=== PATIENT | male | born 1940 | race Caucasian/White ===

== ENCOUNTER 2016-08-06 13:44 | Outpatient (RCR) | payer MEDICARE, OTHER ==
[~2016-08-06 13:44] MED LIST: ACET-2267 PO; ACHYD1T PO; ASCO-262 PO; ASPI-875 PO; ASPI325T32 PO; FERR-57 PO; HYDR-2890 PO; HYDR-3820 PO; IPRA3AMP INH; LEVO250T7 PO; LOSA1TAB3 PO; METO-272 PO; MULT-1029 PO; MULT-974 PO; NEBU-113 MC; NITR-33 PO; OMG1KC PO; OXYC-465 PO; PANT40TA3 PO; PIOG15TA22 PO; PIOG15TA9 PO; PIOG1TAB PO; PIOGLITAZONE PO; PNT40TEC PO; POLY17PO23 PO; PRAV40TA PO; PRAV40TA2 PO; PRAV80TA2 PO; SENN-20 PO; SILD100T PO; SITA50TA PO
== END 2016-08-09 | disposition home or self-care (01) ==
PROVIDERS: ATTEND Family Medicine
DX: M51.36 Other intervertebral disc degeneration, lumbar region (principal)

== ENCOUNTER 2017-03-26 10:10 | Emergency (ER) | payer MEDICARE, OTHER ==
[~2017-03-26] VITALS: Ht 167.6 cm; Wt 81.6 kg
[~2017-03-26 10:10] MED LIST changes: -METO-272 PO; +METO-370 PO
[2017-03-26] MEDS ORDERED: TETANUS,DIPTH,PERTUSS P/F (BOOSTRIX) 0.5 ML VIAL IM STA (10:20)
--- NOTE | 2017-03-26 11:44 | Diagnostic Imaging Report ---
Clinical indication: Patient fell down hitting back of head while stepping off a curb. Exam: Head CT without IV contrast. Axial CT scan of the cervical spine with sagittal and coronal reformations. Comparison: None. Findings: Head CT: There is a small hyperdense subdural blood along the left convexity in the left frontal temporal region. There is no other areas of intracranial hemorrhage. There is focal and patchy areas of low-attenuation white matter changes throughout both cerebral hemispheres suspected to represent chronic small vessel ischemic disease. The brain parenchymal volume appears appropriate for patient's age. There is no hydrocephalus. There is no intraventricular hemorrhage. The basal cisterns are unremarkable. Extra cranial soft tissue, skull, and orbits are unremarkable. There is moderate mucus retention cyst in the left maxillary sinus. Temporal bone structures show no significant abnormality. Cervical spine: There is no acute cervical spine fracture or dislocation. Cervical spine has normal alignment. There is hypertrophic anterior vertebral body spurs at the C4-C7 levels which may be seen with DISH. It appears that these spurs may cause encroachment upon the posterior hypopharynx. There is bilateral facet arthropathy. There is at least moderate left C3-C4 bony neural foramen narrowing. There is suggestion of a diffuse disc bulges at the C2-C3, C3-C4, and C4-C5 levels with at least mild to moderate central canal narrowing. There is a large periodontal pannus with areas of calcification seen which cause severe central canal narrowing. 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 Impression: 1: There is small hyperdense left subdural hematoma. 2: Otherwise, there are age-related brain parenchymal changes with no other acute intracranial process. There is no skull fracture. 3: There is no acute cervical spine fracture or dislocation. 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 5: Hypertrophic vertebral body spurs seen from the C4-C7 levels which may be seen with DISH. These spurs may also possibly cause impression upon the posterior hypopharynx. Impression points 1,2 and [address] Darlene Jiménez via the telephone on 03/26/2017 at 1135 hrs. Dictated by: Dictated on workstation # [id number]
[2017-03-26 11:56] LABS: BASOPHILS # (AUTO) 0.1 10^3/uL (0.0-0.1); BASOPHILS % (AUTO) 1 % (0-10); EOSINOPHILS # (AUTO) 1.6 10^3/uL (0.0-0.3); EOSINOPHILS % (AUTO) 15 % (0-10); LYMPHOCYTES # (AUTO) 2.9 X 10^3 (1.0-4.0); LYMPHOCYTES % (AUTO) 27 % (12-44); MEAN CORPUSCULAR HEMOGLOBIN 30 PG (25-34); MEAN CORPUSCULAR HGB CONC 33 G/DL (32-36); MEAN CORPUSCULAR VOLUME 92 FL (80-99); MEAN PLATELET VOLUME 11.7 FL (7.4-10.4); MONOCYTES # (AUTO) 0.9 X 10^3 (0.0-1.0); MONOCYTES % (AUTO) 9 % (0-12); NEUTROPHILS # (AUTO) 5.2 X 10^3 (1.8-7.8); NEUTROPHILS % (AUTO) 49 % (42-75); PLATELET COUNT 212 10^3/uL (130-400); RED BLOOD COUNT 5.44 10^6/uL (4.35-5.85); RED CELL DISTRIBUTION WIDTH 14.2 % (10.0-14.5); WHITE BLOOD COUNT 10.7 10^3/uL (4.3-11.0)
[2017-03-26 12:00] LABS: INR 1.1 (0.8-1.4)
[2017-03-26 12:17] LABS: BAND NEUTROPHILS 0 %; BASOPHILS % (MANUAL) 0 %; EOSINOPHILS % (MANUAL) 21 %; LYMPHOCYTES % (MANUAL) 20 %; NEUTROPHILS % (MANUAL) 51 %
[2017-03-26 12:23] LABS: ALBUMIN 3.8 GM/DL (3.2-4.5); BILIRUBIN,TOTAL 0.6 MG/DL (0.1-1.0); CALCIUM 9.4 MG/DL (8.5-10.1); CREATININE SERUM 1.42 MG/DL (0.60-1.30); POTASSIUM 4.3 MMOL/L (3.6-5.0); TOTAL PROTEIN 6.8 GM/DL (6.4-8.2)
[2017-03-26 12:28] VITALS: BP 136/72
--- NOTE | 2017-03-30 18:37 | ED Fall/Injury ---
General Chief Complaint: Trauma-Non Activation Stated Complaint: FALL Nursing Triage Note: SEE NON-TRAUMA ACTIVATION Source: patient, EMS History of Present Illness Time seen by provider: 10:09 Initial Comments PT ARRIVES VIA EMS PT STATES HE WAS WALKING OUT OF [employer], AND STEPPED DOWN FROM CURB AND HIS KNEE GAVE OUT AND HE FELL PT STATES HE HAS BAD KNEES AND HAS HAD RIGHT TOTAL KNEE REPLACEMENT AND LEFT KNEE IS BAD AND NEEDS REPLACED AND FREQUENTLY HIS KNEES GIVE OUT PT STATES HE FELL AND HIT THE BACK OF HIS HEAD--HAS ABRASION TO RIGHT POSTERIOR SCALP NO LOSS OF CONSCIOUSNESS NO NECK OR BACK PAIN NO PARESTHESIAS OR MOTOR DEFICITS NO HEADACHE NO DIZZINESS NO VISION CHANGES NO NAUSEA/VOMITING Location Injury Occurred: [place] PCP: DR. KUO IN [place] Allergies and Home Medications Allergies Coded Allergies: No Known Drug Allergies (Unverified , 03/21/13) Home Medications Acetaminophen 500 Mg Tablet, 500-1,000 MG PO Q6H PRN for PAIN, (Reported) Aspirin 325 Mg Tablet., 325 MG PO BID, #60 Prescribed by: ANNE FLORES on 09/27/15 0729 Hydrocodone/Acetaminophen 1 Each Tablet, 1 EACH PO Q4H, #60 Prescribed by: ARSH FAIRBANKS on 10/05/15 1336 Ipratropium/Albuterol Sulfate 3 Ml Ampul.neb, 3 ML INH RTQ4HR, #150 Prescribed by: ARSH FAIRBANKS on 10/05/15 1336 Metoprolol Succinate 50 Mg Tab.er.24h, 50 MG PO DAILY, (Reported) LAST FILLED #30 12-30-15 Mu-Vits-Min Th/Lycopene/Lutein 1 Each Tablet, 1 TAB PO DAILY, (Reported) Pantoprazole Sodium 40 Mg Tablet.dr, 40 MG PO DAILY, (Reported) LAST FILLED #30 12-30-15 Pioglitazone HCl 15 Mg Tablet, 15 MG PO DAILY, (Reported) Polyethylene Glycol 3350 17 Gm Powd.pack, 17 GM PO HS, #30 Prescribed by: ARSH FAIRBANKS on 10/05/15 1336 Pravastatin Sodium 40 Mg Tablet, 40 MG PO HS, (Reported) LAST FILLED #30 12-30-15 Sennosides/Docusate Sodium 1 Each Tablet, 1 EA PO BID, #60 Prescribed by: ANNE FLORES on 09/27/15 0729 Sitagliptin Phosphate 50 Mg Tablet, 50 MG PO DAILY, (Reported) Constitutional: no symptoms reported Eyes: No Symptoms Reported Ears, Nose, Mouth, Throat: no symptoms reported Respiratory: cough, other (HAS COPD AND CONTINUES TO SMOKE) Cardiovascular: no symptoms reported Gastrointestinal: no symptoms reported Genitourinary: no symptoms reported Musculoskeletal: see HPI Skin: see HPI Psychiatric/Neurological: No Symptoms Reported, Denies Headache, Denies Numbness, Denies Paresthesia, Denies Seizure, Denies Tingling, Denies Tremors, Denies Weakness Past Velirvt-Zmqjhg-Cuuzyb Hx Patient Social History Alcohol Use: Denies Use Recreational Drug Use: No Smoking Status: Current Everyday Smoker (1 PPD) Type Used: Cigarettes Recent Foreign Travel: No Contact w/Someone Who Travel: No Recent Infectious Disease Expo: No Recent Hopitalizations: No Physical Abuse: No Sexual Abuse: No Immunizations Up To Date Tetanus Booster (TDap): Unknown Date of Pneumonia Vaccine: Jun 09, 2015 Date of Influenza Vaccine: Jun 09, 2015 Surgeries History of Surgeries: Yes (Back X2, RIGHT TOTAL KNEE 09/24/15) Surgeries: Joint Replacement, Orthopedic Respiratory History of Respiratory Disorde: Yes (Tobaccoism) Respiratory Disorders: COPD Currently Using CPAP: No Currently Using BIPAP: No Cardiovascular History of Cardiac Disorders: Yes Cardiac Disorders: Hypertension Neurological History of Neurological Disord: No Reproductive System Hx Reproductive Disorders: No Genitourinary History of Genitourinary Disor: Yes Genitourinary Disorders: Kidney Stones, Renal Failure Gastrointestinal History of Gastrointestinal Di: Yes (BLEEDING ULCERS IN PAST) Gastrointestinal Disorders: Gastrointestinal Bleed, Diverticulosis, Ulcer Musculoskeletal History of Musculoskeletal Dis: Yes (RIGHT TOTAL KNEE 09/24/15; RIGHT HAND/WRIST /FOREARM FX AND DEFORMITY) Musculoskeletal Disorders: Arthritis, Back Injury, Fractures Endocrine History of Endocrine Disorders: Yes Endocrine Disorders: Diabetes, Non-Insulin dep Cancer History of Cancer: No Psychosocial History of Psychiatric Problem: No Suicide Risk Score: 0 Integumentary History of Skin or Integumenta: Yes Skin/Integumentary Disorders: Pruritis Blood Transfusions History of Blood Disorders: No Adverse Reaction to a Blood Tr: No Family Medical History Significant Family History: Cancer Family Medial History: Alcoholism 09 BROTHER Cancer 03 FATHER, Onset:Unknown (bronchial) Cataracts 09 SISTER Family history: Diabetes mellitus Family history: Hypertension 03 MOTHER Myocardial infarction 03 MOTHER Respiratory disorder 09 BROTHER Stroke 09 SISTER No Family History of: Dementia Family history: Alzheimer's disease Physical Exam Vital Signs Vital Sign - Last 12Hours 03/26/17 10:10 Temp 97.6 Pulse 83 Resp 18 B/P (MAP) 137/81 Pulse Ox 95 O2 Delivery Nasal Cannula Capillary Refill : Less Than 3 Seconds General Appearance: WD/WN, no apparent distress HEENT: PERRL/EOMI, normal ENT inspection, TMs normal, pharynx normal, other ( MINOR ABRASION TO RIGHT POSTERIOR SCALP, NO ACTIVE BLEEDING FROM WOUND) Neck: tender lateral, tender midline Cardiovascular: regular rate, rhythm Respiratory: chest non-tender, normal breath sounds Gastrointestinal: normal bowel sounds, non tender, soft Back: normal inspection, no CVA tenderness, no vertebral tenderness Extremities: normal range of motion, no pedal edema, no calf tenderness, normal capillary refill Neurologic/Psychiatric: planning associate II-XII nml as tested, no motor/sensory deficits, alert, normal mood/affect, oriented x 3 Skin: normal color, warm/dry, other (SCALP ABRASION) [place] Coma Score Best Eye Response: (4) Open Spontaneously Best Verbal Response: (5) Oriented Best Motor Response: (6) Obeys Commands Jacqueline Total: 15 Progress/Results/Core Measures Results/Orders Lab Results Laboratory Tests Test 03/26/17 10:10 Range/Units White Blood Count 10.7 4.3-11.0 10^3/uL Red Blood Count 5.44 4.35-5.85 10^6/uL Hemoglobin 16.5 13.3-17.7 G/DL Hematocrit 50 40-54 % Mean Corpuscular Volume 92 80-99 FL Mean Corpuscular Hemoglobin 30 25-34 PG Mean Corpuscular Hemoglobin Concent 33 32-36 G/DL Red Cell Distribution Width 14.2 10.0-14.5 % Platelet Count 212 130-400 10^3/uL Mean Platelet Volume 11.7 H 7.4-10.4 FL Neutrophils (%) (Auto) 49 42-75 % Lymphocytes (%) (Auto) 27 12-44 % Monocytes (%) (Auto) 9 0-12 % Eosinophils (%) (Auto) 15 H 0-10 % Basophils (%) (Auto) 1 0-10 % Neutrophils # (Auto) 5.2 1.8-7.8 X 10^3 Lymphocytes # (Auto) 2.9 1.0-4.0 X 10^3 Monocytes # (Auto) 0.9 0.0-1.0 X 10^3 Eosinophils # (Auto) 1.6 H 0.0-0.3 10^3/uL Basophils # (Auto) 0.1 0.0-0.1 10^3/uL Neutrophils % (Manual) 51 % Lymphocytes % (Manual) 20 % Monocytes % (Manual) 8 % Eosinophils % (Manual) 21 % Basophils % (Manual) 0 % Band Neutrophils 0 % Blood Morphology Comment NORMAL Prothrombin Time 14.0 12.2-14.7 SEC INR Comment 1.1 0.8-1.4 Activated Partial Thromboplast Time 35 24-35 SEC Sodium Level 141 135-145 MMOL/L Potassium Level 4.3 3.6-5.0 MMOL/L Chloride Level 102 98-107 MMOL/L Carbon Dioxide Level 26 21-32 MMOL/L Anion Gap 13 5-14 MMOL/L Blood Urea Nitrogen 19 H 7-18 MG/DL Creatinine 1.42 H 0.60-1.30 MG/DL Estimat Glomerular Filtration Rate 49 BUN/Creatinine Ratio 13 Glucose Level 144 H 70-105 MG/DL Calcium Level 9.4 8.5-10.1 MG/DL Total Bilirubin 0.6 0.1-1.0 MG/DL Aspartate Amino Transf (AST/SGOT) 22 5-34 U/L Alanine Aminotransferase (ALT/SGPT) 19 0-55 U/L Alkaline Phosphatase 62 40-136 U/L Total Protein 6.8 6.4-8.2 GM/DL Albumin 3.8 3.2-4.5 GM/DL My Orders Orders - SOFY SALAZAR DO Ct Head/Cervical Spine Wo (03/26/17 10:20) Dipht,Pertuss(Acell),Tet Adult (Boostrix (03/26/17 10:20) Cervical Collar (03/26/17 10:22) Saline Lock/Iv-Start (03/26/17 11:48) Cbc With Automated Diff (03/26/17 11:48) Comprehensive Metabolic Panel (03/26/17 11:48) Protime With Inr (03/26/17 11:48) Partial Thromboplastin Time (03/26/17 11:48) Manual Differential (03/26/17 10:10) Vaccine Administration Single (03/26/17 ) Vital Signs/I&O Vital Sign - Last 12Hours 03/26/17 03/26/17 10:10 12:28 Temp 97.6 Pulse 83 52 Resp 18 18 B/P (MAP) 137/81 Pulse Ox 95 95 O2 Delivery Nasal Cannula Blood Pressure Mean: 99 Progress Note : Progress Note NO DETERIORATION IN PT'S CONDITION DURING ER STAY Diagnostic Imaging Comments CT HEAD/CERVICAL SPINE--SMALL LEFT SUBDURAL HEMATOMA, NO CERVICAL SPINE INJURY-- PER RADIOLOGIST REPORT @ 1133 Reviewed: Reviewed by Me Departure Communication Progress Notes 1135--SPOKE WITH DR. LEACH, TRAUMA SURGEON [facility]MIST, HE ADVISES TRANSFER TO NEUROSURGEON 1139--CONTACTED [facility] DIRECT CALL. SPOKE WITH DR. RIVERA, NEUROSURGEON, ACCEPTS PT FOR ADMIT/TRANSFER. Impression Impression: Primary Impression: ACUTE TRAUMATIC SUBDURAL HEMATOMA Additional Impressions: Scalp abrasion Qtcqvitduu-iscggzgqb-bihdtpt (DPT) vaccination administered at current visit Disposition: XFER SHT-TRM HOSP Condition: Stable Transfer Transfer Facility: [facility] Method of Transfer: EMS Departure-Patient Inst. Referrals: ARSH FAIRBANKS DO (PCP) Primary Care Physician SOFY SALAZAR DO Mar 30, 2017 18:37
[2017-04-15] MEDS ORDERED: BACI28.4 TOP (08:34)
[2017-04-15] MEDS ORDERED: NICO-587 TD (08:34)
[2017-04-15] MEDS ORDERED: PANT40TA3 PO (08:34)
[2017-04-15] MEDS ORDERED: ACET-77 PO (08:34)
[2017-04-15] MEDS ORDERED: DOCU100C37 PO (08:34)
== END 2017-03-26 12:30 | disposition short-term general hospital (02) ==
LOC: EDUNIT# 10:10 → ER 10:12
DX: S00.81XA Abrasion of other part of head, initial encounter (principal); M54.2 Cervicalgia; W18.30XA Fall on same level, unspecified, initial encounter; Y92.511 Restaurant or cafe as the place of occurrence of the external cause
CPT/HCPCS: 36415; 70450; 72125; 80053; 85007; 85027; 85610; 85730; 90471; 90715

== ENCOUNTER 2017-04-01 10:39 | Inpatient (IN) | payer MEDICARE, OTHER ==
[~2017-04-01] VITALS: Ht 167.6 cm; Wt 80.7 kg
[2017-04-01] MEDS ORDERED: HYDROcodone/APAP 5 MG/325 MG (LORTAB) TAB PO PRN (15:00)
--- NOTE | 2017-04-01 15:03 | ST Cognitive Linguistic Eval ---
Speech Evaluation-General Medical Diagnosis Subdural Hematoma, C1 Laminectomy Onset Date: Mar 29, 2017 Therapy Diagnosis Therapy Diagnosis: Mild Cognitive Impairment Precautions Precautions/Isolations: Fall Prevention, Standard Precautions, Pressure Ulcer Referral Referring Physician: Dr. Toi Haines Reason for Referral: Evaluation/Treatment Cognitive Evaluation Medical History Pertinent Medical History: COPD, DM, GERD, HTN, OA, Smoking Reviewed History: Yes Social History Home: Single Level (Three steps to enter.) Current Living Status: Alone Speech PLF-Current Status Prior Level of Function The patient denied challenges with speech, language, or cognition prior to admission. Subjective The patient was recently admitted to [facility] following a fall which resulted in a subdural hematoma. Upon admission to an outside facility, it was deemed necessary to complete a C1 laminectomy. The patient greeted the clinician appropriately and was agreeable to initiation of a cognitive assessment. Language Eval: Auditory Comprehends Simple Yes/No Ques: Functional Indent/Objects Multiple Sanchez: Functional Ident/Pics in Multiple Sanchez: Functional Follows 1-Step Commands: Functional Follows Complex Directions: Mild (Intermittent repetition required, however, appeared secondary to the patient's reduced hearing.) Language Eval: Verbal Language Completes Spontaneous Greeting: Functional Produces Auto, Serial Info: Functional Imitates Simple Words/Phrases: Functional Word Finding: Mild Requests Basic Needs: Functional States Basic Personal Info: Mild (Redirection required.) Cognitive Patient Orientation The patient was oriented to month, day of week, year, and location. Objective Cognitive Domain Attention: Mild Memory: Mild Problem Solving: Mild Objective Impression Due to the necessity for consistent redirection, the presence of a subdural hematoma, and the patient's age, a standard cognitive evaluation will be continued. A complete cognitive evaluation was not completed on this date due the patient's tangential thought processes and continued redirection to task. The cognitive evaluation will be reintroduced and completed on the subsequent date, 04/02/2017. At this time, the patient appears to have a minimal to mild cognitive impairment in the areas of attention, memory, and executive function. Further details to follow after full assessment. Speech Dry Charge Process Attendant Goals Assisted Goals 1. The patient will complete a full, standardized cognitive assessment. - Following the assessment, accurate FIM scores will be recorded, as well as, appropriate short-term goals. Time Frame: One Week Speech-Plan Treatment Plan Speech Therapy Treatment Plan: Continue Plan of Care Continue skilled speech pathology treatment to target cognitive impairments noted throughout the initial cognitive assessment. Frequency: Modified Program (IRF) Estimated Hrs Per Day: .25 hour per day Rehab Potential: Good Safety Risks/Education Teaching Recipient: Patient Teaching Methods: Discussion Response to Teaching: Verbalize Understanding Education Topics Provided: Plan of Care, Results, Recommendations Time Speech Therapy Time In: 14:05 Speech Therapy Time Out: 14:35 Total Billed Time: 30 Billed Treatment Time 1, ZULMA MALLOY Apr 01, 2017 15:03
--- NOTE | 2017-04-01 15:53 | Occupational Therapy Eval ---
OT Evaluation-General/PLF Medical Diagnosis Admission Date Apr 01, 2017 at 13:30 Medical Diagnosis: Subdural Hematoma, C1 Laminectomy Onset Date: Mar 26, 2017 Therapy Diagnosis Therapy Diagnosis: weakness, dec self care, decr funct mobility, decr act tolerance Height/Weight Height (Feet): 5 Height (Inches): 6.00 Weight (Pounds): 180 Weight (Ounces): 0.2 Precautions Precautions/Isolations: Fall Prevention, Standard Precautions, Pressure Ulcer Referral Physician: Zaki Referral Reason: Evaluation/Treatment Medical History Pertinent Medical History: COPD, DM, GERD, HTN, OA, Smoking Additional Medical History 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 Carpal tunnel problems Current History Fell outside cafe and brought to ED. Dx subdural hematoma and transferred to [place]. 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 He reported that his pain level was low -1-2/10 and he did not describe it. In incisional area Appearance Alert, cooperative Current Glasses/Contacts: Yes Hearing Aids: No Dentures/Partials: Yes Hand Dominance: Right Upper Extremity ROM Grossly WFL except R shoulder limited to approx 30 degr flex/abd. Prior - IRF eval in Sep 2015 shows R sh flex/abd limited to about 80 degrees Upper Extremity Coordination Impaired Upper Extremity Strength Grossly 4/5 R UE except shoulder limited from old injury. L grossly 4/5. Pt reported he is stronger in his ring and little fingers ADL-Treatment ADL-Current Toilet transfer mod assist per PT. BSC provided to patient to raise toilet surface and to have arms for pushing off. Functional [place] Measure 0=Not Assessed/NA 4=Minimal Assistance 1=Total Assistance 5=Supervision or Setup 2=Maximal Assistance 6=Modified [place] 3=Moderate Assistance 7=Complete IndependenceIRFPAI Quality Coding Scale 6 Independent with activity with or without an assistive device 5 Patient requires set up or clean up by helper. Patient completes activity by themselves 4 Supervision or touching assist (CGA). [place] provide cues , steadying assist 3 The helper provides less than half the effort to complete the activity 2 The helper provides more than half the effort to complete the activity 1 Dependent. The helper does all the effort to complete an activity 7 Patient refused to complete or attempt activity 9 The patient did not perform the activity before the current illness or injury 88 Not attempted due to Medical conditions or safety concerns Education OT Patient Education: Purpose of tx/functional activities, Rehab process, Use of adapted equipment Teaching Recipient: Patient Teaching Methods: Discussion Response to Teaching: Verbalize Understanding OT Short Term Goals Short Term Goals Time Frame: Apr 09, 2017 Toilet/Commode Transfer(FIM): 4 Additional Short Term Goals: 2-Verbalize Understanding, 3-ImproveStrength/Karli 1=Demonstrate adherence to instructed precautions during ADL tasks. 2=Patient will verbalize/demonstrate understanding of assistive devices/ modifications for ADL. 3=Patient will improve strength/tolerance for activity to enable patient to perform ADL's. OT Assurance Senior Goals Assurance Senior Goals Time Frame: Apr 23, 2017 Eating (FIM): 6 Eating (QC): 6 Groomin Oral Hygiene (QC): 6 Bathing(FIM): 6 Shower/Bathe Self (QC): 6 Upper Body Dressing(FIM): 6 Upper Body Dressing (QC): 6 Lower Body Dressing(FIM): 6 Lower Body Dressing (QC): 6 On/Off Footwear (QC): 6 Toileting(FIM): 6 Toileting Hygiene (QC): 6 Toilet/Commode Transfer(FIM): 6 Toilet/Commode Transfer (QC): 6 Shower Transfer(FIM): 6 Additional Goals: 2-Verbalize Understanding, 3-ImproveStrength/Karli 1=Demonstrate adherence to instructed precautions during ADL tasks. 2=Patient will verbalize/demonstrate understanding of assistive devices/ modifications for ADL. 3=Patient will improve strength/tolerance for activity to enable patient to perform ADL's. OT Education/Plan Problem List/Assessment Assessment: Decreased UE Strength, Dependent Transfers, Impaired Funct Balance , Impaired Self-Care Skills, Restricted Funct UE ROM Pt would benefit from skilled OT to increase his independence in basic self care to allow him to safely return to his home and to decrease caregiver burden. Discharge Recommendations Plan/Recommendations: Continue POC Treatment Plan/Plan of Care Treatment,Training & Education: Yes Patient would benefit from OT for education, treatment and training to promote independence in ADL's, mobility, safety and/or upper extremity function for ADL' s. Plan of Care: ADL Retraining, Functional Mobility, Group Exercise/Act as Ind ( educ, exercise, memory, activ tolerance, socialization), UE Funct Exercise/Act, UE Neuromus Re-Ed/Coord Treatment Duration: Apr 23, 2017 Frequency: At least 5-7 days/Wk (IRF) Estimated Hrs Per Day: 1.5 hours per day Agreement: Yes Rehab Potential: Good Time/GCodes Start Time: 15:00 Stop Time: 15:35 Total Time Billed (hr/min): 35 Billed Treatment Time visit, evaluation moderate intensity 35 minutes JASON RAYGOZA OT Apr 01, 2017 15:53
[2017-04-01] MEDS ORDERED: MULT-166 PO (16:00)
[2017-04-01] MEDS ORDERED: LOSA50TA36 PO (16:00)
[2017-04-01] MEDS ORDERED: ASPI325T32 PO (16:00)
--- NOTE | 2017-04-01 16:16 | Physical Therapy Evaluation ---
PT Evaluation-General Medical Diagnosis Admission Date Apr 01, 2017 at 13:30 Medical Diagnosis: Subdural Hematoma, C1 Laminectomy Onset Date: Mar 26, 2017 Therapy Diagnosis Therapy Diagnosis: weakness and mobility impairments Height/Weight Height (Feet): 5 Height (Inches): 6.00 Weight (Pounds): 180 Weight (Ounces): 0.2 Precautions Precautions/Isolations: Fall Prevention, Standard Precautions, Pressure Ulcer Referral Physician: Zaki Reason for Referral: Evaluation/Treatment Medical History Pertinent Medical History: COPD, DM, GERD, HTN, OA, Smoking Additional Medical History R knee replacement 09/24, R shoulder injury Current History Pt was admitted 03/26 following traumatic fall, 03/29 had C1 laminectomy following C1 subluxation, secondary stenosis, cervical myelopathy Reviewed History: Yes Social History Home: Single Level Current Living Status: Alone Entry Into Home: Stairs With Railing PT Steps Into Home: 3 PT Steps Inside Home: 0 Prior/Core FIM Prior Level of Function Functional Rickman Measure 0=Not Assessed/NA 4=Minimal Assistance 1=Total Assistance 5=Supervision or Setup 2=Maximal Assistance 6=Modified Rickman 3=Moderate Assistance 7=Complete Rickman Bed Mobility: 7 Transfers (B,C,W/C) (FIM): 7 Gait: 6 (cane for ambulation) Locomotion: 7 Pt was driving and independent with all mobility. Pt has friend in town who helps with laundry and cooking when needed. Pt also has family in town. PT Evaluation-Current Subjective Pt was seated in recliner prior to tx and agreeable to PT. Pain Numeric Pain Scale: 0-No Pain Location: No Pain Reported Pt/Family Goals Pt goal is to return home with independence in all mobility. Objective Patient Orientation: Normal For Age Problem Solving: Fair ROM/Strength ROM Upper Extremities Right UE is limited in AROM. Can't flex right shoulder > 15 degrees. Left UE is WNL. ROM Lower Extremities WFL Strength Upper Extremities Right Shoulder 2/5, Elbow flexion 4/5, Elbow extension 4/5, fishing gear mechanic 4-/5. Left shoulder 5/5, elbow flexion 5/5, elbow extension 5/5, fishing gear mechanic 5/5. Strenght Lower Extremities Right Hip flexion 4-/5, knee flexion 4-/5, knee extension 4-/5, dorsiflexion 2/ 5. Left Hip flexion 5/5, knee flexion 5/5, knee extension 5/5, dorsiflexion 5/5. Integumentary/Posture Integumentary Refer to nursing note. Bowel Incontinence: No Bladder Incontinence: No Neuromuscular (Tone, Coordination, Reflexes) Not tested. Sensory Vision: Functional Hearing: Functional Hand Dominance: Right Sensation Up. Extremities Not tested. Sensation Lower Extremities Not tested. Transfers Functional Rickman Measure 0=Not Assessed/NA 4=Minimal Assistance 1=Total Assistance 5=Supervision or Setup 2=Maximal Assistance 6=Modified Rickman 3=Moderate Assistance 7=Complete IndependenceIRFPAI Quality Coding Scale 6 Independent with activity with or without an assistive device 5 Patient requires set up or clean up by helper. Patient completes activity by themselves 4 Supervision or touching assist (CGA). [place] provide cues , steadying assist 3 The helper provides less than half the effort to complete the activity 2 The helper provides more than half the effort to complete the activity 1 Dependent. The helper does all the effort to complete an activity 7 Patient refused to complete or attempt activity 9 The patient did not perform the activity before the current illness or injury 88 Not attempted due to Medical conditions or safety concerns Transfers (B, C, W/C) (FIM): 3 Scootin Rollin Roll Left to Right (QC): 4 Supine to/from Sit: 5 Sit to/from Stand: 3 Sit to Lying (QC): 4 Lying to Sitting/Side of Bed(Q: 4 Sit to Stand (QC): 2 Chair/Jyo-nf-Nwims Xfer(QC): 2 Car Transfer (QC): 4 Pt requires mod assist with sit to stand transfers and verbal cues for safety on hand and walker placement. Pt completes bed mobility with SBA for safety. Gait Does the Patient Walk?: Yes Mode of Locomotion: Walk Anticipated Mode of Locomotion: Walk Gait (FIM): 2 Distance (FIM): 1=up to 49 ft Walk 10 feet (QC): 3 Walk 50 ft with 2 Turns(QC): 88 Walk 150 ft (QC): 88 Walking 10ft/uneven surface-QC: 2 Distance: 25' Gait Level of Assist: 3 Gait Persons Needed: 1 Gait Assistive Device: FWW Comments/Gait Description Pt ambulates with FWW and min assist for safety. Pt requires mod assist and verbal cues for walking on uneven surfaces. Wheelchair Training Does the Pt Use a Wheelchair?: No Stairs Stairs (FIM): 2 #of Steps: 1 Level of Assist: 3 1 Step (curb) (QC): 2 4 Steps (QC): 88 Assistive Device: Walker 12 Steps (QC): 88 Pt completed one step with mod assist and FWW. Pt requires verbal cues for safety. Balance Sitting Static: Good Sitting Dynamic: Fair Standing Static: Poor Standing Dynamic: Poor Assessment/Needs Pt had Right UE weakness in the past, reports it is weaker after surgery on . Pt has knee brace for right knee. Pt had several LOB with gait and stairs and required PT to use gait belt for stability. Rehab Potential: Good PT Short Term Goals Short Term Goals Time Frame: Apr 08, 2017 Transfers (B,C,W/C) (FIM): 4 (CGA) Gait (FIM): 4 Distance (FIM): 3=150 ft Gait Distance Comment: 150' Gait Level of Assist: 4 (CGA) Gait Assistive Device: FWW PT Long-Term Goals Long-Term Goals PT Storm Window Installer Goals Time Frame: Apr 29, 2017 Transfers (B,C,W/C) (FIM): 6 Sit to Lying (QC): 6 Lying-Sitting on Side/Bed(QC): 6 Sit to Stand (QC): 6 Rollin Roll Left to Right (QC): 6 Chair/Ede-es-Bhxjc Xfer(QC): 6 Car Transfer (QC): 5 Does the Patient Walk: Yes Gait (FIM): 6 Gait distance (FIM): 3=150 ft Distance: 300' Walk 10 feet (QC): 6 Walk 10ft-Uneven Surface(QC): 6 Walk 50ft with 2 Turns (QC): 6 Walk 150 ft (QC): 6 Gait Level of Assist: 6 Gait Assistive Device: FWW Stairs (FIM): 5 (household) # of Steps: 8 1 Step (curb) (QC): 6 4 Steps (QC): 6 Stairs Level Of Assist: 6 PT Plan Problem List Problem List: Activity Tolerance, Functional Strength, Safety, Balance, Gait, Transfer, Bed Mobility, ROM Treatment/Plan Treatment Plan: Continue Plan of Care Treatment Plan: Bed Mobility, Education, Functional Activity Karli, Functional Strength, Group Therapy, Gait, Safety, Therapeutic Exercise, Transfers Treatment Duration: Apr 29, 2017 Frequency: At least 5-7 days/Wk (IRF) Estimated Hrs Per Day: 1.5 hours per day Patient and/or Family Agrees t: Yes Safety Risks/Education Patient Education: Gait Training, Transfer Techniques, Steps, Reviewed Precautions, Correct Positioning, Safety Issues Teaching Recipient: Patient Teaching Methods: Demonstration, Discussion Response to Teaching: Verbalize Understanding, Reinforcement Needed Discharge Recommendations Therapy D/C Recommendations: Home w/ Family Support, Physical Therapy Home Care Time/GCodes Time In: 1535 Time Out: 1620 Total Billed Treatment Time: 45 Total Billed Treatment 1 visit 15 EVL 15 GT 15 FA RYAN TRAVIS PT Apr 01, 2017 16:16
--- NOTE | 2017-04-01 17:12 | PM&R Post Admission Assessment ---
Post Admission Physician Asses The preadmission screen agrees with the post admission assessment that the patient is a good candidate for inpatient rehabilitation. The patient will have a comprehensive program of inpatient rehabilitation with a goal of maximizing level of functional independence prior to discharge home with [facility]. The patient will have PT/OT ninety minutes per day, each discipline , five days a week for gait, strengthening, conditioning, balance, ADLs, any patient/family/caregiver training as necessary. Speech therapy to do cognitive assessment and treat as indicated. Rehabilitation nursing to assist with bowel, bladder, skin, wound care, medication administration, pain management. Telecommunications Clerk to assist with discharge planning, community reentry. SCD's for DVT prophylaxis. He appears to be well motivated to participate in three hours of therapy a day. He should be able to tolerate three hours of therapy a day from a medical and surgical standpoint. He should benefit from the three hours of therapy a day. He has a reasonable discharge plan, reasonable discharge rehabilitation goals and a supportive family. He has various comorbidities that need to be closely monitored with medications and treatments adjusted on a daily basis as needed. These include: DM COPD HTN SDH s/p fall Barriers to discharge for this patient who had been independent prior to this are for him to be modified independent to supervision for ADLs and mobility skills prior to discharge home with HHC and family, so as to lessen the burden of the caregivers. Risks for this patient include: 1. Fall 2. Fracture 3. DVT 4. Pulmonary embolism 5. Wound infection 6. Skin breakdown 7. Contractures 8. Poorly controlled pain 9. Urinary retention 10. UTI 11. Respiratory infection 12. Aspiration 13. Poorly controlled DM 14. Poorly controlledHTN Estimated Length of Stay: 14 days Prognosis: Rehab prognosis appears good for goal of discharge home with family and HHC modified independent to supervision for ADLs and mobility skills. SARI CORRALES MD Apr 01, 2017 17:12
--- NOTE | 2017-04-01 19:07 | HISTORY AND PHYSICAL ---
DATE OF SERVICE: 04/01/2017 CHIEF COMPLAINT: Difficulty with walking. HISTORY OF PRESENT ILLNESS: The patient is a 76-year-old male who had been living at home in [facility] and was independent with a single point cane. He was driving and taking care of household tasks. He fell outside of a restaurant in [place] and was assessed at [facility] ED in [place] where a subdural hematoma was noted. He was transferred to [facility] for neurosurgical evaluation. Dr. May of neurosurgery felt that this was minor and should resolve with nonsurgical treatment. He did, however, note on imaging studies of the cervical spine that there was severe cervical spine stenosis due to C1 subluxation resulting in cord compression with resulting myelopathy. The patient underwent decompressive surgery with Dr. May. The patient has a soft cervical collar on when up for comfort. He is now referred to inpatient rehabilitation unit for ongoing therapies and care. His PCP is Dr. Palacios. The patient reports pain at the incision site. He rates it as a 2 at rest and is utilizing hydrocodone for pain control. He has been on the rehab unit in the past, specifically 09/2015, following a right total knee replacement and did well with this. His orthopedist is Dr. Abbott. It has been noted that his right knee hyperextends at times and he has a right knee brace on, which he indicates that he just obtained recently. 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 PAST SURGICAL HISTORY: L4-L5 discectomy and cervical spine surgery as per above. ALLERGIES: No known medication allergies. FAMILY HISTORY: Noncontributory. SOCIAL HISTORY: Prior level of function as per above. Lives in [place], [place]. PCP, Dr. Palacios. He lives alone. He is a . REVIEW OF SYSTEMS: Ten point review of systems is significant for a fall, right knee instability, weakness in arms, right more than left. He is right-handed but has longstanding weakness from injury as per above in the right upper limb. Incisional posterior neck pain. MEDICATIONS: ASA 325 mg p.o. daily, Cozaar 50 mg p.o. daily, Januvia 50 mg p.o. daily, Toprol XL 50 mg p.o. daily, Protonix 40 mg p.o. daily, Actos 15 mg p.o. daily, multivitamins with minerals 1 tablet p.o. daily, Colace 100 mg p.o. b.i.d., Lipitor 40 mg p.o. each day at bedtime, bacitracin apply to affected area q. 48 hours, hydrocodone/APAP 5 one tablet p.o. q.4 hours p.r.n. moderate pain. PHYSICAL EXAMINATION: Significant for a pleasant male appearing stated age. Alert and oriented, no acute distress. VITAL SIGNS: Within normal limits. He is afebrile. Accu-Chek 129 at 1638 hours. HEENT: He has mild hearing loss. Vision and speech grossly intact. No oral lesions noted. NECK: In soft cervical collar. Island dressing over posterior neck incision. HEART: Regular rhythm. LUNGS: Clear. ABDOMEN: Soft, nontender. Bowel sounds present. MUSCULOSKELETAL: Strength right upper limb 4/5 except shoulder is limited from old injury. Left upper limb grossly 4/5. He has decreased fly finisher strength on the right as compared to the left. Functional fly finisher strength on the left. Upper limb coordination is mildly impaired. NEUROLOGICAL: Cognition grossly intact. Strength lower extremities, right hip flexion 4-/5, as well as knee flexion, knee extension, dorsiflexion is 2/5, left hip flexion 5/5, knee flexion 5/5, knee extension 5/5, dorsiflexion 5/5. He is reportedly continent of bowel and bladder. IMPRESSION: 1. Ambulatory dysfunction secondary to fall with resulting small subdural hematoma, treated nonsurgically, and a C1 laminectomy following C1 subluxation causing secondary stenosis and cervical myelopathy. Dr. May, neurosurgery, improving. 2. Osteoarthritis, status post right total knee replacement. 3. COPD, associated with tobaccoism. 4. Insulin dependent diabetes mellitus. 5. Status post L4-L5 discectomy for back pain. 6. Prior Worker's Comp injury involving plexopathy with weakness right upper limb. 7. Diabetic peripheral neuropathy. PLAN: The patient will have a comprehensive program of inpatient rehabilitation with goal of maximizing level of functional independence prior to discharge home with home health care. The patient will have PT, OT 90 minutes per day, each discipline 5 days a week for gait, strengthening, conditioning, balance, ADLs, any patient and family caregiver training as necessary, any adaptive equipment and training as necessary. Speech therapy to do to cognitive assessment, treat as indicated 3 to 5 times a week for 1 to 2 weeks Appreciate their assessment. Rehabilitation nursing to assist with bowel, bladder, skin, wound care, medication administration, pain management. director of consulting services to assist with discharge planning, community reentry. Follow-up with Dr. Palacios, PCP, as per her schedule. Monitor Accu-Cheks and adjust medications as appropriate. Pain management. ESTIMATED LENGTH OF STAY: 2 weeks. PROGNOSIS: Rehab prognosis appears good for goal of discharging to home, modified independent to supervision for ADLs and mobility skills. DIET: Carb consistent. CODE STATUS: Full code. Job ID: [id number] DocumentID: [id number] Dictated Date: 04/01/2017 17:04:05 Component Assembler Supervisor Date: 04/01/2017 19:06:22 Dictated By: SARI CORRALES MD [facility]
[2017-04-01 19:18] VITALS: BP 126/87
[2017-04-01] MEDS: DOCUSATE SODIUM 100 MG (COLACE) CAP PO SCH (20:03)
[2017-04-01] MEDS: ATORVASTATIN 40 MG (LIPITOR) TABLET PO SCH (20:03)
[2017-04-02 05:31] LABS: BASOPHILS % (AUTO) 0 % (0-10); EOSINOPHILS # (AUTO) 2.2 10^3/uL (0.0-0.3); EOSINOPHILS % (AUTO) 17 % (0-10); LYMPHOCYTES % (AUTO) 22 % (12-44); MEAN CORPUSCULAR HEMOGLOBIN 31 PG (25-34); MEAN CORPUSCULAR HGB CONC 34 G/DL (32-36); MEAN CORPUSCULAR VOLUME 90 FL (80-99); MEAN PLATELET VOLUME 11.7 FL (7.4-10.4); MONOCYTES # (AUTO) 1.2 X 10^3 (0.0-1.0); MONOCYTES % (AUTO) 9 % (0-12); NEUTROPHILS # (AUTO) 6.8 X 10^3 (1.8-7.8); NEUTROPHILS % (AUTO) 51 % (42-75); PLATELET COUNT 180 10^3/uL (130-400); RED BLOOD COUNT 5.22 10^6/uL (4.35-5.85); RED CELL DISTRIBUTION WIDTH 13.6 % (10.0-14.5); WHITE BLOOD COUNT 13.3 10^3/uL (4.3-11.0)
[2017-04-02 05:34] VITALS: BP 115/76
[2017-04-02 05:49] LABS: ALANINE AMINOTRANSFERASE 14 U/L (0-55); ALBUMIN 3.1 GM/DL (3.2-4.5); ANION GAP 10 MMOL/L (5-14); ASPARTATE AMINO TRANSFERASE 16 U/L (5-34); BILIRUBIN,TOTAL 0.8 MG/DL (0.1-1.0); BLOOD UREA NITROGEN 23 MG/DL (7-18); BUN/CREATININE RATIO 25; CALCIUM 8.9 MG/DL (8.5-10.1); CARBON DIOXIDE 29 MMOL/L (21-32); CHLORIDE 102 MMOL/L (98-107); CREATININE SERUM 0.92 MG/DL (0.60-1.30); GFR ESTIMATED > 60; GLUCOSE 106 MG/DL (70-105); POTASSIUM 3.6 MMOL/L (3.6-5.0); SODIUM 141 MMOL/L (135-145); TOTAL PROTEIN 5.6 GM/DL (6.4-8.2)
[2017-04-02] MEDS: PANTOPRAZOLE 40 MG (PROTONIX) TAB PO SCH (06:18)
[2017-04-02] MEDS: MULTIVIT W/MINERALS TAB (THERAGRAN M) PO SCH (06:18)
[2017-04-02] MEDS: PIOGLITAZONE 30MG (ACTOS) TAB PO SCH (06:18)
[2017-04-02] MEDS: DOCUSATE SODIUM 100 MG (COLACE) CAP PO SCH ×2 (07:51→20:08)
[2017-04-02] MEDS: sitaGLIPtin 50 MG (NON-FORMULARY) TAB PO SCH (07:51)
[2017-04-02] MEDS: LOSARTAN 50 MG (COZAAR) TAB PO SCH (07:51)
[2017-04-02] MEDS: ASPIRIN E.C. 325 MG (ECOTRIN) TABLET PO SCH (07:51)
[2017-04-02] MEDS: meTOproloL SUCCINATE 50 MG (TOPROL XL) TAB PO SCH (07:51)
[2017-04-02 08:00] VITALS: BP 119/83
--- NOTE | 2017-04-02 09:06 | Physical Therapy Daily Note ---
PT Daily Note-Current Subjective Pt. agrees to rx, explains his recent episode of falling and subsequent surgery. States he is still so very weak. Lives alone. Pain Numeric Pain Scale: 0-No Pain Mental Status Patient Orientation: Normal For Age Attachments: Knee Immobilizer (R knee cage), Other-See Comments (soft collar) Transfers Functional [place] Measure 0=Not Assessed/NA 4=Minimal Assistance 1=Total Assistance 5=Supervision or Setup 2=Maximal Assistance 6=Modified [place] 3=Moderate Assistance 7=Complete IndependenceIRFPAI Quality Coding Scale 6 Independent with activity with or without an assistive device 5 Patient requires set up or clean up by helper. Patient completes activity by themselves 4 Supervision or touching assist (CGA). [place] provide cues , steadying assist 3 The helper provides less than half the effort to complete the activity 2 The helper provides more than half the effort to complete the activity 1 Dependent. The helper does all the effort to complete an activity 7 Patient refused to complete or attempt activity 9 The patient did not perform the activity before the current illness or injury 88 Not attempted due to Medical conditions or safety concerns Transfers (B, C, W/C) (FIM): 3 Scootin Rollin Supine to/from Sit: 3 Sit to/from Stand: 4 pt. plops and needs education and cues for use of left hand and safety. sup to sit education with min assist to bring RLE into bed and out as well to bring trunk up Gait Training Does the Patient Walk?: Yes Gait (FIM): 1 Distance (FIM): 1=up to 49 ft (10ftx4) Gait Level of Assist: 4 Gait Persons Needed: 1 Gait Assistive Device: FWW Exercises Supine Ex: Ankle pumps, Quad Set, Rolling, Glut sets, Heel Slides, Short Arc Quads, Scooting, Straight leg raise (assist R), Hip abd/add (assist R) Supine Reps: 12 Seated Therapy Exercises: Ankle pumps, Sit to stand, Long arc quads, Hip flexion, Hip abd/add Seated Reps: 12 Standing: Step-ups Standing Reps: 10 (walk in place) Treatments padding/cushion to chair to elevate seat height to prevent plopping and facilitate sit to stand Assessment Current Status: Good Progress dependent for safe mobility PT Short Term Goals Short Term Goals Time Frame: Apr 08, 2017 Transfers (B,C,W/C) (FIM): 4 (CGA) Gait (FIM): 4 Distance (FIM): 3=150 ft Gait Distance Comment: 150' Gait Level of Assist: 4 (CGA) Gait Assistive Device: FWW PT [facility]ci Goals Kelp Gatherer Goals PT Kelp Gatherer Goals Time Frame: Apr 29, 2017 Transfers (B,C,W/C) (FIM): 6 Sit to Lying (QC): 6 Lying-Sitting on Side/Bed(QC): 6 Sit to Stand (QC): 6 Rollin Roll Left to Right (QC): 6 Chair/Kug-qf-Yrwnz Xfer(QC): 6 Car Transfer (QC): 5 Does the Patient Walk: Yes Gait (FIM): 6 Gait distance (FIM): 3=150 ft Distance: 300' Walk 10 feet (QC): 6 Walk 10ft-Uneven Surface(QC): 6 Walk 50ft with 2 Turns (QC): 6 Walk 150 ft (QC): 6 Gait Level of Assist: 6 Gait Assistive Device: FWW Stairs (FIM): 5 (household) # of Steps: 8 1 Step (curb) (QC): 6 4 Steps (QC): 6 Stairs Level Of Assist: 6 PT Plan Treatment/Plan Treatment Plan: Continue Plan of Care Treatment Plan: Bed Mobility, Education, Functional Activity Karli, Functional Strength, Group Therapy, Gait, Safety, Therapeutic Exercise, Transfers Treatment Duration: Apr 29, 2017 Frequency: At least 5-7 days/Wk (IRF) Estimated Hrs Per Day: 1.5 hours per day Patient and/or Family Agrees t: Yes Safety Risks/Education Patient Education: Gait Training, Transfer Techniques, Correct Positioning, Disease Process, Safety Issues Teaching Recipient: Patient Teaching Methods: Demonstration, Discussion Response to Teaching: Verbalize Understanding, Return Demonstration, Reinforcement Needed Time/GCodes Time In: 800 Time Out: 900 Total Billed Treatment Time: 60 Total Billed Treatment 1,GT20,EX15,FA25 G Codes Necessary: KERA Corral MATCH UP WORKER Apr 02, 2017 09:06
--- NOTE | 2017-04-02 09:22 | Individualized Plan of Care ---
Individualized Plan of Care Rehab Nursing IPOC Order Admission Date Apr 01, 2017 at 13:30 Current Orders Orders Pt Evaluate/Treat Request (04/01/17 10:40) Request Ot Evaluate & Treat (04/01/17 10:40) Request For Cognitive Services (04/01/17 10:40) Ambulate TID (04/01/17 14:03) Sequential Compression Device 08,20 (04/01/17 14:03) Dvt/Vte Risk - Notifiy Physici (04/01/17 14:03) Edu Tobacco/Smoking Cessation .prn (04/01/17 14:35) Admission-Acute Rehab Unit (04/01/17 14:40) Vital Signs: Routine 08,16,00 (04/01/17 14:40) Social Service (04/01/17 14:40) Rehab Nursing Orders-Ipoc (04/01/17 14:40) Turn And Reposition Q2HR (04/01/17 14:40) Intake & Output Shift Assessme 06,14,22 (04/01/17 14:40) Precautions (Aru) (04/01/17 14:40) Weekly Weight (Lbs) WEEK (04/01/17 14:40) Consult Physician (04/01/17 14:44) Accucheck Achs ACHS (04/01/17 14:45) Bacitracin Ointment (Bacitracin Ointment (04/01/17 15:00) Docusate Sodium Capsule (Colace Capsule) (04/01/17 21:00) Hydrocodone/Apap 5/325 Tablet (Lortab 5 (04/01/17 15:00) Aspirin Enteric Coated Tablet (Ecotrin T (04/02/17 09:00) Losartan Tablet (Cozaar Tablet) (04/02/17 09:00) Sitagliptin Tablet (Januvia Tablet) (04/02/17 09:00) Atorvastatin Tablet (Lipitor) (04/01/17 21:00) Pantoprazole Tablet (Protonix Tablet) (04/02/17 07:00) Metoprolol Succinate (Xl) Tab (Toprol Xl (04/02/17 09:00) Pioglitazone Tablet (Actos Tablet) (04/02/17 07:00) Therapeutic Multivitamin Tab (Vitamins, (04/02/17 07:00) Patient Visit (04/01/17 ) Speech Sound Lang Comp (04/01/17 ) Cbc With Automated Diff (04/02/17 06:00) Comprehensive Metabolic Panel (04/02/17 06:00) Patient Visit (04/01/17 ) Pt Eval Low Complexity (04/01/17 ) Functional Activities, Ea 15 (04/01/17 ) Gait Training, Ea 15 Min (04/01/17 ) Cho 60g/M 1snack (16-2000 [place]) (04/01/17 Dinner) Rehab Nursing Orders: Diseage Management, Edu in Press Rel Techn, Hydration Management, Nutrition Management, Pain Management PT IPOC Problem List: Activity Tolerance, Functional Strength, Safety, Balance, Gait, Transfer, Bed Mobility, ROM Treatment Plan: Continue Plan of Care Bed Mobility, Education, Functional Activity Karli, Functional Strength, Group Therapy, Gait, Safety, Therapeutic Exercise, Transfers Treatment Duration: Apr 29, 2017 Frequency: At least 5-7 days/Wk (IRF) Estimated Hrs Per Day: 1.5 hours per day OT IPOC Problems: Decreased UE Strength, Dependent Transfers, Impaired Funct Balance, Impaired Self-Care Skills, Restricted Funct UE ROM OT Problems Pt would benefit from skilled OT to increase his independence in basic self care to allow him to safely return to his home and to decrease caregiver burden. Plan of Care: ADL Retraining, Functional Mobility, Group Exercise/Act as Ind ( educ, exercise, memory, activ tolerance, socialization), UE Funct Exercise/Act, UE Neuromus Re-Ed/Coord Treatment Duration: Apr 23, 2017 Frequency: At least 5-7 days/Wk (IRF) Estimated Hrs Per Day: 1.[address] IPOC Speech Therapy Treatment Plan: Continue Plan of Care Frequency: Modified Program (IRF) Estimated Hrs Per Day: .25 hour per day Physician IPOC Medical Issues being managed closely and that require the 24 hour availability of a physician:Myelopathy, Brachial plexopathy, old rt shoulder IDDM,Diabetic Peripheral neuropathy Medical Issues: Bowel/Bladder Function, DVT Prophylaxis, Falls Precautions, Fluid/Electrolyte/Nutrition Balance, Infection Protection, Pain Management, Wound Care, Other (List) (as per above) Brief Synthesis of Preadmission Screen, Post-Admission Evaluation, and Therapy Evaluations: 76 yo male who had been Independent and living alone who fell outside a restaurant and sustained a small SDH and a C1 subluxation requiring fusion by Dr Dietz at [facility] in [facility] now referred to IRU here for ongoing therapies Patient developed myelopathy due to cord compression which is now improving s/p decompression.Has multiple comorbidities as outlined above,DR Palacios PCP Discussed case with Dr Stacy on day of transfers. Medical Prognosis: Good Anticipated Length of Stay: 3 weeks Rehab Goals Modified Independent for adl and mobility skills Anticipated discharge destinat: Home with [facility] SARI CORRALES MD Apr 02, 2017 09:22
--- NOTE | 2017-04-02 10:13 | Speech Therapy Daily Note ---
Speech Daily Progress Note Subjective Date Seen by Provider: Apr 02, 2017 Time Seen by Provider: 09:30 The patient was laying in bed upon entrance. The patient greeted the clinician appropriately and was agreeable to participation in the continued cognitive assessment. The patient remained pleasant and cooperative throughout the session. Objective To continue a detailed cognitive assessment, the standardized tool, [place] Cognitive Assessment (MoCA) was provided to the patient with the following results: - Visuospatial/Executive Function: Written language skills were deferred due to the patient's inability to micro photographer writing utensils due to upper extremity weakness. The patient was able to accurately verbalize trail-making activity to the clinician. - Naming: The patient was able to name three of three black and white images correctly. - Memory: The patient was able to recall five of five words immediately and five of five words following a five minute delay. - Attention: The patient was able to recall five single digits forward or three single digits in reverse order. Additionally, the patient was able to complete serial seven subtraction and identify a specific letter. - Language: The patient was able to repeat short phrases, abstraction (finding a similarity between two items) and word-finding. - Orientation: The patient was independently oriented to month, year, day, date , place, and city. Overall, the patient displayed a score of +25/25 correlating to cognitive functions within normal limits. Assessment Assessment Current Status: Excellent Progress Treatment Plan Discontinue ST, Goals Met Communication Comprehension: 5 Expression: 6 Social Cognition Social Interaction: 6 Problem Solvin Memory: 6 Speech Supervisor Print Line Goals Supervisor Print Line Goals 1. The patient will complete a full, standardized cognitive assessment. MET/DC - Following the assessment, accurate FIM scores will be recorded, as well as, appropriate short-term goals. MET/DC Time Frame: One Week Comprehension: 5 (MET) Expression: 6 (MET) Social Interaction: 6 (MET) Problem Solvin (MET) Memory: 6 (MET) Speech-Plan Treatment Plan Speech Therapy Treatment Plan: Discontinue ST, Goals Met The patient displays cognitive functions within normal limits and will be discharged from skilled speech pathology services on this date. Frequency: Modified Program (IRF) Estimated Hrs Per Day: .25 hour per day Rehab Potential: Good Safety Risks/Education Teaching Recipient: Patient Teaching Methods: Discussion Response to Teaching: Verbalize Understanding Education Topics Provided: Results, Recommendations, Plan of Care Time Speech Therapy Time In: 09:30 Speech Therapy Time Out: 10:00 Total Billed Time: 30 Billed Treatment Time 1, ZULMA GALE Apr 02, 2017 10:13
--- NOTE | 2017-04-02 10:16 | Therapy Team Discharge Summary ---
Therapy Discharge Summary Discharge Recommendations Date of Discharge Therapy D/C Recommendations: Home w/ Family Support, Physical Therapy Home Care Speech-Language Pathology The patient was recently admitted to [facility] following a spinal procedure and left subdural hematoma. Upon admission, the patient received an extended evaluation for possible cognitive deficits following his head injury. The patient received the standardized test ([place] Cognitive Assessment). The patient displayed a score of +25/25 correlating to cognitive functions within normal limits. Speech pathology will sign off at this time. If difficulties are displayed following an extended stay on the rehabilitation floor, please reconsult speech pathology for additional assessment. PT Fdc Goals Rail Setter Goals PT Rail Setter Goals Time Frame: Apr 29, 2017 Transfers (B,C,W/C) (FIM): 6 Roll Left to Right (QC): 6 Sit to Lying (QC): 6 Lying-Sitting on Side/Bed(QC): 6 Sit to Stand (QC): 6 Chair/Bbe-nu-Gozqg Xfer(QC): 6 Car Transfer (QC): 5 Does the Patient Walk: Yes Gait (FIM): 6 Gait distance (FIM): 3=150 ft Distance: 300' Walk 10 feet (QC): 6 Walk 10ft-Uneven Surface(QC): 6 Walk 50ft with 2 Turns (QC): 6 Walk 150 ft (QC): 6 Gait Level of Assist: 6 Gait Assistive Device: FWW Stairs (FIM): 5 (household) # of Steps: 8 1 Step (curb) (QC): 6 4 Steps (QC): 6 Stairs Level Of Assist: 6 OT Rail Setter Goals Fdc Goals Time Frame: Apr 23, 2017 Eating (FIM): 6 Eating (QC): 6 Oral Hygiene (QC): 6 Grooming(FIM): 6 Bathing(FIM): 6 Shower/Bathe Self (QC): 6 Upper Body Dressing(FIM): 6 Upper Body Dressing (QC): 6 Lower Body Dressing(FIM): 6 Lower Body Dressing (QC): 6 On/Off Footwear (QC): 6 Toileting(FIM): 6 Toileting Hygiene (QC): 6 Toilet/Commode Transfer(FIM): 6 Toilet/Commode Transfer (QC): 6 Shower Transfer(FIM): 6 Comprehension(FIM): 5 (MET) Expression (FIM): 6 (MET) Social Interaction(FIM): 6 (MET) Problem Solving(FIM): 5 (MET) Memory(FIM): 6 (MET) Additional Goals: 2-Verbalize Understanding, 3-ImproveStrength/Karli 1=Demonstrate adherence to instructed precautions during ADL tasks. 2=Patient will verbalize/demonstrate understanding of assistive devices/ modifications for ADL. 3=Patient will improve strength/tolerance for activity to enable patient to perform ADL's. Speech Rail Setter Goals Fdc Goals 1. The patient will complete a full, standardized cognitive assessment. MET/DC - Following the assessment, accurate FIM scores will be recorded, as well as, appropriate short-term goals. MET/DC Time Frame: One Week Comprehension: 5 (MET) Expression: 6 (MET) Social Interaction: 6 (MET) Problem Solvin (MET) Memory: 6 (MET) ZULMA CACERES Apr 02, 2017 10:16
[2017-04-02] MEDS: BACITRACIN OINTMENT 28 GM TUBE TOP SCH (11:22)
--- NOTE | 2017-04-02 13:34 | Physical Therapy Daily Note ---
PT Daily Note-Current Subjective Pt. agrees to Rx. States he is very tired and would like to lay down for a nap after Rx. Pain Numeric Pain Scale: 0-No Pain Mental Status Patient Orientation: Normal For Age Transfers Functional [place] Measure 0=Not Assessed/NA 4=Minimal Assistance 1=Total Assistance 5=Supervision or Setup 2=Maximal Assistance 6=Modified [place] 3=Moderate Assistance 7=Complete IndependenceIRFPAI Quality Coding Scale 6 Independent with activity with or without an assistive device 5 Patient requires set up or clean up by helper. Patient completes activity by themselves 4 Supervision or touching assist (CGA). [place] provide cues , steadying assist 3 The helper provides less than half the effort to complete the activity 2 The helper provides more than half the effort to complete the activity 1 Dependent. The helper does all the effort to complete an activity 7 Patient refused to complete or attempt activity 9 The patient did not perform the activity before the current illness or injury 88 Not attempted due to Medical conditions or safety concerns TRFs in out chair and bed x 2 ea CGA to SBA Gait Training Gait Assistive Device: FWW 35ftx2 CGA, brace on right knee for hyperextension, needs cuing for safety and approach Exercises Seated Therapy Exercises: Ankle pumps, Sit to stand, Long arc quads, Hip flexion Seated Reps: 8 Assessment Current Status: Good Progress PT Short Term Goals Short Term Goals Time Frame: Apr 08, 2017 Transfers (B,C,W/C) (FIM): 4 (CGA) Gait (FIM): 4 Distance (FIM): 3=150 ft Gait Distance Comment: 150' Gait Level of Assist: 4 (CGA) Gait Assistive Device: FWW PT Live Truck Operator Goals Snf Goals PT Snf Goals Time Frame: Apr 29, 2017 Transfers (B,C,W/C) (FIM): 6 Sit to Lying (QC): 6 Lying-Sitting on Side/Bed(QC): 6 Sit to Stand (QC): 6 Rollin Roll Left to Right (QC): 6 Chair/Zfs-dr-Rauxm Xfer(QC): 6 Car Transfer (QC): 5 Does the Patient Walk: Yes Gait (FIM): 6 Gait distance (FIM): 3=150 ft Distance: 300' Walk 10 feet (QC): 6 Walk 10ft-Uneven Surface(QC): 6 Walk 50ft with 2 Turns (QC): 6 Walk 150 ft (QC): 6 Gait Level of Assist: 6 Gait Assistive Device: FWW Stairs (FIM): 5 (household) # of Steps: 8 1 Step (curb) (QC): 6 4 Steps (QC): 6 Stairs Level Of Assist: 6 PT Plan Treatment/Plan Treatment Plan: Continue Plan of Care Treatment Plan: Bed Mobility, Education, Functional Activity Karli, Functional Strength, Group Therapy, Gait, Safety, Therapeutic Exercise, Transfers Treatment Duration: Apr 29, 2017 Frequency: At least 5 to 7 days/Wk (IRF) Estimated Hrs Per Day: 1.5 hours per day Patient and/or Family Agrees t: Yes Safety Risks/Education Patient Education: Gait Training, Transfer Techniques Teaching Recipient: Patient Teaching Methods: Demonstration, Discussion Response to Teaching: Verbalize Understanding, Return Demonstration, Reinforcement Needed Time/GCodes Time In: 1315 Time Out: 1330 Total Billed Treatment Time: 15 Total Billed Treatment 1,FA15m G Codes Necessary: KERA Corral TRANSPORTATION SERVICES REPRESENTATIVE Apr 02, 2017 13:34
--- NOTE | 2017-04-02 13:57 | Occupational Ther Daily Note ---
OT Current Status-Daily Note Subjective Pt alert, lying in bed. No c/o pain. Agrees to therapy and would like to take a shower. Mental Status/Objective Patient Orientation: Person, Place, Time, Situation Functional [place] Measure 0=Not Assessed/NA 4=Minimal Assistance 1=Total Assistance 5=Supervision or Setup 2=Maximal Assistance 6=Modified [place] 3=Moderate Assistance 7=Complete [place] ADL-Treatment Difficulty completing ADL's due to decreased ROM in B UE. Requires assistance donning and doffing knee brace. Neck collar removed for shower and shaving, neck precautions in place. After therapy, pt sitting in chair with call light and phone in reach and safety measures in place. All needs met in room. Functional [place] Measure 0=Not Assessed/NA 4=Minimal Assistance 1=Total Assistance 5=Supervision or Setup 2=Maximal Assistance 6=Modified [place] 3=Moderate Assistance 7=Complete IndependenceIRFPAI Quality Coding Scale 6 Independent with activity with or without an assistive device 5 Patient requires set up or clean up by helper. Patient completes activity by themselves 4 Supervision or touching assist (CGA). [place] provide cues , steadying assist 3 The helper provides less than half the effort to complete the activity 2 The helper provides more than half the effort to complete the activity 1 Dependent. The helper does all the effort to complete an activity 7 Patient refused to complete or attempt activity 9 The patient did not perform the activity before the current illness or injury 88 Not attempted due to Medical conditions or safety concerns Grooming (FIM): 1 (Pt dependent for washing and shaving face, and combing hair due to low ROM in arms. ) Bathing (FIM): 2 (Pt attempted to use LH sponge, stated was difficult due to trying to remember neck precautions. Decreased ROM in B UE, unable to wash upper body. Mod A to stand and assist to wash buttocks. Completed using grab bars, shower bench, and handheld shower.) Bathing Location: R Arm, L Upper Leg, R Upper Leg Shower/Bathe Self (QC): 2 (Pt attempted to use LH sponge, stated was difficult due to trying to remember neck precautions. Decreased ROM in B UE, unable to wash upper body. Mod A to stand and assist to wash buttocks. Completed using grab bars, shower bench, and handheld shower.) Upper Body (FIM): 2 (Pt able to manipulate clothing to find shirt holes and pull up to elbows. Assistance needed to pull up to shoulders, over head, and down body. ) Upper Body Dressing (QC): 2 (Pt able to manipulate clothing to find shirt holes and pull up to elbows. Assistance needed to pull up to shoulders, over head, and down body.) Lower Body Dressing (FIM): 2 (Required assistance to thread feet through pants , stand up, and pull pants over hips. Dependent to don socks. ) Lower Body Dressing (QC): 2 (Required assistance to thread feet through pants, stand up, and pull pants over hips. Dependent to don socks. ) On/Off Footwear (QC): 1 (Dependent to don and doff socks.) Toileting (FIM): 2 (Pt requires assistance to stand and manipulate clothing. Using grab bars and FWW.) Toileting Hygiene (QC): 2 (Pt requires assistance to stand and manipulate clothing. Using grab bars and FWW.) Transfers (B, C, W/C) (FIM): 3 (Requires mod A with sit to stand transfers. ) Toilet/Commode Transfer (FIM): 3 (Pt requires mod A to transfer to bathroom using FWW and grab bars. ) Toilet Transfer (QC): 3 (Pt requires mod A to transfer to bathroom using FWW and grab bars. ) Shower Transfer(FIM): 3 (Pt requires mod A to transfer into shower requiring FWW, grab bars, and shower bench.) OT Short Term Goals Short Term Goals Time Frame: Apr 09, 2017 Transfers (B,C,W/C) (FIM): 4 (CGA) Toilet/Commode Transfer(FIM): 4 Additional Short Term Goals: 2-Verbalize Understanding, 3-ImproveStrength/Karli 1=Demonstrate adherence to instructed precautions during ADL tasks. 2=Patient will verbalize/demonstrate understanding of assistive devices/ modifications for ADL. 3=Patient will improve strength/tolerance for activity to enable patient to perform ADL's. OT Lead Electrical Controls Engineer Goals Lead Electrical Controls Engineer Goals Time Frame: Apr 23, 2017 Eating (FIM): 6 Eating (QC): 6 Groomin Oral Hygiene (QC): 6 Bathing(FIM): 6 Shower/Bathe Self (QC): 6 Upper Body Dressing(FIM): 6 Upper Body Dressing (QC): 6 Lower Body Dressing(FIM): 6 Lower Body Dressing (QC): 6 On/Off Footwear (QC): 6 Toileting(FIM): 6 Toileting Hygiene (QC): 6 Toilet/Commode Transfer(FIM): 6 Toilet/Commode Transfer (QC): 6 Shower Transfer(FIM): 6 Comprehension(FIM): 5 (MET) Expression (FIM): 6 (MET) Social Interaction(FIM): 6 (MET) Problem Solving(FIM): 5 (MET) Memory(FIM): 6 (MET) Additional Goals: 2-Verbalize Understanding, 3-ImproveStrength/Karli 1=Demonstrate adherence to instructed precautions during ADL tasks. 2=Patient will verbalize/demonstrate understanding of assistive devices/ modifications for ADL. 3=Patient will improve strength/tolerance for activity to enable patient to perform ADL's. OT Education/Plan Problem List/Assessment Pt would benefit from skilled OT to increase his independence in basic self care to allow him to safely return to his home and to decrease caregiver burden. Discharge Recommendations Plan/Recommendations: Continue POC Treatment Plan/Plan of Care Patient would benefit from OT for education, treatment and training to promote independence in ADL's, mobility, safety and/or upper extremity function for ADL' s. Plan of Care: ADL Retraining, Functional Mobility, Group Exercise/Act as Ind ( educ, exercise, memory, activ tolerance, socialization), UE Funct Exercise/Act, UE Neuromus Re-Ed/Coord Treatment Duration: Apr 23, 2017 Frequency: At least 5 to 7 days/Wk (IRF) Estimated Hrs Per Day: 1.5 hours per day Agreement: Yes Rehab Potential: Good Time/GCodes Start Time: 10:00 Stop Time: 11:30 Total Time Billed (hr/min): 90 Billed Treatment Time 1 visit, ADL 6 (90 minutes) RYAN PEREZ Apr 02, 2017 13:57
--- NOTE | 2017-04-02 14:28 | Occupational Ther Daily Note ---
OT Current Status-Daily Note Mental Status/Objective Functional [place] Measure 0=Not Assessed/NA 4=Minimal Assistance 1=Total Assistance 5=Supervision or Setup 2=Maximal Assistance 6=Modified [place] 3=Moderate Assistance 7=Complete [place] ADL-Treatment Functional [place] Measure 0=Not Assessed/NA 4=Minimal Assistance 1=Total Assistance 5=Supervision or Setup 2=Maximal Assistance 6=Modified [place] 3=Moderate Assistance 7=Complete IndependenceIRFPAI Quality Coding Scale 6 Independent with activity with or without an assistive device 5 Patient requires set up or clean up by helper. Patient completes activity by themselves 4 Supervision or touching assist (CGA). [place] provide cues , steadying assist 3 The helper provides less than half the effort to complete the activity 2 The helper provides more than half the effort to complete the activity 1 Dependent. The helper does all the effort to complete an activity 7 Patient refused to complete or attempt activity 9 The patient did not perform the activity before the current illness or injury 88 Not attempted due to Medical conditions or safety concerns OT Short Term Goals Short Term Goals Time Frame: Apr 09, 2017 Transfers (B,C,W/C) (FIM): 4 (CGA) Toilet/Commode Transfer(FIM): 4 Additional Short Term Goals: 2-Verbalize Understanding, 3-ImproveStrength/Karli 1=Demonstrate adherence to instructed precautions during ADL tasks. 2=Patient will verbalize/demonstrate understanding of assistive devices/ modifications for ADL. 3=Patient will improve strength/tolerance for activity to enable patient to perform ADL's. OT Retirement Goals Filler Shaker Goals Time Frame: Apr 23, 2017 Eating (FIM): 6 Eating (QC): 6 Groomin Oral Hygiene (QC): 6 Bathing(FIM): 6 Shower/Bathe Self (QC): 6 Upper Body Dressing(FIM): 6 Upper Body Dressing (QC): 6 Lower Body Dressing(FIM): 6 Lower Body Dressing (QC): 6 On/Off Footwear (QC): 6 Toileting(FIM): 6 Toileting Hygiene (QC): 6 Toilet/Commode Transfer(FIM): 6 Toilet/Commode Transfer (QC): 6 Shower Transfer(FIM): 6 Comprehension(FIM): 5 (MET) Expression (FIM): 6 (MET) Social Interaction(FIM): 6 (MET) Problem Solving(FIM): 5 (MET) Memory(FIM): 6 (MET) Additional Goals: 2-Verbalize Understanding, 3-ImproveStrength/Karli 1=Demonstrate adherence to instructed precautions during ADL tasks. 2=Patient will verbalize/demonstrate understanding of assistive devices/ modifications for ADL. 3=Patient will improve strength/tolerance for activity to enable patient to perform ADL's. OT Education/Plan Problem List/Assessment Pt would benefit from skilled OT to increase his independence in basic self care to allow him to safely return to his home and to decrease caregiver burden. Treatment Plan/Plan of Care Patient would benefit from OT for education, treatment and training to promote independence in ADL's, mobility, safety and/or upper extremity function for ADL' s. Plan of Care: ADL Retraining, Functional Mobility, Group Exercise/Act as Ind ( educ, exercise, memory, activ tolerance, socialization), UE Funct Exercise/Act, UE Neuromus Re-Ed/Coord Treatment Duration: Apr 23, 2017 Frequency: At least 5 to 7 days/Wk (IRF) Estimated Hrs Per Day: 1.5 hours per day Agreement: Yes Rehab Potential: RYAN Crespo Apr 02, 2017 14:28
[2017-04-02 18:49] VITALS: BP 110/63
[2017-04-02] MEDS: ATORVASTATIN 40 MG (LIPITOR) TABLET PO SCH (20:08)
[2017-04-03 05:00] VITALS: BP 108/76
[2017-04-03] MEDS: PIOGLITAZONE 30MG (ACTOS) TAB PO SCH (06:09)
[2017-04-03] MEDS: PANTOPRAZOLE 40 MG (PROTONIX) TAB PO SCH (06:09)
[2017-04-03] MEDS: MULTIVIT W/MINERALS TAB (THERAGRAN M) PO SCH (06:09)
--- NOTE | 2017-04-03 08:02 | Physical Therapy Daily Note ---
PT Daily Note-Current Subjective Pt. states he had a rough night, but agrees to Rx. States he did not sleep well. Very talkative and friendly. States the only discomfort he is having is that his brace on right leg seems too loose and moves and feels as if it is chafing his thigh . This was addressed, all straps removed, skin inspected and lotioned etc and strapped back slightly tighter Pain Numeric Pain Scale: 0-No Pain Mental Status Patient Orientation: Normal For Age Attachments: Other-See Comments (brace RLE knee to help prevent hyperextension) Transfers Functional [place] Measure 0=Not Assessed/NA 4=Minimal Assistance 1=Total Assistance 5=Supervision or Setup 2=Maximal Assistance 6=Modified [place] 3=Moderate Assistance 7=Complete IndependenceIRFPAI Quality Coding Scale 6 Independent with activity with or without an assistive device 5 Patient requires set up or clean up by helper. Patient completes activity by themselves 4 Supervision or touching assist (CGA). [place] provide cues , steadying assist 3 The helper provides less than half the effort to complete the activity 2 The helper provides more than half the effort to complete the activity 1 Dependent. The helper does all the effort to complete an activity 7 Patient refused to complete or attempt activity 9 The patient did not perform the activity before the current illness or injury 88 Not attempted due to Medical conditions or safety concerns Transfers (B, C, W/C) (FIM): 5 Scootin Rollin Supine to/from Sit: 5 Sit to/from Stand: 5 pt. scooted self up in bed with bed head flat Gait Training Does the Patient Walk?: Yes Gait (FIM): 2 Distance (FIM): 3=855-25 ft (50,20x2) Gait Level of Assist: 4 Gait Persons Needed: 1 Gait Assistive Device: FWW Exercises Supine Ex: Ankle pumps, Quad Set, Rolling, Glut sets, Heel Slides, Short Arc Quads, Scooting, Straight leg raise (assist), Hip abd/add (assist) Supine Reps: 12 Seated Therapy Exercises: Ankle pumps, Sit to stand, Long arc quads, Hip flexion Seated Reps: 12 Assessment Current Status: Good Progress PT Short Term Goals Short Term Goals Time Frame: Apr 08, 2017 Transfers (B,C,W/C) (FIM): 4 (CGA) Gait (FIM): 4 Distance (FIM): 3=150 ft Gait Distance Comment: 150' Gait Level of Assist: 4 (CGA) Gait Assistive Device: FWW PT Credit Collections Specialist Goals Credit Collections Specialist Goals PT Chcf Goals Time Frame: Apr 29, 2017 Transfers (B,C,W/C) (FIM): 6 Sit to Lying (QC): 6 Lying-Sitting on Side/Bed(QC): 6 Sit to Stand (QC): 6 Rollin Roll Left to Right (QC): 6 Chair/Dcn-di-Txdlt Xfer(QC): 6 Car Transfer (QC): 5 Does the Patient Walk: Yes Gait (FIM): 6 Gait distance (FIM): 3=150 ft Distance: 300' Walk 10 feet (QC): 6 Walk 10ft-Uneven Surface(QC): 6 Walk 50ft with 2 Turns (QC): 6 Walk 150 ft (QC): 6 Gait Level of Assist: 6 Gait Assistive Device: FWW Stairs (FIM): 5 (household) # of Steps: 8 1 Step (curb) (QC): 6 4 Steps (QC): 6 Stairs Level Of Assist: 6 PT Plan Treatment/Plan Treatment Plan: Continue Plan of Care Treatment Plan: Bed Mobility, Education, Functional Activity Karli, Functional Strength, Group Therapy, Gait, Safety, Therapeutic Exercise, Transfers Treatment Duration: Apr 29, 2017 Frequency: At least 5 to 7 days/Wk (IRF) Estimated Hrs Per Day: 1.5 hours per day Patient and/or Family Agrees t: Yes Safety Risks/Education Patient Education: Gait Training, Transfer Techniques, Correct Positioning, Disease Process, Safety Issues Teaching Recipient: Patient Teaching Methods: Demonstration, Discussion Response to Teaching: Verbalize Understanding, Return Demonstration, Reinforcement Needed Time/GCodes Time In: 700 Time Out: 800 Total Billed Treatment Time: 60 Total Billed Treatment 1,FA15m,GT15m,EX30m G Codes Necessary: KERA Corral SPECIAL NEEDS LIBRARIAN Apr 03, 2017 08:02
[2017-04-03] MEDS: POLYETHYLENE GLYCOL 17 GM (MIRALAX) PACK PO PRN ×2 (08:45→20:34)
[2017-04-03] MEDS: sitaGLIPtin 50 MG (NON-FORMULARY) TAB PO SCH (08:45)
[2017-04-03] MEDS: LOSARTAN 50 MG (COZAAR) TAB PO SCH (08:45)
[2017-04-03] MEDS: DOCUSATE SODIUM 100 MG (COLACE) CAP PO SCH ×2 (08:45→20:34)
[2017-04-03] MEDS: meTOproloL SUCCINATE 50 MG (TOPROL XL) TAB PO SCH (08:45)
[2017-04-03] MEDS: ASPIRIN E.C. 325 MG (ECOTRIN) TABLET PO SCH (08:45)
[2017-04-03] MEDS: BACITRACIN OINTMENT 28 GM TUBE TOP SCH (08:46)
--- NOTE | 2017-04-03 12:28 | Therapy Group Daily Note ---
Therapy Daily Group Note Patient Education Topic Home Safety (managing indoor pets) Other/Notes Pt. attended group PT OT session . Pt. came with min assist w/c. Pt. very social introducing self and sharing re: topics of heritage (his being [place]) and then about pets at home and home safety involving pets. Pt. TRFs in out wheel chair with CGA to min A. Pt. shared the joys and hazards of owning indoor rabbits, birds and dogs. Pt. in room after group with lee at hand and lunch on tray Start Time: 11:00 Stop Time: 12:00 Total Billed Treatment Time: 60 Total Billed Treatment 1,GRP KERA QUEEN FIRER BOILER Apr 03, 2017 12:28
--- NOTE | 2017-04-03 12:34 | Occupational Ther Daily Note ---
OT Current Status-Daily Note Subjective "Well I would like to wash my face and hands and comb my hair." Appearance Patient supine in bed upon OT arrival. Has neck brace in place. Agreeable to OT. Mental Status/Objective Functional [place] Measure 0=Not Assessed/NA 4=Minimal Assistance 1=Total Assistance 5=Supervision or Setup 2=Maximal Assistance 6=Modified [place] 3=Moderate Assistance 7=Complete [place] ADL-Treatment To edge of bed independently. Required moderate assist to come to stand to transfer into the wheelchair. Taken to bathroom to wash face and hands and comb hair. Used left UE to wash and dry face and hand and attempted to use the left helping the right to comb his hair. OT assisted to complete. Patient upset with OT for not providing more help until he realized he needed to do as much for himself as possible. To clinic for upper body strength and endurance work including UBE x 2 set x 8-10", with rest break, moderate resistive theraband to left shoulder, elbow and right elbow. AAROM to the right shoulder with stretch with encouragement to do self range for the weaker right arm. Hand gripper x multiple reps bilaterally. Issue minimal resistive sponge for the right hand and moderate for the left for him to use independently in his room. Moderate resistive putty work for the hands. Functional [place] Measure 0=Not Assessed/NA 4=Minimal Assistance 1=Total Assistance 5=Supervision or Setup 2=Maximal Assistance 6=Modified [place] 3=Moderate Assistance 7=Complete IndependenceIRFPAI Quality Coding Scale 6 Independent with activity with or without an assistive device 5 Patient requires set up or clean up by helper. Patient completes activity by themselves 4 Supervision or touching assist (CGA). [place] provide cues , steadying assist 3 The helper provides less than half the effort to complete the activity 2 The helper provides more than half the effort to complete the activity 1 Dependent. The helper does all the effort to complete an activity 7 Patient refused to complete or attempt activity 9 The patient did not perform the activity before the current illness or injury 88 Not attempted due to Medical conditions or safety concerns OT Short Term Goals Short Term Goals Time Frame: Apr 09, 2017 Transfers (B,C,W/C) (FIM): 4 (CGA) Toilet/Commode Transfer(FIM): 4 Additional Short Term Goals: 2-Verbalize Understanding, 3-ImproveStrength/Karli 1=Demonstrate adherence to instructed precautions during ADL tasks. 2=Patient will verbalize/demonstrate understanding of assistive devices/ modifications for ADL. 3=Patient will improve strength/tolerance for activity to enable patient to perform ADL's. OT Nursing Home Goals Product Director Goals Time Frame: Apr 23, 2017 Eating (FIM): 6 Eating (QC): 6 Groomin Oral Hygiene (QC): 6 Bathing(FIM): 6 Shower/Bathe Self (QC): 6 Upper Body Dressing(FIM): 6 Upper Body Dressing (QC): 6 Lower Body Dressing(FIM): 6 Lower Body Dressing (QC): 6 On/Off Footwear (QC): 6 Toileting(FIM): 6 Toileting Hygiene (QC): 6 Toilet/Commode Transfer(FIM): 6 Toilet/Commode Transfer (QC): 6 Shower Transfer(FIM): 6 Comprehension(FIM): 5 (MET) Expression (FIM): 6 (MET) Social Interaction(FIM): 6 (MET) Problem Solving(FIM): 5 (MET) Memory(FIM): 6 (MET) Additional Goals: 2-Verbalize Understanding, 3-ImproveStrength/Karli 1=Demonstrate adherence to instructed precautions during ADL tasks. 2=Patient will verbalize/demonstrate understanding of assistive devices/ modifications for ADL. 3=Patient will improve strength/tolerance for activity to enable patient to perform ADL's. OT Education/Plan Problem List/Assessment Pt would benefit from skilled OT to increase his independence in basic self care to allow him to safely return to his home and to decrease caregiver burden. Discharge Recommendations Plan/Recommendations: Continue POC Treatment Plan/Plan of Care Patient would benefit from OT for education, treatment and training to promote independence in ADL's, mobility, safety and/or upper extremity function for ADL' s. Plan of Care: ADL Retraining, Functional Mobility, Group Exercise/Act as Ind ( educ, exercise, memory, activ tolerance, socialization), UE Funct Exercise/Act, UE Neuromus Re-Ed/Coord Treatment Duration: Apr 23, 2017 Frequency: At least 5 to 7 days/Wk (IRF) Estimated Hrs Per Day: 1.5 hours per day Agreement: Yes Rehab Potential: Good Time/GCodes Start Time: 10:05 Stop Time: 11:05 Total Time Billed (hr/min): 60 Billed Treatment Time Visit, ADL x 2, Ex x 2 G Codes Necessary: No RODNEY HERNANDEZ OT Apr 03, 2017 12:34
[2017-04-03 18:18] VITALS: BP 100/62
[2017-04-03] MEDS: ATORVASTATIN 40 MG (LIPITOR) TABLET PO SCH (20:34)
[2017-04-04 05:08] VITALS: BP 118/74
[2017-04-04] MEDS: PIOGLITAZONE 30MG (ACTOS) TAB PO SCH (06:25)
[2017-04-04] MEDS: PANTOPRAZOLE 40 MG (PROTONIX) TAB PO SCH (06:25)
[2017-04-04] MEDS: MULTIVIT W/MINERALS TAB (THERAGRAN M) PO SCH (06:25)
[2017-04-04 08:55] VITALS: BP 118/62
[2017-04-04] MEDS: POLYETHYLENE GLYCOL 17 GM (MIRALAX) PACK PO PRN ×2 (09:04→20:26)
[2017-04-04] MEDS: ASPIRIN E.C. 325 MG (ECOTRIN) TABLET PO SCH (09:04)
[2017-04-04] MEDS: LOSARTAN 50 MG (COZAAR) TAB PO SCH (09:04)
[2017-04-04] MEDS: sitaGLIPtin 50 MG (NON-FORMULARY) TAB PO SCH (09:04)
[2017-04-04] MEDS: DOCUSATE SODIUM 100 MG (COLACE) CAP PO SCH ×2 (09:04→20:27)
[2017-04-04] MEDS: meTOproloL SUCCINATE 50 MG (TOPROL XL) TAB PO SCH (09:04)
[2017-04-04 16:18] VITALS: BP 112/70
[2017-04-04] MEDS: ATORVASTATIN 40 MG (LIPITOR) TABLET PO SCH (20:26)
[2017-04-05] MEDS: MULTIVIT W/MINERALS TAB (THERAGRAN M) PO SCH (06:08)
[2017-04-05] MEDS: PIOGLITAZONE 30MG (ACTOS) TAB PO SCH (06:08)
[2017-04-05] MEDS: PANTOPRAZOLE 40 MG (PROTONIX) TAB PO SCH (06:09)
[2017-04-05 08:11] VITALS: BP 100/66
[2017-04-05] MEDS: LOSARTAN 50 MG (COZAAR) TAB PO SCH (09:00)
[2017-04-05] MEDS: ASPIRIN E.C. 325 MG (ECOTRIN) TABLET PO SCH (09:00)
[2017-04-05] MEDS: sitaGLIPtin 50 MG (NON-FORMULARY) TAB PO SCH (09:00)
[2017-04-05] MEDS: meTOproloL SUCCINATE 50 MG (TOPROL XL) TAB PO SCH (09:01)
[2017-04-05] MEDS: DOCUSATE SODIUM 100 MG (COLACE) CAP PO SCH ×2 (09:01→20:54)
[2017-04-05] MEDS: BACITRACIN OINTMENT 28 GM TUBE TOP SCH (09:02)
--- NOTE | 2017-04-05 09:04 | Physical Therapy Daily Note ---
PT Daily Note-Current Subjective Pt. agrees to Rx. Inquires as to whether there is a better way to adjust or fit his brace. This was attempted. Pain Numeric Pain Scale: 0-No Pain Appearance Pt. becomes frustrated RE: cues and gait training lexie for turning and use of UEs so he doesnt plop which may exacerbate his cervical area etc. Mental Status Patient Orientation: Normal For Age has some difficulty following direction, most likely his PLOF intellectual level Transfers Functional [place] Measure 0=Not Assessed/NA 4=Minimal Assistance 1=Total Assistance 5=Supervision or Setup 2=Maximal Assistance 6=Modified [place] 3=Moderate Assistance 7=Complete IndependenceIRFPAI Quality Coding Scale 6 Independent with activity with or without an assistive device 5 Patient requires set up or clean up by helper. Patient completes activity by themselves 4 Supervision or touching assist (CGA). [place] provide cues , steadying assist 3 The helper provides less than half the effort to complete the activity 2 The helper provides more than half the effort to complete the activity 1 Dependent. The helper does all the effort to complete an activity 7 Patient refused to complete or attempt activity 9 The patient did not perform the activity before the current illness or injury 88 Not attempted due to Medical conditions or safety concerns Transfers (B, C, W/C) (FIM): 4 Scootin Rollin Supine to/from Sit: 4 Sit to/from Stand: 4 Gait Training Does the Patient Walk?: Yes Gait (FIM): 1 Distance (FIM): 1=up to 49 ft (30ftx5) Gait Level of Assist: 4 Gait Persons Needed: 1 Gait Assistive Device: FWW hyperextension of right knee, adjustable knee immoblizer on, tired german cage , no difference in noted hyperextension. Pt. also with narrow VALERIE and toe in gait Exercises Supine Ex: Bridging, Ankle pumps (HC stretch), Quad Set, Rolling, Glut sets, Heel Slides, Short Arc Quads, Straight leg raise (assist CGA), Hip abd/add Supine Reps: 15 Assessment Current Status: Good Progress right knee conts hyperext, pt. with difficulty with safe turns, plops difficulty descending slowly PT Short Term Goals Short Term Goals Time Frame: Apr 08, 2017 Transfers (B,C,W/C) (FIM): 4 (CGA) Gait (FIM): 4 Distance (FIM): 3=150 ft Gait Distance Comment: 150' Gait Level of Assist: 4 (CGA) Gait Assistive Device: FWW PT Halfway Goals Halfway Goals PT Brand Protection Manager Goals Time Frame: Apr 29, 2017 Transfers (B,C,W/C) (FIM): 6 Sit to Lying (QC): 6 Lying-Sitting on Side/Bed(QC): 6 Sit to Stand (QC): 6 Rollin Roll Left to Right (QC): 6 Chair/Dno-nr-Eumkf Xfer(QC): 6 Car Transfer (QC): 5 Does the Patient Walk: Yes Gait (FIM): 6 Gait distance (FIM): 3=150 ft Distance: 300' Walk 10 feet (QC): 6 Walk 10ft-Uneven Surface(QC): 6 Walk 50ft with 2 Turns (QC): 6 Walk 150 ft (QC): 6 Gait Level of Assist: 6 Gait Assistive Device: FWW Stairs (FIM): 5 (household) # of Steps: 8 1 Step (curb) (QC): 6 4 Steps (QC): 6 Stairs Level Of Assist: 6 PT Plan Treatment/Plan Treatment Plan: Continue Plan of Care Treatment Plan: Bed Mobility, Education, Functional Activity Karli, Functional Strength, Group Therapy, Gait, Safety, Therapeutic Exercise, Transfers Treatment Duration: Apr 29, 2017 Frequency: At least 5 to 7 days/Wk (IRF) Estimated Hrs Per Day: 1.5 hours per day Patient and/or Family Agrees t: Yes Safety Risks/Education Patient Education: Gait Training, Transfer Techniques, Correct Positioning, Safety Issues Teaching Recipient: Patient Teaching Methods: Demonstration, Discussion Response to Teaching: Verbalize Understanding, Return Demonstration, Reinforcement Needed Time/GCodes Time In: 800 Time Out: 900 Total Billed Treatment Time: 60 Total Billed Treatment 1,GT25m,EX20m,FA15m G Codes Necessary: KERA [place]ral STAFF REPORTER Apr 05, 2017 09:04
--- NOTE | 2017-04-05 09:59 | Occupational Ther Daily Note ---
OT Current Status-Daily Note Subjective Pt alert, sitting in chair. No c/o pain. Agrees to therapy, wants to shave face. Declines shower. Mental Status/Objective Patient Orientation: Person, Place, Time, Situation Functional [place] Measure 0=Not Assessed/NA 4=Minimal Assistance 1=Total Assistance 5=Supervision or Setup 2=Maximal Assistance 6=Modified [place] 3=Moderate Assistance 7=Complete [place] ADL-Treatment Neck precautions in place. Pt attempts to shave face, quits and says he can't do it. Attempted to use built up hand on razor for ease of use, pt stated that it didn't work and didn't use it. OTAS encouraged pt to complete tasks by self for independence, pt continued to decline participation. Pt declines trying again, requiring assistance to finish. Declines brushing teeth. Dependent for combing hair, pt wouldn't attempt. Functional [place] Measure 0=Not Assessed/NA 4=Minimal Assistance 1=Total Assistance 5=Supervision or Setup 2=Maximal Assistance 6=Modified [place] 3=Moderate Assistance 7=Complete IndependenceIRFPAI Quality Coding Scale 6 Independent with activity with or without an assistive device 5 Patient requires set up or clean up by helper. Patient completes activity by themselves 4 Supervision or touching assist (CGA). [place] provide cues , steadying assist 3 The helper provides less than half the effort to complete the activity 2 The helper provides more than half the effort to complete the activity 1 Dependent. The helper does all the effort to complete an activity 7 Patient refused to complete or attempt activity 9 The patient did not perform the activity before the current illness or injury 88 Not attempted due to Medical conditions or safety concerns Upper Body (FIM): 2 (Pt able to thread arms through sleeves. Assistance needed to pull up arms, over head, and down body due to low ROM in arms and neck precautions. ) Transfers (B, C, W/C) (FIM): 4 (Pt requires min A sit to stand. CGA while ambulating using FWW. ) Other Treatment Pt encouraged to walk to therapy gym but declines and requests to be pushed in w /c to therapy gym. Progressive Care Manager and pinch strength measured. R home theatre technician average:15 lbs. L home theatre technician average: 26.6 lbs. R tip pinch average: 2.3 lbs. R 3-jaw meagan average: 2 lbs. R hernandez average: 5 lbs. L tip average: 10 lbs. L 3-jaw meagan average: 9.3 lbs. L hernandez average: 12 lbs. Pt ambulated about 40 ft back towards room with FWW, needing pushed in w/c rest of way. After therapy, pt sitting in chair with call light and phone within reach. All needs met in room. OT Short Term Goals Short Term Goals Time Frame: Apr 09, 2017 Transfers (B,C,W/C) (FIM): 4 (CGA) Toilet/Commode Transfer(FIM): 4 Additional Short Term Goals: 2-Verbalize Understanding, 3-ImproveStrength/Karli 1=Demonstrate adherence to instructed precautions during ADL tasks. 2=Patient will verbalize/demonstrate understanding of assistive devices/ modifications for ADL. 3=Patient will improve strength/tolerance for activity to enable patient to perform ADL's. OT Coat Maker Goals Care Home Goals Time Frame: Apr 23, 2017 Eating (FIM): 6 Eating (QC): 6 Groomin Oral Hygiene (QC): 6 Bathing(FIM): 6 Shower/Bathe Self (QC): 6 Upper Body Dressing(FIM): 6 Upper Body Dressing (QC): 6 Lower Body Dressing(FIM): 6 Lower Body Dressing (QC): 6 On/Off Footwear (QC): 6 Toileting(FIM): 6 Toileting Hygiene (QC): 6 Toilet/Commode Transfer(FIM): 6 Toilet/Commode Transfer (QC): 6 Shower Transfer(FIM): 6 Comprehension(FIM): 5 (MET) Expression (FIM): 6 (MET) Social Interaction(FIM): 6 (MET) Problem Solving(FIM): 5 (MET) Memory(FIM): 6 (MET) Additional Goals: 2-Verbalize Understanding, 3-ImproveStrength/Karli 1=Demonstrate adherence to instructed precautions during ADL tasks. 2=Patient will verbalize/demonstrate understanding of assistive devices/ modifications for ADL. 3=Patient will improve strength/tolerance for activity to enable patient to perform ADL's. OT Education/Plan Problem List/Assessment Pt would benefit from skilled OT to increase his independence in basic self care to allow him to safely return to his home and to decrease caregiver burden. Discharge Recommendations Plan/Recommendations: Continue POC Treatment Plan/Plan of Care Patient would benefit from OT for education, treatment and training to promote independence in ADL's, mobility, safety and/or upper extremity function for ADL' s. Plan of Care: ADL Retraining, Functional Mobility, Group Exercise/Act as Ind ( educ, exercise, memory, activ tolerance, socialization), UE Funct Exercise/Act, UE Neuromus Re-Ed/Coord Treatment Duration: Apr 23, 2017 Frequency: At least 5 to 7 days/Wk (IRF) Estimated Hrs Per Day: 1.5 hours per day Agreement: Yes Rehab Potential: Good Time/GCodes Start Time: 09:00 Stop Time: 10:00 Total Time Billed (hr/min): 60 Billed Treatment Time 1 visit, ADL 2 (30 minutes) 1 EX 2 (30 minutes) RYAN PEREZ Apr 05, 2017 09:59
--- NOTE | 2017-04-05 13:48 | Physical Therapy Daily Note ---
PT Daily Note-Current Subjective Patient agrees to PT. No c/o at this time. Pain Numeric Pain Scale: 0-No Pain Location: No Pain Reported Mental Status Patient Orientation: Normal For Age Transfers Functional [place] Measure 0=Not Assessed/NA 4=Minimal Assistance 1=Total Assistance 5=Supervision or Setup 2=Maximal Assistance 6=Modified [place] 3=Moderate Assistance 7=Complete IndependenceIRFPAI Quality Coding Scale 6 Independent with activity with or without an assistive device 5 Patient requires set up or clean up by helper. Patient completes activity by themselves 4 Supervision or touching assist (CGA). [place] provide cues , steadying assist 3 The helper provides less than half the effort to complete the activity 2 The helper provides more than half the effort to complete the activity 1 Dependent. The helper does all the effort to complete an activity 7 Patient refused to complete or attempt activity 9 The patient did not perform the activity before the current illness or injury 88 Not attempted due to Medical conditions or safety concerns Transfers (B, C, W/C) (FIM): 4 Scootin Rollin Roll Left to Right (QC): 4 Supine to/from Sit: 5 Sit to/from Stand: 4 Sit to Lying (QC): 4 Sit to Stand (QC): 3 close CGA for safety concerns Gait Training Does the Patient Walk?: Yes Gait (FIM): 2 Distance (FIM): 6=599-83 ft Distance: 125' x 4 Walk 10 feet (QC): 3 Walk 50 ft with 2 Turns(QC): 3 Gait Level of Assist: 4 Gait Persons Needed: 1 Gait Assistive Device: FWW knee brace in place, however, patient continues to demonstrate left knee hyperextension with it on. Exercises Seated Therapy Exercises: Ankle pumps, Long arc quads Seated Reps: 15 Standing: Mini squats Standing Reps: 10 (to address controlled descent with stand to sit transfers) Assessment Patient progressing slowly with treatment, however, is unaware of safety concerns. Reinforcement needed to educate patient on safety issues with ambulation and transfers. Patient will benefit from continued therapy to address goals, strength and safety. PT Short Term Goals Short Term Goals Time Frame: Apr 08, 2017 Transfers (B,C,W/C) (FIM): 4 (CGA) Gait (FIM): 4 Distance (FIM): 3=150 ft Gait Distance Comment: 150' Gait Level of Assist: 4 (CGA) Gait Assistive Device: FWW PT Utility Division Project Manager Goals Utility Division Project Manager Goals PT Mcc Goals Time Frame: Apr 29, 2017 Transfers (B,C,W/C) (FIM): 6 Sit to Lying (QC): 6 Lying-Sitting on Side/Bed(QC): 6 Sit to Stand (QC): 6 Rollin Roll Left to Right (QC): 6 Chair/Nqm-xr-Juszl Xfer(QC): 6 Car Transfer (QC): 5 Does the Patient Walk: Yes Gait (FIM): 6 Gait distance (FIM): 3=150 ft Distance: 300' Walk 10 feet (QC): 6 Walk 10ft-Uneven Surface(QC): 6 Walk 50ft with 2 Turns (QC): 6 Walk 150 ft (QC): 6 Gait Level of Assist: 6 Gait Assistive Device: FWW Stairs (FIM): 5 (household) # of Steps: 8 1 Step (curb) (QC): 6 4 Steps (QC): 6 Stairs Level Of Assist: 6 PT Plan Treatment/Plan Treatment Plan: Continue Plan of Care Treatment Plan: Bed Mobility, Education, Functional Activity Karli, Functional Strength, Group Therapy, Gait, Safety, Therapeutic Exercise, Transfers Treatment Duration: Apr 29, 2017 Frequency: At least 5 to 7 days/Wk (IRF) Estimated Hrs Per Day: 1.5 hours per day Patient and/or Family Agrees t: Yes Safety Risks/Education Patient Education: Safety Issues Teaching Recipient: Patient Teaching Methods: Demonstration, Discussion Response to Teaching: Reinforcement Needed Time/GCodes Time In: 1300 Time Out: 1330 Total Billed Treatment Time: 30 Total Billed Treatment 1 visit GT 15 min EX 15 min WILSON PEDERSEN PT Apr 05, 2017 13:48
--- NOTE | 2017-04-05 14:36 | Occupational Ther Daily Note ---
OT Current Status-Daily Note Subjective Pt alert, sitting in chair. Agrees to therapy, no c/o pain. Mental Status/Objective Patient Orientation: Person, Place, Time, Situation Functional [place] Measure 0=Not Assessed/NA 4=Minimal Assistance 1=Total Assistance 5=Supervision or Setup 2=Maximal Assistance 6=Modified [place] 3=Moderate Assistance 7=Complete [place] ADL-Treatment Functional [place] Measure 0=Not Assessed/NA 4=Minimal Assistance 1=Total Assistance 5=Supervision or Setup 2=Maximal Assistance 6=Modified [place] 3=Moderate Assistance 7=Complete IndependenceIRFPAI Quality Coding Scale 6 Independent with activity with or without an assistive device 5 Patient requires set up or clean up by helper. Patient completes activity by themselves 4 Supervision or touching assist (CGA). [place] provide cues , steadying assist 3 The helper provides less than half the effort to complete the activity 2 The helper provides more than half the effort to complete the activity 1 Dependent. The helper does all the effort to complete an activity 7 Patient refused to complete or attempt activity 9 The patient did not perform the activity before the current illness or injury 88 Not attempted due to Medical conditions or safety concerns Other Treatment Pt participates in therapy in room. Completes AROM activity to increase strength in hands, works on finger (MCP, PIP, DIP) flex/ext, thumb flex/ext, thumb abd/add, and wrist flex/ext to increase strength and AROM. Tolerates well. After therapy, pt sitting in recliner with call light and phone within reach. All needs met in room. OT Short Term Goals Short Term Goals Time Frame: Apr 09, 2017 Transfers (B,C,W/C) (FIM): 4 (CGA) Toilet/Commode Transfer(FIM): 4 Additional Short Term Goals: 2-Verbalize Understanding, 3-ImproveStrength/Karli 1=Demonstrate adherence to instructed precautions during ADL tasks. 2=Patient will verbalize/demonstrate understanding of assistive devices/ modifications for ADL. 3=Patient will improve strength/tolerance for activity to enable patient to perform ADL's. OT Special Education Tutor Goals Special Education Tutor Goals Time Frame: Apr 23, 2017 Eating (FIM): 6 Eating (QC): 6 Groomin Oral Hygiene (QC): 6 Bathing(FIM): 6 Shower/Bathe Self (QC): 6 Upper Body Dressing(FIM): 6 Upper Body Dressing (QC): 6 Lower Body Dressing(FIM): 6 Lower Body Dressing (QC): 6 On/Off Footwear (QC): 6 Toileting(FIM): 6 Toileting Hygiene (QC): 6 Toilet/Commode Transfer(FIM): 6 Toilet/Commode Transfer (QC): 6 Shower Transfer(FIM): 6 Comprehension(FIM): 5 (MET) Expression (FIM): 6 (MET) Social Interaction(FIM): 6 (MET) Problem Solving(FIM): 5 (MET) Memory(FIM): 6 (MET) Additional Goals: 2-Verbalize Understanding, 3-ImproveStrength/Karli 1=Demonstrate adherence to instructed precautions during ADL tasks. 2=Patient will verbalize/demonstrate understanding of assistive devices/ modifications for ADL. 3=Patient will improve strength/tolerance for activity to enable patient to perform ADL's. OT Education/Plan Problem List/Assessment Pt would benefit from skilled OT to increase his independence in basic self care to allow him to safely return to his home and to decrease caregiver burden. Discharge Recommendations Plan/Recommendations: Continue POC Treatment Plan/Plan of Care Patient would benefit from OT for education, treatment and training to promote independence in ADL's, mobility, safety and/or upper extremity function for ADL' s. Plan of Care: ADL Retraining, Functional Mobility, Group Exercise/Act as Ind ( educ, exercise, memory, activ tolerance, socialization), UE Funct Exercise/Act, UE Neuromus Re-Ed/Coord Treatment Duration: Apr 23, 2017 Frequency: At least 5 to 7 days/Wk (IRF) Estimated Hrs Per Day: 1.5 hours per day Agreement: Yes Rehab Potential: Good Time/GCodes Start Time: 12:30 Stop Time: 13:00 Total Time Billed (hr/min): 30 Billed Treatment Time 1 visit, EX 2 (30 minutes) RYAN PEREZ Apr 05, 2017 14:36
[2017-04-05] MEDS: NICOTINE 21 MG (NICODERM) PATCH TD SCH (14:59)
[2017-04-05 18:14] VITALS: BP 103/65
--- NOTE | 2017-04-05 18:45 | PM & R (SOAP) Progress Note ---
Subjective Time Seen by Provider: 18:00 Subjective/Events-last exam Patient was seen in his room this evening.Progressing well with therapies Patient min assist for transfers. Labs noted. Review of Systems Neurological: Weakness Objective Exam Last Set of Vital Signs Vital Signs Date Time Temp Pulse Resp B/P (MAP) Pulse Ox O2 Delivery O2 Flow Rate FiO2 04/05/17 08:11 96.0 61 18 100/66 96 Room Air Capillary Refill : I&O Intake and Output 04/06/17 00:00 Intake Total 1070 ml Balance 1070 ml Intake Oral 1070 ml # Voids 7 # Bowel Movements 3 General: Alert, Oriented X3, Cooperative, No Acute Distress HEENT: Atraumatic, PERRLA, EOMI, Mucous Memb Moist/[place] Neck: Other (c collar in place) Lungs: Clear to Auscultation Heart: Regular Rate Abdomen: Normal Bowel Sounds, Soft, No Tenderness Extremities: No Edema Neuro: Other (RULimb weakness and RT lower extremity weakness) Results Lab Laboratory Tests 04/02/17 20:11: Glucometer 122H 04/03/17 05:37: Glucometer 109 04/03/17 12:07: Glucometer 99 04/03/17 16:42: Glucometer 123H 04/03/17 20:37: Glucometer 109 04/04/17 06:25: Glucometer 105 04/04/17 10:57: Glucometer 168H 04/04/17 17:50: Glucometer 146H 04/04/17 20:25: Glucometer 151H 04/05/17 06:07: Glucometer 98 04/05/17 10:52: Glucometer 112H 04/05/17 15:57: Glucometer 159H Assessment/Plan Assessment 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
[2017-04-05] MEDS: ATORVASTATIN 40 MG (LIPITOR) TABLET PO SCH (20:54)
--- NOTE | 2017-04-05 22:42 | HISTORY AND PHYSICAL ---
DATE OF SERVICE: CHIEF COMPLAINT: Difficulty with walking. HISTORY OF PRESENT ILLNESS: Laurita Sanchez is an 89-year-old female who had been living in [place] who had CABG x3 on 03/12/17 in [place] and was then transferred up to a group home facility in the [place] so that she would be close to her children. She is a recent and indicates she wanter to move to this area. She, unfortunately, developed a bout of congestive heart failure. The patient was admitted to the hospitalist service, and seen in consultation by cardiology. Medications were adjusted. 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 Chest x-ray on 04/05 shows persistent pleural effusions, suspicious area on her right middle lobe. Pulmonology was consulted and Attila suggested. BNP will be monitored. The patient is now referred to inpatient rehabilitation with a goal of discharging to an assisted living facility in this community to be closer to home. She indicates that she cannot go back to [place] and live alone. At this time, she is currently O2 dependent and requires assistance for ADLs and mobility skills. She states before all this she was independent without a gait aid.She is min assist for transfers and mod assist for gait with walker.She c/0 painful blister dorsum of rt foot secondary to cellulitis which is being treated.She is setup for eating and grooming Mod assist for upper body dressing Max assist fo lower body dressing PAST MEDICAL HISTORY: Atrial fibrillation, coronary artery disease, presbycusis, [place], hypertension, congestive heart failure. PAST SURGICAL HISTORY: No prior hip, knee, lumbar spine or cervical spine surgery. ALLERGIES: No known medication allergies. FAMILY HISTORY: Noncontributory. SOCIAL HISTORY: Essentially as per above. She states that she took care of her in [place] for 2 years prior to his . PCP: Dagoberto Moncada in [place]. 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 REVIEW OF SYSTEMS: A 10-point review of systems significant for weakness in legs, fatigue, shortness of breath.Also painful rt blister. MEDICATIONS: Lisinopril 5 mg p.o. daily, fish oil 1000 mg p.o. daily, amiodarone 200 mg p.o. daily, ASA 81 mg p.o. daily, Protonix 40 mg p.o. daily, multivitamins and minerals 1 tablet p.o. daily, Eliquis 2.5 mg p.o. b.i.d., Lactinex 1 tablet p.o. b.i.d., metoprolol 6.25 mg p.o. b.i.d., labetalol 40 mg p.o. each day at bedtime, BuSpar 5 mg p.o. each day at bedtime, cefdinir 300 mg p.o. b.i.d., furosemide 80 mg p.o. b.i.d., Tylenol 500 mg p.o. q.8 hours p.r.n. mild pain, nitroglycerin 0.4 mg sublingual p.r.n chest pain, hydrocodone/apap 5 one tablet p.o. q.8 hours p.r.n. moderate pain. PHYSICAL EXAMINATION: Significant for a pleasant female appearing her stated age, lying in bed, in no acute distress, appearing quite fatigued. VITAL SIGNS: She is afebrile. Pulse is 89, respirations 16, blood pressure 109/67, O2 sat 98% on 2 liters of O2 by nasal cannula. HEENT: Vision, speech, hearing grossly intact. O2 by nasal cannula in place. No oral lesion is noted. NECK: Supple, without mass. HEART: Regular rhythm. LUNGS: Clear anteriorly. ABDOMEN: Soft, nontender. Bowel sounds present. EXTREMITIES: No local edema. No calf tenderness. MUSCULOSKELETAL: The patient has functional active range of motion in all 4 extremities. NEUROLOGICAL: Sensation is grossly intact to touch. Cognition grossly intact. Strength in lower extremities generally 4-/5. Both upper extremities 4/5. SKIN: Erythema and tenderness rt leg and foot Large unbroken fluid filled blister dorsum rt foor egg shaped approx 2 by 2.5 CM in size. IMPRESSION: 1. Critical illness myopathy status post CABG at outside facility, [place]. 2. Postop congestive heart failure treated by cardiology. 3. Atrial fibrillation, controlled with medication. 4. Coronary artery disease status post MO. 5. Hypertension controlled with medication. 6. Respiratory insufficiency on O2 by nasal cannula. 7. Cellulitis of right leg on antibiotics. 8. Painful blister dorsum rt foot PLAN: The patient will have a comprehensive program with inpatient rehabilitation with goal of maximizing level of functional Independencewith end result of discharge hopefully to an assisted living facility rather than back to a group home facility. The patient will have PT/OT 90 minutes per day, each discipline 5 days a week for 2 weeks for gait strengthening, conditioning, balance, ADLs, any patient or family caregiver training necessary. Any adaptive equipment and training necessary. Speech therapy to do cognitive assessment and treat as indicated. Rehabilitation nursing to assist with bowel, bladder, skin, wound care, medication, administration, pain management. rehabilitation services aide to assist with discharge planning, community reentry, respiratory therapy to assist with monitoring O2 sats and administering O2 as needed. Follow up with PCP DR Moncada,Pulmonology and cardiology as per their schedule. Therapy with cardiac and fall precautions. Consult DR Juan for wound care. ESTIMATED LENGTH OF STAY: 17 days. PROGNOSIS: Rehab prognosis appears good for goal of discharging to an assisted living facility, hopefully at the modified independence to supervision level for ADLs and mobility skills. DIET: Heart healthy. CODE STATUS: Do not resuscitate. Daily weights. SCDS contraindicated at this time due to cellulitis of her right leg on antibiotic. Job ID: [id number] DocumentID: [id number] Dictated Date: 04/05/2017 19:03:08 Eap Clinician Date: 04/05/2017 19:40:30 Dictated By: SARI CORRALES MD [facility]
[2017-04-06 05:49] VITALS: BP 109/64
[2017-04-06] MEDS: PIOGLITAZONE 30MG (ACTOS) TAB PO SCH (06:10)
[2017-04-06] MEDS: PANTOPRAZOLE 40 MG (PROTONIX) TAB PO SCH (06:10)
[2017-04-06] MEDS: MULTIVIT W/MINERALS TAB (THERAGRAN M) PO SCH (06:10)
[2017-04-06] MEDS: meTOproloL SUCCINATE 50 MG (TOPROL XL) TAB PO SCH (09:07)
[2017-04-06] MEDS: LOSARTAN 50 MG (COZAAR) TAB PO SCH (09:07)
[2017-04-06] MEDS: NICOTINE PATCH REMOVAL TP SCH (09:07)
[2017-04-06] MEDS: ASPIRIN E.C. 325 MG (ECOTRIN) TABLET PO SCH (09:07)
[2017-04-06] MEDS: sitaGLIPtin 50 MG (NON-FORMULARY) TAB PO SCH (09:07)
[2017-04-06] MEDS: DOCUSATE SODIUM 100 MG (COLACE) CAP PO SCH ×2 (09:07→20:25)
[2017-04-06] MEDS: NICOTINE 21 MG (NICODERM) PATCH TD SCH (09:07)
--- NOTE | 2017-04-06 11:11 | Occupational Ther Daily Note ---
OT Current Status-Daily Note Subjective Pt alert, sitting in chair. Pt stated that he didn't sleep well and is tired. Pt seems frustrated today, not willing to work. Gets angry throughout therapy when asked/encouraged to try things by self. Agrees to therapy. Mental Status/Objective Patient Orientation: Person, Place, Time, Situation Functional [place] Measure 0=Not Assessed/NA 4=Minimal Assistance 1=Total Assistance 5=Supervision or Setup 2=Maximal Assistance 6=Modified [place] 3=Moderate Assistance 7=Complete [place] ADL-Treatment Encouraged several times to shower, pt refuses saying he is too tired. Agrees to sponge bath, but only the upper body. Pt gets frustrated when encouraged to wash lower body, raising his voice saying he is too tired. Wants to shave face, finally tries by himself. Completes shaving while holding R wrist with L hand, then switching to holding razor with L hand, needing assistance with shaving neck due to neck precautions. Pt encouraged to try to wash body but declines, stating he doesn't have enough ROM, OTAS completes for him. Pt holds R wrist to comb hair. Pt able to manipulate shirt to get arms through sleeves, requiring assistance to pull up over arms and head and down body. Pt apologizes for being "grumpy" and says he will shower tomorrow. Functional [place] Measure 0=Not Assessed/NA 4=Minimal Assistance 1=Total Assistance 5=Supervision or Setup 2=Maximal Assistance 6=Modified [place] 3=Moderate Assistance 7=Complete IndependenceIRFPAI Quality Coding Scale 6 Independent with activity with or without an assistive device 5 Patient requires set up or clean up by helper. Patient completes activity by themselves 4 Supervision or touching assist (CGA). [place] provide cues , steadying assist 3 The helper provides less than half the effort to complete the activity 2 The helper provides more than half the effort to complete the activity 1 Dependent. The helper does all the effort to complete an activity 7 Patient refused to complete or attempt activity 9 The patient did not perform the activity before the current illness or injury 88 Not attempted due to Medical conditions or safety concerns Grooming (FIM): 3 Bathing (FIM): 2 Upper Body (FIM): 3 Other Treatment Pt agrees to therapy in room. Pt performs 3 exercises with mod resistive sponge to increase gross grasp/pinch strength. AROM elbow flex/ext, scapular protraction/retraction 2 sets 10x. AROM L shoulder flex, PROM R shoulder flex 2 sets 10x. AROM L shoulder int/ext rotation, PROM R shoulder int/ext rotation 2 sets 10x. AROM B wrist flex/ext 2 sets 10x. Required several rest breaks throughout therapy, procrastinating throughout requiring prompts to get back on task. After therapy, pt sitting in chair with phone and call light within reach. All needs met in room. OT Short Term Goals Short Term Goals Time Frame: Apr 09, 2017 Transfers (B,C,W/C) (FIM): 4 (CGA) Toilet/Commode Transfer(FIM): 4 Additional Short Term Goals: 2-Verbalize Understanding, 3-ImproveStrength/Karli 1=Demonstrate adherence to instructed precautions during ADL tasks. 2=Patient will verbalize/demonstrate understanding of assistive devices/ modifications for ADL. 3=Patient will improve strength/tolerance for activity to enable patient to perform ADL's. 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 Goals Residential Goals Time Frame: Apr 23, 2017 Eating (FIM): 6 Eating (QC): 6 Groomin Oral Hygiene (QC): 6 Bathing(FIM): 6 Shower/Bathe Self (QC): 6 Upper Body Dressing(FIM): 6 Upper Body Dressing (QC): 6 Lower Body Dressing(FIM): 6 Lower Body Dressing (QC): 6 On/Off Footwear (QC): 6 Toileting(FIM): 6 Toileting Hygiene (QC): 6 Toilet/Commode Transfer(FIM): 6 Toilet/Commode Transfer (QC): 6 Shower Transfer(FIM): 6 Comprehension(FIM): 5 (MET) Expression (FIM): 6 (MET) Social Interaction(FIM): 6 (MET) Problem Solving(FIM): 5 (MET) Memory(FIM): 6 (MET) Additional Goals: 2-Verbalize Understanding, 3-ImproveStrength/Karli 1=Demonstrate adherence to instructed precautions during ADL tasks. 2=Patient will verbalize/demonstrate understanding of assistive devices/ modifications for ADL. 3=Patient will improve strength/tolerance for activity to enable patient to perform ADL's. OT Education/Plan Problem List/Assessment Pt would benefit from skilled OT to increase his independence in basic self care to allow him to safely return to his home and to decrease caregiver burden. Discharge Recommendations Plan/Recommendations: Continue POC Treatment Plan/Plan of Care Patient would benefit from OT for education, treatment and training to promote independence in ADL's, mobility, safety and/or upper extremity function for ADL' s. Plan of Care: ADL Retraining, Functional Mobility, Group Exercise/Act as Ind ( educ, exercise, memory, activ tolerance, socialization), UE Funct Exercise/Act, UE Neuromus Re-Ed/Coord Treatment Duration: Apr 23, 2017 Frequency: At least 5 to 7 days/Wk (IRF) Estimated Hrs Per Day: 1.5 hours per day Agreement: Yes Rehab Potential: Good Time/GCodes Start Time: 09:15 Stop Time: 10:45 Total Time Billed (hr/min): 90 Billed Treatment Time 1 visit, ADL 3 (45 minutes) EX 3 (45 minutes) RYAN PEREZ Apr 06, 2017 11:11
--- NOTE | 2017-04-06 11:21 | Physical Therapy Daily Note ---
PT Daily Note-Current Subjective Reports he did not sleep well last night. Pain Numeric Pain Scale: 0-No Pain Location: No Pain Reported Mental Status Patient Orientation: Person, Place, Time, Situation Transfers Functional [place] Measure 0=Not Assessed/NA 4=Minimal Assistance 1=Total Assistance 5=Supervision or Setup 2=Maximal Assistance 6=Modified [place] 3=Moderate Assistance 7=Complete IndependenceIRFPAI Quality Coding Scale 6 Independent with activity with or without an assistive device 5 Patient requires set up or clean up by helper. Patient completes activity by themselves 4 Supervision or touching assist (CGA). [place] provide cues , steadying assist 3 The helper provides less than half the effort to complete the activity 2 The helper provides more than half the effort to complete the activity 1 Dependent. The helper does all the effort to complete an activity 7 Patient refused to complete or attempt activity 9 The patient did not perform the activity before the current illness or injury 88 Not attempted due to Medical conditions or safety concerns Transfers (B, C, W/C) (FIM): 4 Sit to/from Stand: 4 Worked on functional sit to stand transfers from varied surfaces throughout the treatment with skilled cues for hand placement and safety 50% of the time. Gait Training Does the Patient Walk?: Yes Gait (FIM): 2 Distance (FIM): 6=847-62 ft Distance: 100 ft x 3; 50 ft x 3 Gait Assistive Device: FWW Worked on gait training with focus on quad control during gait due to hyperextension during stance. Applied an AFO to attempt to decrease the hyperextension with little change in gait, then added a heel lift with with AFO , again no significant change. Discussed and worked on quad control to limit hyperextension but poor quad control limits his ability. Exercises Supine Ex: Quad Set (and hamstring set), Glut sets, Short Arc Quads Supine Reps: 10 (2 sets; with focus on controlled mm movment to improve the hyperextension) Assessment Pt progressing with functional mobility, still limited static stance abiliyt, continues to hyperextend at the right knee and no change in gait pattern with AFO and or heel lift. Pt cooperative and motivateed. Unsafe with gait without assist at this time. Unsure if knee brace provides additional support for the hyperextension, but continuing to use it as a precaution. PT Short Term Goals Short Term Goals Time Frame: Apr 08, 2017 Transfers (B,C,W/C) (FIM): 4 (CGA) Gait (FIM): 4 Distance (FIM): 3=150 ft Gait Distance Comment: 150' Gait Level of Assist: 4 (CGA) Gait Assistive Device: FWW PT Landfill Grader Goals Retirement Goals PT Retirement Goals Time Frame: Apr 29, 2017 Transfers (B,C,W/C) (FIM): 6 Sit to Lying (QC): 6 Lying-Sitting on Side/Bed(QC): 6 Sit to Stand (QC): 6 Rollin Roll Left to Right (QC): 6 Chair/Ceg-qy-Pxxym Xfer(QC): 6 Car Transfer (QC): 5 Does the Patient Walk: Yes Gait (FIM): 6 Gait distance (FIM): 3=150 ft Distance: 300' Walk 10 feet (QC): 6 Walk 10ft-Uneven Surface(QC): 6 Walk 50ft with 2 Turns (QC): 6 Walk 150 ft (QC): 6 Gait Level of Assist: 6 Gait Assistive Device: FWW Stairs (FIM): 5 (household) # of Steps: 8 1 Step (curb) (QC): 6 4 Steps (QC): 6 Stairs Level Of Assist: 6 PT Plan Problem List Problem List: Activity Tolerance, Functional Strength, Safety, Balance, Gait, Transfer Treatment/Plan Treatment Plan: Continue Plan of Care Treatment Plan: Bed Mobility, Education, Functional Activity Karli, Functional Strength, Group Therapy, Gait, Safety, Therapeutic Exercise, Transfers Treatment Duration: Apr 29, 2017 Frequency: At least 5 to 7 days/Wk (IRF) Estimated Hrs Per Day: 1.5 hours per day Patient and/or Family Agrees t: Yes Safety Risks/Education Patient Education: Gait Training, Transfer Techniques, Safety Issues Teaching Recipient: Patient Teaching Methods: Demonstration, Discussion Response to Teaching: Return Demonstration, Reinforcement Needed Discharge Recommendations Therapy D/C Recommendations: Physical Therapy Home Care Time/GCodes Time In: 759 Time Out: 900 Total Billed Treatment Time: 61 Total Billed Treatment visit EX 16 FA 15 GT 30 RYAN TRAVIS PT Apr 06, 2017 11:21
--- NOTE | 2017-04-06 13:24 | Physical Therapy Daily Note ---
PT Daily Note-Current Subjective Patient agrees to PT. Pain Numeric Pain Scale: 0-No Pain Location: No Pain Reported Mental Status Patient Orientation: Normal For Age Transfers Functional [place] Measure 0=Not Assessed/NA 4=Minimal Assistance 1=Total Assistance 5=Supervision or Setup 2=Maximal Assistance 6=Modified [place] 3=Moderate Assistance 7=Complete IndependenceIRFPAI Quality Coding Scale 6 Independent with activity with or without an assistive device 5 Patient requires set up or clean up by helper. Patient completes activity by themselves 4 Supervision or touching assist (CGA). [place] provide cues , steadying assist 3 The helper provides less than half the effort to complete the activity 2 The helper provides more than half the effort to complete the activity 1 Dependent. The helper does all the effort to complete an activity 7 Patient refused to complete or attempt activity 9 The patient did not perform the activity before the current illness or injury 88 Not attempted due to Medical conditions or safety concerns Transfers (B, C, W/C) (FIM): 4 Scootin Sit to/from Stand: 4 Sit to Stand (QC): 3 Gait Training Does the Patient Walk?: Yes Gait (FIM): 4 Distance (FIM): 3=150 ft Distance: 150' x 2 Walk 10 feet (QC): 3 Walk 50 ft with 2 Turns(QC): 3 Walk 150 ft (QC): 3 Gait Level of Assist: 4 Gait Assistive Device: FWW continued hyperextension right knee with knee brace in place Exercises Seated Therapy Exercises: Ankle pumps, Long arc quads, Hip flexion, Hip abd/add Seated Reps: 25 (to increase strength to improve functional mobility) Assessment Current Status: Good Progress PT Short Term Goals Short Term Goals Time Frame: Apr 08, 2017 Transfers (B,C,W/C) (FIM): 4 (CGA) Gait (FIM): 4 Distance (FIM): 3=150 ft Gait Distance Comment: 150' Gait Level of Assist: 4 (CGA) Gait Assistive Device: FWW PT Senior Care Goals Senior Care Goals PT Senior Care Goals Time Frame: Apr 29, 2017 Transfers (B,C,W/C) (FIM): 6 Sit to Lying (QC): 6 Lying-Sitting on Side/Bed(QC): 6 Sit to Stand (QC): 6 Rollin Roll Left to Right (QC): 6 Chair/Tdy-ht-Ywcph Xfer(QC): 6 Car Transfer (QC): 5 Does the Patient Walk: Yes Gait (FIM): 6 Gait distance (FIM): 3=150 ft Distance: 300' Walk 10 feet (QC): 6 Walk 10ft-Uneven Surface(QC): 6 Walk 50ft with 2 Turns (QC): 6 Walk 150 ft (QC): 6 Gait Level of Assist: 6 Gait Assistive Device: FWW Stairs (FIM): 5 (household) # of Steps: 8 1 Step (curb) (QC): 6 4 Steps (QC): 6 Stairs Level Of Assist: 6 PT Plan Treatment/Plan Treatment Plan: Continue Plan of Care Treatment Plan: Bed Mobility, Education, Functional Activity [place], Functional Strength, Group Therapy, Gait, Safety, Therapeutic Exercise, Transfers Treatment Duration: Apr 29, 2017 Frequency: At least 5 to 7 days/Wk (IRF) Estimated Hrs Per Day: 1.5 hours per day Patient and/or Family Agrees t: Yes Time/GCodes Time In: 1245 Time Out: 1315 Total Billed Treatment Time: 30 Total Billed Treatment 1 visit EX 15 min GT 15 min WILSON PEDERSEN PT Apr 06, 2017 13:24
[2017-04-06 18:10] VITALS: BP 114/58
--- NOTE | 2017-04-06 18:15 | PM & R (SOAP) Progress Note ---
Subjective Time Seen by Provider: 08:00 Subjective/Events-last exam Patient was seen in his room this AM Patient min to mod assist for trsnsfers Labs and therapy notes reviewed. Objective Exam Last Set of Vital Signs Vital Signs Date Time Temp Pulse Resp B/P (MAP) Pulse Ox O2 Delivery O2 Flow Rate FiO2 04/06/17 09:00 Room Air 04/06/17 05:49 98.3 62 18 109/64 94 Capillary Refill : I&O Intake and Output 04/07/17 00:00 Intake Total 650 ml Balance 650 ml Intake Oral 650 ml # Voids 2 # Bowel Movements 3 General: Alert, Oriented X3, Cooperative, No Acute Distress HEENT: Atraumatic, PERRLA, EOMI, Mucous Memb Moist/[place] Neck: Other (c collar in place) Lungs: Clear to Auscultation Heart: Regular Rate Abdomen: Normal Bowel Sounds, Soft, No Tenderness Extremities: No Edema Neuro: Other (RULimb weakness and RT lower extremity weakness) Results Lab Laboratory Tests 04/03/17 20:37: Glucometer 109 04/04/17 06:25: Glucometer 105 04/04/17 10:57: Glucometer 168H 04/04/17 17:50: Glucometer 146H 04/04/17 20:25: Glucometer 151H 04/05/17 06:07: Glucometer 98 04/05/17 10:52: Glucometer 112H 04/05/17 15:57: Glucometer 159H 04/05/17 20:39: Glucometer 173H 04/06/17 04:53: Glucometer 94 04/06/17 11:03: Glucometer 129H 04/06/17 15:57: Glucometer 131H Assessment/Plan Assessment 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
[2017-04-06] MEDS: ATORVASTATIN 40 MG (LIPITOR) TABLET PO SCH (20:25)
[2017-04-07 04:00] VITALS: BP 119/75
[2017-04-07] MEDS: MULTIVIT W/MINERALS TAB (THERAGRAN M) PO SCH (06:17)
[2017-04-07] MEDS: PIOGLITAZONE 30MG (ACTOS) TAB PO SCH (06:17)
[2017-04-07] MEDS: PANTOPRAZOLE 40 MG (PROTONIX) TAB PO SCH (06:17)
[2017-04-07] MEDS: ASPIRIN E.C. 325 MG (ECOTRIN) TABLET PO SCH (09:05)
[2017-04-07] MEDS: POLYETHYLENE GLYCOL 17 GM (MIRALAX) PACK PO PRN (09:05)
[2017-04-07] MEDS: meTOproloL SUCCINATE 50 MG (TOPROL XL) TAB PO SCH (09:05)
[2017-04-07] MEDS: DOCUSATE SODIUM 100 MG (COLACE) CAP PO SCH ×2 (09:05→20:18)
[2017-04-07] MEDS: NICOTINE PATCH REMOVAL TP SCH (09:05)
[2017-04-07] MEDS: sitaGLIPtin 50 MG (NON-FORMULARY) TAB PO SCH (09:05)
[2017-04-07] MEDS: NICOTINE 21 MG (NICODERM) PATCH TD SCH (09:05)
[2017-04-07] MEDS: LOSARTAN 50 MG (COZAAR) TAB PO SCH (09:06)
[2017-04-07] MEDS: BACITRACIN OINTMENT 28 GM TUBE TOP SCH (09:12)
--- NOTE | 2017-04-07 09:43 | Occupational Ther Daily Note ---
OT Current Status-Daily Note Subjective Pt alert, sitting in chair. More willing to participate and initiate activities today. No c/o pain. Did not want to put on knee brace. Mental Status/Objective Patient Orientation: Person, Place, Time, Situation Functional [place] Measure 0=Not Assessed/NA 4=Minimal Assistance 1=Total Assistance 5=Supervision or Setup 2=Maximal Assistance 6=Modified [place] 3=Moderate Assistance 7=Complete [place] ADL-Treatment Pt continues to state that he is unable to wash self and refuses to try or states that "I don't do it that way but we'll do it your way" then procrastinates task and then will say he cannot do the task. Pt given sponge to bathe self instead of wash cloth for modifications to help B customer advocacy manager. when using sponge pt states that he cannot bring his hand up to reach his chest. Pt has demonstrated that he is able to complete these movements during AROM exercises. Pt then stated he could not comb his hair due to his decrease grasp, OTAS began to comb hair and did not do it the way pt liked it so the pt stated " here let me show you how to do it", pt parted hair and then attempted to hand it back to OTAS then OTAS brought it to pt's attention that he just combed his hair himself. Pt not willing to do things for himself and states that due to decreased ROM in UE's he isn't able to do them. Functional [place] Measure 0=Not Assessed/NA 4=Minimal Assistance 1=Total Assistance 5=Supervision or Setup 2=Maximal Assistance 6=Modified [place] 3=Moderate Assistance 7=Complete IndependenceIRFPAI Quality Coding Scale 6 Independent with activity with or without an assistive device 5 Patient requires set up or clean up by helper. Patient completes activity by themselves 4 Supervision or touching assist (CGA). [place] provide cues , steadying assist 3 The helper provides less than half the effort to complete the activity 2 The helper provides more than half the effort to complete the activity 1 Dependent. The helper does all the effort to complete an activity 7 Patient refused to complete or attempt activity 9 The patient did not perform the activity before the current illness or injury 88 Not attempted due to Medical conditions or safety concerns Bathing (FIM): 2 (Pt requires assistance washing/drying upper arms, lower legs , feet, chest, and abdomen due to decreased ROM even after encouragment. Using FWW, shower bench, and handheld shower. Pt has long hand sponge and hand held sponge for decreased AROM. Pt cleanses buttocks/mik area in sitting by reaching from front to back.) Bathing Location: L Upper Leg, R Upper Leg, Perineal Area Upper Body (FIM): 2 (Pt requires assistance pulling arms out of sleeves and over head. Able to pull shirt off lower arms and hands while seated. Pt unable to flex neck due to neck precautions.) Lower Body Dressing (FIM): 3 (Pt doffed shoes and socks by self. Min A required when standing and help to pull down pants. Requires assistance donning shoes, socks, and pants. ) Transfers (B, C, W/C) (FIM): 4 (Min A sit to stand. CGA when ambulating with FWW.) Shower Transfer(FIM): 4 (CGA when transferring into shower using FWW, grab bars , and shower bench. ) Other Treatment Pt transported in / to therapy gym. Completed arm bike duration 7 minutes at 10 aguirre resistance to increase strength, AROM, and activity tolerance. Pt's R hand lost customer advocacy manager 4x during arm bike duration, requiring regrip and rest break each time, extended time required to complete activity. Pt transported back to room in /. Transferred to recliner. After therapy pt sitting in recliner with call light and phone within reach. All needs met. OT Short Term Goals Short Term Goals Time Frame: Apr 09, 2017 Transfers (B,C,W/C) (FIM): 4 (CGA) Toilet/Commode Transfer(FIM): 4 Additional Short Term Goals: 2-Verbalize Understanding, 3-ImproveStrength/Karli 1=Demonstrate adherence to instructed precautions during ADL tasks. 2=Patient will verbalize/demonstrate understanding of assistive devices/ modifications for ADL. 3=Patient will improve strength/tolerance for activity to enable patient to perform ADL's. OT Detention Goals Detention Goals Time Frame: Apr 23, 2017 Eating (FIM): 6 Eating (QC): 6 Groomin Oral Hygiene (QC): 6 Bathing(FIM): 6 Shower/Bathe Self (QC): 6 Upper Body Dressing(FIM): 6 Upper Body Dressing (QC): 6 Lower Body Dressing(FIM): 6 Lower Body Dressing (QC): 6 On/Off Footwear (QC): 6 Toileting(FIM): 6 Toileting Hygiene (QC): 6 Toilet/Commode Transfer(FIM): 6 Toilet/Commode Transfer (QC): 6 Shower Transfer(FIM): 6 Comprehension(FIM): 5 (MET) Expression (FIM): 6 (MET) Social Interaction(FIM): 6 (MET) Problem Solving(FIM): 5 (MET) Memory(FIM): 6 (MET) Additional Goals: 2-Verbalize Understanding, 3-ImproveStrength/Karli 1=Demonstrate adherence to instructed precautions during ADL tasks. 2=Patient will verbalize/demonstrate understanding of assistive devices/ modifications for ADL. 3=Patient will improve strength/tolerance for activity to enable patient to perform ADL's. OT Education/Plan Problem List/Assessment Pt would benefit from skilled OT to increase his independence in basic self care to allow him to safely return to his home and to decrease caregiver burden. Discharge Recommendations Plan/Recommendations: Continue POC Treatment Plan/Plan of Care Patient would benefit from OT for education, treatment and training to promote independence in ADL's, mobility, safety and/or upper extremity function for ADL' s. Plan of Care: ADL Retraining, Functional Mobility, Group Exercise/Act as Ind ( educ, exercise, memory, activ tolerance, socialization), UE Funct Exercise/Act, UE Neuromus Re-Ed/Coord Treatment Duration: Apr 23, 2017 Frequency: At least 5 to 7 days/Wk (IRF) Estimated Hrs Per Day: 1.5 hours per day Agreement: Yes Rehab Potential: Good Time/GCodes Start Time: 08:15 Stop Time: 09:45 Total Time Billed (hr/min): 90 Billed Treatment Time 1 visit, ADL 5 (75 minutes) EX 1 (15 minutes) RYAN PEREZ Apr 07, 2017 09:43
--- NOTE | 2017-04-07 10:53 | Physical Therapy Daily Note ---
PT Daily Note-Current Subjective Pt. state he hasnt had breakfast yet. Agrees to Rx as long as it ends with breakfast. Pt. states he will have HC after DC but no on else in his home. At end of Rx pt. needs to have BM. After toileting this PLANNING ASSOCIATE offered pt. warm wipes and suggested he attempt to wipe with his left hand, pt. states he cannot do it and expects right hand to be capable before he leaves for home and will not try to clean himself with his left hand. Pain Numeric Pain Scale: 0-No Pain Mental Status Patient Orientation: Normal For Age Attachments: Other-See Comments (immoblizer right LE) Transfers Functional [place] Measure 0=Not Assessed/NA 4=Minimal Assistance 1=Total Assistance 5=Supervision or Setup 2=Maximal Assistance 6=Modified [place] 3=Moderate Assistance 7=Complete IndependenceIRFPAI Quality Coding Scale 6 Independent with activity with or without an assistive device 5 Patient requires set up or clean up by helper. Patient completes activity by themselves 4 Supervision or touching assist (CGA). [place] provide cues , steadying assist 3 The helper provides less than half the effort to complete the activity 2 The helper provides more than half the effort to complete the activity 1 Dependent. The helper does all the effort to complete an activity 7 Patient refused to complete or attempt activity 9 The patient did not perform the activity before the current illness or injury 88 Not attempted due to Medical conditions or safety concerns Transfers (B, C, W/C) (FIM): 5 Scootin Rollin Supine to/from Sit: 5 Sit to/from Stand: 5 continues to plop sit, needs cues for safe sit Gait Training Does the Patient Walk?: Yes Gait (FIM): 4 Distance (FIM): 3=150 ft Gait Level of Assist: 4 Gait Persons Needed: 1 Gait Assistive Device: FWW Exercises Supine Ex: Ankle pumps, Quad Set, Rolling, Glut sets, Heel Slides, Short Arc Quads, Scooting, Straight leg raise (assist), Hip abd/add Seated Therapy Exercises: Sit to stand, Long arc quads, Hip flexion Seated Reps: 10 Treatments toileted for BM, mod assist pants down and up, and max assist to clean after BM Assessment Current Status: Good Progress pt. expresses that he will go home alone and have 1 hr HC services every day and he will handle things himself PT Short Term Goals Short Term Goals Time Frame: Apr 08, 2017 Transfers (B,C,W/C) (FIM): 4 (CGA) Gait (FIM): 4 Distance (FIM): 3=150 ft Gait Distance Comment: 150' Gait Level of Assist: 4 (CGA) Gait Assistive Device: FWW PT Oncology Nurse Navigator Goals Oncology Nurse Navigator Goals PT Care Home Goals Time Frame: Apr 29, 2017 Transfers (B,C,W/C) (FIM): 6 Sit to Lying (QC): 6 Lying-Sitting on Side/Bed(QC): 6 Sit to Stand (QC): 6 Rollin Roll Left to Right (QC): 6 Chair/Mev-if-[place] Xfer(QC): 6 Car Transfer (QC): 5 Does the Patient Walk: Yes Gait (FIM): 6 Gait distance (FIM): 3=150 ft Distance: 300' Walk 10 feet (QC): 6 Walk 10ft-Uneven Surface(QC): 6 Walk 50ft with 2 Turns (QC): 6 Walk 150 ft (QC): 6 Gait Level of Assist: 6 Gait Assistive Device: FWW Stairs (FIM): 5 (household) # of Steps: 8 1 Step (curb) (QC): 6 4 Steps (QC): 6 Stairs Level Of Assist: 6 PT Plan Treatment/Plan Treatment Plan: Continue Plan of Care Treatment Plan: Bed Mobility, Education, Functional Activity Karli, Functional Strength, Group Therapy, Gait, Safety, Therapeutic Exercise, Transfers Treatment Duration: Apr 29, 2017 Frequency: At least 5 to 7 days/Wk (IRF) Estimated Hrs Per Day: 1.5 hours per day Patient and/or Family Agrees t: Yes Safety Risks/Education Patient Education: Gait Training, Transfer Techniques, Correct Positioning, Disease Process, Safety Issues Teaching Recipient: Patient Teaching Methods: Demonstration, Discussion Response to Teaching: Verbalize Understanding, Return Demonstration, Reinforcement Needed (safety for all mobility, needs education RE: rehab process and realistic expectations) Time/GCodes Time In: 1000 Time Out: 1100 Total Billed Treatment Time: 60 Total Billed Treatment 1,FA20,EX15,GT25 G Codes Necessary: KERA Corral PLANNING ASSOCIATE Apr 07, 2017 10:53
--- NOTE | 2017-04-07 11:23 | PM & R (SOAP) Progress Note ---
Subjective Time Seen by Provider: 07:50 Subjective/Events-last exam Patient was seen in his room this AM Patient SBA for transfers.Eating and sleeping OK Pain control adequate. Objective Exam Last Set of Vital Signs Vital Signs Date Time Temp Pulse Resp B/P (MAP) Pulse Ox O2 Delivery O2 Flow Rate FiO2 04/07/17 04:00 96.7 74 18 119/75 97 Room Air Capillary Refill : I&O Intake and Output 04/08/17 00:00 Intake Total 100 ml Balance 100 ml Intake Oral 100 ml # Voids 2 General: Alert, Oriented X3, Cooperative, No Acute Distress HEENT: Atraumatic, PERRLA, EOMI, Mucous Memb Moist/[place] Neck: Other (c collar in place) Lungs: Clear to Auscultation Heart: Regular Rate Abdomen: Normal Bowel Sounds, Soft, No Tenderness Extremities: No Edema Neuro: Other (RULimb weakness and RT lower extremity weakness) Results Lab Laboratory Tests 04/04/17 17:50: Glucometer 146H 04/04/17 20:25: Glucometer 151H 04/05/17 06:07: Glucometer 98 04/05/17 10:52: Glucometer 112H 04/05/17 15:57: Glucometer 159H 04/05/17 20:39: Glucometer 173H 04/06/17 04:53: Glucometer 94 04/06/17 11:03: Glucometer 129H 04/06/17 15:57: Glucometer 131H 04/06/17 20:07: Glucometer 163H 04/07/17 04:55: Glucometer 93 Assessment/Plan Assessment 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
--- NOTE | 2017-04-07 14:28 | Physical Therapy Daily Note ---
PT Daily Note-Current Subjective Pt. asleep in chair. When awakened states he is so very tired but will try. With supine exercises pt states it is very tiring Pain Numeric Pain Scale: 0-No Pain Transfers Functional [place] Measure 0=Not Assessed/NA 4=Minimal Assistance 1=Total Assistance 5=Supervision or Setup 2=Maximal Assistance 6=Modified [place] 3=Moderate Assistance 7=Complete IndependenceIRFPAI Quality Coding Scale 6 Independent with activity with or without an assistive device 5 Patient requires set up or clean up by helper. Patient completes activity by themselves 4 Supervision or touching assist (CGA). [place] provide cues , steadying assist 3 The helper provides less than half the effort to complete the activity 2 The helper provides more than half the effort to complete the activity 1 Dependent. The helper does all the effort to complete an activity 7 Patient refused to complete or attempt activity 9 The patient did not perform the activity before the current illness or injury 88 Not attempted due to Medical conditions or safety concerns CGA sit to stand with several trials and unable to complete stance. Pt. refuses to wear brace on LE. sit to supine SBA and much effort for pt. Gait Training Gait Assistive Device: FWW increased difficulty with gait this PM. gait 15 ft x 2 slow, requiring min to CGA for support Exercises Supine Ex: Bridging, Ankle pumps, Quad Set, Rolling, Glut sets, Heel Slides, Short Arc Quads, Scooting, Straight leg raise (assist), Hip abd/add (assist) Supine Reps: 15 Assessment Current Status: Good Progress fatigued PT Short Term Goals Short Term Goals Time Frame: Apr 08, 2017 Transfers (B,C,W/C) (FIM): 4 (CGA) Gait (FIM): 4 Distance (FIM): 3=150 ft Gait Distance Comment: 150' Gait Level of Assist: 4 (CGA) Gait Assistive Device: FWW PT Senior Living Goals Food And Beverage Attendant Goals PT Senior Living Goals Time Frame: Apr 29, 2017 Transfers (B,C,W/C) (FIM): 6 Sit to Lying (QC): 6 Lying-Sitting on Side/Bed(QC): 6 Sit to Stand (QC): 6 Rollin Roll Left to Right (QC): 6 Chair/Pth-rb-Dtwao Xfer(QC): 6 Car Transfer (QC): 5 Does the Patient Walk: Yes Gait (FIM): 6 Gait distance (FIM): 3=150 ft Distance: 300' Walk 10 feet (QC): 6 Walk 10ft-Uneven Surface(QC): 6 Walk 50ft with 2 Turns (QC): 6 Walk 150 ft (QC): 6 Gait Level of Assist: 6 Gait Assistive Device: FWW Stairs (FIM): 5 (household) # of Steps: 8 1 Step (curb) (QC): 6 4 Steps (QC): 6 Stairs Level Of Assist: 6 PT Plan Treatment/Plan Treatment Plan: Continue Plan of Care Treatment Plan: Bed Mobility, Education, Functional Activity Karli, Functional Strength, Group Therapy, Gait, Safety, Therapeutic Exercise, Transfers Treatment Duration: Apr 29, 2017 Frequency: At least 5 to 7 days/Wk (IRF) Estimated Hrs Per Day: 1.5 hours per day Patient and/or Family Agrees t: Yes Safety Risks/Education Patient Education: Gait Training, Transfer Techniques Teaching Recipient: Patient Teaching Methods: Demonstration, Discussion Response to Teaching: Verbalize Understanding, Return Demonstration, Reinforcement Needed Time/GCodes Time In: 1400 Time Out: 1430 Total Billed Treatment Time: 30 Total Billed Treatment 1,FA10m,EX20m G Codes Necessary: KERA Corral BUSINESS OPERATIONS MANAGER Apr 07, 2017 14:28
--- NOTE | 2017-04-07 16:59 | Podiatry Progress Note ---
Standard Progress Note Progress Notes/Assess & Plan Date Seen by Provider: Apr 07, 2017 Time Seen by Provider: 16:58 Progress/Assessment & Plan Consult dictated. Foot care given Diabetic Neuropathy Onychomycosis Hammer Toes Final Diagnosis Diabetic Neuropathy Onychomycosis Hammer Toes PARKER MILLIGAN DPM Apr 07, 2017 16:59
[2017-04-07 17:55] VITALS: BP 117/68
[2017-04-07] MEDS: ATORVASTATIN 40 MG (LIPITOR) TABLET PO SCH (20:18)
--- NOTE | 2017-04-08 00:09 | CONSULTATION REPORT ---
DATE OF SERVICE: 04/07/2017 REASON FOR CONSULT: Foot care. HISTORY OF PRESENT ILLNESS: This is a 76-year-old male who was admitted due to a fall that resulted in a subdural hematoma. He was transferred to [facility] for some time. The patient underwent decompression surgery by Dr. May. He was then placed in a soft collar. The patient has inability to reaching care for his feet. He is currently at [facility] for rehabilitation. PAST MEDICAL HISTORY: Includes low back pain, right shoulder injury with apparent brachial plexus injury. Also history of COPD, tobaccoism, gastric ulcer, diverticulitis, insulin-dependent diabetes, hyperlipidemia, anemia, anxiety, osteoarthritis and peripheral neuropathy. PAST SURGICAL HISTORY: Include the L4-L5 discectomy and cervical spine surgery as described above. ALLERGIES: He has no known drug allergies. SOCIAL HISTORY: The patient smokes 1 pack per day; however, he has not had a cigarette for last couple of weeks and is using Nicoderm patch. He denies alcohol or illicit drug use. PHYSICAL EXAMINATION: GENERAL: This is a well developed male in no apparent distress. VITAL SIGNS: Stable. EXTREMITIES: He has 2/4 dorsalis pedis pulse bilaterally, nonpalpable posterior tibial pulse bilateral foot. Capillary refill time is less than 3 seconds. SKIN: Dermatologically, he has thick yellow dystrophic toe nails with subungual debris associated with R1, 2, 4, 5; and L1 and 5 digits. NEUROLOGIC: He has intact protective sensation for 10 gram monofilament wire examination bilaterally, but diminished deep tendon reflexes and absent vibratory sensation bilateral foot. MUSCULOSKELETAL: Findings, he has 5/5 muscle strength to the 4 major quadrants of the foot. He has a contracted toe of 5th digit bilaterally, with adductovarus rotation of the 5th toe on left as well as the 4th digit. ASSESSMENT: Diabetic neuropathy, onychomycosis, Hammer digit syndrome. PLAN: The toe nails were debrided today manually and mechanically. Betadine applied. We discussed appropriate diabetic shoe gear and protection for his feet at length. He is welcome to followup in our office upon discharge. We also discussed smoking cessation and its benefits. Job ID: [id number] DocumentID: [id number] Dictated Date: 04/07/2017 16:58:07 Wire Drawing Die Maker Date: 04/08/2017 00:08:49 Dictated By: BULMARO WIGGINS
[2017-04-08] MEDS: PANTOPRAZOLE 40 MG (PROTONIX) TAB PO SCH (06:28)
[2017-04-08] MEDS: MULTIVIT W/MINERALS TAB (THERAGRAN M) PO SCH (06:28)
[2017-04-08] MEDS: PIOGLITAZONE 30MG (ACTOS) TAB PO SCH (06:28)
[2017-04-08 06:30] VITALS: BP 129/78
[2017-04-08] MEDS: LOSARTAN 50 MG (COZAAR) TAB PO SCH (09:09)
[2017-04-08] MEDS: DOCUSATE SODIUM 100 MG (COLACE) CAP PO SCH ×2 (09:09→20:56)
[2017-04-08] MEDS: sitaGLIPtin 50 MG (NON-FORMULARY) TAB PO SCH (09:09)
[2017-04-08] MEDS: NICOTINE 21 MG (NICODERM) PATCH TD SCH (09:10)
[2017-04-08] MEDS: NICOTINE PATCH REMOVAL TP SCH (09:10)
[2017-04-08] MEDS: ASPIRIN E.C. 325 MG (ECOTRIN) TABLET PO SCH (09:10)
[2017-04-08] MEDS: meTOproloL SUCCINATE 50 MG (TOPROL XL) TAB PO SCH (09:10)
--- NOTE | 2017-04-08 09:40 | Occupational Ther Daily Note ---
OT Current Status-Daily Note Subjective Pt alert, sitting in recliner. Pt agreed to therapy. Pt declined shower today. No c/o pain at this time. Mental Status/Objective Patient Orientation: Person, Place, Time, Situation Functional [place] Measure 0=Not Assessed/NA 4=Minimal Assistance 1=Total Assistance 5=Supervision or Setup 2=Maximal Assistance 6=Modified [place] 3=Moderate Assistance 7=Complete [place] Attachments: Other-See Comments (neck brace and knee brace) ADL-Treatment Functional [place] Measure 0=Not Assessed/NA 4=Minimal Assistance 1=Total Assistance 5=Supervision or Setup 2=Maximal Assistance 6=Modified [place] 3=Moderate Assistance 7=Complete IndependenceIRFPAI Quality Coding Scale 6 Independent with activity with or without an assistive device 5 Patient requires set up or clean up by helper. Patient completes activity by themselves 4 Supervision or touching assist (CGA). [place] provide cues , steadying assist 3 The helper provides less than half the effort to complete the activity 2 The helper provides more than half the effort to complete the activity 1 Dependent. The helper does all the effort to complete an activity 7 Patient refused to complete or attempt activity 9 The patient did not perform the activity before the current illness or injury 88 Not attempted due to Medical conditions or safety concerns Eating (FIM): 5 (After set up, pt able to use regular utensils to cut food and feed self. Pt does have built up handles to place on spoon/fork if needed.) Eating (QC): 5 (After set up, pt able to use regular utensils to cut food and feed self. Pt does have built up handles to place on spoon/fork if needed.) Grooming (FIM): 5 (After set up for shaving, pt is able to shave self. Pt declined oral care though did verbalize how he completed with dentures.) Upper Body (FIM): 4 (After set up, pt was able to pull shirt over head, adhering to neck precautions then pull off shirt. Min A to don shirt, pt threads arms into sleeves and lifts over head, assist to pull down back.) Pt was able to don shoes by self. Pt requires assistance to don/doff knee brace. Discussing different ways to don socks and don/doff brace. Pt declined brushing teeth until later. Pt takes increased time to complete tasks. After therapy, pt sitting in recliner with call light/phone in reach. All needs met in room. Education OT Patient Education: Safety issues, Use of adapted equipment Teaching Recipient: Patient Teaching Methods: Discussion Response to Teaching: Verbalize Understanding OT Short Term Goals Short Term Goals Time Frame: Apr 09, 2017 Transfers (B,C,W/C) (FIM): 4 (CGA) Toilet/Commode Transfer(FIM): 4 Additional Short Term Goals: 2-Verbalize Understanding, 3-ImproveStrength/Karli 1=Demonstrate adherence to instructed precautions during ADL tasks. 2=Patient will verbalize/demonstrate understanding of assistive devices/ modifications for ADL. 3=Patient will improve strength/tolerance for activity to enable patient to perform ADL's. OT Senior Care Goals Hand Cultivator Goals Time Frame: Apr 23, 2017 Eating (FIM): 6 Eating (QC): 6 Groomin Oral Hygiene (QC): 6 Bathing(FIM): 6 Shower/Bathe Self (QC): 6 Upper Body Dressing(FIM): 6 Upper Body Dressing (QC): 6 Lower Body Dressing(FIM): 6 Lower Body Dressing (QC): 6 On/Off Footwear (QC): 6 Toileting(FIM): 6 Toileting Hygiene (QC): 6 Toilet/Commode Transfer(FIM): 6 Toilet/Commode Transfer (QC): 6 Shower Transfer(FIM): 6 Comprehension(FIM): 5 (MET) Expression (FIM): 6 (MET) Social Interaction(FIM): 6 (MET) Problem Solving(FIM): 5 (MET) Memory(FIM): 6 (MET) Additional Goals: 2-Verbalize Understanding, 3-ImproveStrength/Karli 1=Demonstrate adherence to instructed precautions during ADL tasks. 2=Patient will verbalize/demonstrate understanding of assistive devices/ modifications for ADL. 3=Patient will improve strength/tolerance for activity to enable patient to perform ADL's. OT Education/Plan Problem List/Assessment Pt would benefit from skilled OT to increase his independence in basic self care to allow him to safely return to his home and to decrease caregiver burden. Discharge Recommendations Plan/Recommendations: Continue POC Treatment Plan/Plan of Care Patient would benefit from OT for education, treatment and training to promote independence in ADL's, mobility, safety and/or upper extremity function for ADL' s. Plan of Care: ADL Retraining, Functional Mobility, Group Exercise/Act as Ind ( educ, exercise, memory, activ tolerance, socialization), UE Funct Exercise/Act, UE Neuromus Re-Ed/Coord Treatment Duration: Apr 23, 2017 Frequency: At least 5 to 7 days/Wk (IRF) Estimated Hrs Per Day: 1.5 hours per day Agreement: Yes Rehab Potential: Good Time/GCodes Start Time: 08:15 Stop Time: 09:15 Total Time Billed (hr/min): 60 Billed Treatment Time 1 visit-ADL 4 (60 min) RYAN PEREZ Apr 08, 2017 09:40
--- NOTE | 2017-04-08 12:45 | Physical Therapy Daily Note ---
PT Daily Note-Current Subjective Pt sitting in recliner upon arrival. Pt agrees to PT. Pain Numeric Pain Scale: 2 Location Body Site: Neck Pain Description: Ache Mental Status Patient Orientation: Person, Place, Time, Situation Attachments: Other-See Comments (Soft Neck Brace) Transfers Functional [place] Measure 0=Not Assessed/NA 4=Minimal Assistance 1=Total Assistance 5=Supervision or Setup 2=Maximal Assistance 6=Modified [place] 3=Moderate Assistance 7=Complete IndependenceIRFPAI Quality Coding Scale 6 Independent with activity with or without an assistive device 5 Patient requires set up or clean up by helper. Patient completes activity by themselves 4 Supervision or touching assist (CGA). [place] provide cues , steadying assist 3 The helper provides less than half the effort to complete the activity 2 The helper provides more than half the effort to complete the activity 1 Dependent. The helper does all the effort to complete an activity 7 Patient refused to complete or attempt activity 9 The patient did not perform the activity before the current illness or injury 88 Not attempted due to Medical conditions or safety concerns Scootin Sit to/from Stand: 4 Sit to Stand (QC): 4 Weight Bearing Weight Bearing Restriction: Full Weight Bearing Location Restriction: LE Bilateral Gait Training Does the Patient Walk?: Yes Distance (FIM): 3=150 ft Distance: 200' Walk 10 feet (QC): 4 Walk 50 ft with 2 Turns(QC): 4 Walk 150 ft (QC): 4 Gait Level of Assist: 4 Gait Persons Needed: 1 Gait Assistive Device: FWW Pt walks slow & steady, no LOB. Pt is CGA for safety due to weakness. Wheelchair Training Does the Pt Use a Wheelchair?: No Exercises Seated Therapy Exercises: Ankle pumps, Long arc quads, Hip flexion, Kicking activity Seated Reps: 20 ((2 sets)) NuStep Minutes: 10 NuStep Workload: 4 Treatments Pt transferred from recliner to standing using FWW at CGA-Min A. Pt ambulates using FWW at [facility] for safety. Pt took a couple of rest breaks during ambulation. Pt completes 2 sets of Seated Ex followed by NuStep for 10m at Workload 4. Pt returned to room to rest in recliner and await lunch with all needs met at end of tx. Assessment Current Status: Good Progress Pt is improving with transfers and ambulation although still working on stand to sit w/o flopping. PT Short Term Goals Short Term Goals Time Frame: Apr 08, 2017 Transfers (B,C,W/C) (FIM): 4 (CGA) Gait (FIM): 4 Distance (FIM): 3=150 ft Gait Distance Comment: 150' Gait Level of Assist: 4 (CGA) Gait Assistive Device: FWW PT Labor Relations Specialist Goals Longterm Goals PT Labor Relations Specialist Goals Time Frame: Apr 29, 2017 Transfers (B,C,W/C) (FIM): 6 Sit to Lying (QC): 6 Lying-Sitting on Side/Bed(QC): 6 Sit to Stand (QC): 6 Rollin Roll Left to Right (QC): 6 Chair/Vnw-qq-Pgwiz Xfer(QC): 6 Car Transfer (QC): 5 Does the Patient Walk: Yes Gait (FIM): 6 Gait distance (FIM): 3=150 ft Distance: 300' Walk 10 feet (QC): 6 Walk 10ft-Uneven Surface(QC): 6 Walk 50ft with 2 Turns (QC): 6 Walk 150 ft (QC): 6 Gait Level of Assist: 6 Gait Assistive Device: FWW Stairs (FIM): 5 (household) # of Steps: 8 1 Step (curb) (QC): 6 4 Steps (QC): 6 Stairs Level Of Assist: 6 PT Plan Problem List Problem List: Activity Tolerance, Functional Strength, Safety, Balance, Gait, Transfer Treatment/Plan Treatment Plan: Continue Plan of Care Treatment Plan: Bed Mobility, Education, Functional Activity Karli, Functional Strength, Group Therapy, Gait, Safety, Therapeutic Exercise, Transfers Treatment Duration: Apr 29, 2017 Frequency: At least 5 to 7 days/Wk (IRF) Estimated Hrs Per Day: 1.5 hours per day Patient and/or Family Agrees t: Yes Safety Risks/Education Patient Education: Gait Training, Transfer Techniques, Correct Positioning, Safety Issues Teaching Recipient: Patient Teaching Methods: Discussion Response to Teaching: Verbalize Understanding Time/GCodes Time In: 1100 Time Out: 1200 Total Billed Treatment Time: 60 Total Billed Treatment visit, GT x2 (30m), FA (10m) & EX (20m) OLGA LE LAYAWAY CLERK Apr 08, 2017 12:45
[2017-04-08] MEDS ORDERED: ACETAMINOPHEN 500 MG TAB (TYLENOL) PO PRN (13:15)
--- NOTE | 2017-04-08 13:46 | PM & R (SOAP) Progress Note ---
Subjective Time Seen by Provider: 07:50 Subjective/Events-last exam Patient was seen in his room.Had foot care with DR Peck yesterday.Patient requesting Tylenol for pain Discussed with RN see orders. Objective Exam Last Set of Vital Signs Vital Signs Date Time Temp Pulse Resp B/P (MAP) Pulse Ox O2 Delivery O2 Flow Rate FiO2 04/08/17 06:30 97.4 77 18 129/78 98 Room Air Capillary Refill : General: Alert, Oriented X3, Cooperative, No Acute Distress HEENT: Atraumatic, PERRLA, EOMI, Mucous Memb Moist/[place] Neck: Other (c collar in place) Lungs: Clear to Auscultation Heart: Regular Rate Abdomen: Normal Bowel Sounds, Soft, No Tenderness Extremities: No Edema Neuro: Other (RULimb weakness and RT lower extremity weakness) Results Lab Laboratory Tests 04/05/17 15:57: Glucometer 159H 04/05/17 20:39: Glucometer 173H 04/06/17 04:53: Glucometer 94 04/06/17 11:03: Glucometer 129H 04/06/17 15:57: Glucometer 131H 04/06/17 20:07: Glucometer 163H 04/07/17 04:55: Glucometer 93 04/07/17 10:49: Glucometer 90 04/07/17 16:13: Glucometer 156H 04/07/17 20:22: Glucometer 173H 04/08/17 06:32: Glucometer 102 04/08/17 10:42: Glucometer 143H Assessment/Plan Assessment Cervical 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 SARI CORRALES MD Apr 08, 2017 13:46
--- NOTE | 2017-04-08 14:30 | Occupational Ther Daily Note ---
OT Current Status-Daily Note Subjective Pt sleeping in recliner. Woke easily to name. Pt agreed to therapy. No c/o pain at this time. Mental Status/Objective Patient Orientation: Person, Place, Time, Situation Functional [place] Measure 0=Not Assessed/NA 4=Minimal Assistance 1=Total Assistance 5=Supervision or Setup 2=Maximal Assistance 6=Modified [place] 3=Moderate Assistance 7=Complete [place] Attachments: Other-See Comments (neck and knee brace) ADL-Treatment Functional [place] Measure 0=Not Assessed/NA 4=Minimal Assistance 1=Total Assistance 5=Supervision or Setup 2=Maximal Assistance 6=Modified [place] 3=Moderate Assistance 7=Complete IndependenceIRFPAI Quality Coding Scale 6 Independent with activity with or without an assistive device 5 Patient requires set up or clean up by helper. Patient completes activity by themselves 4 Supervision or touching assist (CGA). [place] provide cues , steadying assist 3 The helper provides less than half the effort to complete the activity 2 The helper provides more than half the effort to complete the activity 1 Dependent. The helper does all the effort to complete an activity 7 Patient refused to complete or attempt activity 9 The patient did not perform the activity before the current illness or injury 88 Not attempted due to Medical conditions or safety concerns Other Treatment Pt worked on donning knee brace. Pt attempted various LE positions to don brace efficiently. Sitting in recliner to don brace was the most efficient. Pt required assistance to position under leg and get straps into rings to tighten. Pt unable to reach and manipulate straps by ankle. After therapy, pt sitting in recliner with PT present. PT took over care. All needs met in room. Education OT Patient Education: Modified ADL techniques Teaching Recipient: Patient Teaching Methods: Demonstration, Discussion Response to Teaching: Verbalize Understanding, Return Demonstration, Reinforcement Needed OT Short Term Goals Short Term Goals Time Frame: Apr 09, 2017 Transfers (B,C,W/C) (FIM): 4 (CGA) Toilet/Commode Transfer(FIM): 4 Additional Short Term Goals: 2-Verbalize Understanding, 3-ImproveStrength/Karli 1=Demonstrate adherence to instructed precautions during ADL tasks. 2=Patient will verbalize/demonstrate understanding of assistive devices/ modifications for ADL. 3=Patient will improve strength/tolerance for activity to enable patient to perform ADL's. OT Mcfp Goals Mcfp Goals Time Frame: Apr 23, 2017 Eating (FIM): 6 Eating (QC): 6 Groomin Oral Hygiene (QC): 6 Bathing(FIM): 6 Shower/Bathe Self (QC): 6 Upper Body Dressing(FIM): 6 Upper Body Dressing (QC): 6 Lower Body Dressing(FIM): 6 Lower Body Dressing (QC): 6 On/Off Footwear (QC): 6 Toileting(FIM): 6 Toileting Hygiene (QC): 6 Toilet/Commode Transfer(FIM): 6 Toilet/Commode Transfer (QC): 6 Shower Transfer(FIM): 6 Comprehension(FIM): 5 (MET) Expression (FIM): 6 (MET) Social Interaction(FIM): 6 (MET) Problem Solving(FIM): 5 (MET) Memory(FIM): 6 (MET) Additional Goals: 2-Verbalize Understanding, 3-ImproveStrength/Karli 1=Demonstrate adherence to instructed precautions during ADL tasks. 2=Patient will verbalize/demonstrate understanding of assistive devices/ modifications for ADL. 3=Patient will improve strength/tolerance for activity to enable patient to perform ADL's. OT Education/Plan Problem List/Assessment Pt would benefit from skilled OT to increase his independence in basic self care to allow him to safely return to his home and to decrease caregiver burden. Discharge Recommendations Plan/Recommendations: Continue POC Treatment Plan/Plan of Care Patient would benefit from OT for education, treatment and training to promote independence in ADL's, mobility, safety and/or upper extremity function for ADL' s. Plan of Care: ADL Retraining, Functional Mobility, Group Exercise/Act as Ind ( educ, exercise, memory, activ tolerance, socialization), UE Funct Exercise/Act, UE Neuromus Re-Ed/Coord Treatment Duration: Apr 23, 2017 Frequency: At least 5 to 7 days/Wk (IRF) Estimated Hrs Per Day: 1.5 hours per day Agreement: Yes Rehab Potential: Good Time/GCodes Start Time: 13:30 Stop Time: 14:00 Total Time Billed (hr/min): 30 Billed Treatment Time 1 visit-FA 2 (30 min) RYAN PEREZ Apr 08, 2017 14:30
--- NOTE | 2017-04-08 15:48 | Physical Therapy Daily Note ---
PT Daily Note-Current Subjective Pt sitting in recliner upon arrival. Pt agrees to PT. Pain Numeric Pain Scale: 2 Location Body Site: Neck Pain Description: Ache Mental Status Patient Orientation: Person, Place, Time, Situation Attachments: Other-See Comments (Soft Neck Brace & Knee Immobilizer) Transfers Functional [place] Measure 0=Not Assessed/NA 4=Minimal Assistance 1=Total Assistance 5=Supervision or Setup 2=Maximal Assistance 6=Modified [place] 3=Moderate Assistance 7=Complete IndependenceIRFPAI Quality Coding Scale 6 Independent with activity with or without an assistive device 5 Patient requires set up or clean up by helper. Patient completes activity by themselves 4 Supervision or touching assist (CGA). [place] provide cues , steadying assist 3 The helper provides less than half the effort to complete the activity 2 The helper provides more than half the effort to complete the activity 1 Dependent. The helper does all the effort to complete an activity 7 Patient refused to complete or attempt activity 9 The patient did not perform the activity before the current illness or injury 88 Not attempted due to Medical conditions or safety concerns Scootin Sit to/from Stand: 4 Sit to Stand (QC): 4 Weight Bearing Weight Bearing Restriction: Full Weight Bearing Location Restriction: LE Bilateral Gait Training Does the Patient Walk?: Yes Distance (FIM): 3=150 ft Distance: 150' Walk 10 feet (QC): 4 Walk 50 ft with 2 Turns(QC): 4 Walk 150 ft (QC): 4 Gait Level of Assist: 4 Gait Persons Needed: 1 Gait Assistive Device: FWW Pt walks with slow [place] and R knee hyperextends with WB. Wheelchair Training Does the Pt Use a Wheelchair?: No Exercises Seated Therapy Exercises: Ankle pumps, Long arc quads, Hip flexion, Kicking activity, Hamstring Curls (Completed with Yellow Tband for resistance) Seated Reps: 15 Treatments Pt transfers from recliner to standing using FWW at CGA-Min A. Pt ambulates in [facility] using FWW at [facility] for safety. Pt focused on trying not to hyperextend R knee and sitting w/o flopping. Pt completes Seated Ex in recliner with Yellow Tband. Pt returns to room to rest in recliner at end of tx with all needs met. Assessment Current Status: Good Progress Pt tolerates tx well and will continue to work on not flopping when sitting. PT Short Term Goals Short Term Goals Time Frame: Apr 08, 2017 Transfers (B,C,W/C) (FIM): 4 (CGA) Gait (FIM): 4 Distance (FIM): 3=150 ft Gait Distance Comment: 150' Gait Level of Assist: 4 (CGA) Gait Assistive Device: FWW PT Custodial Goals Custodial Goals PT Steel Wheel Engraver Goals Time Frame: Apr 29, 2017 Transfers (B,C,W/C) (FIM): 6 Sit to Lying (QC): 6 Lying-Sitting on Side/Bed(QC): 6 Sit to Stand (QC): 6 Rollin Roll Left to Right (QC): 6 Chair/Dfn-of-Peqnm Xfer(QC): 6 Car Transfer (QC): 5 Does the Patient Walk: Yes Gait (FIM): 6 Gait distance (FIM): 3=150 ft Distance: 300' Walk 10 feet (QC): 6 Walk 10ft-Uneven Surface(QC): 6 Walk 50ft with 2 Turns (QC): 6 Walk 150 ft (QC): 6 Gait Level of Assist: 6 Gait Assistive Device: FWW Stairs (FIM): 5 (household) # of Steps: 8 1 Step (curb) (QC): 6 4 Steps (QC): 6 Stairs Level Of Assist: 6 PT Plan Problem List Problem List: Activity Tolerance, Functional Strength, Safety, Balance, Gait, Transfer Treatment/Plan Treatment Plan: Continue Plan of Care Treatment Plan: Bed Mobility, Education, Functional Activity Karli, Functional Strength, Group Therapy, Gait, Safety, Therapeutic Exercise, Transfers Treatment Duration: Apr 29, 2017 Frequency: At least 5 to 7 days/Wk (IRF) Estimated Hrs Per Day: 1.5 hours per day Patient and/or Family Agrees t: Yes Safety Risks/Education Patient Education: Gait Training, Transfer Techniques, Correct Positioning, Safety Issues Teaching Recipient: Patient Teaching Methods: Discussion Response to Teaching: Verbalize Understanding Time/GCodes Time In: 1400 Time Out: 1430 Total Billed Treatment Time: 30 Total Billed Treatment visit, GT (15m) & EX (15m) OLGA LE PTA Apr 08, 2017 15:48
[2017-04-08 17:30] VITALS: BP 111/78
[2017-04-08] MEDS: ATORVASTATIN 40 MG (LIPITOR) TABLET PO SCH (20:56)
[2017-04-09 05:00] VITALS: BP 123/64
[2017-04-09] MEDS: PANTOPRAZOLE 40 MG (PROTONIX) TAB PO SCH (06:02)
[2017-04-09] MEDS: PIOGLITAZONE 30MG (ACTOS) TAB PO SCH (06:02)
[2017-04-09] MEDS: MULTIVIT W/MINERALS TAB (THERAGRAN M) PO SCH (06:02)
[2017-04-09] MEDS: LOSARTAN 50 MG (COZAAR) TAB PO SCH (08:25)
[2017-04-09] MEDS: sitaGLIPtin 50 MG (NON-FORMULARY) TAB PO SCH (08:25)
[2017-04-09] MEDS: ASPIRIN E.C. 325 MG (ECOTRIN) TABLET PO SCH (08:25)
[2017-04-09] MEDS: NICOTINE 21 MG (NICODERM) PATCH TD SCH (08:25)
[2017-04-09] MEDS: DOCUSATE SODIUM 100 MG (COLACE) CAP PO SCH ×2 (08:25→20:55)
[2017-04-09] MEDS: NICOTINE PATCH REMOVAL TP SCH (08:25)
[2017-04-09] MEDS: meTOproloL SUCCINATE 50 MG (TOPROL XL) TAB PO SCH (08:25)
[2017-04-09] MEDS: BACITRACIN OINTMENT 28 GM TUBE TOP SCH (08:26)
--- NOTE | 2017-04-09 10:15 | Occupational Ther Daily Note ---
OT Current Status-Daily Note Subjective Pt alert, sitting in recliner. Pt agreed to therapy. No c/o pain at this time. Mental Status/Objective Patient Orientation: Person, Place, Time, Situation Functional [place] Measure 0=Not Assessed/NA 4=Minimal Assistance 1=Total Assistance 5=Supervision or Setup 2=Maximal Assistance 6=Modified [place] 3=Moderate Assistance 7=Complete [place] ADL-Treatment Pt agreed to shower today. Pt had multiple stories to tell prior to getting into the shower. Therapist redirected pt to get ready for shower. Pt ambulated into bathroom with FWW with close SBA. Pt transferred into shower using FWW, grabbars and shower bench with close SBA. Pt was able to bathe all areas of body while sitting on bench. Pt required assist to thoroughly dry lower legs and back. Pt doffed socks by self sitting on shower bench. Pt requires assistance to don socks over feet. After set up, pt required SBA to don shirt with assist to pull down body. Assistance to start underwear over feet then pt is able to pull up legs and assist to hike over hips. Pt able to don pants over feet and pull up legs, assist to hike over hips. Pt ambulated to recliner with FWW. After therapy, pt sitting in recliner with call light/ phone in reach. All needs met in room. Functional [place] Measure 0=Not Assessed/NA 4=Minimal Assistance 1=Total Assistance 5=Supervision or Setup 2=Maximal Assistance 6=Modified [place] 3=Moderate Assistance 7=Complete IndependenceIRFPAI Quality Coding Scale 6 Independent with activity with or without an assistive device 5 Patient requires set up or clean up by helper. Patient completes activity by themselves 4 Supervision or touching assist (CGA). [place] provide cues , steadying assist 3 The helper provides less than half the effort to complete the activity 2 The helper provides more than half the effort to complete the activity 1 Dependent. The helper does all the effort to complete an activity 7 Patient refused to complete or attempt activity 9 The patient did not perform the activity before the current illness or injury 88 Not attempted due to Medical conditions or safety concerns Bathing (FIM): 5 Bathing Location: L Arm, R Arm, L Upper Leg, R Upper Leg, L Lower Leg ( including foot), R Lower Leg (including foot), Chest, Abdomen, Buttocks, Perineal Area Upper Body (FIM): 4 Lower Body Dressing (FIM): 3 On/Off Footwear (QC): 3 Transfers (B, C, W/C) (FIM): 4 Shower Transfer(FIM): 4 OT Short Term Goals Short Term Goals Time Frame: Apr 09, 2017 Transfers (B,C,W/C) (FIM): 4 (CGA) Toilet/Commode Transfer(FIM): 4 Additional Short Term Goals: 2-Verbalize Understanding, 3-ImproveStrength/Karli 1=Demonstrate adherence to instructed precautions during ADL tasks. 2=Patient will verbalize/demonstrate understanding of assistive devices/ modifications for ADL. 3=Patient will improve strength/tolerance for activity to enable patient to perform ADL's. OT Spray Foam Installer Goals Assisted Goals Time Frame: Apr 23, 2017 Eating (FIM): 6 Eating (QC): 6 Groomin Oral Hygiene (QC): 6 Bathing(FIM): 6 Shower/Bathe Self (QC): 6 Upper Body Dressing(FIM): 6 Upper Body Dressing (QC): 6 Lower Body Dressing(FIM): 6 Lower Body Dressing (QC): 6 On/Off Footwear (QC): 6 Toileting(FIM): 6 Toileting Hygiene (QC): 6 Toilet/Commode Transfer(FIM): 6 Toilet/Commode Transfer (QC): 6 Shower Transfer(FIM): 6 Comprehension(FIM): 5 (MET) Expression (FIM): 6 (MET) Social Interaction(FIM): 6 (MET) Problem Solving(FIM): 5 (MET) Memory(FIM): 6 (MET) Additional Goals: 2-Verbalize Understanding, 3-ImproveStrength/Karli 1=Demonstrate adherence to instructed precautions during ADL tasks. 2=Patient will verbalize/demonstrate understanding of assistive devices/ modifications for ADL. 3=Patient will improve strength/tolerance for activity to enable patient to perform ADL's. OT Education/Plan Problem List/Assessment Pt would benefit from skilled OT to increase his independence in basic self care to allow him to safely return to his home and to decrease caregiver burden. Discharge Recommendations Plan/Recommendations: Continue POC Treatment Plan/Plan of Care Patient would benefit from OT for education, treatment and training to promote independence in ADL's, mobility, safety and/or upper extremity function for ADL' s. Plan of Care: ADL Retraining, Functional Mobility, Group Exercise/Act as Ind ( educ, exercise, memory, activ tolerance, socialization), UE Funct Exercise/Act, UE Neuromus Re-Ed/Coord Treatment Duration: Apr 23, 2017 Frequency: At least 5 to 7 days/Wk (IRF) Estimated Hrs Per Day: 1.5 hours per day Agreement: Yes Rehab Potential: Good Time/GCodes Start Time: 08:00 Stop Time: 09:00 Total Time Billed (hr/min): 60 Billed Treatment Time 1 visit-ADL 4 (60 min) RYAN PEREZ Apr 09, 2017 10:15
--- NOTE | 2017-04-09 10:20 | PM & R (SOAP) Progress Note ---
Subjective Time Seen by Provider: 08:05 Subjective/Events-last exam Patient was seen in his room this AM Patient min assist for transfers Objective Exam Last Set of Vital Signs Vital Signs Date Time Temp Pulse Resp B/P (MAP) Pulse Ox O2 Delivery O2 Flow Rate FiO2 04/09/17 09:14 Room Air 04/09/17 05:00 96.7 84 20 123/64 94 Capillary Refill : I&O Intake and Output 04/10/17 00:00 Intake Total 320 ml Balance 320 ml Intake Oral 320 ml # Voids 2 General: Alert, Oriented X3, Cooperative, No Acute Distress HEENT: Atraumatic, PERRLA, EOMI, Mucous Memb Moist/[place] Neck: Other (c collar in place) Lungs: Clear to Auscultation Heart: Regular Rate Abdomen: Normal Bowel Sounds, Soft, No Tenderness Extremities: No Edema Neuro: Other (RULimb weakness and RT lower extremity weakness) Results Lab Laboratory Tests 04/06/17 11:03: Glucometer 129H 04/06/17 15:57: Glucometer 131H 04/06/17 20:07: Glucometer 163H 04/07/17 04:55: Glucometer 93 04/07/17 10:49: Glucometer 90 04/07/17 16:13: Glucometer 156H 04/07/17 20:22: Glucometer 173H 04/08/17 06:32: Glucometer 102 04/08/17 10:42: Glucometer 143H 04/08/17 16:12: Glucometer 112H 04/08/17 20:57: Glucometer 163H 04/09/17 04:55: Glucometer 99 Assessment/Plan Assessment 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 Next Team Conference 04-14-17 SARI CORRALES MD Apr 09, 2017 10:20
--- NOTE | 2017-04-09 14:37 | Physical Therapy Daily Note ---
PT Daily Note-Current Subjective Pt. agrees to Rx. Pain Numeric Pain Scale: 0-No Pain Mental Status Patient Orientation: Normal For Age Transfers Functional [place] Measure 0=Not Assessed/NA 4=Minimal Assistance 1=Total Assistance 5=Supervision or Setup 2=Maximal Assistance 6=Modified [place] 3=Moderate Assistance 7=Complete IndependenceIRFPAI Quality Coding Scale 6 Independent with activity with or without an assistive device 5 Patient requires set up or clean up by helper. Patient completes activity by themselves 4 Supervision or touching assist (CGA). [place] provide cues , steadying assist 3 The helper provides less than half the effort to complete the activity 2 The helper provides more than half the effort to complete the activity 1 Dependent. The helper does all the effort to complete an activity 7 Patient refused to complete or attempt activity 9 The patient did not perform the activity before the current illness or injury 88 Not attempted due to Medical conditions or safety concerns Transfers (B, C, W/C) (FIM): 5 Scootin Rollin Supine to/from Sit: 5 Sit to/from Stand: 5 cues for safe stand to sit, pt. plops occas Gait Training Does the Patient Walk?: Yes Gait (FIM): 5 Distance (FIM): 3=150 ft (175x2) Gait Level of Assist: 5 Gait Persons Needed: 1 Gait Assistive Device: FWW R knee hyperextension, pt. fatigues with gait. needs cues to make sure right hand stays on FWW well Stair Training Stair Training: Handrails/: 2 handrails Stairs (FIM): 2 #of Steps: 1 Stairs: Pattern: Step to Level of Assist: 2 assist of 2 on steps with pt. requiring mod assist as he melted with left ( stronger leg) on step ascend Exercises Supine Ex: Bridging, Ankle pumps, Quad Set, Rolling, Heel Slides, Short Arc Quads, Scooting, Straight leg raise (assist), Hip abd/add (assist) NuStep Minutes: 10 NuStep Workload: 4 Treatments nustep 5m with UEs and LEs, 5 min with LEs only, leg presses x 12 on Nustep Assessment Current Status: Good Progress PT Short Term Goals Short Term Goals Time Frame: Apr 08, 2017 Transfers (B,C,W/C) (FIM): 4 (CGA) Gait (FIM): 4 Distance (FIM): 3=150 ft Gait Distance Comment: 150' Gait Level of Assist: 4 (CGA) Gait Assistive Device: FWW PT Back End Developer Goals Back End Developer Goals PT Back End Developer Goals Time Frame: Apr 29, 2017 Transfers (B,C,W/C) (FIM): 6 Sit to Lying (QC): 6 Lying-Sitting on Side/Bed(QC): 6 Sit to Stand (QC): 6 Rollin Roll Left to Right (QC): 6 Chair/Utr-gf-Equbg Xfer(QC): 6 Car Transfer (QC): 5 Does the Patient Walk: Yes Gait (FIM): 6 Gait distance (FIM): 3=150 ft Distance: 300' Walk 10 feet (QC): 6 Walk 10ft-Uneven Surface(QC): 6 Walk 50ft with 2 Turns (QC): 6 Walk 150 ft (QC): 6 Gait Level of Assist: 6 Gait Assistive Device: FWW Stairs (FIM): 5 (household) # of Steps: 8 1 Step (curb) (QC): 6 4 Steps (QC): 6 Stairs Level Of Assist: 6 PT Plan Treatment/Plan Treatment Plan: Continue Plan of Care Treatment Plan: Bed Mobility, Education, Functional Activity Karli, Functional Strength, Group Therapy, Gait, Safety, Therapeutic Exercise, Transfers Treatment Duration: Apr 29, 2017 Frequency: At least 5 to 7 days/Wk (IRF) Estimated Hrs Per Day: 1.5 hours per day Patient and/or Family Agrees t: Yes Safety Risks/Education Patient Education: Gait Training, Transfer Techniques, Steps, Correct Positioning, Safety Issues Teaching Recipient: Patient Teaching Methods: Demonstration, Discussion Response to Teaching: Verbalize Understanding, Return Demonstration, Reinforcement Needed Time/GCodes Time In: 1100 Time Out: 1200 Total Billed Treatment Time: 60 Total Billed Treatment 1,GT25,FA15m,EX20m G Codes Necessary: No KERA QUEEN SEMICONDUCTOR TECHNICIAN Apr 09, 2017 14:37
--- NOTE | 2017-04-09 14:57 | Therapy Group Daily Note ---
Therapy Daily Group Note Patient Education Topic Other List Below (ascendign descending steps, ARU description and expectaions) Exercises LE Seated Exercise, UE Exercise Other/Notes Pt. attended group PT OT session. Pt. came via w/c. Once there pt. appeared to enjoy himself , introducing self and starting conversation. Pts lead exercise group reading and demonstrating from handout card distributed to each of them prior to group start. Ascending and descending stairs was explained and demonstrated using rails and also FWW up down steps. Pt. asked questions and participated well. Was very social. In bed after group with lee at hand Start Time: 13:00 Stop Time: 14:10 Total Billed Treatment Time: 70 Total Billed Treatment 1,GRP KERA QUEEN FORECLOSURE FIELD INSPECTOR Apr 09, 2017 14:57
[2017-04-09 17:58] VITALS: BP 119/60
[2017-04-09] MEDS: ATORVASTATIN 40 MG (LIPITOR) TABLET PO SCH (20:55)
[2017-04-10 05:27] VITALS: BP 120/69
[2017-04-10] MEDS: PIOGLITAZONE 30MG (ACTOS) TAB PO SCH (06:28)
[2017-04-10] MEDS: PANTOPRAZOLE 40 MG (PROTONIX) TAB PO SCH (06:29)
[2017-04-10] MEDS: MULTIVIT W/MINERALS TAB (THERAGRAN M) PO SCH (06:29)
[2017-04-10] MEDS: NICOTINE PATCH REMOVAL TP SCH (08:25)
[2017-04-10] MEDS: sitaGLIPtin 50 MG (NON-FORMULARY) TAB PO SCH (08:25)
[2017-04-10] MEDS: NICOTINE 21 MG (NICODERM) PATCH TD SCH (08:25)
[2017-04-10] MEDS: meTOproloL SUCCINATE 50 MG (TOPROL XL) TAB PO SCH (08:25)
[2017-04-10] MEDS: LOSARTAN 50 MG (COZAAR) TAB PO SCH (08:25)
[2017-04-10] MEDS: DOCUSATE SODIUM 100 MG (COLACE) CAP PO SCH ×2 (08:25→20:49)
[2017-04-10] MEDS: ASPIRIN E.C. 325 MG (ECOTRIN) TABLET PO SCH (08:25)
--- NOTE | 2017-04-10 11:00 | Physical Therapy Daily Note ---
PT Daily Note-Current Subjective Pt up in chair, agreeable. Declined to don (R) knee brace; "I don't really think it does much for me". No pain rating provided for (R) knee Mental Status Patient Orientation: Person, Place, Time, Situation Transfers Functional [place] Measure 0=Not Assessed/NA 4=Minimal Assistance 1=Total Assistance 5=Supervision or Setup 2=Maximal Assistance 6=Modified [place] 3=Moderate Assistance 7=Complete IndependenceIRFPAI Quality Coding Scale 6 Independent with activity with or without an assistive device 5 Patient requires set up or clean up by helper. Patient completes activity by themselves 4 Supervision or touching assist (CGA). [place] provide cues , steadying assist 3 The helper provides less than half the effort to complete the activity 2 The helper provides more than half the effort to complete the activity 1 Dependent. The helper does all the effort to complete an activity 7 Patient refused to complete or attempt activity 9 The patient did not perform the activity before the current illness or injury 88 Not attempted due to Medical conditions or safety concerns Sit to/from Stand: 4 Weight Bearing Weight Bearing Restriction: Full Weight Bearing Location Restriction: LE Bilateral Gait Training Does the Patient Walk?: Yes Gait (FIM): 4 Distance (FIM): 3=463-89 ft Distance: 100' x 2 Walk 10 feet (QC): 4 Walk 50 ft with 2 Turns(QC): 4 Gait Level of Assist: 4 Gait Persons Needed: 1 Gait Assistive Device: FWW Pt ambulated with slow, shuffling gait with (R) knee hyperextension in stance. VCS for safety to approach chair and control stand->sit with UE. Wheelchair Training Does the Pt Use a Wheelchair?: No Exercises Seated Therapy Exercises: Ankle pumps, Long arc quads, Hip flexion Seated Reps: 20 Treatments Gait training, LE ex for functional strengthening. Returned to room, up in chair with all needs met. Assessment Current Status: Good Progress Pt tolerated very well. Seated LE ex between gait trials. PT Short Term Goals Short Term Goals Time Frame: Apr 08, 2017 Transfers (B,C,W/C) (FIM): 4 (CGA) Gait (FIM): 4 Distance (FIM): 3=150 ft Gait Distance Comment: 150' Gait Level of Assist: 4 (CGA) Gait Assistive Device: FWW PT Fish Cutting Machine Operator Goals Senior Care Goals PT Senior Care Goals Time Frame: Apr 29, 2017 Transfers (B,C,W/C) (FIM): 6 Sit to Lying (QC): 6 Lying-Sitting on Side/Bed(QC): 6 Sit to Stand (QC): 6 Rollin Roll Left to Right (QC): 6 Chair/Ria-ee-Dqziy Xfer(QC): 6 Car Transfer (QC): 5 Does the Patient Walk: Yes Gait (FIM): 6 Gait distance (FIM): 3=150 ft Distance: 300' Walk 10 feet (QC): 6 Walk 10ft-Uneven Surface(QC): 6 Walk 50ft with 2 Turns (QC): 6 Walk 150 ft (QC): 6 Gait Level of Assist: 6 Gait Assistive Device: FWW Stairs (FIM): 5 (household) # of Steps: 8 1 Step (curb) (QC): 6 4 Steps (QC): 6 Stairs Level Of Assist: 6 PT Plan Problem List Problem List: Activity Tolerance, Functional Strength, Safety, Balance, Gait, Transfer, Bed Mobility Treatment/Plan Treatment Plan: Continue Plan of Care Treatment Plan: Bed Mobility, Education, Functional Activity Karli, Functional Strength, Group Therapy, Gait, Safety, Therapeutic Exercise, Transfers Treatment Duration: Apr 29, 2017 Frequency: At least 5 to 7 days/Wk (IRF) Estimated Hrs Per Day: 1.5 hours per day Patient and/or Family Agrees t: Yes Safety Risks/Education Patient Education: Gait Training Teaching Recipient: Patient Teaching Methods: Discussion Response to Teaching: Verbalize Understanding, Return Demonstration, Reinforcement Needed Time/GCodes Time In: 0832 Time Out: 0858 Total Billed Treatment Time: 26 Total Billed Treatment 1, Gt x 16', Ex x 10' G Codes Necessary: TAMANNA Wilkins DPFiliberto Apr 10, 2017 11:00
[2017-04-10 18:24] VITALS: BP 110/69
[2017-04-10] MEDS: ATORVASTATIN 40 MG (LIPITOR) TABLET PO SCH (20:49)
[2017-04-11 05:27] VITALS: BP 135/86
[2017-04-11] MEDS: PANTOPRAZOLE 40 MG (PROTONIX) TAB PO SCH (06:57)
[2017-04-11] MEDS: PIOGLITAZONE 30MG (ACTOS) TAB PO SCH (06:57)
[2017-04-11] MEDS: MULTIVIT W/MINERALS TAB (THERAGRAN M) PO SCH (06:57)
[2017-04-11] MEDS: NICOTINE PATCH REMOVAL TP SCH (08:39)
[2017-04-11] MEDS: LOSARTAN 50 MG (COZAAR) TAB PO SCH (08:39)
[2017-04-11] MEDS: ASPIRIN E.C. 325 MG (ECOTRIN) TABLET PO SCH (08:39)
[2017-04-11] MEDS: NICOTINE 21 MG (NICODERM) PATCH TD SCH (08:39)
[2017-04-11] MEDS: DOCUSATE SODIUM 100 MG (COLACE) CAP PO SCH ×2 (08:39→19:52)
[2017-04-11] MEDS: sitaGLIPtin 50 MG (NON-FORMULARY) TAB PO SCH (08:39)
[2017-04-11] MEDS: BACITRACIN OINTMENT 28 GM TUBE TOP SCH (08:40)
[2017-04-11] MEDS: meTOproloL SUCCINATE 50 MG (TOPROL XL) TAB PO SCH (08:44)
[2017-04-11 18:58] VITALS: BP 110/69
[2017-04-11] MEDS: ATORVASTATIN 40 MG (LIPITOR) TABLET PO SCH (19:52)
[2017-04-12 05:25] VITALS: BP 99/58
[2017-04-12] MEDS: MULTIVIT W/MINERALS TAB (THERAGRAN M) PO SCH (06:11)
[2017-04-12] MEDS: PANTOPRAZOLE 40 MG (PROTONIX) TAB PO SCH (06:11)
[2017-04-12] MEDS: PIOGLITAZONE 30MG (ACTOS) TAB PO SCH (06:11)
[2017-04-12] MEDS: NICOTINE 21 MG (NICODERM) PATCH TD SCH (08:27)
[2017-04-12] MEDS: sitaGLIPtin 50 MG (NON-FORMULARY) TAB PO SCH (08:27)
[2017-04-12] MEDS: ASPIRIN E.C. 325 MG (ECOTRIN) TABLET PO SCH (08:27)
[2017-04-12] MEDS: NICOTINE PATCH REMOVAL TP SCH (08:27)
[2017-04-12] MEDS: meTOproloL SUCCINATE 50 MG (TOPROL XL) TAB PO SCH (08:28)
[2017-04-12] MEDS: DOCUSATE SODIUM 100 MG (COLACE) CAP PO SCH ×2 (08:28→20:08)
[2017-04-12] MEDS: LOSARTAN 50 MG (COZAAR) TAB PO SCH (08:28)
[2017-04-12 08:30] VITALS: BP 115/72
--- NOTE | 2017-04-12 11:54 | Physical Therapy Daily Note ---
PT Daily Note-Current Subjective Pt sitting in recliner upon arrival. Pt agrees to PT. Pt reports feeling stronger. Pain Location: No Pain Reported Mental Status Patient Orientation: Person, Place, Time, Situation Attachments: Other-See Comments (Soft neck brace) Transfers Functional [place] Measure 0=Not Assessed/NA 4=Minimal Assistance 1=Total Assistance 5=Supervision or Setup 2=Maximal Assistance 6=Modified [place] 3=Moderate Assistance 7=Complete IndependenceIRFPAI Quality Coding Scale 6 Independent with activity with or without an assistive device 5 Patient requires set up or clean up by helper. Patient completes activity by themselves 4 Supervision or touching assist (CGA). [place] provide cues , steadying assist 3 The helper provides less than half the effort to complete the activity 2 The helper provides more than half the effort to complete the activity 1 Dependent. The helper does all the effort to complete an activity 7 Patient refused to complete or attempt activity 9 The patient did not perform the activity before the current illness or injury 88 Not attempted due to Medical conditions or safety concerns Scootin Sit to/from Stand: 5 Sit to Stand (QC): 5 Weight Bearing Weight Bearing Restriction: Full Weight Bearing Location Restriction: LE Bilateral Gait Training Does the Patient Walk?: Yes Distance (FIM): 3=150 ft Distance: 200' Walk 10 feet (QC): 4 Walk 50 ft with 2 Turns(QC): 4 Walk 150 ft (QC): 4 Gait Level of Assist: 4 Gait Persons Needed: 1 Gait Assistive Device: FWW Pt's R knee hyperextends while WB. Pt walks with slow but steady gait, no LOB. Pt doesn't want to use AFO, doesn't feel it is helping. Wheelchair Training Does the Pt Use a Wheelchair?: No Exercises Seated Therapy Exercises: Ankle pumps, Long arc quads, Hip flexion, Kicking activity Seated Reps: 20 NuStep Minutes: 10 NuStep Workload: 4 Treatments Pt transfers from sitting in recliner to standing using FWW at [facility]. Pt ambulates in [facility] using FWW at [facility]. Pt uses NuStep for 10m at Workload 4 followed by Seated Ex in chair before returning to room to rest. Pt rests in recliner with all needs met at end of tx. Assessment Current Status: Good Progress Pt is getting stronger and has improved with independence and safety of transfers and ambulation. Pt will not use AFO. PT Short Term Goals Short Term Goals Time Frame: Apr 08, 2017 Transfers (B,C,W/C) (FIM): 4 (CGA) Gait (FIM): 4 Distance (FIM): 3=150 ft Gait Distance Comment: 150' Gait Level of Assist: 4 (CGA) Gait Assistive Device: FWW PT Emery Wheel Molder Goals Intermediate Goals PT Emery Wheel Molder Goals Time Frame: Apr 29, 2017 Transfers (B,C,W/C) (FIM): 6 Sit to Lying (QC): 6 Lying-Sitting on Side/Bed(QC): 6 Sit to Stand (QC): 6 Rollin Roll Left to Right (QC): 6 Chair/Ftj-gu-Hpmlm Xfer(QC): 6 Car Transfer (QC): 5 Does the Patient Walk: Yes Gait (FIM): 6 Gait distance (FIM): 3=150 ft Distance: 300' Walk 10 feet (QC): 6 Walk 10ft-Uneven Surface(QC): 6 Walk 50ft with 2 Turns (QC): 6 Walk 150 ft (QC): 6 Gait Level of Assist: 6 Gait Assistive Device: FWW Stairs (FIM): 5 (household) # of Steps: 8 1 Step (curb) (QC): 6 4 Steps (QC): 6 Stairs Level Of Assist: 6 PT Plan Problem List Problem List: Activity Tolerance, Safety, Balance, Gait Treatment/Plan Treatment Plan: Continue Plan of Care Treatment Plan: Bed Mobility, Education, Functional Activity Karli, Functional Strength, Group Therapy, Gait, Safety, Therapeutic Exercise, Transfers Treatment Duration: Apr 29, 2017 Frequency: At least 5 to 7 days/Wk (IRF) Estimated Hrs Per Day: 1.5 hours per day Patient and/or Family Agrees t: Yes Safety Risks/Education Patient Education: Gait Training, Transfer Techniques, Correct Positioning, Safety Issues Teaching Recipient: Patient Teaching Methods: Discussion Response to Teaching: Verbalize Understanding Time/GCodes Time In: 905 Time Out: 950 Total Billed Treatment Time: 45 Total Billed Treatment visit, GT (15m) & EX x2 (30m) OLGA LE AUDIOMETRIC TECHNICIAN Apr 12, 2017 11:54
--- NOTE | 2017-04-12 12:24 | Occupational Ther Daily Note ---
OT Current Status-Daily Note Subjective No pain reported. Appearance Pt. up in chair. Agrees to work with OT. Agrees to shower. Mental Status/Objective Patient Orientation: Person, Place, Time Functional [place] Measure 0=Not Assessed/NA 4=Minimal Assistance 1=Total Assistance 5=Supervision or Setup 2=Maximal Assistance 6=Modified [place] 3=Moderate Assistance 7=Complete [place] ADL-Treatment Functional [place] Measure 0=Not Assessed/NA 4=Minimal Assistance 1=Total Assistance 5=Supervision or Setup 2=Maximal Assistance 6=Modified [place] 3=Moderate Assistance 7=Complete IndependenceIRFPAI Quality Coding Scale 6 Independent with activity with or without an assistive device 5 Patient requires set up or clean up by helper. Patient completes activity by themselves 4 Supervision or touching assist (CGA). [place] provide cues , steadying assist 3 The helper provides less than half the effort to complete the activity 2 The helper provides more than half the effort to complete the activity 1 Dependent. The helper does all the effort to complete an activity 7 Patient refused to complete or attempt activity 9 The patient did not perform the activity before the current illness or injury 88 Not attempted due to Medical conditions or safety concerns Grooming (FIM): 3 (Pt. requires mod assistance at times to shave and brush hair , due to not being able to get hands up to head.) Bathing (FIM): 3 (Pt. required assistance to wash under arms, upper chest, hair , and back. Able to get all other parts. Assistance required to dry off bilateral LE.) Shower/Bathe Self (QC): 3 Upper Body (FIM): 4 (Pt. able to doff shirt, but required min assistance to don shirt.) Upper Body Dressing (QC): 4 Lower Body Dressing (FIM): 2 (Pt. having more difficulty today. Required max assistance to don socks, shoes, underwear, and pants. Had difficulty standing to parts puller hips. Right LE kept "giving out.") Lower Body Dressing (QC): 2 On/Off Footwear (QC): 2 Transfers (B, C, W/C) (FIM): 4 (CGA in stance with walker for safety.) Toilet/Commode Transfer (FIM): 4 Shower Transfer(FIM): 4 Education OT Patient Education: Correct positioning, Modified ADL techniques, Progress toward Goal/Update tx plan, Purpose of tx/functional activities, Reviewed precautions, Rehab process, Transfer techniques Teaching Recipient: Patient Teaching Methods: Demonstration, Discussion Response to Teaching: Verbalize Understanding, Return Demonstration OT Short Term Goals Short Term Goals Time Frame: Apr 09, 2017 Transfers (B,C,W/C) (FIM): 4 (CGA) Toilet/Commode Transfer(FIM): 4 Additional Short Term Goals: 2-Verbalize Understanding, 3-ImproveStrength/Karli 1=Demonstrate adherence to instructed precautions during ADL tasks. 2=Patient will verbalize/demonstrate understanding of assistive devices/ modifications for ADL. 3=Patient will improve strength/tolerance for activity to enable patient to perform ADL's. OT Longterm Goals Sand Plant Attendant Goals Time Frame: Apr 23, 2017 Eating (FIM): 6 Eating (QC): 6 Groomin Oral Hygiene (QC): 6 Bathing(FIM): 6 Shower/Bathe Self (QC): 6 Upper Body Dressing(FIM): 6 Upper Body Dressing (QC): 6 Lower Body Dressing(FIM): 6 Lower Body Dressing (QC): 6 On/Off Footwear (QC): 6 Toileting(FIM): 6 Toileting Hygiene (QC): 6 Toilet/Commode Transfer(FIM): 6 Toilet/Commode Transfer (QC): 6 Shower Transfer(FIM): 6 Comprehension(FIM): 5 (MET) Expression (FIM): 6 (MET) Social Interaction(FIM): 6 (MET) Problem Solving(FIM): 5 (MET) Memory(FIM): 6 (MET) Additional Goals: 2-Verbalize Understanding, 3-ImproveStrength/Karli 1=Demonstrate adherence to instructed precautions during ADL tasks. 2=Patient will verbalize/demonstrate understanding of assistive devices/ modifications for ADL. 3=Patient will improve strength/tolerance for activity to enable patient to perform ADL's. OT Education/Plan Problem List/Assessment Assessment: Decreased Activ Tolerance, Decreased UE Strength, Dependent Transfers, Impaired Coordination, Impaired Funct Balance, Impaired I ADL's, Impaired Self-Care Skills, Restricted Funct UE ROM Pt would benefit from skilled OT to increase his independence in basic self care to allow him to safely return to his home and to decrease caregiver burden. Discharge Recommendations Plan/Recommendations: Continue POC Therapy D/C Recommendations: Home w/ Family Support, Occupational Therapy Home Care Treatment Plan/Plan of Care Treatment,Training & Education: Yes Patient would benefit from OT for education, treatment and training to promote independence in ADL's, mobility, safety and/or upper extremity function for ADL' s. Plan of Care: ADL Retraining, Functional Mobility, Group Exercise/Act as Ind ( educ, exercise, memory, activ tolerance, socialization), UE Funct Exercise/Act, UE Neuromus Re-Ed/Coord Treatment Duration: Apr 23, 2017 Frequency: At least 5 to 7 days/Wk (IRF) Estimated Hrs Per Day: 1.5 hours per day Agreement: Yes Rehab Potential: Good Time/GCodes Start Time: 11:00 Stop Time: 12:00 Total Time Billed (hr/min): 60 Billed Treatment Time 1, ADL x 4 FRANSICO PAEZ OT Apr 12, 2017 12:24
--- NOTE | 2017-04-12 14:49 | Therapy Group Daily Note ---
Therapy Daily Group Note Patient Education Topic Other List Below Exercises LE Seated Exercise, UE Exercise Other/Notes Pt was an active participant in OT/PT group. He contributed to education/ discussion on memory and memory strategies and was able to identify different strategies that work for him to help remembering things. He also was successful in a memory activity, matching different images. He did seated UE and LE exercises, modifying them to his limitations. He walked to and from group, close CGA, FWW, with no LOB but skilled cues to get closer to walker. Pt left up in recliner, all needs met. Start Time: 13:00 Stop Time: 14:15 Total Billed Treatment Time: 75 Total Billed Treatment visit, 75 minutes group JASON RAYGOZA OT Apr 12, 2017 14:49
[2017-04-12 17:32] VITALS: BP 104/65
[2017-04-12] MEDS: ATORVASTATIN 40 MG (LIPITOR) TABLET PO SCH (20:08)
[2017-04-13 05:06] VITALS: BP 108/59
[2017-04-13] MEDS: PIOGLITAZONE 30MG (ACTOS) TAB PO SCH (06:10)
[2017-04-13] MEDS: MULTIVIT W/MINERALS TAB (THERAGRAN M) PO SCH (06:10)
[2017-04-13] MEDS: PANTOPRAZOLE 40 MG (PROTONIX) TAB PO SCH (06:10)
[2017-04-13 07:45] VITALS: BP 111/70
[2017-04-13] MEDS: DOCUSATE SODIUM 100 MG (COLACE) CAP PO SCH ×2 (07:57→20:45)
[2017-04-13] MEDS: sitaGLIPtin 50 MG (NON-FORMULARY) TAB PO SCH (07:58)
[2017-04-13] MEDS: NICOTINE 21 MG (NICODERM) PATCH TD SCH (07:58)
[2017-04-13] MEDS: POLYETHYLENE GLYCOL 17 GM (MIRALAX) PACK PO PRN (07:58)
[2017-04-13] MEDS: NICOTINE PATCH REMOVAL TP SCH (07:58)
[2017-04-13] MEDS: ASPIRIN E.C. 325 MG (ECOTRIN) TABLET PO SCH (07:58)
[2017-04-13 08:37] VITALS: BP 121/72
[2017-04-13] MEDS: meTOproloL SUCCINATE 50 MG (TOPROL XL) TAB PO SCH (08:41)
[2017-04-13] MEDS: LOSARTAN 50 MG (COZAAR) TAB PO SCH (08:41)
[2017-04-13] MEDS: BACITRACIN OINTMENT 28 GM TUBE TOP SCH (09:37)
--- NOTE | 2017-04-13 09:55 | Physical Therapy Daily Note ---
PT Daily Note-Current Subjective Pt. states he is feeling better and stronger and wants to go home soon, Thurs if possible. States he wants HC as well as he has a lady friend who will help him at home with lots of things and be there a lot during the day. Pain Numeric Pain Scale: 0-No Pain Mental Status Patient Orientation: Normal For Age Transfers Functional [place] Measure 0=Not Assessed/NA 4=Minimal Assistance 1=Total Assistance 5=Supervision or Setup 2=Maximal Assistance 6=Modified [place] 3=Moderate Assistance 7=Complete IndependenceIRFPAI Quality Coding Scale 6 Independent with activity with or without an assistive device 5 Patient requires set up or clean up by helper. Patient completes activity by themselves 4 Supervision or touching assist (CGA). [place] provide cues , steadying assist 3 The helper provides less than half the effort to complete the activity 2 The helper provides more than half the effort to complete the activity 1 Dependent. The helper does all the effort to complete an activity 7 Patient refused to complete or attempt activity 9 The patient did not perform the activity before the current illness or injury 88 Not attempted due to Medical conditions or safety concerns Transfers (B, C, W/C) (FIM): 6 Scootin Rollin Supine to/from Sit: 6 Sit to/from Stand: 6 Gait Training Does the Patient Walk?: Yes Gait (FIM): 5 Distance (FIM): 3=150 ft (x2) Gait Level of Assist: 5 Gait Persons Needed: 1 Gait Assistive Device: FWW cues for DF right foot and heel strike right Stair Training Stair Training: Handrails/: 1 handrail (both hands) Stairs (FIM): 2 #of Steps: 4 Stairs: Pattern: Step to Level of Assist: 4 pt uses both hands on right rail to ascend and both on right to descend, good sequence Exercises Supine Ex: Bridging, Ankle pumps, Quad Set, Rolling, Glut sets, Heel Slides, Short Arc Quads, Scooting, Straight leg raise, Hip abd/add Supine Reps: 12 NuStep Minutes: 10 NuStep Workload: 5 Treatments improved control sit to stand and stand to sit Assessment Current Status: Good Progress meeting goals PT Short Term Goals Short Term Goals Time Frame: Apr 08, 2017 Transfers (B,C,W/C) (FIM): 4 (CGA) Gait (FIM): 4 Distance (FIM): 3=150 ft Gait Distance Comment: 150' Gait Level of Assist: 4 (CGA) Gait Assistive Device: FWW PT Golf Cart Mechanic Goals Golf Cart Mechanic Goals PT Golf Cart Mechanic Goals Time Frame: Apr 29, 2017 Transfers (B,C,W/C) (FIM): 6 Sit to Lying (QC): 6 Lying-Sitting on Side/Bed(QC): 6 Sit to Stand (QC): 6 Rollin Roll Left to Right (QC): 6 Chair/Jhf-tm-Losev Xfer(QC): 6 Car Transfer (QC): 5 Does the Patient Walk: Yes Gait (FIM): 6 Gait distance (FIM): 3=150 ft Distance: 300' Walk 10 feet (QC): 6 Walk 10ft-Uneven Surface(QC): 6 Walk 50ft with 2 Turns (QC): 6 Walk 150 ft (QC): 6 Gait Level of Assist: 6 Gait Assistive Device: FWW Stairs (FIM): 5 (household) # of Steps: 8 1 Step (curb) (QC): 6 4 Steps (QC): 6 Stairs Level Of Assist: 6 PT Plan Treatment/Plan Treatment Plan: Continue Plan of Care Treatment Plan: Bed Mobility, Education, Functional Activity Karli, Functional Strength, Group Therapy, Gait, Safety, Therapeutic Exercise, Transfers Treatment Duration: Apr 29, 2017 Frequency: At least 5 to 7 days/Wk (IRF) Estimated Hrs Per Day: 1.5 hours per day Patient and/or Family Agrees t: Yes Safety Risks/Education Patient Education: Gait Training, Transfer Techniques, Steps, Correct Positioning, Disease Process, Safety Issues Teaching Recipient: Patient Teaching Methods: Demonstration, Discussion Response to Teaching: Verbalize Understanding, Return Demonstration, Reinforcement Needed Time/GCodes Time In: 900 Time Out: 1000 Total Billed Treatment Time: 60 Total Billed Treatment 1,FA15m,EX25m,GT20m G Codes Necessary: KERA Corral [employer]OD[employer]IES BROKER Apr 13, 2017 09:55
--- NOTE | 2017-04-13 12:33 | Occupational Ther Daily Note ---
OT Current Status-Daily Note Subjective Pt sitting in recliner. Pt stated that he had just came back from the gym with PT. Pt did agreed to therapy. No c/o pain. Pt stated that he would like to go home , but that Wednesday would be better due to his sons schedule. Reported to social studies department chair. Mental Status/Objective Patient Orientation: Person, Place, Time, Situation Functional [place] Measure 0=Not Assessed/NA 4=Minimal Assistance 1=Total Assistance 5=Supervision or Setup 2=Maximal Assistance 6=Modified [place] 3=Moderate Assistance 7=Complete [place] ADL-Treatment Functional [place] Measure 0=Not Assessed/NA 4=Minimal Assistance 1=Total Assistance 5=Supervision or Setup 2=Maximal Assistance 6=Modified [place] 3=Moderate Assistance 7=Complete IndependenceIRFPAI Quality Coding Scale 6 Independent with activity with or without an assistive device 5 Patient requires set up or clean up by helper. Patient completes activity by themselves 4 Supervision or touching assist (CGA). [place] provide cues , steadying assist 3 The helper provides less than half the effort to complete the activity 2 The helper provides more than half the effort to complete the activity 1 Dependent. The helper does all the effort to complete an activity 7 Patient refused to complete or attempt activity 9 The patient did not perform the activity before the current illness or injury 88 Not attempted due to Medical conditions or safety concerns Other Treatment Pt declined shower today. Pt declined to go to therapy gym. CENT[place] agreed to work with pt in room. Pt completed reassessment of pinch and child welfare specialist strength- Technical Support Engineer R 14.6# (decreased 0.4#) L 30# (increased by 3.4#), Tip pinch R 4.3# ( increased 2#) L 9.6# (decreased 0. 2#), 3 jaw meagan R 4.6# (increased 2.6#) L 8 # (decreased 1.3#), lateral pinch R 5.3# (increased 0.3#) L 11.6# (decreased 0.4 #). Pt then completed donning and doffing socks and shoes. Pt was able to don/ doff shoes by self. Pt was able to doff socks by self. Pt donned R sock by self, took increased time to complete. Pt attempted to don L sock by self, could only get it over toes then could not get on any further. Pt stated he would try the sock aide. Pt required verbal and visual cues to apply sock onto sock aide then was able to use to don sock over foot by self. Pt took increased time to complete tasks. Pt verbalized want to go home this week and thought he would be able to do all ADL tasks by himself at home. OT continued to discuss situations that may come up and work on problem solving each with pt. After therapy, nrsg in room. Call light/phone in reach. All needs met in room. Education OT Patient Education: Modified ADL techniques, Use of adapted equipment Teaching Recipient: Patient Teaching Methods: Demonstration Response to Teaching: Verbalize Understanding, Return Demonstration, Reinforcement Needed OT Short Term Goals Short Term Goals Time Frame: Apr 09, 2017 Transfers (B,C,W/C) (FIM): 4 (CGA) Toilet/Commode Transfer(FIM): 4 Additional Short Term Goals: 2-Verbalize Understanding, 3-ImproveStrength/Karli 1=Demonstrate adherence to instructed precautions during ADL tasks. 2=Patient will verbalize/demonstrate understanding of assistive devices/ modifications for ADL. 3=Patient will improve strength/tolerance for activity to enable patient to perform ADL's. OT Chcf Goals Finished Garment Inspector Goals Time Frame: Apr 23, 2017 Eating (FIM): 6 Eating (QC): 6 Groomin Oral Hygiene (QC): 6 Bathing(FIM): 6 Shower/Bathe Self (QC): 6 Upper Body Dressing(FIM): 6 Upper Body Dressing (QC): 6 Lower Body Dressing(FIM): 6 Lower Body Dressing (QC): 6 On/Off Footwear (QC): 6 Toileting(FIM): 6 Toileting Hygiene (QC): 6 Toilet/Commode Transfer(FIM): 6 Toilet/Commode Transfer (QC): 6 Shower Transfer(FIM): 6 Comprehension(FIM): 5 (MET) Expression (FIM): 6 (MET) Social Interaction(FIM): 6 (MET) Problem Solving(FIM): 5 (MET) Memory(FIM): 6 (MET) Additional Goals: 2-Verbalize Understanding, 3-ImproveStrength/Karli 1=Demonstrate adherence to instructed precautions during ADL tasks. 2=Patient will verbalize/demonstrate understanding of assistive devices/ modifications for ADL. 3=Patient will improve strength/tolerance for activity to enable patient to perform ADL's. OT Education/Plan Problem List/Assessment Pt would benefit from skilled OT to increase his independence in basic self care to allow him to safely return to his home and to decrease caregiver burden. Discharge Recommendations Plan/Recommendations: Continue POC Treatment Plan/Plan of Care Patient would benefit from OT for education, treatment and training to promote independence in ADL's, mobility, safety and/or upper extremity function for ADL' s. Plan of Care: ADL Retraining, Functional Mobility, Group Exercise/Act as Ind ( educ, exercise, memory, activ tolerance, socialization), UE Funct Exercise/Act, UE Neuromus Re-Ed/Coord Treatment Duration: Apr 23, 2017 Frequency: At least 5 to 7 days/Wk (IRF) Estimated Hrs Per Day: 1.5 hours per day Agreement: Yes Rehab Potential: Good Time/GCodes Start Time: 10:00 Stop Time: 11:00 Total Time Billed (hr/min): 60 Billed Treatment Time 1 visit-EX 2 (30 min) FA 2 (30 min) RYAN PEREZ Apr 13, 2017 12:32
[2017-04-13 14:55] VITALS: BP 113/67
--- NOTE | 2017-04-13 15:01 | Therapy Group Daily Note ---
Therapy Daily Group Note Patient Education Topic Exercises, Other List Below (memory, body systems) Exercises LE Seated Exercise, UE Exercise Other/Notes Pt ambulated with CGA using FWW to OT group in therapy gym. Participated in introductions (name, hospital born in, jennifer), pt was social and contributed to conversations. Educated about different systems of body and how they affect balance. Pt reviewed memory strategies. Pt used strategies to recall and lead group in UE/LE seated exercises. Pt reviewed board with different items on it, then used memory strategies to recall what was on it. Pt completed multisensory exercises. Pt completed stereognosis activity. Pt participated in group conversation about what pt does to relax. Pt ambulated back to room with min A using FWW with 1 LOB. After therapy, pt sitting in recliner with phone and call light in reach. All needs met. Start Time: 13:00 Stop Time: 14:10 Total Billed Treatment Time: 70 Total Billed Treatment 1-GRP RYAN PEREZ Apr 13, 2017 15:01
--- NOTE | 2017-04-13 17:02 | PM & R (SOAP) Progress Note ---
Subjective Time Seen by Provider: 16:30 Subjective/Events-last exam Patient was seen in his room this afternoon Progressing well with therapies Has a supportive family.Patient Modified Independent for transfers. Objective Exam Last Set of Vital Signs Vital Signs Date Time Temp Pulse Resp B/P (MAP) Pulse Ox O2 Delivery O2 Flow Rate FiO2 04/13/17 14:55 96.0 54 20 113/67 93 Room Air Capillary Refill : I&O Intake and Output 04/14/17 00:00 Intake Total 340 ml Balance 340 ml Intake Oral 340 ml # Voids 2 General: Alert, Oriented X3, Cooperative, No Acute Distress HEENT: Atraumatic, PERRLA, EOMI, Mucous Memb Moist/[place] Neck: Other (c collar in place) Lungs: Clear to Auscultation Heart: Regular Rate Abdomen: Normal Bowel Sounds, Soft, No Tenderness Extremities: No Edema Neuro: Other (RULimb weakness and RT lower extremity weakness) Results Lab Laboratory Tests 04/10/17 20:23: Glucometer 152H 04/11/17 06:59: Glucometer 93 04/11/17 10:57: Glucometer 116H 04/11/17 16:00: Glucometer 117H 04/11/17 20:08: Glucometer 160H 04/12/17 05:05: Glucometer 104 04/12/17 11:04: Glucometer 117H 04/12/17 16:20: Glucometer 151H 04/12/17 20:07: Glucometer 143H 04/13/17 05:03: Glucometer 102 04/13/17 10:51: Glucometer 113H 04/13/17 16:10: Glucometer 136H Assessment/Plan Assessment 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 Next Team Conference tomorrow 04-14-17 SARI CORRALES MD Apr 13, 2017 17:02
[2017-04-13 18:16] VITALS: BP 107/69
[2017-04-13] MEDS: ATORVASTATIN 40 MG (LIPITOR) TABLET PO SCH (20:45)
[2017-04-14 05:08] VITALS: BP 126/78
[2017-04-14] MEDS: PIOGLITAZONE 30MG (ACTOS) TAB PO SCH (06:16)
[2017-04-14] MEDS: MULTIVIT W/MINERALS TAB (THERAGRAN M) PO SCH (06:16)
[2017-04-14] MEDS: PANTOPRAZOLE 40 MG (PROTONIX) TAB PO SCH (06:16)
[2017-04-14] MEDS: meTOproloL SUCCINATE 50 MG (TOPROL XL) TAB PO SCH (08:09)
[2017-04-14] MEDS: ASPIRIN E.C. 325 MG (ECOTRIN) TABLET PO SCH (08:09)
[2017-04-14] MEDS: sitaGLIPtin 50 MG (NON-FORMULARY) TAB PO SCH (08:09)
[2017-04-14] MEDS: DOCUSATE SODIUM 100 MG (COLACE) CAP PO SCH ×2 (08:09→20:19)
[2017-04-14] MEDS: LOSARTAN 50 MG (COZAAR) TAB PO SCH (08:09)
[2017-04-14] MEDS: NICOTINE 21 MG (NICODERM) PATCH TD SCH (08:09)
[2017-04-14] MEDS: NICOTINE PATCH REMOVAL TP SCH (08:10)
[2017-04-14] MEDS: POLYETHYLENE GLYCOL 17 GM (MIRALAX) PACK PO PRN (08:31)
--- NOTE | 2017-04-14 08:49 | PM & R (SOAP) Progress Note ---
Subjective Time Seen by Provider: 07:55 Subjective/Events-last exam Patient was seen in his room this AM Patient Modified Independent for transfers Objective Exam Last Set of Vital Signs Vital Signs Date Time Temp Pulse Resp B/P (MAP) Pulse Ox O2 Delivery O2 Flow Rate FiO2 04/14/17 05:08 97.8 67 16 126/78 95 Room Air Capillary Refill : I&O Intake and Output 04/15/17 00:00 Intake Total 240 ml Balance 240 ml Intake Oral 240 ml # Voids 5 # Bowel Movements 1 General: Alert, Oriented X3, Cooperative, No Acute Distress HEENT: Atraumatic, PERRLA, EOMI, Mucous Memb Moist/[place] Neck: Other (c collar in place) Lungs: Clear to Auscultation Heart: Regular Rate Abdomen: Normal Bowel Sounds, Soft, No Tenderness Extremities: No Edema Neuro: Other (RULimb weakness and RT lower extremity weakness) Results Lab Laboratory Tests 04/11/17 10:57: Glucometer 116H 04/11/17 16:00: Glucometer 117H 04/11/17 20:08: Glucometer 160H 04/12/17 05:05: Glucometer 104 04/12/17 11:04: Glucometer 117H 04/12/17 16:20: Glucometer 151H 04/12/17 20:07: Glucometer 143H 04/13/17 05:03: Glucometer 102 04/13/17 10:51: Glucometer 113H 04/13/17 16:10: Glucometer 136H 04/13/17 20:20: Glucometer 135H 04/14/17 04:39: Glucometer 106 Assessment/Plan Assessment 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 Next Team Conference later today-See report for full functional update and POC and SARI HO MD Apr 14, 2017 08:49
--- NOTE | 2017-04-14 10:24 | Occupational Ther Daily Note ---
OT Current Status-Daily Note Subjective Pt alert, sitting in recliner. Pt agreed to therapy. Nrsg in room. Pt c/o headache pain, 10/16. Reported this to nrsg, nrsg brought medication. Mental Status/Objective Patient Orientation: Person, Place, Time, Situation Functional [place] Measure 0=Not Assessed/NA 4=Minimal Assistance 1=Total Assistance 5=Supervision or Setup 2=Maximal Assistance 6=Modified [place] 3=Moderate Assistance 7=Complete [place] ADL-Treatment Pt ambulated to bathroom with CGA using FWW. Pt's R knee hyperextends during wt bearing which has thrown pt off balance during ambulation and functional standing activities. Pt transferred into shower using FWW, shower bench and grabbars with CGA. Pt was able to doff socks/shoes and shirt by self. SBA for safety to doff pants over hips then pt sits to doff over feet. Pt able to complete shower using shower bench, hand held shower, long handle sponge, hand held sponge and grabbars with SBA for safety in standing to cleanse buttocks. Pt requires assistance to wash hair due to decreased B shldr ROM. Pt dried all parts except feet. Pt needs assistance to don/doff neck brace. Pt donned shirt after set up. Required assistance to don underwear over feet then slide up legs by self then assist to hike over hips due to moist skin that increased resistance. Pt was able to don pants by self. Pt is inconsistent in donning socks. Pt takes increased time to doff socks and requires sock aide to don L sock. Pt is able to don shoes by self. Pt sat at sink to complete grooming by self. After therapy, pt sitting in recliner with call light/phone in reach. Nrsg present in room. Functional [place] Measure 0=Not Assessed/NA 4=Minimal Assistance 1=Total Assistance 5=Supervision or Setup 2=Maximal Assistance 6=Modified [place] 3=Moderate Assistance 7=Complete IndependenceIRFPAI Quality Coding Scale 6 Independent with activity with or without an assistive device 5 Patient requires set up or clean up by helper. Patient completes activity by themselves 4 Supervision or touching assist (CGA). [place] provide cues , steadying assist 3 The helper provides less than half the effort to complete the activity 2 The helper provides more than half the effort to complete the activity 1 Dependent. The helper does all the effort to complete an activity 7 Patient refused to complete or attempt activity 9 The patient did not perform the activity before the current illness or injury 88 Not attempted due to Medical conditions or safety concerns Grooming (FIM): 6 Oral Hygiene (QC): 6 Bathing (FIM): 4 Bathing Location: L Arm, R Arm, L Upper Leg, R Upper Leg, L Lower Leg ( including foot), R Lower Leg (including foot), Chest, Abdomen, Buttocks, Perineal Area Shower/Bathe Self (QC): 3 Upper Body (FIM): 5 Upper Body Dressing (QC): 5 Lower Body Dressing (FIM): 3 Lower Body Dressing (QC): 3 On/Off Footwear (QC): 4 Toileting (FIM): 4 Toileting Hygiene (QC): 4 Transfers (B, C, W/C) (FIM): 4 Toilet/Commode Transfer (FIM): 4 Toilet Transfer (QC): 4 Shower Transfer(FIM): 4 Pt wants to return to home. Safety concerns for returning home due to LOB during dynamic standing tasks (ADLs). Discussions with pt about safety concerns , pt continues to state that he will have home health and neighbors, family and friends will be there for him. OT Short Term Goals Short Term Goals Time Frame: Apr 09, 2017 Transfers (B,C,W/C) (FIM): 4 (CGA) Toilet/Commode Transfer(FIM): 4 Additional Short Term Goals: 2-Verbalize Understanding, 3-ImproveStrength/Karli 1=Demonstrate adherence to instructed precautions during ADL tasks. 2=Patient will verbalize/demonstrate understanding of assistive devices/ modifications for ADL. 3=Patient will improve strength/tolerance for activity to enable patient to perform ADL's. OT Digital Research Analyst Goals Mcfp Goals Time Frame: Apr 23, 2017 Eating (FIM): 6 Eating (QC): 6 Groomin Oral Hygiene (QC): 6 Bathing(FIM): 6 Shower/Bathe Self (QC): 6 Upper Body Dressing(FIM): 6 Upper Body Dressing (QC): 6 Lower Body Dressing(FIM): 6 Lower Body Dressing (QC): 6 On/Off Footwear (QC): 6 Toileting(FIM): 6 Toileting Hygiene (QC): 6 Toilet/Commode Transfer(FIM): 6 Toilet/Commode Transfer (QC): 6 Shower Transfer(FIM): 6 Comprehension(FIM): 5 (MET) Expression (FIM): 6 (MET) Social Interaction(FIM): 6 (MET) Problem Solving(FIM): 5 (MET) Memory(FIM): 6 (MET) Additional Goals: 2-Verbalize Understanding, 3-ImproveStrength/Karli 1=Demonstrate adherence to instructed precautions during ADL tasks. 2=Patient will verbalize/demonstrate understanding of assistive devices/ modifications for ADL. 3=Patient will improve strength/tolerance for activity to enable patient to perform ADL's. OT Education/Plan Problem List/Assessment Pt would benefit from skilled OT to increase his independence in basic self care to allow him to safely return to his home and to decrease caregiver burden. Discharge Recommendations Plan/Recommendations: Continue POC Treatment Plan/Plan of Care Patient would benefit from OT for education, treatment and training to promote independence in ADL's, mobility, safety and/or upper extremity function for ADL' s. Plan of Care: ADL Retraining, Functional Mobility, Group Exercise/Act as Ind ( educ, exercise, memory, activ tolerance, socialization), UE Funct Exercise/Act, UE Neuromus Re-Ed/Coord Treatment Duration: Apr 23, 2017 Frequency: At least 5 to 7 days/Wk (IRF) Estimated Hrs Per Day: 1.5 hours per day Agreement: Yes Rehab Potential: Good Time/GCodes Start Time: 08:00 Stop Time: 09:00 Total Time Billed (hr/min): 60 Billed Treatment Time 1 visit-ADL 4 (60 min) RYAN PEREZ Apr 14, 2017 10:24
--- NOTE | 2017-04-14 11:01 | Physical Therapy Daily Note ---
PT Daily Note-Current Subjective Pt. states first off that he wants to go home today. This [facility] explains that I will forward his request and that we should FIM test etc. SW explains that pts son wants him to stay longer and then possibly DC elsewhere Pain Numeric Pain Scale: 0-No Pain Mental Status Patient Orientation: Normal For Age declines use of knee immoblizer Transfers Functional [place] Measure 0=Not Assessed/NA 4=Minimal Assistance 1=Total Assistance 5=Supervision or Setup 2=Maximal Assistance 6=Modified [place] 3=Moderate Assistance 7=Complete IndependenceIRFPAI Quality Coding Scale 6 Independent with activity with or without an assistive device 5 Patient requires set up or clean up by helper. Patient completes activity by themselves 4 Supervision or touching assist (CGA). [place] provide cues , steadying assist 3 The helper provides less than half the effort to complete the activity 2 The helper provides more than half the effort to complete the activity 1 Dependent. The helper does all the effort to complete an activity 7 Patient refused to complete or attempt activity 9 The patient did not perform the activity before the current illness or injury 88 Not attempted due to Medical conditions or safety concerns Transfers (B, C, W/C) (FIM): 6 Scootin Rollin Roll Left to Right (QC): 6 Supine to/from Sit: 6 Sit to/from Stand: 6 Sit to Lying (QC): 6 Sit to Stand (QC): 6 Chair/Nid-vf-Ywmmb Xfer(QC): 6 Bed to/from Chair: 6 Gait Training Does the Patient Walk?: Yes Gait (FIM): 6 Distance (FIM): 3=150 ft (x2) Walk 10 feet (QC): 6 Walk 50 ft with 2 Turns(QC): 6 Walk 150 ft (QC): 6 Walking 10ft/uneven surface-QC: 6 Gait Level of Assist: 6 Gait Persons Needed: 0 Gait Assistive Device: FWW slow gait, flexed trunk, right knee hyperextends, narrow VALERIE Wheelchair Training Does the Pt Use a Wheelchair?: No Stair Training Stair Training: Handrails/: 1 handrail (both hands) Stairs (FIM): 2 #of Steps: 4 1 Step (curb) (QC): 3 4 Steps (QC): 3 Stairs: Pattern: Step to Level of Assist: 4 uses both hands on one rail, slow, needs CGA for safety, possible hazardous if alone Exercises Supine Ex: Ankle pumps, Quad Set, Rolling, Heel Slides, Short Arc Quads, Scooting, Straight leg raise, Hip abd/add Supine Reps: 15 (sidelying clam shell and sidelying hip abduction all x12) Treatments toilets with SBA, managed pants down and up indep, much effort for pt Assessment Current Status: Good Progress at risk for falls, pt. tells this [facility] he will not DC to any where but home, wants to DC today, will have [facility] PT 5 days per week and hr per day as well as lady friend who will care for him. SW states the son does not concur with pts decision PT Short Term Goals Short Term Goals Time Frame: Apr 08, 2017 Transfers (B,C,W/C) (FIM): 4 (CGA) Gait (FIM): 4 Distance (FIM): 3=150 ft Gait Distance Comment: 150' Gait Level of Assist: 4 (CGA) Gait Assistive Device: FWW PT Prescription Clerk Goals Shelter Goals PT Shelter Goals Time Frame: Apr 29, 2017 Transfers (B,C,W/C) (FIM): 6 Sit to Lying (QC): 6 Lying-Sitting on Side/Bed(QC): 6 Sit to Stand (QC): 6 Rollin Roll Left to Right (QC): 6 Chair/Nct-qd-Ugmmq Xfer(QC): 6 Car Transfer (QC): 5 Does the Patient Walk: Yes Gait (FIM): 6 Gait distance (FIM): 3=150 ft Distance: 300' Walk 10 feet (QC): 6 Walk 10ft-Uneven Surface(QC): 6 Walk 50ft with 2 Turns (QC): 6 Walk 150 ft (QC): 6 Gait Level of Assist: 6 Gait Assistive Device: FWW Stairs (FIM): 5 (household) # of Steps: 8 1 Step (curb) (QC): 6 4 Steps (QC): 6 Stairs Level Of Assist: 6 PT Plan Treatment/Plan Treatment Plan: Continue Plan of Care Treatment Plan: Bed Mobility, Education, Functional Activity Karli, Functional Strength, Group Therapy, Gait, Safety, Therapeutic Exercise, Transfers Treatment Duration: Apr 29, 2017 Frequency: At least 5 to 7 days/Wk (IRF) Estimated Hrs Per Day: 1.5 hours per day Patient and/or Family Agrees t: Yes Safety Risks/Education Patient Education: Gait Training, Transfer Techniques, Steps, Correct Positioning, Disease Process, Safety Issues Teaching Recipient: Patient Teaching Methods: Demonstration, Discussion Response to Teaching: Verbalize Understanding, Return Demonstration, Reinforcement Needed pt. resists education, often does not try to duplicate instructions/ does not follow them, is unrealistic in his view of his safety etc Time/GCodes Time In: 900 Time Out: 1000 Total Billed Treatment Time: 60 Total Billed Treatment 1,FA30m,EX15m,GT15m G Codes Necessary: KERA Corral [facility] Apr 14, 2017 11:01
--- NOTE | 2017-04-14 12:02 | Physical Therapy Daily Note ---
PT Daily Note-Current Subjective Agrees to Rx. Likes the Nustep Pain Numeric Pain Scale: 0-No Pain Transfers Functional [place] Measure 0=Not Assessed/NA 4=Minimal Assistance 1=Total Assistance 5=Supervision or Setup 2=Maximal Assistance 6=Modified [place] 3=Moderate Assistance 7=Complete IndependenceIRFPAI Quality Coding Scale 6 Independent with activity with or without an assistive device 5 Patient requires set up or clean up by helper. Patient completes activity by themselves 4 Supervision or touching assist (CGA). [place] provide cues , steadying assist 3 The helper provides less than half the effort to complete the activity 2 The helper provides more than half the effort to complete the activity 1 Dependent. The helper does all the effort to complete an activity 7 Patient refused to complete or attempt activity 9 The patient did not perform the activity before the current illness or injury 88 Not attempted due to Medical conditions or safety concerns All TRFs Mod I Gait Training gait 200x2 FWW Mod I to SBA Exercises NuStep Minutes: 10 NuStep Workload: 5 Treatments toileted managing pants up down etc indep Assessment Current Status: Good Progress PT Short Term Goals Short Term Goals Time Frame: Apr 08, 2017 Transfers (B,C,W/C) (FIM): 4 (CGA) Gait (FIM): 4 Distance (FIM): 3=150 ft Gait Distance Comment: 150' Gait Level of Assist: 4 (CGA) Gait Assistive Device: FWW PT Snf Goals Snf Goals PT Hog Driver Goals Time Frame: Apr 29, 2017 Transfers (B,C,W/C) (FIM): 6 Sit to Lying (QC): 6 Lying-Sitting on Side/Bed(QC): 6 Sit to Stand (QC): 6 Rollin Roll Left to Right (QC): 6 Chair/Ivk-mk-Ovbys Xfer(QC): 6 Car Transfer (QC): 5 Does the Patient Walk: Yes Gait (FIM): 6 Gait distance (FIM): 3=150 ft Distance: 300' Walk 10 feet (QC): 6 Walk 10ft-Uneven Surface(QC): 6 Walk 50ft with 2 Turns (QC): 6 Walk 150 ft (QC): 6 Gait Level of Assist: 6 Gait Assistive Device: FWW Stairs (FIM): 5 (household) # of Steps: 8 1 Step (curb) (QC): 6 4 Steps (QC): 6 Stairs Level Of Assist: 6 PT Plan Treatment/Plan Treatment Plan: Continue Plan of Care Treatment Plan: Bed Mobility, Education, Functional Activity Karli, Functional Strength, Group Therapy, Gait, Safety, Therapeutic Exercise, Transfers Treatment Duration: Apr 29, 2017 Frequency: At least 5 to 7 days/Wk (IRF) Estimated Hrs Per Day: 1.5 hours per day Patient and/or Family Agrees t: Yes Time/GCodes Time In: 1130 Time Out: 1200 Total Billed Treatment Time: 30 Total Billed Treatment 1,GT20,EX10 G Codes Necessary: KERA Corral ADMINISTRATIVE DIETITIAN Apr 14, 2017 12:02
--- NOTE | 2017-04-14 13:00 | Occupational Ther Daily Note ---
OT Current Status-Daily Note Subjective Pt sitting in recliner. Pt agreed to therapy. No c/o pain. Mental Status/Objective Patient Orientation: Person, Place, Time, Situation Functional [place] Measure 0=Not Assessed/NA 4=Minimal Assistance 1=Total Assistance 5=Supervision or Setup 2=Maximal Assistance 6=Modified [place] 3=Moderate Assistance 7=Complete [place] ADL-Treatment Functional [place] Measure 0=Not Assessed/NA 4=Minimal Assistance 1=Total Assistance 5=Supervision or Setup 2=Maximal Assistance 6=Modified [place] 3=Moderate Assistance 7=Complete IndependenceIRFPAI Quality Coding Scale 6 Independent with activity with or without an assistive device 5 Patient requires set up or clean up by helper. Patient completes activity by themselves 4 Supervision or touching assist (CGA). [place] provide cues , steadying assist 3 The helper provides less than half the effort to complete the activity 2 The helper provides more than half the effort to complete the activity 1 Dependent. The helper does all the effort to complete an activity 7 Patient refused to complete or attempt activity 9 The patient did not perform the activity before the current illness or injury 88 Not attempted due to Medical conditions or safety concerns On/Off Footwear (QC): 5 (After set up, pt is able to doff socks and shoes by self and don by self. Pt takes increased time to complete each task.) Pt was educated on tub transfer bench. Pt stated that he has only a tub shower. Pt was able to ambulate into bathroom, transfer onto bench with CGA then swing legs into tub. Pt stated that he does have one grabbar in tub and needs hand held shower installed. After therapy, pt sitting in recliner with call light/phone in reach. All needs met in room. OT Short Term Goals Short Term Goals Time Frame: Apr 09, 2017 Transfers (B,C,W/C) (FIM): 4 (CGA) Toilet/Commode Transfer(FIM): 4 Additional Short Term Goals: 2-Verbalize Understanding, 3-ImproveStrength/Karli 1=Demonstrate adherence to instructed precautions during ADL tasks. 2=Patient will verbalize/demonstrate understanding of assistive devices/ modifications for ADL. 3=Patient will improve strength/tolerance for activity to enable patient to perform ADL's. OT Senior Living Goals Social Sciences Chair Goals Time Frame: Apr 23, 2017 Eating (FIM): 6 Eating (QC): 6 Groomin Oral Hygiene (QC): 6 Bathing(FIM): 6 Shower/Bathe Self (QC): 6 Upper Body Dressing(FIM): 6 Upper Body Dressing (QC): 6 Lower Body Dressing(FIM): 6 Lower Body Dressing (QC): 6 On/Off Footwear (QC): 6 Toileting(FIM): 6 Toileting Hygiene (QC): 6 Toilet/Commode Transfer(FIM): 6 Toilet/Commode Transfer (QC): 6 Shower Transfer(FIM): 6 Comprehension(FIM): 5 (MET) Expression (FIM): 6 (MET) Social Interaction(FIM): 6 (MET) Problem Solving(FIM): 5 (MET) Memory(FIM): 6 (MET) Additional Goals: 2-Verbalize Understanding, 3-ImproveStrength/Karli 1=Demonstrate adherence to instructed precautions during ADL tasks. 2=Patient will verbalize/demonstrate understanding of assistive devices/ modifications for ADL. 3=Patient will improve strength/tolerance for activity to enable patient to perform ADL's. OT Education/Plan Problem List/Assessment Pt would benefit from skilled OT to increase his independence in basic self care to allow him to safely return to his home and to decrease caregiver burden. Discharge Recommendations Plan/Recommendations: Continue POC Treatment Plan/Plan of Care Patient would benefit from OT for education, treatment and training to promote independence in ADL's, mobility, safety and/or upper extremity function for ADL' s. Plan of Care: ADL Retraining, Functional Mobility, Group Exercise/Act as Ind ( educ, exercise, memory, activ tolerance, socialization), UE Funct Exercise/Act, UE Neuromus Re-Ed/Coord Treatment Duration: Apr 23, 2017 Frequency: At least 5 to 7 days/Wk (IRF) Estimated Hrs Per Day: 1.5 hours per day Agreement: Yes Rehab Potential: Good Time/GCodes Start Time: 12:30 Stop Time: 13:00 Total Time Billed (hr/min): 30 Billed Treatment Time 1 visit-FA 2 (30 min) RYAN PEREZ Apr 14, 2017 13:00
[2017-04-14 18:00] VITALS: BP 122/78
[2017-04-14] MEDS: ATORVASTATIN 40 MG (LIPITOR) TABLET PO SCH (20:19)
[2017-04-15 04:54] VITALS: BP 120/76
[2017-04-15] MEDS: PIOGLITAZONE 30MG (ACTOS) TAB PO SCH (06:36)
[2017-04-15] MEDS: MULTIVIT W/MINERALS TAB (THERAGRAN M) PO SCH (06:36)
[2017-04-15] MEDS: PANTOPRAZOLE 40 MG (PROTONIX) TAB PO SCH (06:36)
--- NOTE | 2017-04-15 08:22 | PM & R (SOAP) Progress Note ---
Subjective Time Seen by Provider: 07:50 Subjective/Events-last exam Patient was seen in his room this AM Patient agreeable to discharge tomorrow He indictaed that his son will pick him up at 4 PM tomorrow Has progressed well .Patient Modified Independent for transfers and SBA for gait with walker Remains with Soft C Collar on.Current meds reviewed. Objective Exam Last Set of Vital Signs Vital Signs Date Time Temp Pulse Resp B/P (MAP) Pulse Ox O2 Delivery O2 Flow Rate FiO2 04/15/17 04:54 98.2 76 18 120/76 93 Room Air Capillary Refill : I&O Intake and Output 04/16/17 00:00 Intake Total 300 ml Balance 300 ml Intake Oral 300 ml # Voids 3 # Bowel Movements 1 General: Alert, Oriented X3, Cooperative, No Acute Distress HEENT: Atraumatic, PERRLA, EOMI, Mucous Memb Moist/[place] Neck: Other (c collar in place) Lungs: Clear to Auscultation Heart: Regular Rate Abdomen: Normal Bowel Sounds, Soft, No Tenderness Extremities: No Edema Neuro: Other (RULimb weakness and RT lower extremity weakness) Results Lab Laboratory Tests 04/12/17 11:04: Glucometer 117H 04/12/17 16:20: Glucometer 151H 04/12/17 20:07: Glucometer 143H 04/13/17 05:03: Glucometer 102 04/13/17 10:51: Glucometer 113H 04/13/17 16:10: Glucometer 136H 04/13/17 20:20: Glucometer 135H 04/14/17 04:39: Glucometer 106 04/14/17 10:43: Glucometer 97 04/14/17 18:17: Glucometer 149H 04/14/17 20:42: Glucometer 135H 04/15/17 06:35: Glucometer 91 Assessment/Plan Assessment 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 Team Conference held yesterday--See report for full functional update and POC and ELOS Discharge tomorrow to home with HHC and son See orders. F/U with PCP DR Palacios and DR Lalo Escobar [facility] SARI Rivers MD Apr 15, 2017 08:22
[2017-04-15] MEDS: LOSARTAN 50 MG (COZAAR) TAB PO SCH (08:28)
[2017-04-15] MEDS: meTOproloL SUCCINATE 50 MG (TOPROL XL) TAB PO SCH (08:28)
[2017-04-15] MEDS: sitaGLIPtin 50 MG (NON-FORMULARY) TAB PO SCH (08:28)
[2017-04-15] MEDS: ASPIRIN E.C. 325 MG (ECOTRIN) TABLET PO SCH (08:28)
[2017-04-15] MEDS: DOCUSATE SODIUM 100 MG (COLACE) CAP PO SCH ×2 (08:28→21:03)
[2017-04-15] MEDS: BACITRACIN OINTMENT 28 GM TUBE TOP SCH (08:30)
[2017-04-15] MEDS ORDERED: BACI28.4 TOP (08:34)
[2017-04-15] MEDS ORDERED: DOCU100C37 PO (08:34)
[2017-04-15] MEDS ORDERED: ACET-77 PO (08:34)
[2017-04-15] MEDS ORDERED: PANT40TA3 PO (08:34)
[2017-04-15] MEDS ORDERED: NICO-587 TD (08:34)
[2017-04-15] MEDS: NICOTINE PATCH REMOVAL TP SCH (09:40)
[2017-04-15] MEDS: NICOTINE 14 MG (NICODERM) PATCH TD SCH (09:40)
--- NOTE | 2017-04-15 10:01 | Physical Therapy Daily Note ---
PT Daily Note-Current Subjective Pt was sitting in rehab gym (just finished with OT) prior to tx and agreeable to PT. Pt had no reports of pain. Pt was sitting in chair with nurse kezia vaughn , all needs in reach post tx. Pain Numeric Pain Scale: 0-No Pain Location: No Pain Reported Mental Status Patient Orientation: Normal For Age Transfers Functional [place] Measure 0=Not Assessed/NA 4=Minimal Assistance 1=Total Assistance 5=Supervision or Setup 2=Maximal Assistance 6=Modified [place] 3=Moderate Assistance 7=Complete IndependenceIRFPAI Quality Coding Scale 6 Independent with activity with or without an assistive device 5 Patient requires set up or clean up by helper. Patient completes activity by themselves 4 Supervision or touching assist (CGA). [place] provide cues , steadying assist 3 The helper provides less than half the effort to complete the activity 2 The helper provides more than half the effort to complete the activity 1 Dependent. The helper does all the effort to complete an activity 7 Patient refused to complete or attempt activity 9 The patient did not perform the activity before the current illness or injury 88 Not attempted due to Medical conditions or safety concerns Transfers (B, C, W/C) (FIM): 5 Scootin Sit to/from Stand: 5 Pt completes sit to stand with supervision for safety. Gait Training Does the Patient Walk?: Yes Gait (FIM): 5 Distance (FIM): 3=150 ft Distance: 150'x5 Gait Level of Assist: 5 Gait Persons Needed: 1 Gait Assistive Device: FWW Pt ambulates with FWW and supervision for safety. Pt right knee hyperextends with ambulation. Pt requires frequent breaks for rest. Exercises Seated Therapy Exercises: Ankle pumps, Long arc quads, Chair press-ups Seated Reps: 20 NuStep Minutes: 15 NuStep Workload: 5 Treatments Pt completes seated exercises and tx on NuStep for functional LE strengthening and to increase endurance. Pt also completes gait training to improve functional mobility and independence. Assessment Current Status: Good Progress Pt ambulation and endurance is improving. PT Short Term Goals Short Term Goals Time Frame: Apr 08, 2017 Transfers (B,C,W/C) (FIM): 4 (CGA) Gait (FIM): 4 Distance (FIM): 3=150 ft Gait Distance Comment: 150' Gait Level of Assist: 4 (CGA) Gait Assistive Device: FWW PT [facility] Goals Can Washer Goals PT Can Washer Goals Time Frame: Apr 29, 2017 Transfers (B,C,W/C) (FIM): 6 Sit to Lying (QC): 6 Lying-Sitting on Side/Bed(QC): 6 Sit to Stand (QC): 6 Rollin Roll Left to Right (QC): 6 Chair/Nkt-sm-Erygh Xfer(QC): 6 Car Transfer (QC): 5 Does the Patient Walk: Yes Gait (FIM): 6 Gait distance (FIM): 3=150 ft Distance: 300' Walk 10 feet (QC): 6 Walk 10ft-Uneven Surface(QC): 6 Walk 50ft with 2 Turns (QC): 6 Walk 150 ft (QC): 6 Gait Level of Assist: 6 Gait Assistive Device: FWW Stairs (FIM): 5 (household) # of Steps: 8 1 Step (curb) (QC): 6 4 Steps (QC): 6 Stairs Level Of Assist: 6 PT Plan Problem List Problem List: Activity Tolerance, Functional Strength, Safety, Balance, Gait, Transfer, Bed Mobility, ROM Treatment/Plan Treatment Plan: Continue Plan of Care Treatment Plan: Bed Mobility, Education, Functional Activity Karli, Functional Strength, Group Therapy, Gait, Safety, Therapeutic Exercise, Transfers Treatment Duration: Apr 29, 2017 Frequency: At least 5 of 7 days/Wk (IRF) Estimated Hrs Per Day: 1.5 hours per day Patient and/or Family Agrees t: Yes Safety Risks/Education Patient Education: Gait Training, Transfer Techniques, Correct Positioning, Safety Issues Teaching Recipient: Patient Teaching Methods: Demonstration, Discussion Response to Teaching: Verbalize Understanding, Reinforcement Needed Time/GCodes Time In: 900 Time Out: 1000 Total Billed Treatment Time: 60 Total Billed Treatment 1 visit 30 GT 30 FRAN PIERRE PT Apr 15, 2017 10:01
--- NOTE | 2017-04-15 10:50 | Occupational Ther Daily Note ---
OT Current Status-Daily Note Subjective Pt alert, sitting in recliner. Pt agreed to therapy. No c/o pain at this time. Mental Status/Objective Patient Orientation: Person, Place, Time, Situation Functional [place] Measure 0=Not Assessed/NA 4=Minimal Assistance 1=Total Assistance 5=Supervision or Setup 2=Maximal Assistance 6=Modified [place] 3=Moderate Assistance 7=Complete [place] Attachments: Other-See Comments (neck brace) ADL-Treatment Functional [place] Measure 0=Not Assessed/NA 4=Minimal Assistance 1=Total Assistance 5=Supervision or Setup 2=Maximal Assistance 6=Modified [place] 3=Moderate Assistance 7=Complete IndependenceIRFPAI Quality Coding Scale 6 Independent with activity with or without an assistive device 5 Patient requires set up or clean up by helper. Patient completes activity by themselves 4 Supervision or touching assist (CGA). [place] provide cues , steadying assist 3 The helper provides less than half the effort to complete the activity 2 The helper provides more than half the effort to complete the activity 1 Dependent. The helper does all the effort to complete an activity 7 Patient refused to complete or attempt activity 9 The patient did not perform the activity before the current illness or injury 88 Not attempted due to Medical conditions or safety concerns Eating (FIM): 6 (With increased time to open packages, pt is able to feed self and cut food with regular utensils.) Eating (QC): 6 (With increased time to open packages, pt is able to feed self and cut food with regular utensils.) Grooming (FIM): 6 (Sitting at sink, pt is able to complete own grooming.) Oral Hygiene (QC): 6 (Sitting at sink, pt is able to complete own grooming.) Upper Body (FIM): 5 (After set up, pt is able to complete with increased time.) Pt continues to have difficulty donning/doffing neck brace. Other Treatment Pt ambulated to therapy gym with CGA using FWW, no LOB. Completed arm bike duration 15 min at 10-15 aguirre resistance to increase strength, UE AROM and activity tolerance for daily functional tasks. Pt required 3 rest breaks and then using only L UE during the last 2 min of the task. Pt then demonstrated ability to complete task with large pegs with each hand to increase ROM and strength. After therapy, pt in gym, PT took over care of pt. All needs met. OT Short Term Goals Short Term Goals Time Frame: Apr 09, 2017 Transfers (B,C,W/C) (FIM): 4 (CGA) Toilet/Commode Transfer(FIM): 4 Additional Short Term Goals: 2-Verbalize Understanding, 3-ImproveStrength/Karli 1=Demonstrate adherence to instructed precautions during ADL tasks. 2=Patient will verbalize/demonstrate understanding of assistive devices/ modifications for ADL. 3=Patient will improve strength/tolerance for activity to enable patient to perform ADL's. OT Director [employer] Goals Director [employer] [facility] [employer] Goals Time Frame: Apr 23, 2017 Eating (FIM): 6 (met-04/15/2017) Eating (QC): 6 (met-04/15/2017) Groomin (met-04/15/2017) Oral Hygiene (QC): 6 (met-04/15/2017) Bathing(FIM): 6 (not met) Shower/Bathe Self (QC): 6 (not met) Upper Body Dressing(FIM): 6 (not met) Upper Body Dressing (QC): 6 (not met) Lower Body Dressing(FIM): 6 (not met) Lower Body Dressing (QC): 6 (not met) On/Off Footwear (QC): 6 (not met) Toileting(FIM): 6 (not met) Toileting Hygiene (QC): 6 (not met) Toilet/Commode Transfer(FIM): 6 (not met) Toilet/Commode Transfer (QC): 6 (not met) Shower Transfer(FIM): 6 (not met) Comprehension(FIM): 5 (MET) Expression (FIM): 6 (MET) Social Interaction(FIM): 6 (MET) Problem Solving(FIM): 5 (MET) Memory(FIM): 6 (MET) Additional Goals: 2-Verbalize Understanding, 3-ImproveStrength/Karli 1=Demonstrate adherence to instructed precautions during ADL tasks. 2=Patient will verbalize/demonstrate understanding of assistive devices/ modifications for ADL. 3=Patient will improve strength/tolerance for activity to enable patient to perform ADL's. OT Education/Plan Problem List/Assessment Pt would benefit from skilled OT to increase his independence in basic self care to allow him to safely return to his home and to decrease caregiver burden. Discharge Recommendations Plan/Recommendations: Continue POC Treatment Plan/Plan of Care Patient would benefit from OT for education, treatment and training to promote independence in ADL's, mobility, safety and/or upper extremity function for ADL' s. Plan of Care: ADL Retraining, Functional Mobility, Group Exercise/Act as Ind ( educ, exercise, memory, activ tolerance, socialization), UE Funct Exercise/Act, UE Neuromus Re-Ed/Coord Treatment Duration: Apr 23, 2017 Frequency: At least 5 of 7 days/Wk (IRF) Estimated Hrs Per Day: 1.5 hours per day Agreement: Yes Rehab Potential: Good Time/GCodes Start Time: 08:00 Stop Time: 09:00 Total Time Billed (hr/min): 60 Billed Treatment Time 1 visit-FA 2 (30 min) EX 2 (30 min) RYAN PEREZ Apr 15, 2017 10:50
--- NOTE | 2017-04-15 11:33 | Occupational Ther Daily Note ---
OT Current Status-Daily Note Subjective Pt sitting in recliner. Pt agreed to therapy. No c/o pain at this time. Mental Status/Objective Patient Orientation: Person, Place, Time, Situation Functional [place] Measure 0=Not Assessed/NA 4=Minimal Assistance 1=Total Assistance 5=Supervision or Setup 2=Maximal Assistance 6=Modified [place] 3=Moderate Assistance 7=Complete [place] ADL-Treatment Functional [place] Measure 0=Not Assessed/NA 4=Minimal Assistance 1=Total Assistance 5=Supervision or Setup 2=Maximal Assistance 6=Modified [place] 3=Moderate Assistance 7=Complete IndependenceIRFPAI Quality Coding Scale 6 Independent with activity with or without an assistive device 5 Patient requires set up or clean up by helper. Patient completes activity by themselves 4 Supervision or touching assist (CGA). [place] provide cues , steadying assist 3 The helper provides less than half the effort to complete the activity 2 The helper provides more than half the effort to complete the activity 1 Dependent. The helper does all the effort to complete an activity 7 Patient refused to complete or attempt activity 9 The patient did not perform the activity before the current illness or injury 88 Not attempted due to Medical conditions or safety concerns Toileting (FIM): 6 (Safety concerns. Pt able to complete own hygiene and manipulate clothing.) Toileting Hygiene (QC): 6 (Safety concerns. Pt able to complete own hygiene and manipulate clothing.) Toilet/Commode Transfer (FIM): 6 (Using FWW and grabbars, pt is able to complete transfer. Safety concerns.) Other Treatment Pt was able to demonstrated light resistance theraband exercises for HEP. Pt complete 3 sets 10 reps of 5 exercises with good form. After therapy, pt sitting in recliner with call light/phone in reach. All needs met in room. OT Short Term Goals Short Term Goals Time Frame: Apr 09, 2017 Transfers (B,C,W/C) (FIM): 4 (CGA) Toilet/Commode Transfer(FIM): 4 Additional Short Term Goals: 2-Verbalize Understanding, 3-ImproveStrength/Karli 1=Demonstrate adherence to instructed precautions during ADL tasks. 2=Patient will verbalize/demonstrate understanding of assistive devices/ modifications for ADL. 3=Patient will improve strength/tolerance for activity to enable patient to perform ADL's. OT Skilled Nursing Goals Skilled Nursing Goals Time Frame: Apr 23, 2017 Eating (FIM): 6 (met-04/15/2017) Eating (QC): 6 (met-04/15/2017) Groomin (met-04/15/2017) Oral Hygiene (QC): 6 (met-04/15/2017) Bathing(FIM): 6 (not met) Shower/Bathe Self (QC): 6 (not met) Upper Body Dressing(FIM): 6 (not met) Upper Body Dressing (QC): 6 (not met) Lower Body Dressing(FIM): 6 (not met) Lower Body Dressing (QC): 6 (not met) On/Off Footwear (QC): 6 (not met) Toileting(FIM): 6 (not met) Toileting Hygiene (QC): 6 (not met) Toilet/Commode Transfer(FIM): 6 (not met) Toilet/Commode Transfer (QC): 6 (not met) Shower Transfer(FIM): 6 (not met) Comprehension(FIM): 5 (MET) Expression (FIM): 6 (MET) Social Interaction(FIM): 6 (MET) Problem Solving(FIM): 5 (MET) Memory(FIM): 6 (MET) Additional Goals: 2-Verbalize Understanding, 3-ImproveStrength/Karli 1=Demonstrate adherence to instructed precautions during ADL tasks. 2=Patient will verbalize/demonstrate understanding of assistive devices/ modifications for ADL. 3=Patient will improve strength/tolerance for activity to enable patient to perform ADL's. OT Education/Plan Problem List/Assessment Pt would benefit from skilled OT to increase his independence in basic self care to allow him to safely return to his home and to decrease caregiver burden. Discharge Recommendations Plan/Recommendations: Continue POC Treatment Plan/Plan of Care Patient would benefit from OT for education, treatment and training to promote independence in ADL's, mobility, safety and/or upper extremity function for ADL' s. Plan of Care: ADL Retraining, Functional Mobility, Group Exercise/Act as Ind ( educ, exercise, memory, activ tolerance, socialization), UE Funct Exercise/Act, UE Neuromus Re-Ed/Coord Treatment Duration: Apr 23, 2017 Frequency: At least 5 of 7 days/Wk (IRF) Estimated Hrs Per Day: 1.5 hours per day Agreement: Yes Rehab Potential: Good Time/GCodes Start Time: 11:00 Stop Time: 11:30 Total Time Billed (hr/min): 30 Billed Treatment Time 1 visit-EX 2 (30 min) RYAN PEREZ Apr 15, 2017 11:32
--- NOTE | 2017-04-15 15:34 | Physical Therapy Daily Note ---
PT Daily Note-Current Subjective Pt sitting in recliner eating lunch upon arrival. Pt agrees to PT. Pt is excited to discharge tomorrow around 4pm. Pain Location: No Pain Reported Mental Status Patient Orientation: Person, Place, Time, Situation Attachments: Other-See Comments (Soft neck collar) Transfers Functional [place] Measure 0=Not Assessed/NA 4=Minimal Assistance 1=Total Assistance 5=Supervision or Setup 2=Maximal Assistance 6=Modified [place] 3=Moderate Assistance 7=Complete IndependenceIRFPAI Quality Coding Scale 6 Independent with activity with or without an assistive device 5 Patient requires set up or clean up by helper. Patient completes activity by themselves 4 Supervision or touching assist (CGA). [place] provide cues , steadying assist 3 The helper provides less than half the effort to complete the activity 2 The helper provides more than half the effort to complete the activity 1 Dependent. The helper does all the effort to complete an activity 7 Patient refused to complete or attempt activity 9 The patient did not perform the activity before the current illness or injury 88 Not attempted due to Medical conditions or safety concerns Scootin Sit to/from Stand: 5 Sit to Stand (QC): 5 Weight Bearing Weight Bearing Restriction: Full Weight Bearing Location Restriction: LE Bilateral Wheelchair Training Does the Pt Use a Wheelchair?: No Exercises Seated Therapy Exercises: Ankle pumps, Long arc quads, Chair press-ups, Hip flexion, Kicking activity, Hip abd/add Seated Reps: 20 Treatments Pt completed Seated Ex in recliner. PT and pt also discuss discharge process, Home Therapy as well as having a life line in case of falling. Pt reports having a plan and how/what he would use to get up. Pt is resting in recliner at end of tx with all needs met. Assessment Current Status: Good Progress Pt has improved while in Therapy although still struggles with hyperextension of knee with WB. Pt occasionally under estimates safety concerns. PT Short Term Goals Short Term Goals Time Frame: Apr 08, 2017 Transfers (B,C,W/C) (FIM): 4 (CGA) Gait (FIM): 4 Distance (FIM): 3=150 ft Gait Distance Comment: 150' Gait Level of Assist: 4 (CGA) Gait Assistive Device: FWW PT Veneer Jointer Goals Veneer Jointer Goals PT Veneer Jointer Goals Time Frame: Apr 29, 2017 Transfers (B,C,W/C) (FIM): 6 Sit to Lying (QC): 6 Lying-Sitting on Side/Bed(QC): 6 Sit to Stand (QC): 6 Rollin Roll Left to Right (QC): 6 Chair/Wgj-jc-Wdbvx Xfer(QC): 6 Car Transfer (QC): 5 Does the Patient Walk: Yes Gait (FIM): 6 Gait distance (FIM): 3=150 ft Distance: 300' Walk 10 feet (QC): 6 Walk 10ft-Uneven Surface(QC): 6 Walk 50ft with 2 Turns (QC): 6 Walk 150 ft (QC): 6 Gait Level of Assist: 6 Gait Assistive Device: FWW Stairs (FIM): 5 (household) # of Steps: 8 1 Step (curb) (QC): 6 4 Steps (QC): 6 Stairs Level Of Assist: 6 PT Plan Problem List Problem List: Activity Tolerance, Functional Strength, Safety, Balance, Gait Treatment/Plan Treatment Plan: Continue Plan of Care Treatment Plan: Bed Mobility, Education, Functional Activity Karli, Functional Strength, Group Therapy, Gait, Safety, Therapeutic Exercise, Transfers Treatment Duration: Apr 29, 2017 Frequency: At least 5 of 7 days/Wk (IRF) Estimated Hrs Per Day: 1.5 hours per day Patient and/or Family Agrees t: Yes Safety Risks/Education Patient Education: Gait Training, Transfer Techniques, Reviewed Precautions, Correct Positioning, Safety Issues Teaching Recipient: Patient Teaching Methods: Discussion Response to Teaching: Verbalize Understanding Time/GCodes Time In: 1400 Time Out: 1430 Total Billed Treatment Time: 30 Total Billed Treatment visit, EX (15m) & FA (15m) OLGA LE PTA Apr 15, 2017 15:34
[2017-04-15 18:23] VITALS: BP 108/65
[2017-04-15] MEDS: ATORVASTATIN 40 MG (LIPITOR) TABLET PO SCH (21:03)
[2017-04-16 05:00] VITALS: BP 110/70
[2017-04-16] MEDS: PANTOPRAZOLE 40 MG (PROTONIX) TAB PO SCH (06:02)
[2017-04-16] MEDS: MULTIVIT W/MINERALS TAB (THERAGRAN M) PO SCH (06:02)
[2017-04-16] MEDS: PIOGLITAZONE 30MG (ACTOS) TAB PO SCH (06:02)
[2017-04-16] MEDS: NICOTINE 14 MG (NICODERM) PATCH TD SCH (08:53)
[2017-04-16] MEDS: ASPIRIN E.C. 325 MG (ECOTRIN) TABLET PO SCH (08:54)
[2017-04-16] MEDS: NICOTINE PATCH REMOVAL TP SCH (08:54)
[2017-04-16] MEDS: sitaGLIPtin 50 MG (NON-FORMULARY) TAB PO SCH (08:54)
[2017-04-16] MEDS: DOCUSATE SODIUM 100 MG (COLACE) CAP PO SCH (08:54)
[2017-04-16] MEDS: meTOproloL SUCCINATE 50 MG (TOPROL XL) TAB PO SCH (08:54)
[2017-04-16] MEDS: LOSARTAN 50 MG (COZAAR) TAB PO SCH (08:57)
--- NOTE | 2017-04-16 10:34 | Physical Therapy Daily Note ---
PT Daily Note-Current Subjective Pt was sitting in chair prior to tx and agreeable to PT. Pt reports no pain. Pt was sitting in chair with nurse call, phone, tray, all needs in reach post tx. Pain Numeric Pain Scale: 0-No Pain Location: No Pain Reported Mental Status Patient Orientation: Normal For Age Transfers Functional Major Measure 0=Not Assessed/NA 4=Minimal Assistance 1=Total Assistance 5=Supervision or Setup 2=Maximal Assistance 6=Modified Major 3=Moderate Assistance 7=Complete IndependenceIRFPAI Quality Coding Scale 6 Independent with activity with or without an assistive device 5 Patient requires set up or clean up by helper. Patient completes activity by themselves 4 Supervision or touching assist (CGA). [place] provide cues , steadying assist 3 The helper provides less than half the effort to complete the activity 2 The helper provides more than half the effort to complete the activity 1 Dependent. The helper does all the effort to complete an activity 7 Patient refused to complete or attempt activity 9 The patient did not perform the activity before the current illness or injury 88 Not attempted due to Medical conditions or safety concerns Transfers (B, C, W/C) (FIM): 5 Sit to/from Stand: 5 Pt completes sit to stand with CGA for safety. Pt is verbally cued for safety, hand placement and to lower himself to chair slowly. Gait Training Does the Patient Walk?: Yes Gait (FIM): 5 Distance (FIM): 3=150 ft Distance: 200'x2 Gait Level of Assist: 5 Gait Persons Needed: 1 Gait Assistive Device: FWW Pt ambulates with FWW and supervision for safety. Pt right knee hyperextends in stance phase. Exercises NuStep Minutes: 10 NuStep Workload: 6 Treatments Pt completes gait training to increase functional mobility and independence. Pt completes NuStep to increase endurance and functional LE strengthening. Assessment Current Status: Good Progress Pt ambulation is improving. PT Short Term Goals Short Term Goals Time Frame: Apr 08, 2017 Transfers (B,C,W/C) (FIM): 4 (CGA) Gait (FIM): 4 Distance (FIM): 3=150 ft Gait Distance Comment: 150' Gait Level of Assist: 4 (CGA) Gait Assistive Device: FWW PT Fence Manufacture Supervisor Goals Fence Manufacture Supervisor Goals PT Fpc Goals Time Frame: Apr 29, 2017 Transfers (B,C,W/C) (FIM): 6 Sit to Lying (QC): 6 Lying-Sitting on Side/Bed(QC): 6 Sit to Stand (QC): 6 Rollin Roll Left to Right (QC): 6 Chair/Bsa-kv-Fskjw Xfer(QC): 6 Car Transfer (QC): 5 Does the Patient Walk: Yes Gait (FIM): 6 Gait distance (FIM): 3=150 ft Distance: 300' Walk 10 feet (QC): 6 Walk 10ft-Uneven Surface(QC): 6 Walk 50ft with 2 Turns (QC): 6 Walk 150 ft (QC): 6 Gait Level of Assist: 6 Gait Assistive Device: FWW Stairs (FIM): 5 (household) # of Steps: 8 1 Step (curb) (QC): 6 4 Steps (QC): 6 Stairs Level Of Assist: 6 PT Plan Problem List Problem List: Activity Tolerance, Functional Strength, Safety, Balance, Gait, Transfer, Bed Mobility, ROM Treatment/Plan Treatment Plan: Continue Plan of Care Treatment Plan: Bed Mobility, Education, Functional Activity Karli, Functional Strength, Group Therapy, Gait, Safety, Therapeutic Exercise, Transfers Treatment Duration: Apr 29, 2017 Frequency: At least 5 of 7 days/Wk (IRF) Estimated Hrs Per Day: 1.5 hours per day Patient and/or Family Agrees t: Yes Safety Risks/Education Patient Education: Gait Training, Transfer Techniques, Reviewed Precautions, Correct Positioning, Safety Issues Teaching Recipient: Patient Teaching Methods: Demonstration, Discussion Response to Teaching: Verbalize Understanding, Reinforcement Needed Time/GCodes Time In: 1000 Time Out: 1030 Total Billed Treatment Time: 30 Total Billed Treatment 1 visit EX 10 GT 20 FRAN RAINES PT Apr 16, 2017 10:34
--- NOTE | 2017-04-16 15:15 | Therapy Team Discharge Summary ---
Therapy Discharge Summary Discharge Recommendations Date of Discharge Therapy D/C Recommendations: Home w/ Family Support, Occupational Therapy Home Care Physical Therapy Pt was admitted to rehab 04/01 following a C1 laminectomy from C1 subluxation, secondary stenosis, and cervical myelopathy. Pt was admitted to rehab for weakness and mobility impairments. Upon evaluation, patient was stand by assist with all bed mobility. Pt transferred with mod assist, ambulated 25' with FWW and min assist for safety. Pt completed 1 step with mod assist and ambulated on uneven surfaces with mod assist. While in rehab, patient completed treatment to increase endurance and balance, functional strengthening, safety education, transfer training, gait training, bed mobility, group therapy, therapeutic exercises, and stair training. Pt had good progress with rehab. Before discharge , pt was re-evaluated and ambulated 150'x2 with supervision for safety. Pt also completed all bed mobility and transfers with supervision. Pt completed 4 stairs with CGA and 1 railing. Pt met all LTG goals except for goal on stairs due to LE weakness and lack of safety. Pt did improve with stairs, completing 4 stairs with CGA for safety. Pt plans to discharge to his home with family support with home health PT recommended. PT Correction Goals Airconditioning Plant Operator Goals PT Correction Goals Time Frame: Apr 29, 2017 Transfers (B,C,W/C) (FIM): 6 (met) Roll Left to Right (QC): 6 (met) Sit to Lying (QC): 6 (met) Lying-Sitting on Side/Bed(QC): 6 (met) Sit to Stand (QC): 6 (met) Chair/Zdn-pi-Jtxmg Xfer(QC): 6 (met) Car Transfer (QC): 5 Does the Patient Walk: Yes Gait (FIM): 6 (met) Gait distance (FIM): 3=150 ft Distance: 300' Walk 10 feet (QC): 6 (met) Walk 10ft-Uneven Surface(QC): 6 (met) Walk 50ft with 2 Turns (QC): 6 (met) Walk 150 ft (QC): 6 (met) Gait Level of Assist: 6 (met) Gait Assistive Device: FWW Stairs (FIM): 5 (unmet, pt progressed to 4) # of Steps: 8 (not met, completed 4 steps) 1 Step (curb) (QC): 6 (not met, progresse to 4) 4 Steps (QC): 6 (not met) Stairs Level Of Assist: 6 (not met, progressed to 4) OT Correction Goals Airconditioning Plant Operator Goals Time Frame: Apr 23, 2017 Eating (FIM): 6 (met-04/15/2017) Eating (QC): 6 (met-04/15/2017) Oral Hygiene (QC): 6 (met-04/15/2017) Grooming(FIM): 6 (met-04/15/2017) Bathing(FIM): 6 (not met) Shower/Bathe Self (QC): 6 (not met) Upper Body Dressing(FIM): 6 (not met) Upper Body Dressing (QC): 6 (not met) Lower Body Dressing(FIM): 6 (not met) Lower Body Dressing (QC): 6 (not met) On/Off Footwear (QC): 6 (not met) Toileting(FIM): 6 (not met) Toileting Hygiene (QC): 6 (not met) Toilet/Commode Transfer(FIM): 6 (not met) Toilet/Commode Transfer (QC): 6 (not met) Shower Transfer(FIM): 6 (not met) Comprehension(FIM): 5 (MET) Expression (FIM): 6 (MET) Social Interaction(FIM): 6 (MET) Problem Solving(FIM): 5 (MET) Memory(FIM): 6 (MET) Additional Goals: 2-Verbalize Understanding, 3-ImproveStrength/Karli 1=Demonstrate adherence to instructed precautions during ADL tasks. 2=Patient will verbalize/demonstrate understanding of assistive devices/ modifications for ADL. 3=Patient will improve strength/tolerance for activity to enable patient to perform ADL's. Speech Airconditioning Plant Operator Goals Correction Goals 1. The patient will complete a full, standardized cognitive assessment. MET/DC - Following the assessment, accurate FIM scores will be recorded, as well as, appropriate short-term goals. MET/DC Time Frame: One Week Comprehension: 5 (MET) Expression: 6 (MET) Social Interaction: 6 (MET) Problem Solvin (MET) Memory: 6 (MET) FRAN RAINES PT Apr 16, 2017 15:15
[2017-04-16 16:31] VITALS: BP 100/64
--- NOTE | 2017-04-28 13:23 | DISCHARGE SUMMARY ---
DATE OF SERVICE: 04/16/2017 HISTORY OF PRESENT ILLNESS: The patient is a 76-year-old male, who had been living at home in [place], [place] and was independent with a single point cane, who was driving and taking care of household tasks, who fell outside of a restaurant in [place] and was assessed at [facility] ED in [place] where subdural hematoma was noted. He was transferred to [facility] for neurosurgical evaluation. Dr. May of neurosurgery felt that this was minor and should resolve with nonsurgical treatment. He did, however, note on imaging studies in the cervical spine that there was severe cervical spine stenosis with associated cord compression with resulting myelopathy. The patient underwent decompressive surgery with Dr. May. The patient was placed in a soft cervical collar on when up for comfort. He was referred to inpatient rehabilitation unit for ongoing therapies and care. His PCP is Dr. Palacios. The patient reported some pain at the incision site, but generally doing better. He has been on the rehab unit in the past, specifically in 09/2015, following a right total knee replacement with Dr. Abbott and did well with this. He has noticed his right knee hyperextending at times and he has a right knee brace on, which he indicates that he has just obtained recently apparently at outside hospital. 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 SOCIAL HISTORY: He lives alone and is a , but has supportive family nearby and friends nearby. MEDICAL COURSE: The patient was afebrile during his stay. His blood pressure on 04/16/2017 was 100/64, respirations 20, pulse was 59 and O2 sat 100% on room air. His CBC on 04/02/2017 revealed WBC 13.3, H and H 16/47 and platelet count 180k. Chemistry on 04/02/2017 revealed BUN 23, normal electrolytes, creatinine 0.92, blood glucose 106, albumin 3.1 and total protein 5.6. Glucometer readings from 04/14/2017 to 04/16/2017 varied between 76 and 154. His incision was healing well. He had decreased pain. He mobilized well. The patient was seen by Dr. Peck, podiatry for foot care. His impression was diabetic neuropathy, onychomycosis and hammer digit syndrome. Toenails were debrided manually and mechanically. REHABILITATION COURSE: He progressed well with his therapies. He had increased strength and endurance. Speech therapy notes that upon admission, the patient received extended evaluation of possible cognitive deficits following his head injury. The patient received testing. The patient displayed a score of 25/25 on Jarrett cognitive assessment and they felt that he was functional and they signed off. PT notes that he was admitted to rehab, a 24 ____ on laminectomy from C1 subluxation with secondary stenosis and cervical myelopathy. Upon admission, the patient was standby assist with bed mobility, mod assist for transfers and min assist for ambulation 25 feet with a front wheel walker. The patient made good progress and by discharge, he was supervision for bed mobility and transfers, supervision for ambulation ____ 50 feet x 2 with a wheeled walker. He will have home health care and followup with his family as well. OT notes upon admission, he was mod assist for transfers and for dressing and set up for eating and grooming. By discharge, he was modified independent for eating, grooming and oral hygiene and standby assist for dressing and bathing. DISCHARGE INSTRUCTIONS: He will have home health care and followup with Dr. Palacios and Lalo as per their schedule. Continue current diet and soft cervical collar. DISCHARGE MEDICATIONS: Tylenol 500 mg p.o. q. 4 hours p.r.n. mild pain, bacitracin topically every other day to incision site, Colace 100 mg p.o. b.i.d., nicotine patch 14 mg topically daily, ASA 325 mg p.o. at bedtime, losartan 50 mg p.o. daily, metoprolol 50 mg p.o. daily, multivitamins with minerals one tablet p.o. daily, Protonix 40 mg p.o. daily, pioglitazone 15 mg p.o. daily, pravastatin 40 mg p.o. at bedtime, Januvia 50 mg p.o. daily and Accu-Cheks as per home regimen. DISCHARGE DIAGNOSES: 1. Ambulatory dysfunction secondary to C1 subluxation with resulting secondary stenosis, status post laminectomy with Dr. May with associated cervical myelopathy, improving. 2. 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 3. Osteoarthritis, status post right total knee replacement. 4. Tub-uamrnyr-yzskxrsot diabetes mellitus. 5. Chronic obstructive pulmonary disease associated with tobaccoism, currently abstaining. 6. Diabetic peripheral neuropathy. 7. Onychomycosis. 8. Hammer digit syndrome. 9. Mild hypoalbuminemia. CONDITION AT DISCHARGE: Improved and stable. PROGNOSIS: Rehab prognosis appears good for continued improvement home, return to independent living with some assistance from family as necessary. He may eventually benefit from more formal assisted living setting. Job ID: [id number] DocumentID: [id number] Dictated Date: 04/27/2017 09:50:05 Medical Safety Director Date: 04/28/2017 13:22:38 Dictated By: SARI CORRALES MD MTDD
== END 2017-04-16 16:10 | disposition home health service (06) | DRG 561 ==
PROVIDERS: ADMIT Physical Medicine & Rehabilitation; ATTEND Physical Medicine & Rehabilitation
DX: Z47.89 Encounter for other orthopedic aftercare (principal); J44.9 Chronic obstructive pulmonary disease, unspecified; F17.210 Nicotine dependence, cigarettes, uncomplicated; E11.42 Type 2 diabetes mellitus with diabetic polyneuropathy; Z79.4 Long term (current) use of insulin; B35.1 Tinea unguium; M20.41 Other hammer toe(s) (acquired), right foot; M20.42 Other hammer toe(s) (acquired), left foot
CPT/HCPCS: 36415; 80053; 82962; 85025

== ENCOUNTER 2017-08-17 10:20 | Outpatient (CLI) | payer MEDICARE, OTHER ==
[~2017-08-17] VITALS: Ht 167.6 cm; Wt 83.9 kg
[~2017-08-17 10:20] MED LIST changes: -METO-387 PO; -MULT-1061 PO
[2017-08-17 10:35] VITALS: BP 130/78
[2017-08-17] MEDS ORDERED: METO-387 PO (10:45)
[2017-08-17] MEDS ORDERED: MULT-1061 PO (10:45)
[2017-08-17] MEDS ORDERED: PANT40TA3 PO (10:45)
[2017-08-17 11:22] LABS: BASOPHILS # (AUTO) 0.1 10^3/uL (0.0-0.1); BASOPHILS % (AUTO) 1 % (0-10); EOSINOPHILS # (AUTO) 2.8 10^3/uL (0.0-0.3); EOSINOPHILS % (AUTO) 23 % (0-10); HEMATOCRIT 46 % (40-54); HEMOGLOBIN 15.3 G/DL (13.3-17.7); LYMPHOCYTES # (AUTO) 3.2 X 10^3 (1.0-4.0); LYMPHOCYTES % (AUTO) 27 % (12-44); MEAN CORPUSCULAR HEMOGLOBIN 31 PG (25-34); MEAN CORPUSCULAR HGB CONC 34 G/DL (32-36); MEAN CORPUSCULAR VOLUME 92 FL (80-99); MONOCYTES % (AUTO) 9 % (0-12); NEUTROPHILS % (AUTO) 41 % (42-75); PLATELET COUNT 194 10^3/uL (130-400); RED BLOOD COUNT 4.97 10^6/uL (4.35-5.85); RED CELL DISTRIBUTION WIDTH 13.4 % (10.0-14.5); WHITE BLOOD COUNT 12.2 10^3/uL (4.3-11.0)
[2017-08-17 11:31] LABS: PROTHROMBIN TIME PATIENT 13.5 SEC (12.2-14.7)
[2017-08-17 11:36] LABS: BAND NEUTROPHILS 0 %; BASOPHILS % (MANUAL) 2 %; EOSINOPHILS % (MANUAL) 19 %; LYMPHOCYTES % (MANUAL) 31 %; MONOCYTES % (MANUAL) 5 %; NEUTROPHILS % (MANUAL) 43 %; RBC MORPH NORMAL
[2017-08-17 11:38] LABS: CALCIUM 9.5 MG/DL (8.5-10.1); CREATININE SERUM 1.4 MG/DL (0.60-1.30); POTASSIUM 4.2 MMOL/L (3.6-5.0)
--- NOTE | 2017-08-17 11:42 | Diagnostic Imaging Report ---
INDICATION: Preop right knee arthroplasty. EXAMINATION: PA and lateral chest. FINDINGS: The heart size and pulmonary vascularity are normal. The lungs are clear. There are no effusions or pneumothoraces. IMPRESSION: Negative chest. Dictated by: Dictated on workstation # [id number]
[2017-08-17 13:56] LABS: BILIRUBIN,URINE NEGATIVE (NEGATIVE); CLARITY,URINE CLEAR; COLOR,URINE YELLOW; GLUCOSE, URINE (UA) NEGATIVE (NEGATIVE); KETONES,URINE NEGATIVE (NEGATIVE); LEUKOCYTE ESTERASE ,URINE 3+ (NEGATIVE); NITRITE,URINE NEGATIVE (NEGATIVE); PH,URINE 5 (5-9); PROTEIN,URINE 1+ (NEGATIVE); UROBILINOGEN,URINE NORMAL (NORMAL)
[2017-08-17 14:09] LABS: BACTERIA,URINE TRACE /HPF
== END 2017-08-17 11:40 | disposition home or self-care (01) ==
LOC: PREOP 10:20
PROVIDERS: ATTEND Orthopaedic Surgery
DX: Z01.810 Encounter for preprocedural cardiovascular examination (principal); Z01.812 Encounter for preprocedural laboratory examination; M79.661 Pain in right lower leg; M25.361 Other instability, right knee; E11.9 Type 2 diabetes mellitus without complications; I10 Essential (primary) hypertension; Z22.322 Carrier or suspected carrier of Methicillin resistant Staphylococcus aureus; Z11.2 Encounter for screening for other bacterial diseases; Z96.651 Presence of right artificial knee joint
CPT/HCPCS: 36415; 71046; 80048; 81000; 85007; 85027; 85610; 86850; 86900; 86901; 87081; 93005

== ENCOUNTER → 2017-08-17 | Outpatient (CLI) | payer MEDICARE, OTHER ==
[~2017-08-17] MED LIST changes: +ACET-77 PO; +BACI28.4 TOP; +DOCU100C37 PO; +LOSA50TA36 PO; +METO-387 PO; +MULT-1061 PO; +MULT-166 PO; +NICO-587 TD
[2017-08-17 11:40] LABS: CHOLESTEROL 175 MG/DL (< 200); HDL CHOLESTEROL 56 MG/DL (40-60); TRIGLYCERIDES 109 MG/DL (<150); VLDL CHOLESTEROL 22 MG/DL (5-40)
[2017-08-17 12:41] LABS: BILIRUBIN,TOTAL 0.4 MG/DL (0.1-1.0); CALCIUM 9.5 MG/DL (8.5-10.1); CREATININE SERUM 1.43 MG/DL (0.60-1.30); POTASSIUM 4.2 MMOL/L (3.6-5.0); TOTAL PROTEIN 6.7 GM/DL (6.4-8.2)
== END ==
LOC: PREOP 10:28
PROVIDERS: ATTEND Family Medicine
DX: Z01.812 Encounter for preprocedural laboratory examination (principal); E11.65 Type 2 diabetes mellitus with hyperglycemia; E78.2 Mixed hyperlipidemia
CPT/HCPCS: 36415; 80053; 80061; 83036

== ENCOUNTER 2017-08-24 07:15 | Inpatient (IN) | payer MEDICARE, OTHER ==
[~2017-08-24] VITALS: Ht 167.6 cm; Wt 83.9 kg
[~2017-08-24 07:15] MED LIST changes: +METO-387 PO; +MULT-1061 PO
[2017-08-24] MEDS ORDERED: GENTAMICIN 40 MG/ML 2 ML INJ SDV ONE (07:22)
[2017-08-24] MEDS ORDERED: NEO/POLY/BAC (NEOSPORIN) OINT 15 GM TUBE ONE (07:22)
[2017-08-24 07:45] VITALS: BP 125/83
[2017-08-24] MEDS ORDERED: CELECOXIB 100 MG (CeleBREX) CAP PO ONE (07:45)
[2017-08-24] MEDS ORDERED: FAMOTIDINE 20MG/2ML IV (PEPCID) IV ONE (07:45)
[2017-08-24] MEDS ORDERED: ONDANSETRON 4 MG/2 ML (SDV) Z0FRAN IVP ONE (07:45)
[2017-08-24] MEDS ORDERED: GABAPENTIN 600 MG (NEURONTIN) TAB PO ONE (07:45)
[2017-08-24] MEDS ORDERED: ceFAZolin 2 GM/50 ML NS 50 ML IV ONE (07:45)
[2017-08-24] MEDS ORDERED: MIDAZOLAM 2 MG/2 ML (VERSED) VIAL ONE (07:47)
[2017-08-24] MEDS ORDERED: BUPIVACAINE 0.5% 30 ML (SENSORCAINE) VIAL ONE ×2 (07:47→07:51)
[2017-08-24] MEDS: LACTATED RINGERS 1,000 ML IV PRN ×2 (08:01→09:45)
[2017-08-24] MEDS ORDERED: INTRA-ARTICULAR IU ONE ×4 (08:30)
[2017-08-24] MEDS ORDERED: KETOROLAC 15 MG/ML VIAL IVP PRN (08:30)
[2017-08-24] MEDS ORDERED: BISACODYL 10 MG SUPP (DULCOLAX) PR PRN (08:30)
[2017-08-24] MEDS ORDERED: morphine INJ 10 MG/ML 1ML (SYR OR VIAL) IVP PRN ×2 (08:30→10:30)
[2017-08-24] MEDS ORDERED: diphenhydrAMINE 50 MG/ML INJ (BENADRYL) IV PRN (08:30)
[2017-08-24] MEDS ORDERED: ONDANSETRON 4 MG/2 ML (SDV) Z0FRAN IVP PRN ×2 (08:30→10:30)
[2017-08-24] MEDS ORDERED: PROMETHAZINE INJ 25 MG/ML (PHENERGAN) AMP IVP PRN (08:30)
[2017-08-24] MEDS ORDERED: HYDROcodone/APAP 10 MG/325 MG (LORTAB) TAB PO PRN (08:30)
[2017-08-24] MEDS ORDERED: LIDOCAINE PF 2% 5 ML (XYLOCAINE) VIAL ONE (09:04)
[2017-08-24] MEDS ORDERED: fentaNYL INJECTION 100 MCG/2 ML AMP ONE (09:04)
[2017-08-24] MEDS ORDERED: SEVOFLURANE (ULTANE) 15 ML INHAL SOLN ONE ×2 (09:04→10:15)
[2017-08-24] MEDS ORDERED: ONDANSETRON 4 MG/2 ML (SDV) Z0FRAN ONE (09:04)
[2017-08-24] MEDS ORDERED: proPOfol 200 MG/20 ML (DIPRIVAN) VIAL IV ONE (09:04)
[2017-08-24] MEDS ORDERED: TRANEXAMIC ACID 100 MG/ML 10 ML INJECTION IV ONE (10:05)
--- NOTE | 2017-08-24 10:56 | Progress Note-Pre Operative ---
Pre-Operative Progress Note H&P Reviewed The H&P was reviewed, patient examined and no changes noted. Date Seen by Provider: Aug 24, 2017 Time Seen by Provider: 09:10 Date H&P Reviewed: Aug 24, 2017 Time H&P Reviewed: 09:10 Pre-Operative Diagnosis: Right knee instability status post TKA TENZIN CHRISTENSEN DO Aug 24, 2017 10:56 am
--- NOTE | 2017-08-24 10:59 | Progress Note-Post Operative ---
Post-Operative Progess Note Surgeon (s)/Economic Developer (s) Surgeon TENZIN CHRISTENSEN DO Economic Developer: Cipriano Mcintosh APARTMENT RENTAL CLERK-Rei Pre-Operative Diagnosis Right knee instability status post TKA Post-Operative Diagnosis Same Procedure & Operative Findings Date of Procedure 08/24/17 Procedure Performed/Findings Revision polyethylene liner Right total knee Anesthesia Type General with femoral nerve block Estimated Blood Loss Estimated blood loss (mL): min Specimens/Packing Specimens Removed liner and locking bar TENZIN CHRISTENSEN DO Aug 24, 2017 10:59 am
[2017-08-24 11:30] VITALS: BP 137/67
--- NOTE | 2017-08-24 12:03 | CONSULTATION REPORT ---
DATE OF SERVICE: 08/24/2017 PREOPERATIVE DIAGNOSIS: Right knee instability, status post total knee arthroplasty. POSTOPERATIVE DIAGNOSIS: Right knee instability, status post total knee arthroplasty. PROCEDURE: Poly revision, polyethylene exchange, right total knee. SURGEON: Tenzin Christensen DO. ADMISSIONS ADVISOR: NORMA Paige. SURGICAL ROOM SERVICE WAITER DUTIES: Cipriano Mcintosh, medical or surgical instrument maker was utilized throughout the entire procedure for patient positioning, wound retraction, placement of implants, wound closure, dressing application and transfer. ANESTHESIA: General with femoral nerve block. ESTIMATED BLOOD LOSS: Minimal. INDICATIONS AND FINDINGS: The patient is a 77-year-old male who underwent a previous total knee arthroplasty on the right. Postoperatively, the patient did well. The patient had fallen stepping off the street, twisting his knee, began having increased instability and on exam, the patient demonstrated significant instability both in knee flexion, midrange flexion with hyperextension deformity of the right knee. His x-rays demonstrated satisfactory position and alignment of his total knee components with no evidence of loosening. The patient was taken to surgery where the polyethylene tibial insert was removed. A 10 mm insert was removed and replaced with a 16 mm anterior stabilized tibial bearing implant. PROCEDURE IN DETAIL: The patient was seen by anesthesia preoperatively and under ultrasound guidance, a femoral nerve block was performed on the right to decrease postop pain and decrease amount of medication required during the surgical procedure. The patient was transferred to the operating room where general inhalation anesthetic was administered. A well-padded pneumatic tourniquet was placed about the upper aspect of the right thigh. A ChloraPrep and sterile drape of the right lower extremity was performed. The right leg was elevated, exsanguinated and the tourniquet was inflated to 300 mmHg pressure. An anterior longitudinal midline incision was made over the anterior surface of the right knee. The incision was deepened through a medial parapatellar incision. The previous incisional scar was utilized during the skin incision. The patella was subluxed laterally. A small amount of subperiosteal dissection was performed over the proximal medial tibia. An osteotome was then used to elevate the locking bar from its position at the tibial plate. This was then slid medially. The polyethylene liner was removed. There was no evidence of wear on the polyethylene liner. The femoral and tibial components were noted to be intact. The wound was irrigated extensively with normal saline solution. Provisional trials were then placed within the knee. The patient demonstrated persistent instability and a persistent hyperextension deformity with a 14 mm spacer. A 16 mm spacer allowed full extension of the knee with no instability on full flexion and mid range flexion. The trial liner was removed. The 16 mm anterior stabilized Biomet Vanguard tibial bearing implant was then inserted and locked with a new locking bar. The knee was cycled through a range of motion and was found to be stable. The tourniquet was released. Hemostasis was obtained with electrocautery. The knee was placed in 90 degrees of flexion. The medial retinaculum was closed with multiple interrupted wqrzuw-ug-oxxzc sutures and #1 Vicryl reinforced with a running suture of #1 Stratafix. The subcutaneous tissues were closed in layers with 0 and 2-0 Vicryl suture. The skin was closed with stainless steel heriberto and Adaptic Neosporin bulky dressing was placed about the right knee. The patient was awake and was transported to postop recovery with anesthesia personnel present in satisfactory condition. Job ID: [id number] DocumentID: [id number] Dictated Date: 08/24/2017 11:16:49 Metal Molder Date: 08/24/2017 12:02:36 Dictated By: TENZIN CHRISTENSEN DO
--- NOTE | 2017-08-24 12:12 | Diagnostic Imaging Report ---
EXAMINATION: Right knee at 11:04 a.m. INDICATION: Postop. FINDINGS: The prior exam of 09/24/2015 noted a total knee prosthesis in place. Reportedly in the interval since the prior study, the patient has undergone a revision of the total knee prosthesis. The prosthetic components on this exam seem to be in good position. There is no fracture or acute bony abnormality evident. There is some gas in the knee joint as well as a joint effusion. Skin heriberto are also seen along the anterior aspect of the knee joint. IMPRESSION: Stable postoperative right knee. Dictated by: Dictated on workstation # [id number]
[2017-08-24] MEDS: D5 1/2 NS 1000 ML IV SOLUTION 1,000 ML IV SCH ×2 (12:52→20:43)
[2017-08-24 16:00] VITALS: BP 153/77
[2017-08-24] MEDS: ceFAZolin 2 GM/50 ML NS 50 ML IV SCH (16:43)
[2017-08-24 20:00] VITALS: BP 139/64
[2017-08-24] MEDS: LINAGLIPTIN (TRADJENTA) 5 MG TABLET PO SCH (20:43)
[2017-08-25] VITALS: BP 113/61
[2017-08-25] MEDS: D5 1/2 NS 1000 ML IV SOLUTION 1,000 ML IV SCH (00:39)
[2017-08-25] MEDS: ceFAZolin 2 GM/50 ML NS 50 ML IV SCH (00:39)
[2017-08-25 04:20] VITALS: BP 128/69
[2017-08-25] MEDS: PIOGLITAZONE 30MG (ACTOS) TAB PO SCH (06:58)
[2017-08-25 07:37] LABS: HEMOGLOBIN 13.3 G/DL (13.3-17.7); MEAN PLATELET VOLUME 11.2 FL (7.4-10.4); RED BLOOD COUNT 4.35 10^6/uL (4.35-5.85); RED CELL DISTRIBUTION WIDTH 13.1 % (10.0-14.5); WHITE BLOOD COUNT 12.4 10^3/uL (4.3-11.0)
[2017-08-25 08:00] VITALS: BP 131/70
[2017-08-25 08:11] LABS: CALCIUM 8.4 MG/DL (8.5-10.1); CREATININE SERUM 1.43 MG/DL (0.60-1.30); POTASSIUM 4.2 MMOL/L (3.6-5.0)
[2017-08-25] MEDS: SENNA W/DOCUSATE (SENOKOT S) TABLET PO SCH ×2 (09:32→20:10)
[2017-08-25] MEDS: ENOXAPARIN 40 MG/0.4 ML (LOVENOX) SYR SC SCH (09:32)
[2017-08-25] MEDS: PANTOPRAZOLE 40 MG (PROTONIX) TAB PO SCH (09:32)
--- NOTE | 2017-08-25 09:46 | Physical Therapy Evaluation ---
PT Evaluation-General Medical Diagnosis Admission Date Aug 24, 2017 at 07:15 Medical Diagnosis: right TKR revision Onset Date: Aug 24, 2017 Therapy Diagnosis Therapy Diagnosis: generalized weakness/debility Height/Weight Height (Feet): 5 Height (Inches): 6.00 Weight (Pounds): 185 Weight (Ounces): 0.0 Precautions Precautions/Isolations: Fall Prevention Weight Bear Status Right Lower Extremity: Right Full Weight Bearing Left Lower Extremity: Left Full Weight Bearing Referral Physician: Scar Reason for Referral: Evaluation/Treatment Medical History Pertinent Medical History: COPD, DM, GERD, HTN, OA, Smoking Additional Medical History subdural hematoma/spinal stenosis (cervical myelopathy) Current History s/p right TKR revision Reviewed History: Yes Social History Home: Single Level Current Living Status: Alone Prior/[facility] FIM Prior Level of Function Functional [place] Measure 0=Not Assessed/NA 4=Minimal Assistance 1=Total Assistance 5=Supervision or Setup 2=Maximal Assistance 6=Modified [place] 3=Moderate Assistance 7=Complete [place] Bed Mobility: 6 Transfers (B,C,W/C) (FIM): 6 Gait: 6 Locomotion: 6 PT Evaluation-Current Subjective Patient agrees to PT. Does c/o right LE "not working yet". Pain Numeric Pain Scale: 3 Location: Right Location Body Site: Knee Pain Description: Ache, Acute Objective Patient Orientation: Normal For Age Problem Solving: Fair Attachments: IV ROM/Strength ROM Lower Extremities bilateral LE WNL Strength Lower Extremities right knee extension 1/5/flexin 3/5; hip flexion 4/5; DF/PF 4/5 left knee extension/flexion 4/5; hip flexion 4/5; DF/PF 4/5 Integumentary/Posture Integumentary refer to nursing notes Posture WFL Neuromuscular (Tone, Coordination, Reflexes) diminished coordination/tone right LE; left LE WFL Sensory Vision: Wears Glasses Hearing: Impaired Sensation Right Lower Extremit: Impaired Sensation Left Lower Extremity: Impaired Transfers Functional [place] Measure 0=Not Assessed/NA 4=Minimal Assistance 1=Total Assistance 5=Supervision or Setup 2=Maximal Assistance 6=Modified [place] 3=Moderate Assistance 7=Complete [place] Transfers (B, C, W/C) (FIM): 4 Scootin Rollin Supine to/from Sit: 4 Sit to/from Stand: 4 Gait Mode of Locomotion: Walk Anticipated Mode of Locomotion: Walk Gait (FIM): 1 Distance (FIM): 1=up to 49 ft Distance: 5' Gait Level of Assist: 4 Gait Persons Needed: 1 Gait Assistive Device: FWW Comments/Gait Description right LE decreased strength and proprioception due to femoral block Balance Sitting Static: Normal Sitting Dynamic: Normal Standing Static: Fair Standing Dynamic: Poor Assessment/Needs 77 y.o. male will benefit from short term skilled PT to address functional strength and mobility to improve current LOF and to safely return to home at maximum LOF. Rehab Potential: Good PT Half-Way Goals Half-Way Goals PT Car Runner Goals Time Frame: Sep 03, 2017 Transfers (B,C,W/C) (FIM): 6 Gait (FIM): 6 Gait distance (FIM): 3=150 ft Distance: 250' Gait Level of Assist: 6 Gait Assistive Device: FWW PT Plan Problem List Problem List: Activity Tolerance, Functional Strength, Safety, Balance, Gait, Transfer, Bed Mobility Treatment/Plan Treatment Plan: Continue Plan of Care Treatment Plan: Bed Mobility, Education, Functional Activity Karli, Functional Strength, Gait, Safety, Therapeutic Exercise, Transfers Treatment Duration: Sep 03, 2017 Frequency: 11 times per week Estimated Hrs Per Day: .5 hour per day Patient and/or Family Agrees t: Yes Discharge Recommendations Therapy D/C Recommendations: Physical Therapy Home Care, Physical Therapy Outpatient Time/GCodes Time In: 908 Time Out: 923 Total Billed Treatment Time: 15 [facility] WILSON [facility]EDERSEN PT Aug 25, 2017 09:46
[2017-08-25] MEDS ORDERED: HYDR-3820 PO (10:25)
[2017-08-25 12:00] VITALS: BP 141/79
--- NOTE | 2017-08-25 12:54 | Progress Note (SOAP) ---
Subjective Date Seen by Provider: Aug 25, 2017 Time Seen by Provider: 12:51 Subjective/Events-last exam Complains of weakness in right knee/leg from nerve block. needing x 2 assist with transfers. Minimal effort when ambulating with therapy. Objective Exam Vital Signs Date Time Temp Pulse Resp B/P (MAP) Pulse Ox O2 Delivery O2 Flow Rate FiO2 08/25/17 04:20 98.6 74 18 128/69 (88) 94 Room Air 08/25/17 00:00 98.7 79 18 113/61 (78) 94 Room Air 08/24/17 20:00 98.9 77 20 139/64 (89) 95 Room Air 08/24/17 16:00 98.3 73 20 153/77 (102) 98 Room Air 08/24/17 15:19 Room Air 2.00 I & O 08/25/17 07:00 Intake Total 3070 ml Output Total 650 ml Balance 2420 ml Capillary Refill : General Appearance: No Apparent Distress Extremity: Normal Capillary Refill, Normal Inspection, Non Tender, No Calf Tenderness, No Pedal Edema Neurologic/Psychiatric: Alert, Oriented x3, No Motor/Sensory Deficits, Normal Mood/Affect Skin: Normal Color, Warm/Dry (dressing right knee CDI) Results Lab Laboratory Tests 08/25/17 07:08: White Blood Count 12.4H, Red Blood Count 4.35, Hemoglobin 13.3, Hematocrit 41, Mean Corpuscular Volume 94, Mean Corpuscular Hemoglobin 31, Mean Corpuscular Hemoglobin Concent 33, Red Cell Distribution Width 13.1, Platelet Count 161, Mean Platelet Volume 11.2H, Sodium Level 140, Potassium Level 4.2, Chloride Level 107, Carbon Dioxide Level 27, Anion Gap 6, Blood Urea Nitrogen 21H, Creatinine 1.43H, Estimat Glomerular Filtration Rate 48, BUN/Creatinine Ratio 15 , Glucose Level 110H, Calcium Level 8.4L Assessment/Plan Assessment/Plan Assess & Plan/Chief Complaint A: s/p poly exchange right TKA P: continue care, IRF vs swing bed eval for discharge due to concerns with ability to perform ADLs. Clinical Quality Measures DVT/VTE Risk/Contraindication: Risk Factor Score Per Nursin RFS Level Per Nursing on Admit: 4+=Very High ANNE FLORES APRN Aug 25, 2017 12:54 pm
--- NOTE | 2017-08-25 14:50 | Physical Therapy Daily Note ---
PT Daily Note-Current Subjective Patient reports he is tired and reluctantly agrees to PT. Pain Numeric Pain Scale: 5-Moderate Pain Location: Right Location Body Site: Knee Pain Description: Acute Mental Status Patient Orientation: Normal For Age Transfers Functional [place] Measure 0=Not Assessed/NA 4=Minimal Assistance 1=Total Assistance 5=Supervision or Setup 2=Maximal Assistance 6=Modified [place] 3=Moderate Assistance 7=Complete IndependenceIRFPAI Quality Coding Scale 6 Independent with activity with or without an assistive device 5 Patient requires set up or clean up by helper. Patient completes activity by themselves 4 Supervision or touching assist (CGA). [place] provide cues , steadying assist 3 The helper provides less than half the effort to complete the activity 2 The helper provides more than half the effort to complete the activity 1 Dependent. The helper does all the effort to complete an activity 7 Patient refused to complete or attempt activity 9 The patient did not perform the activity before the current illness or injury 88 Not attempted due to Medical conditions or safety concerns Transfers (B, C, W/C) (FIM): 4 Scootin Rollin Supine to/from Sit: 5 Sit to/from Stand: 4 sit to stand to FWW minimal assist due to right quad weakness (patient did have right LE weakness prior from cervical injury and subdural hematoma) Weight Bearing Right Lower Extremity: Right Full Weight Bearing Left Lower Extremity: Left Full Weight Bearing Exercises Supine Ex: Ankle pumps, Quad Set, Heel Slides, Straight leg raise, Hip abd/add Supine Reps: 15 Treatments CPM 0-[address] with polar pack Assessment Patient progressing slowly with treatment due to comorbidities. PT to increase activity as tolerated by patient. 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 Goals PT Profile Stitching Machine Operator Goals Time Frame: Sep 03, 2017 Transfers (B,C,W/C) (FIM): 6 Gait (FIM): 6 Gait distance (FIM): 3=150 ft Distance: 250' Gait Level of Assist: 6 Gait Assistive Device: FWW PT Plan Treatment/Plan Treatment Plan: Continue Plan of Care Treatment Plan: Bed Mobility, Education, Functional Activity Karli, Functional Strength, Gait, Safety, Therapeutic Exercise, Transfers Treatment Duration: Sep 03, 2017 Frequency: 11 times per week Estimated Hrs Per Day: .5 hour per day Patient and/or Family Agrees t: Yes Time/GCodes Time In: 1355 Time Out: 1411 Total Billed Treatment Time: 16 Total Billed Treatment 1 visit EX 16 min CPM PADS WILSON PEDERSEN PT Aug 25, 2017 14:50
[2017-08-25 16:00] VITALS: BP 145/84
--- NOTE | 2017-08-25 16:35 | Occupational Therapy Eval ---
OT Evaluation-General/PLF Medical Diagnosis Admission Date Aug 24, 2017 at 07:15 Medical Diagnosis: right TKR revision Onset Date: Aug 24, 2017 Therapy Diagnosis Therapy Diagnosis: Weakness Height/Weight Height (Feet): 5 Height (Inches): 6.00 Weight (Pounds): 185 Weight (Ounces): 0.0 Precautions Precautions/Isolations: Fall Prevention, Standard Precautions, Pressure Ulcer Weight Bear Status Weight Bearing Restriction: Weight Bearing/Tolerated Referral Physician: Scar Referral Reason: Activity Tolerance, Self Care, Evaluation/Treatment, Strengthening/ROM Medical History Pertinent Medical History: COPD, DM, GERD, HTN, OA, Smoking Additional Medical History C1 subluxation, cord compression, myelopathy, OA, cord decompression Current History Pt. fell at a restaurant. Was found to already have cord compression from existing subluxation. Decompression completed. Pt. has experienced decreased UE ROM and LE ROM since then per his report. Pt. had a knee replacement and now is in the hospital for a revision. Reviewed History: Yes Social History Home: Single Level Current Living Status: Alone Entry Into Home: Ramp ADL-Prior Level of Function ADL PLOF Comments Pt. states that he only spongebathes at home, and that he can dress himself. DME/Equipment Comments Pt. has a single point cane, but uses a walker now. States that he has no other equipment. Drive Self: Yes (Pt. states that he has difficulty getting in his truck, but is fine once he is.) OT Current Status Subjective Pt. reports that his right leg will "give out" on him. Appearance Pt. in bed on CPM. Agrees to work with OT. Mental Status/Objective Patient Orientation: Person Current Glasses/Contacts: Yes Hand Dominance: Left Upper Extremity ROM Pt. has limited ROM in right shoulder. Note tremors when attempting to flex right shoulder. Left UE has full ROM. Pt. states that he uses left UE now. Upper Extremity Strength 3+/5 left UE 2+/5 right UE ADL-Treatment Functional [place] Measure 0=Not Assessed/NA 4=Minimal Assistance 1=Total Assistance 5=Supervision or Setup 2=Maximal Assistance 6=Modified [place] 3=Moderate Assistance 7=Complete IndependenceIRFPAI Quality Coding Scale 6 Independent with activity with or without an assistive device 5 Patient requires set up or clean up by helper. Patient completes activity by themselves 4 Supervision or touching assist (CGA). [place] provide cues , steadying assist 3 The helper provides less than half the effort to complete the activity 2 The helper provides more than half the effort to complete the activity 1 Dependent. The helper does all the effort to complete an activity 7 Patient refused to complete or attempt activity 9 The patient did not perform the activity before the current illness or injury 88 Not attempted due to Medical conditions or safety concerns Toileting (FIM): 1 Transfers (B, C, W/C) (FIM): 1 (Please see note) Toilet/Commode Transfer (FIM): 1 (please see note) Other Treatments Pt. requests to use the BSC. Pt. able to transfer supine-sit with SBA. OT attempts to assist pt. into standing. Pt. attempts 3 times but cant come to standing. Nursing comes into room to assist. Pt. requires max x 2 to stand and pivot to BSC. Pt. declines using walker for this transfer. Pt. is dependent for toileting task, and then requires max x 2 to pivot back to bed. Pt. is unable to utilize right LE to hold self up. Once on side of bed, pt. is able to get bilateral LE back into bed with min assist needed. All needs met. Pt. is somewhat un-realistic about prognosis. States that he feels that in a couple of days, he should be able to go back home. Education OT Patient Education: Correct positioning, Modified ADL techniques, Progress toward Goal/Update tx plan, Purpose of tx/functional activities, Reviewed precautions, Rehab process, Transfer techniques Teaching Recipient: Patient Teaching Methods: Demonstration, Discussion Response to Teaching: Verbalize Understanding, Return Demonstration OT Short Term Goals Short Term Goals Time Frame: Sep 08, 2017 Eating(FIM): 5 Grooming(FIM): 5 Bathing(FIM): 4 Upper Body Dressing(FIM): 4 Lower Body Dressing(FIM): 3 Toileting(FIM): 3 Transfers (B,C,W/C) (FIM): 3 Toilet/Commode Transfer(FIM): 3 Additional Short Term Goals: 1-Demonstrate ADL Tasks, 2-Verbalize Understanding , 3-ImproveStrength/Karli 1=Demonstrate adherence to instructed precautions during ADL tasks. 2=Patient will verbalize/demonstrate understanding of assistive devices/ modifications for ADL. 3=Patient will improve strength/tolerance for activity to enable patient to perform ADL's. OT Benzene Washer Goals Benzene Washer Goals Time Frame: Sep 22, 2017 Eating (FIM): 6 Grooming(FIM): 6 Bathing(FIM): 5 Upper Body Dressing(FIM): 5 Lower Body Dressing(FIM): 5 Toileting(FIM): 5 Transfers (B,C,W/C) (FIM): 5 Toilet/Commode Transfer(FIM): 5 Shower Transfer(FIM): 5 Additional Goals: 1-Demonstrate ADL Tasks, 2-Verbalize Understanding, 3- ImproveStrength/Karli 1=Demonstrate adherence to instructed precautions during ADL tasks. 2=Patient will verbalize/demonstrate understanding of assistive devices/ modifications for ADL. 3=Patient will improve strength/tolerance for activity to enable patient to perform ADL's. OT Education/Plan Problem List/Assessment Assessment: Decreased Activ Tolerance, Decreased UE Strength, Dependent Transfers, Impaired Bed Mobility, Impaired Coordination, Impaired Funct Balance , Impaired I ADL's, Impaired Self-Care Skills, Restricted Funct UE ROM Discharge Recommendations Plan/Recommendations: Continue POC Therapy D/C Recommendations: 24 hr Supervision Target Placement To be determined Treatment Plan/Plan of Care Treatment,Training & Education: Yes Patient would benefit from OT for education, treatment and training to promote independence in ADL's, mobility, safety and/or upper extremity function for ADL' s. Plan of Care: ADL Retraining, Caregiver Training, Functional Mobility, UE Funct Exercise/Act, UE Neuromus Re-Ed/Coord Treatment Duration: Sep 22, 2017 Frequency: 5 times per week Estimated Hrs Per Day: .25 hour per day Agreement: Yes Rehab Potential: Good Time/GCodes Start Time: 15:55 Stop Time: 16:30 Total Time Billed (hr/min): 35 Billed Treatment Time 1, EVH x 15minutes, ADL x 20minutes FRANSICO PAEZ OT Aug 25, 2017 16:35
[2017-08-25] MEDS: inSUlin (REGULAR) HUMAN 1 UNIT/0.01 ML (CHARGE PER UNIT) SC SCH ×2 (16:59→21:05)
--- NOTE | 2017-08-25 19:06 | Consultation ---
History of Present Illness History of Present Illness Patient Consulted On(atiya/time) 08/25/17 19:00 Date Seen by Provider: Aug 25, 2017 Time Seen by Provider: 12:40 History of Present Illness This is a 77 year old male with a known history of diabetes, COPD, hypertension , hyperlipidemia, and fall with subdural hematoma who underwent a right total knee poly exchange by Dr. Abbott on 08/25/17. I am asked to consult for medical management. Allergies and Home Medications Allergies Coded Allergies: No Known Drug Allergies (Unverified , 03/21/13) Home Medications Aspirin 325 Mg Tablet.dr, 325 MG PO HS, (Reported) Hydrocodone/Acetaminophen 1 Each Tablet, 1 TAB PO BID PRN for PAIN-MODERATE, ( Reported) Metoprolol Succinate 25 Mg Tab.er.24h, 25 MG PO DAILY, (Reported) Multivit-Min/FA/Lycopen/Lutein 1 Each Tablet, 1 TAB PO DAILY, (Reported) Pantoprazole Sodium 40 Mg Tablet.dr, 40 MG PO DAILY, (Reported) LAST FILLED 04-16-17 #30 Pioglitazone HCl 15 Mg Tablet, 15 MG PO DAILY, (Reported) LAST FILLED #90 17 Pravastatin Sodium 40 Mg Tablet, 40 MG PO HS, (Reported) Sitagliptin Phosphate 50 Mg Tablet, 50 MG PO DAILY, (Reported) Past Lzkmwyp-Lymxet-Gzwdtq Hx Patient Social History Alcohol Use: Denies Use Recreational Drug Use: No Smoking Status: Current Someday Smoker Type Used: Cigarettes Recent Foreign Travel: No Contact w/Someone Who Travel: No Recent Infectious Disease Expo: No Recent Hopitalizations: No Immunizations Up To Date Tetanus Booster (TDap): Unknown Date of Pneumonia Vaccine: May 11, 2016 Date of Influenza Vaccine: Jun 09, 2017 Seasonal Allergies Seasonal Allergies: No Surgeries History of Surgeries: Yes (RT TKR, NECK SX, BACK SX x2) Surgeries: Joint Replacement, Orthopedic Respiratory History of Respiratory Disorde: Yes Respiratory Disorders: COPD Currently Using CPAP: No Currently Using BIPAP: No Cardiovascular History of Cardiac Disorders: Yes Cardiac Disorders: Hypertension Neurological History of Neurological Disord: Yes Reproductive System Hx Reproductive Disorders: No Sexually Transmitted Disease: No HIV/AIDS: No Genitourinary History of Genitourinary Disor: No Genitourinary Disorders: Kidney Stones, Renal Failure Gastrointestinal History of Gastrointestinal Di: Yes Gastrointestinal Disorders: Gastroesophageal Reflux, Chronic Constipation Musculoskeletal History of Musculoskeletal Dis: Yes (RT KNEE) Musculoskeletal Disorders: Arthritis, Back Injury, Chronic Back Pain, Fractures Endocrine History of Endocrine Disorders: Yes Endocrine Disorders: Diabetes, Non-Insulin dep HEENT History of HEENT Disorders: Yes (WEARS GLASSES) Loss of Vision: Bilateral Hearing Impairment: Hard of Hearing, Bilateral Hearing Aide Cancer History of Cancer: No Psychosocial History of Psychiatric Problem: No Integumentary History of Skin or Integumenta: Yes Skin/Integumentary Disorders: Pruritis Blood Transfusions History of Blood Disorders: No Adverse Reaction to a Blood Tr: No Family Medical History Significant Family History: Cancer Family Medial History: Alcoholism 09 BROTHER Cancer 03 FATHER, Onset:Unknown (bronchial) Cataracts 09 SISTER Family history: Diabetes mellitus Family history: Hypertension 03 MOTHER Myocardial infarction 03 MOTHER Respiratory disorder 09 BROTHER Stroke 09 SISTER No Family History of: Dementia Family history: Alzheimer's disease Review of Systems-General Constitutional: weakness EENTM: No see HPI, No no symptoms reported, No ear discharge, No hearing loss, No ear pain, No blurred vision, No double vision, No eye pain, No tearing, No vision loss, No dental problems, No hoarseness, No mouth pain, No mouth swelling , No epistaxis, No nose congestion, No nose pain, No throat pain, No throat swelling, No other Respiratory: No no symptoms reported, No see HPI, No cough, No dyspnea on exertion, No hemoptysis, No orthopnea, No phlegm, No short of breath, No stridor , No wheezing, No other Cardiovascular: No no symptoms reported, No see HPI, No chest pain, No edema, No Hx of Intervention, No palpitations, No syncope, No vascular heart diseas, No other Gastrointestinal: No RUQ, No LUQ, No RLQ, No LLQ, No no symptoms reported, No see HPI, No abdominal pain, No constipation, No diarrhea, No dysphagia, No hematemesis, No heartburn, No jaundice, No loss of appetite, No melena, No nausea, No vomiting, No other Genitourinary: No no symptoms reported, No see HPI, No decreased output, No discharge, No dysuria, No frequency, No hematuria, No hesitancy, No incontinence , No nocturia, No pain, No other Musculoskeletal: joint pain (right knee), muscle weakness Psychiatric/Neurological: Numbness, Weakness Physical Exam-General Problems Physical Exam Vital Signs Vital Sign - Last 12Hours 08/24/17 07:45 Temp 98.0 Pulse 54 Resp 18 B/P (MAP) 125/83 (97) Pulse Ox 95 O2 Delivery Room Air O2 Flow Rate 2.00 Capillary Refill : General Appearance: no apparent distress HEENT: normal ENT inspection Neck: supple Respiratory: lungs clear, decreased breath sounds Cardiovascular: regular rate, rhythm, systolic murmur, gallop/S4 Gastrointestinal: normal bowel sounds, non tender, soft Back: no CVA tenderness Extremities: non-tender, no pedal edema, no calf tenderness, other (right knee with dry dressing in place) Neurologic/Psychiatric: alert, normal mood/affect, oriented x 3 Skin: normal color, warm/dry Assessment/Plan Assessment/Plan Admission Diagnosis/Plan 1. Diabetes mellitus II--start accuchecks with SSI A 2. Hypertension--resume home medications 3. COPD--SVNS prn and IS 4. General Debility--will likely need rehab 5. S/P Right total knee poly exchange--PT/OT, on lovenox for DVT prophylaxis Clinical Quality Measures DVT/VTE Risk/Contraindication: Risk Factor Score Per Nursin RFS Level Per Nursing on Admit: 4+=Very High ARSH FAIRBANKS DO Aug 25, 2017 7:06 pm
[2017-08-25 20:00] VITALS: BP 161/90
[2017-08-25] MEDS: LINAGLIPTIN (TRADJENTA) 5 MG TABLET PO SCH ×2 (20:10→20:14)
[2017-08-26] VITALS: BP 147/82
[2017-08-26 05:11] VITALS: BP 116/55
[2017-08-26] MEDS: inSUlin (REGULAR) HUMAN 1 UNIT/0.01 ML (CHARGE PER UNIT) SC SCH (06:19)
[2017-08-26] MEDS: PANTOPRAZOLE 40 MG (PROTONIX) TAB PO SCH (06:21)
[2017-08-26] MEDS: PIOGLITAZONE 30MG (ACTOS) TAB PO SCH (06:21)
[2017-08-26 06:44] LABS: HEMOGLOBIN 13.6 G/DL (13.3-17.7); MEAN PLATELET VOLUME 11.5 FL (7.4-10.4); RED BLOOD COUNT 4.42 10^6/uL (4.35-5.85); RED CELL DISTRIBUTION WIDTH 13.2 % (10.0-14.5); WHITE BLOOD COUNT 10.7 10^3/uL (4.3-11.0)
--- NOTE | 2017-08-26 06:56 | Progress Note (SOAP) ---
Subjective Date Seen by Provider: Aug 26, 2017 Time Seen by Provider: 06:54 Subjective/Events-last exam POD 2 s/p poly ex right knee. States pain is improved, has only ambulated about 15 feet with assistance so far. States he is ready to work harder today and try to walk more. Nurse reports overall poor effort with therapy. Objective Exam Vital Signs Date Time Temp Pulse Resp B/P (MAP) Pulse Ox O2 Delivery O2 Flow Rate FiO2 08/26/17 05:11 98.2 69 18 116/55 (75) 92 Room Air 08/26/17 00:00 98.8 76 18 147/82 (103) 93 Room Air 08/25/17 20:00 98.5 71 20 161/90 (113) 95 Room Air 08/25/17 16:00 98.4 66 20 145/84 (104) 96 Room Air 08/25/17 12:00 98.5 66 20 141/79 (99) 96 Room Air 08/25/17 08:00 97.7 65 18 131/70 (90) 92 Room Air I & O 08/26/17 07:00 Intake Total 2710 ml Output Total 3500 ml Balance -790 ml Capillary Refill : General Appearance: No Apparent Distress Extremity: Normal Capillary Refill, Normal Inspection, No Pedal Edema Neurologic/Psychiatric: Alert, Oriented x3, No Motor/Sensory Deficits, Normal Mood/Affect Skin: Normal Color, Warm/Dry (dressing right knee CDI) Results Lab Laboratory Tests 08/25/17 07:08: White Blood Count 12.4H, Red Blood Count 4.35, Hemoglobin 13.3, Hematocrit 41, Mean Corpuscular Volume 94, Mean Corpuscular Hemoglobin 31, Mean Corpuscular Hemoglobin Concent 33, Red Cell Distribution Width 13.1, Platelet Count 161, Mean Platelet Volume 11.2H, Sodium Level 140, Potassium Level 4.2, Chloride Level 107, Carbon Dioxide Level 27, Anion Gap 6, Blood Urea Nitrogen 21H, Creatinine 1.43H, Estimat Glomerular Filtration Rate 48, BUN/Creatinine Ratio 15 , Glucose Level 110H, Calcium Level 8.4L 08/25/17 16:06: Glucometer 101 08/25/17 20:53: Glucometer 122H 08/26/17 06:04: Glucometer 104 08/26/17 06:18: White Blood Count 10.7, Red Blood Count 4.42, Hemoglobin 13.6, Hematocrit 41, Mean Corpuscular Volume 92, Mean Corpuscular Hemoglobin 31, Mean Corpuscular Hemoglobin Concent 33, Red Cell Distribution Width 13.2, Platelet Count 162, Mean Platelet Volume 11.5H Assessment/Plan Assessment/Plan Assess & Plan/Chief Complaint A: s/p poly exchange right TKA P: continue care, IRF vs swing bed eval for discharge due to concerns with ability to perform ADLs. Plan to Discharge tomorrow. Will speak with executive secretary social welfare about discharge plans. Clinical Quality Measures DVT/VTE Risk/Contraindication: Risk Factor Score Per Nursin RFS Level Per Nursing on Admit: 4+=Very High ANNE FLORES APRN Aug 26, 2017 6:56 am
[2017-08-26] MEDS ORDERED: HYDR-3820 PO ×2 (07:01→13:00)
[2017-08-26] MEDS ORDERED: SENN-20 PO (07:01)
[2017-08-26] MEDS ORDERED: TRAM50TA2 PO (07:01)
[2017-08-26 07:16] LABS: CALCIUM 8.6 MG/DL (8.5-10.1); CREATININE SERUM 1.22 MG/DL (0.60-1.30); POTASSIUM 3.6 MMOL/L (3.6-5.0)
[2017-08-26 08:00] VITALS: BP 135/66
[2017-08-26 08:35] VITALS: BP 135/66
--- NOTE | 2017-08-26 08:35 | OPERATIVE REPORT ---
DATE OF SERVICE: 08/24/2017 PREOPERATIVE DIAGNOSIS: Right knee instability, status post total knee arthroplasty. POSTOPERATIVE DIAGNOSIS: Right knee instability, status post total knee arthroplasty. PROCEDURE: Poly revision, polyethylene exchange, right total knee. SURGEON: Tenzin Christensen DO. CLINICAL DATA ABSTRACTOR: NORMA Paige. SURGICAL TONGUE AND GROOVE MACHINE SETTER DUTIES: Cipriano Mcintosh, assistant center manager was utilized throughout the entire procedure for patient positioning, wound retraction, placement of implants, wound closure, dressing application and transfer. ANESTHESIA: General with femoral nerve block. ESTIMATED BLOOD LOSS: Minimal. INDICATIONS AND FINDINGS: The patient is a 77-year-old male who underwent a previous total knee arthroplasty on the right. Postoperatively, the patient did well. The patient had fallen stepping off the street, twisting his knee, began having increased instability and on exam, the patient demonstrated significant instability both in knee flexion, midrange flexion with hyperextension deformity of the right knee. His x-rays demonstrated satisfactory position and alignment of his total knee components with no evidence of loosening. The patient was taken to surgery where the polyethylene tibial insert was removed. A 10 mm insert was removed and replaced with a 16 mm anterior stabilized tibial bearing implant. PROCEDURE IN DETAIL: The patient was seen by anesthesia preoperatively and under ultrasound guidance, a femoral nerve block was performed on the right to decrease postop pain and decrease amount of medication required during the surgical procedure. The patient was transferred to the operating room where general inhalation anesthetic was administered. A well-padded pneumatic tourniquet was placed about the upper aspect of the right thigh. A ChloraPrep and sterile drape of the right lower extremity was performed. The right leg was elevated, exsanguinated and the tourniquet was inflated to 300 mmHg pressure. An anterior longitudinal midline incision was made over the anterior surface of the right knee. The incision was deepened through a medial parapatellar incision. The previous incisional scar was utilized during the skin incision. The patella was subluxed laterally. A small amount of subperiosteal dissection was performed over the proximal medial tibia. An osteotome was then used to elevate the locking bar from its position at the tibial plate. This was then slid medially. The polyethylene liner was removed. There was no evidence of wear on the polyethylene liner. The femoral and tibial components were noted to be intact. The wound was irrigated extensively with normal saline solution. Provisional trials were then placed within the knee. The patient demonstrated persistent instability and a persistent hyperextension deformity with a 14 mm spacer. A 16 mm spacer allowed full extension of the knee with no instability on full flexion and mid range flexion. The trial liner was removed. The 16 mm anterior stabilized Biomet Vanguard tibial bearing implant was then inserted and locked with a new locking bar. The knee was cycled through a range of motion and was found to be stable. The tourniquet was released. Hemostasis was obtained with electrocautery. The knee was placed in 90 degrees of flexion. The medial retinaculum was closed with multiple interrupted [id number] sutures and #1 Vicryl reinforced with a running suture of #1 Stratafix. The subcutaneous tissues were closed in layers with 0 and 2-0 Vicryl suture. The skin was closed with stainless steel heriberto and Adaptic Neosporin bulky dressing was placed about the right knee. The patient was awake and was transported to postop recovery with anesthesia personnel present in satisfactory condition. Job ID: [id number] DocumentID: [id number] Dictated Date: 08/24/2017 11:16:49 Managing Manager Date: 08/24/2017 12:02:36 Dictated By: TENZIN CHRISTENSEN DO <Dictated by TENZIN CHRISTENSEN DO> <Electronically signed by TENZIN CHRISTENSEN DO> 08/24/17 1219
[2017-08-26] MEDS ORDERED: LINAGLIPTIN (TRADJENTA) 5 MG TABLET PO SCH (09:00)
--- NOTE | 2017-08-26 09:25 | Discharge Inst-Skilled Nursing ---
Discharge Inst-Skilled NF Patient Instructions Patient Problems: right knee instability s/p right TKA s/p right revision with poly exchange right knee debility Goal: independence with ADLs Patient Instructions: see Dr. Abbott TKA DC instructions DC heriberto and apply steri strips in 7 days Consult/Follow Up/Orders Follow Up Appt.: 2-3 weeks Skilled NF Admit to: [facility] Certification (SNF) I certify that SNF services are required to be given on an inpatient basis because of the above named patient's need for fdc care on a continuing basis for the conditions(s) for which he/she was receiving inpatient hospital services prior to his/her transfer to the SNF. Senior Living Facility Order: Nursing Services, Physical Therapy-Evaluate & Treat Discharge Diet: No Restrictions Daily Activity as Tolerated: Yes New & Resume Previous Orders New & Resume Previous Orders daily physical therapy daily island dressing changes cont JEN hose cont CPM for 6 hrs per day, advance 10 deg per day as tolerated. Start 0-90 WBAT with walker for assist DC heriberto in 7 days Anne Flores Aug 26, 2017 09:20 ANNE FLORES APRN Aug 26, 2017 9:25 am
[2017-08-26] MEDS: ENOXAPARIN 40 MG/0.4 ML (LOVENOX) SYR SC SCH (09:28)
[2017-08-26] MEDS: SENNA W/DOCUSATE (SENOKOT S) TABLET PO SCH (09:28)
--- NOTE | 2017-08-26 10:44 | Physical Therapy Daily Note ---
PT Daily Note-Current Subjective Patient agrees to PT. Pain Numeric Pain Scale: 5-Moderate Pain Location: Right Location Body Site: Knee Pain Description: Acute Mental Status Patient Orientation: Normal For Age Transfers Functional [place] Measure 0=Not Assessed/NA 4=Minimal Assistance 1=Total Assistance 5=Supervision or Setup 2=Maximal Assistance 6=Modified [place] 3=Moderate Assistance 7=Complete IndependenceIRFPAI Quality Coding Scale 6 Independent with activity with or without an assistive device 5 Patient requires set up or clean up by helper. Patient completes activity by themselves 4 Supervision or touching assist (CGA). [place] provide cues , steadying assist 3 The helper provides less than half the effort to complete the activity 2 The helper provides more than half the effort to complete the activity 1 Dependent. The helper does all the effort to complete an activity 7 Patient refused to complete or attempt activity 9 The patient did not perform the activity before the current illness or injury 88 Not attempted due to Medical conditions or safety concerns Transfers (B, C, W/C) (FIM): 5 Scootin Rollin Supine to/from Sit: 5 Sit to/from Stand: 5 Weight Bearing Right Lower Extremity: Right Full Weight Bearing Left Lower Extremity: Left Full Weight Bearing Gait Training Gait (FIM): 5 Distance (FIM): 3=150 ft Distance: 250' Gait Level of Assist: 5 Gait Persons Needed: 1 Gait Assistive Device: FWW reciprocal pattern, slightly antalgic Assessment Patient much improved with gross motor skills. Patient is currently at A to modified independent LOF with gross motor skills. PT Short Term Goals Short Term Goals Transfers (B,C,W/C) (FIM): 3 PT Residential Goals Food Counselor Goals PT Food Counselor Goals Time Frame: Sep 03, 2017 Transfers (B,C,W/C) (FIM): 6 Gait (FIM): 6 Gait distance (FIM): 3=150 ft Distance: 250' Gait Level of Assist: 6 Gait Assistive Device: FWW PT Plan Treatment/Plan Treatment Plan: Continue Plan of Care Treatment Plan: Bed Mobility, Education, Functional Activity Karli, Functional Strength, Gait, Safety, Therapeutic Exercise, Transfers Treatment Duration: Sep 03, 2017 Frequency: 11 times per week Estimated Hrs Per Day: .5 hour per day Patient and/or Family Agrees t: Yes Time/GCodes Time In: 1021 Time Out: 1030 Total Billed Treatment Time: 9 Total Billed Treatment 1 visit GT 9 min WILSON PEDERSEN PT Aug 26, 2017 10:44
[2017-08-26 11:02] VITALS: BP 135/66
[2017-08-26] MEDS ORDERED: ASPIRIN E.C. 325 MG (ECOTRIN) TABLET PO SCH (21:00)
--- NOTE | 2017-08-27 23:52 | DISCHARGE SUMMARY ---
DATE OF SERVICE: ADMITTING DIAGNOSES: 1. Right knee instability, status post right total knee arthroplasty. 2. Painful right knee prosthesis. DISCHARGE DIAGNOSES: 1. Right knee instability, status post right total knee arthroplasty. 2. Painful right knee prosthesis. 3. Status post right knee revision with polyethylene exchange. PROCEDURES: Revision of right total knee arthroplasty with polyethylene exchange. CONSULT: Danielle Palacios DO. ADMITTING PHYSICIAN: Peter Abbott DO. HISTORY AND HOSPITAL COURSE: The patient was seen in the clinic setting. The patient had an uneventful right total knee arthroplasty in the past and did very well. Recently, the patient fell, buckling his knee. Since that time, he has had complaints of instability and hyperextension. Upon examination of the patient's knee could hyperextend and had 3 to 3+ laxity with Jn and drawer stress testing. On the day of admission, the patient was taken to the operating room where the above procedure was performed under general anesthesia with a femoral nerve block without complications. Postoperatively, the patient was maintained on deep vein thrombosis prophylaxis as well as IV antibiotic prophylaxis. Dr. Palacios was consulted for the patient's medical management given the patient's home medication regimen. On postoperative day #1, the patient's hemoglobin was stable at 13.3. The patient's creatinine was mildly elevated at 1.43. On exam, the patient's dressing was clean, dry and intact about the right knee. The right lower extremity was neurovascularly intact with a negative Homans sign. JEN hoses were noted. The patient had no significant complaints. On postoperative day #2, the patient was doing well and nursing staff reported overall poor effort with physical therapy. The patient's labs were stable. His vital signs were stable. He was afebrile. He had consulted [facility] to do a possible rehab admission due to lack of social support. Overall, poor effort with self prescribed therapy. The patient was deemed a good candidate for them and on postoperative day#2, he was discharged to their rehabilitation unit. DISPOSITION: Discharged to inpatient rehab facility. DISCHARGE INSTRUCTIONS: 1. He can continue intermittent ice and elevation with a Polar Care unit of his right lower extremity. 2. JEN hose. 3. Continue the CPM machine 6 hours per day. 4. Remove heriberto and apply Steri-Strips in 10 days. 5. Continue weightbearing as tolerated, using walker for assistance. 6. The patient may resume his regular diet. 7. The patient can resume his regular home medications, please see the home medication reconciliation performed on the day of discharge. New prescriptions include hydrocodone 10/325 one p.o. q.4-6h. p.r.n. pain, #90 with zero refills. Prescription #2 is Docusate sodium 100 mg 1 p.o. b.i.d. #60 with zero refills. The patient can follow up in two and a half weeks for a repeat examination of his right knee. Upon discharge from the inpatient rehabilitation unit, they are to arrange home health care physical therapy five visits per week for a total of 2 weeks. Job ID: [id number] DocumentID: [id number] Dictated Date: 08/27/2017 07:56:27 Music Publicist Date: 08/27/2017 12:32:39 Dictated By: ANNE FLORES APRN
== END 2017-08-26 11:00 | DRG 468 ==
LOC: 4TH 07:15 → SURG 07:16 → 4TH 11:30
PROVIDERS: ADMIT Orthopaedic Surgery; ATTEND Orthopaedic Surgery
PROC: 0SPV0JZ Removal of Synthetic Substitute from Right Knee Joint, Tibial Surface, Open Approach (ICD-10-PCS; 2017-08-24)
PROC: 0SRV0JA Replacement of Right Knee Joint, Tibial Surface with Synthetic Substitute, Uncemented, Open Approach (ICD-10-PCS; principal; 2017-08-24 09:11)
DX: T84.022A Instability of internal right knee prosthesis, initial encounter (principal); Z91.81 History of falling; I10 Essential (primary) hypertension; E78.00 Pure hypercholesterolemia, unspecified; E11.9 Type 2 diabetes mellitus without complications; Z79.84 Long term (current) use of oral hypoglycemic drugs; J44.9 Chronic obstructive pulmonary disease, unspecified; E78.5 Hyperlipidemia, unspecified; F17.210 Nicotine dependence, cigarettes, uncomplicated; K21.9 Gastro-esophageal reflux disease without esophagitis
CPT/HCPCS: 36415; 73560; 80048; 82962; 85027; 86850; 86900; 86901; 94664

== ENCOUNTER 2017-08-26 10:26 | Inpatient (IN) | payer MEDICARE, OTHER ==
[~2017-08-26] VITALS: Ht 167.6 cm; Wt 83.5 kg
[~2017-08-26 10:26] MED LIST changes: +TRAM50TA2 PO
[2017-08-26 10:55] VITALS: BP 129/80
[2017-08-26] MEDS ORDERED: BISACODYL 10 MG SUPP (DULCOLAX) PR PRN (12:30)
--- NOTE | 2017-08-26 12:33 | PM&R Post Admission Assessment ---
Post Admission Physician Asses The preadmission screen agrees with the post admission assessment that the patient is a good candidate for inpatient rehabilitation. The patient will have a comprehensive program of inpatient rehabilitation with a goal of maximizing level of functional independence prior to discharge home with [facility]. The patient will have PT/OT ninety minutes per day, each discipline , five days a week for gait, strengthening, conditioning, balance, ADLs, any patient/family/caregiver training as necessary. Speech therapy to do cognitive assessment and treat as indicated. Rehabilitation nursing to assist with bowel, bladder, skin, wound care, medication administration, pain management. Police Chief to assist with discharge planning, community reentry. SCD's and Lovenox SUBCUT for DVT prophylaxis. He appears to be well motivated to participate in three hours of therapy a day. He should be able to tolerate three hours of therapy a day from a medical and surgical standpoint. He should benefit from the three hours of therapy a day. He has a reasonable discharge plan, reasonable discharge rehabilitation goals and a supportive family. He has various comorbidities that need to be closely monitored with medications and treatments adjusted on a daily basis as needed. These include: DM COPD HTN HLP SDH from prior fall Barriers to discharge for this patient who had been independent prior to this are for him to be modified independent to supervision for ADLs and mobility skills prior to discharge home with [facility], so as to lessen the burden of the caregivers. Risks for this patient include: 1. Fall 2. Fracture 3. DVT 4. Pulmonary embolism 5. Wound infection 6. Skin breakdown 7. Contractures 8. Poorly controlled pain 9. Urinary retention 10. UTI 11. Respiratory infection 12. Aspiration 13.poorly controlled HTN 14. Poorly controlled DM [facility] CODE 08.61 Etiologic DX Instability of RTKR Estimated Length of Stay: 14 days Prognosis: Rehab prognosis appears good for goal of discharge home with [facility] modified independent to supervision for ADLs and mobility skills. SARI CORRALES MD Aug 26, 2017 12:33
--- NOTE | 2017-08-26 12:40 | Physical Therapy Evaluation ---
PT Evaluation-General Medical Diagnosis Admission Date Aug 26, 2017 at 10:45 Medical Diagnosis: right TKR revision Onset Date: Aug 24, 2017 Therapy Diagnosis Therapy Diagnosis: generalized debility/weakness Height/Weight Height (Feet): 5 Height (Inches): 6.00 Weight (Pounds): 184 Weight (Ounces): 3.0 Precautions Precautions/Isolations: Standard Precautions Weight Bear Status Right Lower Extremity: Right Full Weight Bearing Left Lower Extremity: Left Full Weight Bearing Referral Physician: Zaki Reason for Referral: Evaluation/Treatment Medical History Pertinent Medical History: COPD, DM, GERD, HTN, OA, Smoking Additional Medical History subdural hematoma/cervical myelopathy Current History s/p right TKR revision Reviewed History: Yes Social History Home: Single Level Current Living Status: Alone Entry Into Home: Stairs With Railing PT Steps Into Home: 3 Prior/Core FIM Prior Level of Function Functional [place] Measure 0=Not Assessed/NA 4=Minimal Assistance 1=Total Assistance 5=Supervision or Setup 2=Maximal Assistance 6=Modified [place] 3=Moderate Assistance 7=Complete [place] Bed Mobility: 6 Transfers (B,C,W/C) (FIM): 6 Gait: 6 Locomotion: 6 PT Evaluation-Current Subjective Patient agrees to PT and ARU. Pain Numeric Pain Scale: 5-Moderate Pain Location: Right Location Body Site: Knee Pain Description: Ache, Acute Objective Patient Orientation: Normal For Age Problem Solving: Good ROM/Strength ROM Lower Extremities right knee flexion 73 degrees, extension -5 degrees left knee flexion/extension WFL Strenght Lower Extremities right knee flexion/extension 3+/5; hip flexion 4/5; DF/PF 3/5 left knee flexion/extension 4/5; hip flexion 4/5; DF/PF 4/5 Integumentary/Posture Integumentary refer to nursing notes Bowel Incontinence: No Bladder Incontinence: No Posture slight trunk flexed posture Neuromuscular (Tone, Coordination, Reflexes) right LE and UE slightly uncoordinated due to cervical myelopathy Sensory Vision: Wears Glasses Hearing: Functional Sensation Right Lower Extremit: Intact Sensation Left Lower Extremity: Intact Transfers Functional [place] Measure 0=Not Assessed/NA 4=Minimal Assistance 1=Total Assistance 5=Supervision or Setup 2=Maximal Assistance 6=Modified [place] 3=Moderate Assistance 7=Complete IndependenceIRFPAI Quality Coding Scale 6 Independent with activity with or without an assistive device 5 Patient requires set up or clean up by helper. Patient completes activity by themselves 4 Supervision or touching assist (CGA). [place] provide cues , steadying assist 3 The helper provides less than half the effort to complete the activity 2 The helper provides more than half the effort to complete the activity 1 Dependent. The helper does all the effort to complete an activity 7 Patient refused to complete or attempt activity 9 The patient did not perform the activity before the current illness or injury 88 Not attempted due to Medical conditions or safety concerns Transfers (B, C, W/C) (FIM): 5 Scootin Rollin Roll Left to Right (QC): 5 Supine to/from Sit: 5 Sit to/from Stand: 5 Sit to Lying (QC): 5 Lying to Sitting/Side of Bed(Q: 5 Sit to Stand (QC): 5 Chair/Vkp-xj-Gwbns Xfer(QC): 5 Car Transfer (QC): 5 Gait Does the Patient Walk?: Yes Mode of Locomotion: Walk Anticipated Mode of Locomotion: Walk Gait (FIM): 5 Distance (FIM): 3=150 ft Walk 10 feet (QC): 5 Walk 50 ft with 2 Turns(QC): 5 Walk 150 ft (QC): 5 Walking 10ft/uneven surface-QC: 5 Distance: 300' x 3 Gait Level of Assist: 5 Gait Assistive Device: FWW Comments/Gait Description reciprocal pattern, slightly antalgic Stairs Stairs (FIM): 2 #of Steps: 4 Level of Assist: 5 1 Step (curb) (QC): 5 4 Steps (QC): 5 12 Steps (QC): 7 Balance Sitting Static: Normal Sitting Dynamic: Normal Standing Static: Normal Standing Dynamic: Normal Treatment bilateral LE exercises 15 reps AROM AP, QS, SAQ, SLR, abd/add, seated LAQ; Nustep WL 3 x 10min to increase strength and mobility Assessment/Needs 77 y.o. male, will benefit from short term skilled PT to address functional strength and mobility to improve current LOF and to safely return to home at maximum LOF with home health or outpatient therapies. Rehab Potential: Good PT Customer Service Professional Goals Customer Service Professional Goals PT Customer Service Professional Goals Time Frame: Sep 10, 2017 Transfers (B,C,W/C) (FIM): 6 Sit to Lying (QC): 6 Lying-Sitting on Side/Bed(QC): 6 Sit to Stand (QC): 6 Rollin Roll Left to Right (QC): 6 Chair/Dao-mg-Xwale Xfer(QC): 6 Car Transfer (QC): 6 Does the Patient Walk: Yes Gait (FIM): 6 Gait distance (FIM): 3=150 ft Distance: 400' Walk 10 feet (QC): 6 Walk 10ft-Uneven Surface(QC): 6 Walk 50ft with 2 Turns (QC): 6 Walk 150 ft (QC): 6 Gait Level of Assist: 6 Gait Assistive Device: FWW Stairs (FIM): 5 # of Steps: 4 1 Step (curb) (QC): 5 4 Steps (QC): 5 12 Steps (QC): 9 PT Plan Treatment/Plan Treatment Plan: Continue Plan of Care Treatment Plan: Bed Mobility, Education, Functional Activity Karli, Functional Strength, Group Therapy, Gait, Safety, Therapeutic Exercise, Transfers Treatment Duration: Sep 10, 2017 Frequency: At least 5 of 7 days/Wk (IRF) Estimated Hrs Per Day: 1.5 hours per day Patient and/or Family Agrees t: Yes Safety Risks/Education Patient Education: Safety Issues Teaching Recipient: Patient Teaching Methods: Discussion Response to Teaching: Verbalize Understanding Discharge Recommendations Therapy D/C Recommendations: Home Independently, Physical Therapy Home Care, Physical Therapy Outpatient Time/GCodes Time In: 1045 Time Out: 1130 Total Billed Treatment Time: 45 Total Billed Treatment 1 visit EVModC 15 min FA 10 min EX 20 min WILSON PEDERSEN PT Aug 26, 2017 12:40
[2017-08-26] MEDS ORDERED: HYDR-3820 PO (13:00)
--- NOTE | 2017-08-26 13:31 | HISTORY AND PHYSICAL ---
DATE OF SERVICE: 08/26/2017 PRIMARY CARE PHYSICIAN: Danielle Palacios DO CHIEF COMPLAINT: Difficulty with walking. HISTORY OF PRESENT ILLNESS: The patient is a 77-year-old male with a known history of type 2 diabetes mellitus, COPD, hypertension, hyperlipidemia and fall with subdural hematoma, who lives alone and had been modified independent with a walker, who underwent right total knee poly exchange with Dr. Abbott on 08/25/2017 at [facility]. The patient tolerated the procedure well, but had a decline in his functional independence. He requires assistance for his ADLs and mobility skills. At this point, he was referred to inpatient rehabilitation unit for ongoing care due to his multiple comorbidities, revision surgery and the fact that he lives alone. Currently he is Mod Independent for grooming and Setup for grooming Min assist for Upper body dressing and mod assist for lower body dressing.He is Min assist for toilet transfers PAST MEDICAL HISTORY: Hypertension, renal lithiasis, GERD, subdural hematoma secondary to fall, chronic constipation, arthritis. He has had 2 prior spine surgeries,including a recent decompression surgery for C1 subluxation. chronic back pain, hard of hearing, bilateral hearing aids, COPD. PAST SURGICAL HISTORY: Right total knee replacement in the past with revision as per above, lumbar spine surgery with Dr. Zuniga in [place], [place], 30 years ago and a cercical spine surgery with Dr. East, neurosurgery in [place], [place] as per above. ALLERGIES: No known medication allergies. FAMILY HISTORY: Noncontributory. SOCIAL HISTORY: He is a . He has a son in [place], [place]. He lives in [place].He lives alone in [facility], [place], operated by [facility] REVIEW OF SYSTEMS: A 10-point review of systems is significant for knee pain. PLOF He had been Modified Independent with a walker prior to this surgery MEDICATIONS: Lovenox 40 mg subq daily for DVT prophylaxis, Toprol-XL 25 mg p.o. daily, Actos 15 mg p.o. daily, Protonix 40 mg p.o. daily, ASA 225 mg p.o. every day at bedtime, Tradjenta 5 mg p.o. every day at bedtime, Senokot-S 1 tablet p.o. b.i.d., sliding scale insulin regimen A, Dulcolax suppository 10 mg p.r.n. constipation, Lortab 10 generic 1 tablet p.o. q.4 hours p.r.n. severe pain, Tramadol 50 mg p.o. q.6 hours p.r.n. moderate pain. PHYSICAL EXAMINATION: GENERAL: Significant for a pleasant male appearing stated age, appearing quite fatigued, alert and oriented, no acute distress. VITAL SIGNS: He is afebrile, pulse is 80, respirations 22, blood pressure 129/80, O2 sat 97% on room air. HEENT: He is hard of hearing, but has bilateral hearing aids which are functioning. Vision and speech grossly intact. No oral lesions noted. NECK: Supple without mass. HEART: Regular rhythm. LUNGS: Clear. ABDOMEN: Soft, nontender, bowel sounds present. EXTREMITIES: He has an island dressing over the right knee. There is no calf tenderness. MUSCULOSKELETAL/Neuro The patient has functional strength and active range of motion both upper limbs although AROM is limited near 90 degrees at shoulders since C Spine injury and the right lower limb lacks full active flexion and extension at the knee-Flex 73 degrees and extension -5 degrees. Rt Knee strength flex/ext 3+/5 hip flex 4/5 DF/PF 3/5. Left Knee Flex ext 4/5 Hip flex 4/5 DF/PF 4/5 Cognition is grossly intact . Sensation is grossly intact to touch. ASSESSMENT: 1. 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 Abbott 08/25/2017. 2. Diabetes mellitus, controlled with medication. 3. Postop deep vein thrombosis prophylaxis, on Lovenox subq. 4. Gastroesophageal reflux disease, on proton pump inhibitor. 5. Chronic constipation, on meds. 6. Chronic back pain status post lumbar spine surgery DR Efrain [place] 30 years ago. 7. Presbycusis, has bilateral hearing aids. 8. Chronic obstructive pulmonary disease. 9. History of renal lithiasis. 10.C-1 subluxation s/p decompression C spine surgery DR East Neurosurgery Magy YEBOAH PLAN: The patient will have a comprehensive program of inpatient rehabilitation with goal of maximizing level of functional independence prior to discharge home with home health care and family to assist as needed. The patient will have PT, OT as outlined in post-admission physician evaluation 5 days a week for 2 weeks. The patient will have speech therapy evaluate and treat as indicated regarding any cognitive deficits. Rehabilitation nursing to assist with bowel, bladder, skin, wound care, medication administration, pain management, CPM administration. transportation services representative to assist with discharge planning, community reentry. Follow up with Dr. Abbott and Dr. Palacios as per their schedule. Monitor Accu-Cheks and adjust medications as appropriate therapy for cardiac and fall precautions.The patient is WBAT RLE. ESTIMATED LENGTH OF STAY: 14 days. PROGNOSIS: Fair. Prognosis appears good for goal of discharging home with home health care and family modified independent to supervision for ADLs and mobility skills. DIET: Regular. CODE STATUS: Full code. Job ID: [id number] DocumentID: [id number] Dictated Date: 08/26/2017 12:51:14 Human Resources Analyst Date: 08/26/2017 13:30:47 Dictated By: SARI CORRALES MD MTDD
--- NOTE | 2017-08-26 15:25 | Physical Therapy Daily Note ---
PT Daily Note-Current Subjective Patient reports fatigue, however, agrees to PT. Pain Numeric Pain Scale: 5-Moderate Pain Location: Right Location Body Site: Knee Pain Description: Acute Mental Status Patient Orientation: Normal For Age Transfers Functional [place] Measure 0=Not Assessed/NA 4=Minimal Assistance 1=Total Assistance 5=Supervision or Setup 2=Maximal Assistance 6=Modified [place] 3=Moderate Assistance 7=Complete IndependenceIRFPAI Quality Coding Scale 6 Independent with activity with or without an assistive device 5 Patient requires set up or clean up by helper. Patient completes activity by themselves 4 Supervision or touching assist (CGA). [place] provide cues , steadying assist 3 The helper provides less than half the effort to complete the activity 2 The helper provides more than half the effort to complete the activity 1 Dependent. The helper does all the effort to complete an activity 7 Patient refused to complete or attempt activity 9 The patient did not perform the activity before the current illness or injury 88 Not attempted due to Medical conditions or safety concerns Transfers (B, C, W/C) (FIM): 5 Scootin Rollin Roll Left to Right (QC): 5 Supine to/from Sit: 5 Sit to/from Stand: 5 Sit to Lying (QC): 5 Sit to Stand (QC): 5 Chair/Zag-pt-Clvjx Xfer(QC): 5 Bed to/from Chair: 5 Car Transfer (QC): 5 Weight Bearing Right Lower Extremity: Right Full Weight Bearing Left Lower Extremity: Left Full Weight Bearing Gait Training Does the Patient Walk?: Yes Gait (FIM): 5 Distance (FIM): 3=150 ft Distance: 250' x 2 Walk 10 feet (QC): 5 Walk 50 ft with 2 Turns(QC): 5 Walk 150 ft (QC): 5 Walking 10ft/uneven surface-QC: 5 Gait Level of Assist: 5 Gait Assistive Device: FWW slow, functional, antalgic Exercises Supine Ex: Ankle pumps, Quad Set, Heel Slides, Straight leg raise, Hip abd/add Supine Reps: 10 (x 2 sets) NuStep Minutes: 13 NuStep Workload: 5 (to increase strength and mobility) Treatments CPM 0-70 degrees with polar pack in place Assessment Current Status: Excellent Progress Patient desires to return to home on Wednesday08/30/17. Patient is progressing with treatment plan. PT Assisted Goals Associate Account Executive Goals PT Associate Account Executive Goals Time Frame: Sep 10, 2017 Transfers (B,C,W/C) (FIM): 6 Sit to Lying (QC): 6 Lying-Sitting on Side/Bed(QC): 6 Sit to Stand (QC): 6 Rollin Roll Left to Right (QC): 6 Chair/Tax-sd-Cnfuf Xfer(QC): 6 Car Transfer (QC): 6 Does the Patient Walk: Yes Gait (FIM): 6 Gait distance (FIM): 3=150 ft Distance: 400' Walk 10 feet (QC): 6 Walk 10ft-Uneven Surface(QC): 6 Walk 50ft with 2 Turns (QC): 6 Walk 150 ft (QC): 6 Gait Level of Assist: 6 Gait Assistive Device: FWW Stairs (FIM): 5 # of Steps: 4 1 Step (curb) (QC): 5 4 Steps (QC): 5 12 Steps (QC): 9 PT Plan Treatment/Plan Treatment Plan: Continue Plan of Care Treatment Plan: Bed Mobility, Education, Functional Activity Karli, Functional Strength, Group Therapy, Gait, Safety, Therapeutic Exercise, Transfers Treatment Duration: Sep 10, 2017 Frequency: At least 5 of 7 days/Wk (IRF) Estimated Hrs Per Day: 1.5 hours per day Patient and/or Family Agrees t: Yes Time/GCodes Time In: 1430 Time Out: 1515 Total Billed Treatment Time: 45 Total Billed Treatment 1 visit EX x 2 31 min GT 14 min WILSON PEDERSEN PT Aug 26, 2017 15:25
[2017-08-26] MEDS: inSUlin (REGULAR) HUMAN 1 UNIT/0.01 ML (CHARGE PER UNIT) SC SCH ×2 (16:21→20:51)
--- NOTE | 2017-08-26 17:23 | Occupational Therapy Eval ---
OT Evaluation-General/PLF Medical Diagnosis Admission Date Aug 26, 2017 at 10:45 Medical Diagnosis: right TKR revision Onset Date: Aug 24, 2017 Therapy Diagnosis Therapy Diagnosis: Weakness Height/Weight Height (Feet): 5 Height (Inches): 6.00 Weight (Pounds): 184 Weight (Ounces): 3.0 Precautions Precautions/Isolations: Fall Prevention, Standard Precautions Weight Bear Status Weight Bearing Restriction: Weight Bearing/Tolerated Referral Physician: Zaki Referral Reason: Activity Tolerance, Self Care, Evaluation/Treatment, Strengthening/ROM Medical History Pertinent Medical History: COPD, DM, GERD, HTN, OA, Smoking Additional Medical History Subluxation C1, Decompression C1. Current History This surgery is a knee revision. Reviewed History: Yes Social History Home: Single Level Current Living Status: Alone Entry Into Home: Stairs With Railing Steps Into Home: 3 ADL-Prior Level of Function ADL PLOF Comments Pt. states that he was only spongebathing because getting into his shower was difficult. States that he could wash all parts but reaching his chest and upper arms was difficult. Pt. states that he can dress self at home. He uses a walker but previous to his knee getting "bad," he was using a cane. DME/Equipment: Bath Chair, Shower, Tub/Shower DME/Equipment Comments Pt. has a walker and cane. Drive Self: Yes OT Current Status Subjective No pain reported. Appearance Pt. is alert and oriented. Mental Status/Objective Patient Orientation: Person, Place, Time, Situation Current Glasses/Contacts: Yes Hand Dominance: Right Upper Extremity ROM Pt. has limited ROM in bilateral shoulders due to previous compression in spinal nerves. Pt. demonstrates approximately 30 degrees in shoulder ROM. Upper Extremity Coordination intact ADL-Treatment Functional [place] Measure 0=Not Assessed/NA 4=Minimal Assistance 1=Total Assistance 5=Supervision or Setup 2=Maximal Assistance 6=Modified [place] 3=Moderate Assistance 7=Complete IndependenceIRFPAI Quality Coding Scale 6 Independent with activity with or without an assistive device 5 Patient requires set up or clean up by helper. Patient completes activity by themselves 4 Supervision or touching assist (CGA). [place] provide cues , steadying assist 3 The helper provides less than half the effort to complete the activity 2 The helper provides more than half the effort to complete the activity 1 Dependent. The helper does all the effort to complete an activity 7 Patient refused to complete or attempt activity 9 The patient did not perform the activity before the current illness or injury 88 Not attempted due to Medical conditions or safety concerns Eating (FIM): 6 Eating (QC): 6 Grooming (FIM): 5 (Pt. is able to groom self with set up at sink.) Oral Hygiene (QC): 5 Bathing (FIM): 3 (Pt. required assist to wash under arms, chest, back, and rear mik area.) Shower/Bathe Self (QC): 4 Upper Body Dressing (FIM): 5 Upper Body Dressing (QC): 4 Lower Body Dressing (FIM): 4 Lower Body Dressing (QC): 4 On/Off Footwear (QC): 3 (Mod assist to don socks.) Transfers (B, C, W/C) (FIM): 4 (CGA to transfer and ambulate.) Shower Transfer (FIM): 4 Education OT Patient Education: Correct positioning, Modified ADL techniques, Progress toward Goal/Update tx plan, Purpose of tx/functional activities, Reviewed precautions, Rehab process, Transfer techniques Teaching Recipient: Patient Teaching Methods: Demonstration, Discussion Response to Teaching: Verbalize Understanding, Return Demonstration OT Short Term Goals Short Term Goals Time Frame: Sep 02, 2017 Eating(FIM): 5 Grooming(FIM): 5 Bathing(FIM): 5 Upper Body Dressing(FIM): 5 Lower Body Dressing(FIM): 5 Toileting(FIM): 5 Transfers (B,C,W/C) (FIM): 5 Toilet/Commode Transfer(FIM): 5 Shower Transfer(FIM): 5 Additional Short Term Goals: 1-Demonstrate ADL Tasks, 2-Verbalize Understanding , 3-ImproveStrength/Karli 1=Demonstrate adherence to instructed precautions during ADL tasks. 2=Patient will verbalize/demonstrate understanding of assistive devices/ modifications for ADL. 3=Patient will improve strength/tolerance for activity to enable patient to perform ADL's. OT Yard Goods Salesperson Goals Nursing Home Goals Time Frame: Sep 09, 2017 Eating (FIM): 6 Eating (QC): 6 Groomin Oral Hygiene (QC): 6 Bathing(FIM): 5 Shower/Bathe Self (QC): 5 Upper Body Dressing(FIM): 6 Upper Body Dressing (QC): 6 Lower Body Dressing(FIM): 6 Lower Body Dressing (QC): 6 On/Off Footwear (QC): 6 Toileting(FIM): 6 Toileting Hygiene (QC): 6 Transfers (B,C,W/C) (FIM): 6 Toilet/Commode Transfer(FIM): 6 Toilet/Commode Transfer (QC): 6 Shower Transfer(FIM): 5 Additional Goals: 1-Demonstrate ADL Tasks, 2-Verbalize Understanding, 3- ImproveStrength/Karli 1=Demonstrate adherence to instructed precautions during ADL tasks. 2=Patient will verbalize/demonstrate understanding of assistive devices/ modifications for ADL. 3=Patient will improve strength/tolerance for activity to enable patient to perform ADL's. OT Education/Plan Problem List/Assessment Assessment: Decreased Activ Tolerance, Decreased UE Strength, Impaired Bed Mobility, Impaired Funct Balance, Impaired I ADL's, Impaired Self-Care Skills, Restricted Funct UE ROM Discharge Recommendations Plan/Recommendations: Continue POC Therapy D/C Recommendations: Home w/ Family Support, Occupational Therapy Home Care Equpiment Recommendations-D/C: Extended Bath Bench, Hip Kit Treatment Plan/Plan of Care Treatment,Training & Education: Yes Patient would benefit from OT for education, treatment and training to promote independence in ADL's, mobility, safety and/or upper extremity function for ADL' s. Plan of Care: ADL Retraining, Functional Mobility, Group Exercise/Act as Ind, UE Funct Exercise/Act Treatment Duration: Sep 09, 2017 Frequency: At least 5 of 7 days/Wk (IRF) Estimated Hrs Per Day: 1.5 hours per day Agreement: Yes Rehab Potential: Good Time/GCodes Start Time: 11:30 Stop Time: 13:00 Total Time Billed (hr/min): 90 Billed Treatment Time 1, EVM x 15minutes, ADL x 60minutes, FA x 15minutes FRANSICO PAEZ OT Aug 26, 2017 17:23
[2017-08-26 18:41] VITALS: BP 124/73
[2017-08-26] MEDS ORDERED: ATORVASTATIN 40 MG (LIPITOR) TABLET PO SCH (21:00)
[2017-08-26] MEDS ORDERED: LINAGLIPTIN (TRADJENTA) 5 MG TABLET PO SCH (21:00)
[2017-08-26] MEDS ORDERED: ATORVASTATIN 10 MG (LIPITOR) TABLET ONE (21:16)
[2017-08-26] MEDS: ASPIRIN E.C. 325 MG (ECOTRIN) TABLET PO SCH (21:23)
[2017-08-26] MEDS: SENNA W/DOCUSATE (SENOKOT S) TABLET PO SCH (21:24)
[2017-08-26] MEDS: ATORVASTATIN 10 MG (LIPITOR) TABLET PO SCH (21:24)
[2017-08-27 06:22] VITALS: BP 128/67
[2017-08-27] MEDS: PANTOPRAZOLE 40 MG (PROTONIX) TAB PO SCH (06:26)
[2017-08-27] MEDS: PIOGLITAZONE 30MG (ACTOS) TAB PO SCH (06:27)
[2017-08-27] MEDS: LINAGLIPTIN (TRADJENTA) 5 MG TABLET PO SCH (06:27)
[2017-08-27] MEDS: inSUlin (REGULAR) HUMAN 1 UNIT/0.01 ML (CHARGE PER UNIT) SC SCH ×4 (06:28→21:06)
[2017-08-27] MEDS: ENOXAPARIN 40 MG/0.4 ML (LOVENOX) SYR SC SCH (08:27)
[2017-08-27] MEDS: SENNA W/DOCUSATE (SENOKOT S) TABLET PO SCH ×2 (08:27→21:06)
--- NOTE | 2017-08-27 11:12 | Physical Therapy Daily Note ---
PT Daily Note-Current Subjective Pt is sitting in chair pre tx and agrees to PT. Pt pain at a 2/10 in the R knee. Pain Numeric Pain Scale: 2 Location: Right Location Body Site: Knee Comment: Pain at 4/10 before pain medication Appearance Pt is sitting in chair post tx with phone, tray, and remote within reach. Mental Status Patient Orientation: Normal For Age Bandages on the R knee Transfers Functional [place] Measure 0=Not Assessed/NA 4=Minimal Assistance 1=Total Assistance 5=Supervision or Setup 2=Maximal Assistance 6=Modified [place] 3=Moderate Assistance 7=Complete IndependenceIRFPAI Quality Coding Scale 6 Independent with activity with or without an assistive device 5 Patient requires set up or clean up by helper. Patient completes activity by themselves 4 Supervision or touching assist (CGA). [place] provide cues , steadying assist 3 The helper provides less than half the effort to complete the activity 2 The helper provides more than half the effort to complete the activity 1 Dependent. The helper does all the effort to complete an activity 7 Patient refused to complete or attempt activity 9 The patient did not perform the activity before the current illness or injury 88 Not attempted due to Medical conditions or safety concerns Transfers (B, C, W/C) (FIM): 4 Scootin Rollin Supine to/from Sit: 5 Sit to/from Stand: 4 Bed to/from Chair: 5 Pt requires CGA for safety during sit to stand. Weight Bearing Right Lower Extremity: Right Full Weight Bearing Left Lower Extremity: Left Full Weight Bearing Gait Training Does the Patient Walk?: Yes Gait (FIM): 4 Distance: 200 feet x2 Gait Level of Assist: 4 Gait Persons Needed: 1 Gait Assistive Device: Cane Large Base Quad Pt leans on the FWW more than recommended. Slow, antalgic, flexed knee surgery side. Wheelchair Training Does the Pt Use a Wheelchair?: No Exercises Supine Ex: Heel Slides (10 x2 RLE), Short Arc Quads (10 x2 RLE) Seated Therapy Exercises: Ankle pumps (20 x1 BLE), Long arc quads (20 x1 BLE), Hip flexion (20 x1 BLE) Standing TKE in parallel bars: 10 x3 RLE Treatments Pt performed bed mobility, gait training, and LE exercises. Assessment Current Status: Fair Progress Pt requires CGA for safety during sit to stand transfers and requires SBA during bed mobility. Pt requires frequent breaks during exercises. Pt achieved 106 degrees of knee flexion and 6 degrees from neutral in knee extension during heel slides. PT Short Term Goals Short Term Goals Transfers (B,C,W/C) (FIM): 5 PT Model And Dye Person Goals Model And Dye Person Goals PT Detention Goals Time Frame: Sep 10, 2017 Transfers (B,C,W/C) (FIM): 6 Sit to Lying (QC): 6 Lying-Sitting on Side/Bed(QC): 6 Sit to Stand (QC): 6 Rollin Roll Left to Right (QC): 6 Chair/Jon-jd-Xsten Xfer(QC): 6 Car Transfer (QC): 6 Does the Patient Walk: Yes Gait (FIM): 6 Gait distance (FIM): 3=150 ft Distance: 400' Walk 10 feet (QC): 6 Walk 10ft-Uneven Surface(QC): 6 Walk 50ft with 2 Turns (QC): 6 Walk 150 ft (QC): 6 Gait Level of Assist: 6 Gait Assistive Device: FWW Stairs (FIM): 5 # of Steps: 4 1 Step (curb) (QC): 5 4 Steps (QC): 5 12 Steps (QC): 9 PT Plan Problem List Problem List: Activity Tolerance, Functional Strength, Safety, Balance, Gait, Transfer, Bed Mobility, ROM Treatment/Plan Treatment Plan: Continue Plan of Care Treatment Plan: Bed Mobility, Education, Functional Activity Karli, Functional Strength, Group Therapy, Gait, Safety, Therapeutic Exercise, Transfers Treatment Duration: Sep 10, 2017 Frequency: At least 5 of 7 days/Wk (IRF) Estimated Hrs Per Day: 1.5 hours per day Patient and/or Family Agrees t: Yes Safety Risks/Education Patient Education: Gait Training, Transfer Techniques, Correct Positioning, W/ C Management, Safety Issues Teaching Recipient: Patient Teaching Methods: Demonstration, Discussion Response to Teaching: Verbalize Understanding, Return Demonstration, Reinforcement Needed Time/GCodes Time In: 1000 Time Out: 1100 Total Billed Treatment Time: 60 Total Billed Treatment 1 visit 15 min GT 10 min FA 35 min EX FRAN RAINES PT Aug 27, 2017 11:12
--- NOTE | 2017-08-27 11:48 | Occupational Ther Daily Note ---
OT Current Status-Daily Note Subjective Pt alert, lying in bed. Pt agreed to therapy. Pt c/o pain and asked for pain meds. Reported to nrsg and pt reported that pain was 4/10. Mental Status/Objective Patient Orientation: Person, Place, Time, Situation Functional [place] Measure 0=Not Assessed/NA 4=Minimal Assistance 1=Total Assistance 5=Supervision or Setup 2=Maximal Assistance 6=Modified [place] 3=Moderate Assistance 7=Complete [place] ADL-Treatment CENTENO donned compression stocking to B LE's. Pt declined to take shower or sponge bath today. Pt was able to go from supine to sitting EOB with min A to scoot R LE off of bed, HOB elevated and used bedrail. Pt able to sit EOB by self. Assist to don/doff socks. Pt was able to go from sit to stand with bed elevated. Pt ambulated to restroom with CGA using FWW. Pt sat at sink to complete all grooming. Pt then ambulated back to room and sat in recliner. After therapy, pt sitting in recliner with call light/phone in reach. All needs met in room. Functional [place] Measure 0=Not Assessed/NA 4=Minimal Assistance 1=Total Assistance 5=Supervision or Setup 2=Maximal Assistance 6=Modified [place] 3=Moderate Assistance 7=Complete IndependenceIRFPAI Quality Coding Scale 6 Independent with activity with or without an assistive device 5 Patient requires set up or clean up by helper. Patient completes activity by themselves 4 Supervision or touching assist (CGA). [place] provide cues , steadying assist 3 The helper provides less than half the effort to complete the activity 2 The helper provides more than half the effort to complete the activity 1 Dependent. The helper does all the effort to complete an activity 7 Patient refused to complete or attempt activity 9 The patient did not perform the activity before the current illness or injury 88 Not attempted due to Medical conditions or safety concerns Grooming (FIM): 6 Oral Hygiene (QC): 6 On/Off Footwear (QC): 2 OT Short Term Goals Short Term Goals Time Frame: Sep 02, 2017 Eating(FIM): 5 Grooming(FIM): 5 Bathing(FIM): 5 Upper Body Dressing(FIM): 5 Lower Body Dressing(FIM): 5 Toileting(FIM): 5 Transfers (B,C,W/C) (FIM): 5 Toilet/Commode Transfer(FIM): 5 Shower Transfer(FIM): 5 Additional Short Term Goals: 1-Demonstrate ADL Tasks, 2-Verbalize Understanding , 3-ImproveStrength/Karli 1=Demonstrate adherence to instructed precautions during ADL tasks. 2=Patient will verbalize/demonstrate understanding of assistive devices/ modifications for ADL. 3=Patient will improve strength/tolerance for activity to enable patient to perform ADL's. OT [place] Goals Behavior Specialist Goals Time Frame: Sep 09, 2017 Eating (FIM): 6 Eating (QC): 6 Groomin Oral Hygiene (QC): 6 Bathing(FIM): 5 Shower/Bathe Self (QC): 5 Upper Body Dressing(FIM): 6 Upper Body Dressing (QC): 6 Lower Body Dressing(FIM): 6 Lower Body Dressing (QC): 6 On/Off Footwear (QC): 6 Toileting(FIM): 6 Toileting Hygiene (QC): 6 Transfers (B,C,W/C) (FIM): 6 Toilet/Commode Transfer(FIM): 6 Toilet/Commode Transfer (QC): 6 Shower Transfer(FIM): 5 Additional Goals: 1-Demonstrate ADL Tasks, 2-Verbalize Understanding, 3- ImproveStrength/Karli 1=Demonstrate adherence to instructed precautions during ADL tasks. 2=Patient will verbalize/demonstrate understanding of assistive devices/ modifications for ADL. 3=Patient will improve strength/tolerance for activity to enable patient to perform ADL's. OT Education/Plan Discharge Recommendations Plan/Recommendations: Continue POC Treatment Plan/Plan of Care Patient would benefit from OT for education, treatment and training to promote independence in ADL's, mobility, safety and/or upper extremity function for ADL' s. Plan of Care: ADL Retraining, Functional Mobility, Group Exercise/Act as Ind, UE Funct Exercise/Act Treatment Duration: Sep 09, 2017 Frequency: At least 5 of 7 days/Wk (IRF) Estimated Hrs Per Day: 1.5 hours per day Agreement: Yes Rehab Potential: Good Time/GCodes Start Time: 09:00 Stop Time: 10:00 Total Time Billed (hr/min): 60 Billed Treatment Time 1 visit-ADL 4 (60 min) RYAN PEREZ Aug 27, 2017 11:48
--- NOTE | 2017-08-27 13:33 | PM & R (SOAP) Progress Note ---
Subjective Time Seen by Provider: 08:15 Subjective/Events-last exam Patient was seen in his room this AM Patient min assist for transfers Adjusting well to unit Review of Systems Musculoskeletal: leg pain Objective Exam Last Set of Vital Signs Vital Signs Date Time Temp Pulse Resp B/P (MAP) Pulse Ox O2 Delivery O2 Flow Rate FiO2 08/27/17 08:42 Room Air 08/27/17 06:22 98.1 89 20 128/67 (87) 94 Capillary Refill : I&O Intake and Output 08/27/17 00:00 Intake Total 500 ml Balance 500 ml Intake Oral 500 ml # Voids 2 Daily Weight Change No General: Alert, Oriented X3, Cooperative, No Acute Distress HEENT: Atraumatic, PERRLA, EOMI, Mucous Memb Moist/[place] Neck: Supple, No JVD Lungs: Clear to Auscultation Heart: Regular Rate Abdomen: Normal Bowel Sounds, Soft, No Tenderness Extremities: Other (trace edema rt ankle) Skin: Other (incision covered with island dressing) Neuro: Other (Functional strenght BUES with some limited AROM at shoulders LLE 4/5 RT Hip flex 4/5 3+/5 at knee and ankle) Results Lab Laboratory Tests 08/26/17 16:14: Glucometer 102 08/26/17 20:28: Glucometer 147H 08/27/17 05:25: Glucometer 82 08/27/17 11:12: Glucometer 96 Assessment/Plan Assessment Revision RT TKR s/p poly exchange DR Ceja 08-25-17 DM controlled Postop DVT Prophylaxis on Lovenox subcut GERD on PPI Chronic constipation on meds Presbycusis has hearing aides HX of renalithiasis Chronic back pain s/p L Spine surgery 30 years ago C1 subluxation s/p repair Dr [place] COPD Plan ContinuePT/OT Team Conference next week F/U with PCP DR Palacios and DR Abbott prn Check labs see orders. SARI CORRALES MD Aug 27, 2017 13:33
--- NOTE | 2017-08-27 14:53 | Therapy Group Daily Note ---
Therapy Daily Group Note Other/Notes Each patient participated in group therapy in the common area of rehab. Each patient either ambulated or was transported to the common area of rehab and seated and tables which were close enough to encourage communication and socialization. Each patient then had to introduce themselves and answer a group question that involves memory and recall. Pt participated in games with a focus on problem solving, critical thinking, fine motor skills, coordination, and socialization. At the conclusion of group therapy, each pt was taken back to their individual room by way of ambulation or [facility] propulsion. Each pt was given their remote, phone, and tray within reach and all needs were met. Start Time: 13:00 Stop Time: 14:10 Total Billed Treatment Time: 70 Total Billed Treatment 1 visit 70 min FRAN CLEANING PT Aug 27, 2017 14:53
--- NOTE | 2017-08-27 15:00 | Progress Note (SOAP) ---
Subjective Date Seen by Provider: Aug 27, 2017 Time Seen by Provider: 14:56 Subjective/Events-last exam Fwup HTN, DMII, COPD, S/P right knee poly exchange. Pain well controlled and doing well with PT. Objective Exam Vital Signs Date Time Temp Pulse Resp B/P (MAP) Pulse Ox O2 Delivery O2 Flow Rate FiO2 08/27/17 08:42 Room Air 08/27/17 06:22 98.1 89 20 128/67 (87) 94 Room Air 08/26/17 21:00 Room Air 08/26/17 18:41 98.8 78 16 124/73 (90) 95 Room Air 08/26/17 15:55 Room Air I & O 08/27/17 07:00 Intake Total 750 ml Balance 750 ml Capillary Refill : General Appearance: No Apparent Distress Respiratory: Lungs Clear Cardiovascular: Regular Rate, Rhythm Gastrointestinal: normal bowel sounds, non tender, soft Extremity: Non Tender, No Calf Tenderness, No Pedal Edema Neurologic/Psychiatric: Alert, Oriented x3 Skin: Other (right knee dressing in place and dry) Results Lab Laboratory Tests 08/26/17 16:14: Glucometer 102 08/26/17 20:28: Glucometer 147H 08/27/17 05:25: Glucometer 82 08/27/17 11:12: Glucometer 96 Assessment/Plan Assessment/Plan Assess & Plan/Chief Complaint 1. Hypertension--stable 2. DMII--BS stable 3. COPD--stable 4. S/P Right knee poly exchange--doing well with PT and pain control Clinical Quality Measures DVT/VTE Risk/Contraindication: Risk Factor Score Per Nursin RFS Level Per Nursing on Admit: 2=Moderate ARSH FAIRBANKS DO Aug 27, 2017 15:00
[2017-08-27 18:10] VITALS: BP 134/76
[2017-08-27] MEDS: ASPIRIN E.C. 325 MG (ECOTRIN) TABLET PO SCH (21:06)
[2017-08-27] MEDS: ATORVASTATIN 10 MG (LIPITOR) TABLET PO SCH (21:06)
[2017-08-28] MEDS: inSUlin (REGULAR) HUMAN 1 UNIT/0.01 ML (CHARGE PER UNIT) SC SCH ×4 (05:25→20:18)
[2017-08-28 05:58] LABS: BASOPHILS # (AUTO) 0.1 10^3/uL (0.0-0.1); BASOPHILS % (AUTO) 1 % (0-10); EOSINOPHILS # (AUTO) 1.7 10^3/uL (0.0-0.3); EOSINOPHILS % (AUTO) 19 % (0-10); HEMATOCRIT 41 % (40-54); HEMOGLOBIN 13.9 G/DL (13.3-17.7); LYMPHOCYTES # (AUTO) 2.6 X 10^3 (1.0-4.0); LYMPHOCYTES % (AUTO) 29 % (12-44); MEAN CORPUSCULAR HEMOGLOBIN 31 PG (25-34); MEAN CORPUSCULAR HGB CONC 34 G/DL (32-36); MEAN CORPUSCULAR VOLUME 91 FL (80-99); MEAN PLATELET VOLUME 11.1 FL (7.4-10.4); MONOCYTES % (AUTO) 11 % (0-12); NEUTROPHILS # (AUTO) 3.6 X 10^3 (1.8-7.8); NEUTROPHILS % (AUTO) 41 % (42-75); PLATELET COUNT 177 10^3/uL (130-400); RED BLOOD COUNT 4.48 10^6/uL (4.35-5.85); WHITE BLOOD COUNT 8.9 10^3/uL (4.3-11.0)
[2017-08-28 06:00] VITALS: BP 145/75
[2017-08-28 06:31] LABS: ALANINE AMINOTRANSFERASE 7 U/L (0-55); ALBUMIN 3.3 GM/DL (3.2-4.5); ALKALINE PHOSPHATASE 48 U/L (40-136); BILIRUBIN,TOTAL 0.5 MG/DL (0.1-1.0); BUN/CREATININE RATIO 17; CALCIUM 8.9 MG/DL (8.5-10.1); CARBON DIOXIDE 25 MMOL/L (21-32); CHLORIDE 105 MMOL/L (98-107); CREATININE SERUM 1.08 MG/DL (0.60-1.30); GFR ESTIMATED > 60; GLUCOSE 90 MG/DL (70-105); POTASSIUM 3.8 MMOL/L (3.6-5.0); SODIUM 142 MMOL/L (135-145)
[2017-08-28] MEDS: HYDROcodone/APAP 10 MG/325 MG (LORTAB) TAB PO PRN (07:03)
[2017-08-28] MEDS: PIOGLITAZONE 30MG (ACTOS) TAB PO SCH (07:03)
[2017-08-28] MEDS: LINAGLIPTIN (TRADJENTA) 5 MG TABLET PO SCH (07:03)
[2017-08-28] MEDS: PANTOPRAZOLE 40 MG (PROTONIX) TAB PO SCH (07:04)
[2017-08-28] MEDS: SENNA W/DOCUSATE (SENOKOT S) TABLET PO SCH ×2 (08:59→20:18)
[2017-08-28] MEDS: ENOXAPARIN 40 MG/0.4 ML (LOVENOX) SYR SC SCH (09:00)
--- NOTE | 2017-08-28 11:54 | Physical Therapy Daily Note ---
PT Daily Note-Current Subjective Pt alert and oriented. Agreeable to treatment. Mental Status Patient Orientation: Person, Place, Time, Situation Transfers Functional [place] Measure 0=Not Assessed/NA 4=Minimal Assistance 1=Total Assistance 5=Supervision or Setup 2=Maximal Assistance 6=Modified [place] 3=Moderate Assistance 7=Complete IndependenceIRFPAI Quality Coding Scale 6 Independent with activity with or without an assistive device 5 Patient requires set up or clean up by helper. Patient completes activity by themselves 4 Supervision or touching assist (CGA). [place] provide cues , steadying assist 3 The helper provides less than half the effort to complete the activity 2 The helper provides more than half the effort to complete the activity 1 Dependent. The helper does all the effort to complete an activity 7 Patient refused to complete or attempt activity 9 The patient did not perform the activity before the current illness or injury 88 Not attempted due to Medical conditions or safety concerns Transfers (B, C, W/C) (FIM): 6 Scootin Rollin Supine to/from Sit: 6 Sit to/from Stand: 6 Bed to/from Chair: 6 Weight Bearing Right Lower Extremity: Right Full Weight Bearing Left Lower Extremity: Left Full Weight Bearing Gait Training Gait (FIM): 6 Distance (FIM): 3=150 ft Distance: 200ft Gait Level of Assist: 6 Gait Persons Needed: 1 Gait Assistive Device: FWW Exercises Supine Ex: LE Protocol Supine Reps: [address] Ex=Flex, Abd, Ext, Mini squats Standing Reps: 20 NuStep Minutes: 7 Assessment Good performance and stability. PT Short Term Goals Short Term Goals Transfers (B,C,W/C) (FIM): 5 PT Performing Arts Technicians Goals Detention Goals PT Detention Goals Time Frame: Sep 10, 2017 Transfers (B,C,W/C) (FIM): 6 Gait (FIM): 6 Gait distance (FIM): 3=150 ft Distance: 400' Gait Level of Assist: 6 Gait Assistive Device: FWW Stairs (FIM): 5 # of Steps: 4 PT Plan Treatment/Plan Treatment Plan: Continue Plan of Care Treatment Plan: Bed Mobility, Education, Functional Activity Karli, Functional Strength, Group Therapy, Gait, Safety, Therapeutic Exercise, Transfers Treatment Duration: Sep 10, 2017 Frequency: At least 5 of 7 days/Wk (IRF) Estimated Hrs Per Day: 1.5 hours per day Patient and/or Family Agrees t: Yes Time/GCodes Time In: 1015 Time Out: 1040 Total Billed Treatment Time: 25 Total Billed Treatment 1, ex 15, gt 10 MAUDE JIMENEZ PT Aug 28, 2017 11:54
[2017-08-28] MEDS: ATORVASTATIN 10 MG (LIPITOR) TABLET PO SCH (20:19)
[2017-08-28] MEDS: ASPIRIN E.C. 325 MG (ECOTRIN) TABLET PO SCH (20:19)
[2017-08-28 20:20] VITALS: BP 139/81
[2017-08-29 06:00] VITALS: BP 124/74
[2017-08-29] MEDS: PANTOPRAZOLE 40 MG (PROTONIX) TAB PO SCH (06:06)
[2017-08-29] MEDS: LINAGLIPTIN (TRADJENTA) 5 MG TABLET PO SCH (06:06)
[2017-08-29] MEDS: PIOGLITAZONE 30MG (ACTOS) TAB PO SCH (06:07)
[2017-08-29] MEDS: inSUlin (REGULAR) HUMAN 1 UNIT/0.01 ML (CHARGE PER UNIT) SC SCH ×4 (07:30→20:38)
[2017-08-29] MEDS: SENNA W/DOCUSATE (SENOKOT S) TABLET PO SCH ×2 (08:50→20:45)
[2017-08-29] MEDS: ENOXAPARIN 40 MG/0.4 ML (LOVENOX) SYR SC SCH (08:52)
[2017-08-29] MEDS: HYDROcodone/APAP 10 MG/325 MG (LORTAB) TAB PO PRN (15:59)
[2017-08-29 17:38] VITALS: BP 119/75
[2017-08-29] MEDS: ATORVASTATIN 10 MG (LIPITOR) TABLET PO SCH (20:45)
[2017-08-29] MEDS: ASPIRIN E.C. 325 MG (ECOTRIN) TABLET PO SCH (20:45)
[2017-08-30 05:23] VITALS: BP 151/84
[2017-08-30] MEDS: inSUlin (REGULAR) HUMAN 1 UNIT/0.01 ML (CHARGE PER UNIT) SC SCH ×2 (05:25→11:44)
[2017-08-30] MEDS: LINAGLIPTIN (TRADJENTA) 5 MG TABLET PO SCH (06:47)
[2017-08-30] MEDS: PANTOPRAZOLE 40 MG (PROTONIX) TAB PO SCH (06:47)
[2017-08-30] MEDS: PIOGLITAZONE 30MG (ACTOS) TAB PO SCH (06:47)
[2017-08-30] MEDS: ENOXAPARIN 40 MG/0.4 ML (LOVENOX) SYR SC SCH (08:05)
[2017-08-30] MEDS: SENNA W/DOCUSATE (SENOKOT S) TABLET PO SCH (08:08)
[2017-08-30] MEDS: HYDROcodone/APAP 10 MG/325 MG (LORTAB) TAB PO PRN ×2 (08:08→16:07)
--- NOTE | 2017-08-30 09:05 | Physical Therapy Daily Note ---
PT Daily Note-Current Subjective Agreeable to PT. Reports he hopes to go home today. Pain Numeric Pain Scale: 3 Location: Right Location Body Site: Knee Pain Description: Ache Comment: Pt toook pain meds at the start of treatment. Mental Status Patient Orientation: Person, Place, Time, Situation Transfers Functional [place] Measure 0=Not Assessed/NA 4=Minimal Assistance 1=Total Assistance 5=Supervision or Setup 2=Maximal Assistance 6=Modified [place] 3=Moderate Assistance 7=Complete IndependenceIRFPAI Quality Coding Scale 6 Independent with activity with or without an assistive device 5 Patient requires set up or clean up by helper. Patient completes activity by themselves 4 Supervision or touching assist (CGA). [place] provide cues , steadying assist 3 The helper provides less than half the effort to complete the activity 2 The helper provides more than half the effort to complete the activity 1 Dependent. The helper does all the effort to complete an activity 7 Patient refused to complete or attempt activity 9 The patient did not perform the activity before the current illness or injury 88 Not attempted due to Medical conditions or safety concerns Transfers (B, C, W/C) (FIM): 6 Roll Left to Right (QC): 6 Sit to/from Stand: 6 Sit to Lying (QC): 6 Sit to Stand (QC): 6 Chair/Vax-nf-Vrgnq Xfer(QC): 6 Bed to/from Chair: 6 Car Transfer (QC): 5 Pt is mod indep with functional transfers. Weight Bearing Right Lower Extremity: Right Full Weight Bearing Left Lower Extremity: Left Full Weight Bearing Gait Training Does the Patient Walk?: Yes Gait (FIM): 6 Distance (FIM): 3=150 ft Distance: 200 ft x 2 Walk 10 feet (QC): 6 Walk 50 ft with 2 Turns(QC): 6 Walk 150 ft (QC): 6 Walking 10ft/uneven surface-QC: 6 Gait Assistive Device: FWW Safe gait noted; no LOB and able to perform mod indep., Wheelchair Training Does the Pt Use a Wheelchair?: No Stair Training Stair Training: Handrails/: 2 handrails Stairs (FIM): 5 #of Steps: 8 1 Step (curb) (QC): 6 4 Steps (QC): 6 12 Steps (QC): 88 Stairs: Pattern: Step to Pt able to complete 8 steps without asssit, using the handrail and using the correct sequencing. He has a ramp at home that he will use. Balance Picking up an Object (QC): 4 Exercises Supine Ex: Ankle pumps, Quad Set, Heel Slides, Short Arc Quads, Straight leg raise, Hip abd/add Supine Reps: 15 (For LE strength and ROM to promote gait progression.) NuStep Minutes: 13 NuStep Workload: 2 (To improve right knee AROM and functional activity tolerance. ) Assessment Current Status: Excellent Progress Pt making good gains and progressing towards est goals. PT Short Term Goals Short Term Goals Transfers (B,C,W/C) (FIM): 5 PT Marine Steward Goals Alf Goals PT Marine Steward Goals Time Frame: Sep 10, 2017 Transfers (B,C,W/C) (FIM): 6 Sit to Lying (QC): 6 Lying-Sitting on Side/Bed(QC): 6 Sit to Stand (QC): 6 Rollin Roll Left to Right (QC): 6 Chair/Iub-yl-Wtytf Xfer(QC): 6 Car Transfer (QC): 6 Does the Patient Walk: Yes Gait (FIM): 6 Gait distance (FIM): 3=150 ft Distance: 400' Walk 10 feet (QC): 6 Walk 10ft-Uneven Surface(QC): 6 Walk 50ft with 2 Turns (QC): 6 Walk 150 ft (QC): 6 Gait Level of Assist: 6 Gait Assistive Device: FWW Stairs (FIM): 5 # of Steps: 4 1 Step (curb) (QC): 5 4 Steps (QC): 5 12 Steps (QC): 9 PT Plan Problem List Problem List: Activity Tolerance, Functional Strength, Safety Treatment/Plan Treatment Plan: Continue Plan of Care Treatment Plan: Bed Mobility, Education, Functional Activity Karli, Functional Strength, Group Therapy, Gait, Safety, Therapeutic Exercise, Transfers Treatment Duration: Sep 10, 2017 Frequency: At least 5 of 7 days/Wk (IRF) Estimated Hrs Per Day: 1.5 hours per day Patient and/or Family Agrees t: Yes Safety Risks/Education Patient Education: Safety Issues Teaching Recipient: Patient Teaching Methods: Discussion Response to Teaching: Verbalize Understanding Discharge Recommendations Therapy D/C Recommendations: Physical Therapy Home Care Time/GCodes Time In: 800 Time Out: 900 Total Billed Treatment Time: 60 Total Billed Treatment visit EX 31 GT 29 RYAN TRAVIS PT Aug 30, 2017 09:05
--- NOTE | 2017-08-30 09:58 | Occupational Ther Daily Note ---
OT Current Status-Daily Note Subjective Pt alert, sitting in recliner. Pt anxious about knowing if he is going home today or not. Pt agreed to therapy. No c/o pain. at this time. Mental Status/Objective Patient Orientation: Person, Place, Time, Situation Functional [place] Measure 0=Not Assessed/NA 4=Minimal Assistance 1=Total Assistance 5=Supervision or Setup 2=Maximal Assistance 6=Modified [place] 3=Moderate Assistance 7=Complete [place] ADL-Treatment Pt did not have a change of clothing to retrieve. Pt donned same clothing. After therapy, pt sitting in recliner with call light/phone in reach. All needs met in room. Functional [place] Measure 0=Not Assessed/NA 4=Minimal Assistance 1=Total Assistance 5=Supervision or Setup 2=Maximal Assistance 6=Modified [place] 3=Moderate Assistance 7=Complete IndependenceIRFPAI Quality Coding Scale 6 Independent with activity with or without an assistive device 5 Patient requires set up or clean up by helper. Patient completes activity by themselves 4 Supervision or touching assist (CGA). [place] provide cues , steadying assist 3 The helper provides less than half the effort to complete the activity 2 The helper provides more than half the effort to complete the activity 1 Dependent. The helper does all the effort to complete an activity 7 Patient refused to complete or attempt activity 9 The patient did not perform the activity before the current illness or injury 88 Not attempted due to Medical conditions or safety concerns Grooming (FIM): 6 (Sitting at sink, pt able to complete all grooming by self.) Oral Hygiene (QC): 6 Bathing (FIM): 6 (Using grabbar, shower bench and hand held shower pt able to complete by self. Safety concerns.) Bathing Location: L Arm, R Arm, L Upper Leg, R Upper Leg, L Lower Leg ( including foot), R Lower Leg (including foot), Chest, Abdomen, Buttocks, Perineal Area Shower/Bathe Self (QC): 6 Upper Body (FIM): 5 (Pt able to complete by self, assist to retrieve clothing.) Upper Body Dressing (QC): 5 Lower Body Dressing (FIM): 5 (Assist to don/doff compression stockings. Pt able to don/doff pants and socks by self.) Lower Body Dressing (QC): 5 On/Off Footwear (QC): 6 Toileting (FIM): 6 (Pt able to complete hygiene and clothing manipulation using FWW and grabbars.) Toileting Hygiene (QC): 6 (Using grabbar and FWW, pt able to complete.) Transfers (B, C, W/C) (FIM): 6 (Using FWW and grabbars when available, pt able to complete.) Toilet/Commode Transfer (FIM): 6 (Pt able to complete transfer using FWW and grabbar.) Toilet Transfer (QC): 6 Shower Transfer(FIM): 6 (Completes transfer using FWW, shower bench and grabbar.) OT Short Term Goals Short Term Goals Time Frame: Sep 02, 2017 Eating(FIM): 5 Grooming(FIM): 5 Bathing(FIM): 5 Upper Body Dressing(FIM): 5 Lower Body Dressing(FIM): 5 Toileting(FIM): 5 Transfers (B,C,W/C) (FIM): 5 Toilet/Commode Transfer(FIM): 5 Shower Transfer(FIM): 5 Additional Short Term Goals: 1-Demonstrate ADL Tasks, 2-Verbalize Understanding , 3-ImproveStrength/Karli 1=Demonstrate adherence to instructed precautions during ADL tasks. 2=Patient will verbalize/demonstrate understanding of assistive devices/ modifications for ADL. 3=Patient will improve strength/tolerance for activity to enable patient to perform ADL's. OT Spar Machine Operator Helper Goals Detention Goals Time Frame: Sep 09, 2017 Eating (FIM): 6 Eating (QC): 6 Groomin Oral Hygiene (QC): 6 Bathing(FIM): 5 Shower/Bathe Self (QC): 5 Upper Body Dressing(FIM): 6 Upper Body Dressing (QC): 6 Lower Body Dressing(FIM): 6 Lower Body Dressing (QC): 6 On/Off Footwear (QC): 6 Toileting(FIM): 6 Toileting Hygiene (QC): 6 Transfers (B,C,W/C) (FIM): 6 Toilet/Commode Transfer(FIM): 6 Toilet/Commode Transfer (QC): 6 Shower Transfer(FIM): 5 Additional Goals: 1-Demonstrate ADL Tasks, 2-Verbalize Understanding, 3- ImproveStrength/Karli 1=Demonstrate adherence to instructed precautions during ADL tasks. 2=Patient will verbalize/demonstrate understanding of assistive devices/ modifications for ADL. 3=Patient will improve strength/tolerance for activity to enable patient to perform ADL's. OT Education/Plan Discharge Recommendations Plan/Recommendations: Continue POC Treatment Plan/Plan of Care Patient would benefit from OT for education, treatment and training to promote independence in ADL's, mobility, safety and/or upper extremity function for ADL' s. Plan of Care: ADL Retraining, Functional Mobility, Group Exercise/Act as Ind, UE Funct Exercise/Act Treatment Duration: Sep 09, 2017 Frequency: At least 5 of 7 days/Wk (IRF) Estimated Hrs Per Day: 1.5 hours per day Agreement: Yes Rehab Potential: Good Time/GCodes Start Time: 09:00 Stop Time: 10:09 Total Time Billed (hr/min): 69 Billed Treatment Time 1 visit-ADL 5 (69 min) RYAN PEREZ Aug 30, 2017 09:58
--- NOTE | 2017-08-30 11:52 | ST Cognitive Linguistic Eval ---
Speech Evaluation-General Medical Diagnosis right TKR revision Onset Date: Aug 24, 2017 Therapy Diagnosis Therapy Diagnosis: Cognitive Linguistic Skills WNL Precautions Precautions/Isolations: Fall Prevention, Standard Precautions Referral Referring Physician: Dr. Toi Haines Reason for Referral: Evaluation/Treatment Cognitive Evaluation Medical History Pertinent Medical History: COPD, DM, GERD, HTN, OA, Smoking Reviewed History: Yes Social History Current Living Status: Alone Speech PLF-Current Status Prior Level of Function The patient denied prior challenges with speech, language, or cognition. Subjective The patient was recently admitted to [facility] for a knee revision procedure. The patient greeted the clinician and was agreeable to participation in the cognitive evaluation. Language Eval: Auditory Comprehends Simple Yes/No Ques: Functional Indent/Objects Multiple Sanchez: Functional Ident/Pics in Multiple Sanchez: Functional Follows 1-Step Commands: Functional Follows Complex Directions: Functional Follows General Conversations: Functional Language Eval: Verbal Language Completes Spontaneous Greeting: Functional Produces Auto, Serial Info: Functional Imitates Simple Words/Phrases: Functional Word Finding: Functional Requests Basic Needs: Functional States Basic Personal Info: Functional Expresses Complex Ideas: Functional Cognitive Patient Orientation The patient was independently oriented to self, month, day of week, and year. Objective Cognitive Domain Attention: WNL Memory: WNL Problem Solving: Functional Objective Impression The patient demonstrated cognitive linguistic skills WNL and appropriate for completion of ADL's. Communication/Social Cognition Comprehension: 6 Expression: 6 Social Interaction: 6 Problem Solvin Memory: 6 Speech Patient Assess Expression of Ideas/Wants: Expression (4) Understanding [place] Content: Understands (4) Brief Interview-Mental Status: Yes Repetition of Three Words: Three (3) Temporal Orientation: Year: Correct (3) Temporal Orientation: Month: Accurate within 5 days(2) Temporal Orientation: Day: Correct (1) Recall : Wear to say "Sock": Yes, no cue required (2) Recall : Color: Yes, no cue required (2) Recall : Bed: Yes, no cue required (2) Speech-Plan Treatment Plan Speech Therapy Treatment Plan: Discontinue ST Evaluation, only. Frequency: Modified Program (IRF) Estimated Hrs Per Day: Other Rehab Potential: Good Safety Risks/Education Teaching Recipient: Patient Teaching Methods: Discussion Response to Teaching: Verbalize Understanding Education Topics Provided: Results, Recommendations, Plan of Care Time Speech Therapy Time In: 10:45 Speech Therapy Time Out: 11:00 Total Billed Time: 15 Billed Treatment Time 1, SPSNDZULMA PYLE Aug 30, 2017 11:52
[2017-08-30 16:15] VITALS: BP 151/84
--- NOTE | 2017-08-30 18:22 | PM & R (SOAP) Progress Note ---
Subjective Time Seen by Provider: 12:00 Subjective/Events-last exam Patient has progressed well and rapidly. Patient Modified Independent for transfers.Contacted by SW earlier today who indicates that patient requesting discharge today Objective Exam Last Set of Vital Signs Vital Signs Date Time Temp Pulse Resp B/P (MAP) Pulse Ox O2 Delivery O2 Flow Rate FiO2 08/30/17 16:15 71 18 151/84 94 Room Air 08/30/17 05:23 97.5 Capillary Refill : I&O Intake and Output 08/30/17 00:00 Intake Total 1460 ml Balance 1460 ml Intake Oral 1460 ml # Voids 8 General: Alert, Oriented X3, Cooperative, No Acute Distress HEENT: Atraumatic, PERRLA, EOMI, Mucous Memb Moist/Lower [place] Neck: Supple, No JVD Lungs: Clear to Auscultation Heart: Regular Rate Abdomen: Normal Bowel Sounds, Soft, No Tenderness Extremities: Other (trace edema rt ankle) Skin: Other (incision covered with island dressing) Neuro: Other (Functional strenght BUES with some limited AROM at shoulders LLE 4/5 RT Hip flex 4/5 3+/5 at knee and ankle) Results Lab Laboratory Tests 08/27/17 20:31: Glucometer 142H 08/28/17 05:15: Glucometer 86 08/28/17 05:19: White Blood Count 8.9, Red Blood Count 4.48, Hemoglobin 13.9, Hematocrit 41, Mean Corpuscular Volume 91, Mean Corpuscular Hemoglobin 31, Mean Corpuscular Hemoglobin Concent 34, Red Cell Distribution Width 13.0, Platelet Count 177, Mean Platelet Volume 11.1H, Neutrophils (%) (Auto) 41L, Lymphocytes (%) (Auto) 29, Monocytes (%) (Auto) 11, Eosinophils (%) (Auto) 19H, Basophils (%) (Auto) 1 , Neutrophils # (Auto) 3.6, Lymphocytes # (Auto) 2.6, Monocytes # (Auto) 1.0, Eosinophils # (Auto) 1.7H, Basophils # (Auto) 0.1, Sodium Level 142, Potassium Level 3.8, Chloride Level 105, Carbon Dioxide Level 25, Anion Gap 12, Blood Urea Nitrogen 18, Creatinine 1.08, Estimat Glomerular Filtration Rate > 60, BUN/ Creatinine Ratio 17, Glucose Level 90, Calcium Level 8.9, Total Bilirubin 0.5, Aspartate Amino Transf (AST/SGOT) 19, Alanine Aminotransferase (ALT/SGPT) 7, Alkaline Phosphatase 48, Total Protein 6.0L, Albumin 3.3 08/28/17 11:18: Glucometer 112H 08/28/17 16:25: Glucometer 128H 08/28/17 20:18: Glucometer 141H 08/29/17 06:53: Glucometer 94 08/29/17 11:01: Glucometer 115H 08/29/17 15:57: Glucometer 114H 08/29/17 20:28: Glucometer 125H 08/30/17 03:40: Glucometer 84 08/30/17 11:25: Glucometer 134H Assessment/Plan Assessment Revision RT TKR s/p poly exchange DR Abbott 08-25-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 SARI CORRALES MD Aug 30, 2017 6:22 pm
--- NOTE | 2017-08-30 18:31 | Individualized Plan of Care ---
Individualized Plan of Care Rehab Nursing IPOC Order Admission Date Aug 26, 2017 at 10:45 Current Orders Orders Ambulate TID (08/26/17 11:45) Sequential Compression Device 08,20 (08/26/17 11:45) Dvt/Vte Risk - Notifiy Physici (08/26/17 11:45) Staple/Suture Removal ONCE (09/02/17 09:00) Follow-Up Appointment (08/26/17 11:47) General/Regular (08/26/17 Lunch) Admission-Acute Rehab Unit (08/26/17 12:18) Vital Signs: Routine 08,16,00 (08/26/17 12:18) Van Driver Helper-Inpt Rehab (08/26/17 12:18) Rehab Nursing Orders-Ipoc (08/26/17 12:18) Physical Therapy Rehab Orders (08/26/17 12:18) Occupational Therapy Rehab Ord (08/26/17 12:18) Speech Therapy Rehab Orders (08/26/17 12:18) Turn And Reposition Q2HR (08/26/17 12:18) Intake & Output 06,14,22 (08/26/17 12:18) Weekly Weight (Lbs) WEEK (08/26/17 12:18) Code/Resuscitation (08/26/17 12:23) Accucheck Achs ACHS (08/26/17 12:23) Continuous Passive Motion (08/26/17 12:23) Sequential Compression Device 08,20 (08/26/17 12:23) Tigre Hose 09,21 (08/26/17 12:23) Weight Bearing Status (08/26/17 12:23) Aspirin Enteric Coated Tablet (Ecotrin T (08/26/17 21:00) Bisacodyl Suppository (Dulcolax Supposit (08/26/17 12:30) Linagliptin Tablet (Tradjenta Tablet) (08/26/17 21:00) Hydrocodone/Apap 10/325 Tablet (Lortab 1 (08/26/17 12:30) Enoxaparin Injection (Lovenox Injection) (08/27/17 09:00) Pantoprazole Tablet (Protonix Tablet) (08/27/17 06:30) Pioglitazone Tablet (Actos Tablet) (08/27/17 07:00) Senna S Tablet (Senokot S Tablet) (08/26/17 21:00) Tramadol Tablet (Ultram Tablet) (08/26/17 12:30) Insulin (Regular) Human (Humulin R (Per (08/26/17 16:00) Metoprolol Succinate (Xl) Tab (Toprol Xl (08/27/17 09:00) Consult Physician (08/26/17 12:23) Incentive Spirometryrt Initial (08/26/17 12:23) Patient Visit (08/26/17 ) Pt Eval Moderate Complexity (08/26/17 ) Functional Activities, Ea 15 (08/26/17 ) Exercise Therap, Ea 15 Min (08/26/17 ) Patient Visit (08/26/17 ) Exercise Therap, Ea 15 Min (08/26/17 ) Gait Training, Ea 15 Min (08/26/17 ) Linagliptin Tablet (Tradjenta Tablet) (08/27/17 07:00) Metoprolol Succinate (Xl) Tab (Toprol Xl (08/27/17 07:00) Atorvastatin Tablet (Lipitor) (08/26/17 21:00) Atorvastatin Tablet (Lipitor Tablet) (08/26/17 21:16) Atorvastatin Tablet (Lipitor Tablet) (08/26/17 21:00) Cbc With Automated Diff (08/28/17 06:00) Comprehensive Metabolic Panel (08/28/17 06:00) Patient Visit (08/27/17 ) Exercise Therap, Ea 15 Min (08/27/17 ) Gait Training, Ea 15 Min (08/27/17 ) Functional Activities, Ea 15 (08/27/17 ) Therapeutic, Group (08/27/17 ) Patient Visit (08/28/17 ) Exercise Therap, Ea 15 Min (08/28/17 ) Gait Training, Ea 15 Min (08/28/17 ) Attending Discharge (08/30/17 09:53) Patient Visit (08/30/17 ) Speech Sound Lang Comp (08/30/17 ) Patient Visit (08/30/17 ) Gait Training, Ea 15 Min (08/30/17 ) Functional Activities, Ea 15 (08/30/17 ) Rehab Nursing Orders: Diseage Management, Edu in Press Rel Techn, Hydration Management, Nutrition Management, Pain Management Other Nursing Orders: monitor for postop constipation and urinary retention PT IPOC Problem List: Activity Tolerance, Functional Strength, Safety Treatment Plan: Continue Plan of Care Bed Mobility, Education, Functional Activity Karli, Functional Strength, Group Therapy, Gait, Safety, Therapeutic Exercise, Transfers Treatment Duration: Sep 10, 2017 Frequency: At least 5 of 7 days/Wk (IRF) Estimated Hrs Per Day: 1.5 hours per day OT IPOC Problems: Decreased Activ Tolerance, Decreased UE Strength, Impaired Bed Mobility, Impaired Funct Balance, Impaired I ADL's, Impaired Self-Care Skills, Restricted Funct UE ROM OT Treatment, Training and Edu: Yes Plan of Care: ADL Retraining, Functional Mobility, Group Exercise/Act as Ind, UE Funct Exercise/Act Treatment Duration: Sep 09, 2017 Frequency: At least 5 of 7 days/Wk (IRF) Estimated Hrs Per Day: 1.[address] IPOC Speech Therapy Treatment Plan: Discontinue ST Treatment Duration: Aug 30, 2017 Frequency: Modified Program (IRF) Estimated Hrs Per Day: Other Van Driver Helper/Case Mgmt Van Driver Helper/Case Managemen: Discharge Planning, Patient/Family Counseling Physician IPOC Medical Issues being managed closely and that require the 24 hour availability of a physician:DM postop anemia chronic back pain Medical Issues: Bowel/Bladder Function, DVT Prophylaxis, Falls Precautions, Fluid/Electrolyte/Nutrition Balance, Infection Protection, Pain Management, Wound Care, Other (List) (as per above) Brief Synthesis of Preadmission Screen, Post-Admission Evaluation, and Therapy Evaluations: 77 yo male s/p poly exchaneg for instability of Rt Knee prostheise referred to IRU for ongoing care and therapies as he had been living alone and was Modified Independent with a cane prior to surgery.PMH Chronic back pain and DM IGC 08.61 Etiologic DX Instability of Internal rt knee prosthesis Medical Prognosis: good Anticipated Length of Stay: 08-30-17 Rehab Goals Modified Independent for adls and mobility skills Anticipated discharge destinat: Home with [facility] SARI CORRALES MD Aug 30, 2017 18:31
--- NOTE | 2017-08-31 09:06 | Therapy Team Discharge Summary ---
Therapy Discharge Summary Discharge Recommendations Date of Discharge Aug 30, 2017 at 16:15 Therapy D/C Recommendations: Home w/ Family Support, Occupational Therapy Home Care, Physical Therapy Home Care Occupational Therapy Pt. has been seen by occupational therapy to increase overall strength and independence with daily tasks. Pt. has made significant progress in all areas. Did not meet every goal, as still required SBA with some goals. However, met most. Pt. was able to ambulate and complete most tasks with Mod I. Still did require SBA to don LE clothing. Pt. discharging home with family support. Recommend home health occupational therapy if pt. willing. Pt. would also benefit from tub transfer bench at home. Decreased Activ Tolerance, Decreased UE Strength, Impaired I ADL's, Impaired Self-Care Skills, Restricted Funct UE ROM PT Chief Writer Goals Fci Goals PT Fci Goals Time Frame: Sep 10, 2017 Transfers (B,C,W/C) (FIM): 6 Roll Left to Right (QC): 6 Sit to Lying (QC): 6 Lying-Sitting on Side/Bed(QC): 6 Sit to Stand (QC): 6 Chair/Yux-ip-Hpwcq Xfer(QC): 6 Car Transfer (QC): 6 Does the Patient Walk: Yes Gait (FIM): 6 Gait distance (FIM): 3=150 ft Distance: 400' Walk 10 feet (QC): 6 Walk 10ft-Uneven Surface(QC): 6 Walk 50ft with 2 Turns (QC): 6 Walk 150 ft (QC): 6 Gait Level of Assist: 6 Gait Assistive Device: FWW Stairs (FIM): 5 # of Steps: 4 1 Step (curb) (QC): 5 4 Steps (QC): 5 12 Steps (QC): 9 OT Fci Goals Fci Goals Time Frame: Sep 09, 2017 Eating (FIM): 6 (met) Eating (QC): 6 (met) Oral Hygiene (QC): 6 (met) Grooming(FIM): 6 (met) Bathing(FIM): 5 (met) Shower/Bathe Self (QC): 5 (met) Upper Body Dressing(FIM): 6 (met) Upper Body Dressing (QC): 6 (met) Lower Body Dressing(FIM): 6 (not met) Lower Body Dressing (QC): 6 (not met) On/Off Footwear (QC): 6 (not met) Toileting(FIM): 6 (met) Toileting Hygiene (QC): 6 (met) Transfers (B,C,W/C) (FIM): 6 (met) Toilet/Commode Transfer(FIM): 6 (met) Toilet/Commode Transfer (QC): 6 (met) Shower Transfer(FIM): 5 (met) Additional Goals: 1-Demonstrate ADL Tasks, 2-Verbalize Understanding, 3- ImproveStrength/Karli 1=Demonstrate adherence to instructed precautions during ADL tasks. 2=Patient will verbalize/demonstrate understanding of assistive devices/ modifications for ADL. 3=Patient will improve strength/tolerance for activity to enable patient to perform ADL's. FRANSICO PAEZ OT Aug 31, 2017 09:06
--- NOTE | 2017-08-31 11:13 | Therapy Team Discharge Summary ---
Therapy Discharge Summary Discharge Recommendations Date of Discharge Aug 30, 2017 at 16:15 Therapy D/C Recommendations: Home w/ Family Support, Occupational Therapy Home Care, Physical Therapy Home Care Physical Therapy This patient has been seen for skilled PT intervention post right knee revision. Prior to admission, he was mod indep with all functional mobility. Upon admit to this unit, he required SBA with transfers, SBA with gait and went up/down 4 steps with supervision. Treatment consisted of functional strength, ROM, gait transfers and functional safety. At discharge he was mod indep with all tranfers and gait. He has achieved all goals to an acceptable level; he has made good functional progress. Pt anxious to discharge home and voiced wanting to leave on 08/30/17. Recommend [facility] PT to follow. DC PT from [facility]. Occupational Therapy Decreased Activ Tolerance, Decreased UE Strength, Impaired I ADL's, Impaired Self-Care Skills, Restricted Funct UE ROM PT Shelter Goals Choir Member Goals PT Shelter Goals Time Frame: Sep 10, 2017 Transfers (B,C,W/C) (FIM): 6 (met) Roll Left to Right (QC): 6 (met) Sit to Lying (QC): 6 (met) Lying-Sitting on Side/Bed(QC): 6 (met) Sit to Stand (QC): 6 (mt) Chair/Ims-qj-Ygeep Xfer(QC): 6 (met) Car Transfer (QC): 6 (scored a 5) Does the Patient Walk: Yes Gait (FIM): 6 (met) Gait distance (FIM): 3=150 ft Distance: 400' Walk 10 feet (QC): 6 (met) Walk 10ft-Uneven Surface(QC): 6 (met) Walk 50ft with 2 Turns (QC): 6 (met) Walk 150 ft (QC): 6 (met) Gait Level of Assist: 6 Gait Assistive Device: FWW Stairs (FIM): 5 (met) # of Steps: 4 1 Step (curb) (QC): 5 (met) 4 Steps (QC): 5 (met) 12 Steps (QC): 9 All goals have been achieved to a satisfactory level. OT Choir Member Goals Choir Member Goals Time Frame: Sep 09, 2017 Eating (FIM): 6 (met) Eating (QC): 6 (met) Oral Hygiene (QC): 6 (met) Grooming(FIM): 6 (met) Bathing(FIM): 5 (met) Shower/Bathe Self (QC): 5 (met) Upper Body Dressing(FIM): 6 (met) Upper Body Dressing (QC): 6 (met) Lower Body Dressing(FIM): 6 (not met) Lower Body Dressing (QC): 6 (not met) On/Off Footwear (QC): 6 (not met) Toileting(FIM): 6 (met) Toileting Hygiene (QC): 6 (met) Transfers (B,C,W/C) (FIM): 6 (met) Toilet/Commode Transfer(FIM): 6 (met) Toilet/Commode Transfer (QC): 6 (met) Shower Transfer(FIM): 5 (met) Additional Goals: 1-Demonstrate ADL Tasks, 2-Verbalize Understanding, 3- ImproveStrength/Karli 1=Demonstrate adherence to instructed precautions during ADL tasks. 2=Patient will verbalize/demonstrate understanding of assistive devices/ modifications for ADL. 3=Patient will improve strength/tolerance for activity to enable patient to perform ADL's. RYAN TRAVIS PT Aug 31, 2017 11:13
--- NOTE | 2017-08-31 23:39 | DISCHARGE SUMMARY ---
DATE OF SERVICE: HISTORY OF PRESENT ILLNESS: The patient is a 77-year-old male with known history of type 2 diabetes mellitus, COPD, hypertension, hyperlipidemia and fall with resulting subdural hematoma, who lives alone, who had been modified independent with a walker, who underwent a right total knee poly exchange with Dr. Abbott. 06/25/2018 at [facility] for instability of the prosthesis. The patient tolerated the procedure well, but had a decline in his functional independence. He was referred to inpatient rehabilitation unit for ongoing care and therapies. PAST MEDICAL HISTORY: Hypertension, renal lithiasis, GERD, subdural hematoma secondary to fall, chronic constipation and arthritis. He has had 2 prior spine surgeries including a recent decompression surgery for C1 subluxation, chronic back pain, presbycusis, bilateral hearing aids, COPD, right total knee replacement in the past with revision as per above, lumbar spine surgery by Dr. Zuniga in [place], [place] approximately 30 years ago and a cervical spine surgery with Dr. East neurosurgery in [place], [place] as per above. He is a , has a son in [place]. MEDICAL COURSE: The patient was followed by Dr. Haines and Dr. Palacios while on the rehab unit. He continued to utilize Lortab p.r.n. for pain. He was afebrile during his stay. His incision was healing well. He had decreased pain. His pulse on 08/30 was 71, respirations 18, blood pressure 151/84, O2 sat 94% on room air. CBC on 08/28 showed WBC 8.9, H and H 13.9/41 platelet count 177,000. Glucometer readings from 08/29 to 08/30 varied between 84 and 134. Chemistry on 08/28 showed normal electrolytes, BUN and creatinine, total protein was borderline low at 6.0, albumin normal at 3.3. REHABILITATION COURSE: He progressed well with his therapies. He had increased strength and endurance. He was assessed by speech therapy upon admission and found to be cognitively intact and they signed off. OT notes that upon admission, he was modified independent for eating and grooming, min assistance for shower, bathing, setup for upper body dressing, min assist for lower body dressing and shower transfers. Upon discharge, he is able to ambulate and complete most tasks with modified independence. He does still require standby assist with donning lower body dressing. He will have assistance from home health care and his family upon discharge. PT notes upon admission to rehab unit, the patient was standby assist for transfers and gait short distances with a front wheel walker. Upon discharge, he is modified independent for bed mobility, transfers and gait with a wheeled walker. DISCHARGE INSTRUCTIONS: He will have followup with Dr. Abbott of orthopedics and Dr. Palacios PCP as per their schedule. The patient will have home health care, continue current diet. DISCHARGE MEDICATIONS: ASA 325 mg p.o. at bedtime, hydrocodone APAP 1 tablet p.o. b.i.d. p.r.n. moderate pain 10/325 strength, metoprolol 25 mg p.o. daily, Centrum Silver one tablet p.o. daily, Protonix 40 mg p.o. daily, Actos 15 mg p.o. daily, pravastatin 40 mg p.o. at bedtime and Januvia 50 mg p.o. daily. DISCHARGE DIAGNOSES: 1. Rehabilitation ambulatory dysfunction secondary to poly exchange right total knee for instability of right total knee prosthesis, Dr. Abbott 08/25/2017. 2. Diabetes mellitus 2, controlled with medication. 3. Postoperative DVT prophylaxis on Lovenox subcu, now discontinued. 4. Gastroesophageal reflux disease, on proton pump inhibitor. 5. Chronic constipation, on meds. 6. Chronic back pain status post lumbar spine surgery, remote. 7. Presbycusis, bilateral hearing aids. 8. Chronic obstructive pulmonary disease. 9. History of renal lithiasis. 10. C1 subluxation status post decompression cervical spine surgery Dr. East, 11.correction insulin use 12. Hx of falling 13. HTN 14. HLP neurosurgery in [place], [place]. CONDITION AT DISCHARGE: Improved and stable. PROGNOSIS: Rehab prognosis appears good for continued improvement at home and return to independent living with some assistance from home health and family as needed. Job ID: [id number] DocumentID: [id number] Dictated Date: 08/31/2017 10:58:00 Office Machine Servicer Date: 08/31/2017 23:38:40 Dictated By: SARI HAINES MD [facility]
== END 2017-08-30 16:15 | disposition home health service (06) | DRG 950 ==
PROVIDERS: ADMIT Physical Medicine & Rehabilitation; ATTEND Physical Medicine & Rehabilitation
DX: T84.022D Instability of internal right knee prosthesis, subsequent encounter (principal); Z91.81 History of falling; I10 Essential (primary) hypertension; E11.9 Type 2 diabetes mellitus without complications; J44.9 Chronic obstructive pulmonary disease, unspecified; E78.5 Hyperlipidemia, unspecified; K21.9 Gastro-esophageal reflux disease without esophagitis; K59.09 Other constipation; M54.9 Dorsalgia, unspecified; H91.13 Presbycusis, bilateral; Z79.4 Long term (current) use of insulin
CPT/HCPCS: 36415; 80053; 82962; 85025

== ENCOUNTER 2017-11-17 13:33 | Outpatient (RCR) | payer MEDICARE, OTHER | END 2017-11-17 14:31 | disposition home or self-care (01) | PROVIDERS: ATTEND Nurse Practitioner Family | DX: Z47.1 Aftercare following joint replacement surgery (principal); Z96.651 Presence of right artificial knee joint ==

== ENCOUNTER → 2018-04-15 | Outpatient (CLI) | payer MEDICARE, OTHER ==
[~2018-04-15] MED LIST changes: +ASPI-983 PO; +BACI28.4 TP; +BACL10TA PO; +FURO40TA4 PO; +HYDR-3812 PO; -IPRA3AMP INH; +IPRA3AMP31 INH; -LOSA50TA36 PO; +LOSA50TA7 PO; -PIOG15TA22 PO; +PIOG15TA67 PO; +POTA8CAP9 PO
[2018-04-15 12:02] LABS: BILIRUBIN,URINE NEGATIVE (NEGATIVE); CLARITY,URINE CLEAR; COLOR,URINE AMBER; GLUCOSE, URINE (UA) NEGATIVE (NEGATIVE); KETONES,URINE NEGATIVE (NEGATIVE); LEUKOCYTE ESTERASE ,URINE 1+ (NEGATIVE); NITRITE,URINE NEGATIVE (NEGATIVE); PH,URINE 6 (5-9); PROTEIN,URINE 1+ (NEGATIVE); UROBILINOGEN,URINE NORMAL (NORMAL)
[2018-04-15 12:18] LABS: AMPHETAMINE SCREEN, URINE NEGATIVE (NEGATIVE); BARBITURATE SCREEN URINE NEGATIVE (NEGATIVE); BENZODIAZEPINES SCREEN URINE NEGATIVE (NEGATIVE); CANNABINOID SCREEN, URINE NEGATIVE (NEGATIVE); COCAINE SCREEN URINE NEGATIVE (NEGATIVE); METHADONE STAT NEGATIVE (NEGATIVE); METHAMPHETAMINE SCREEN URINE S NEGATIVE (NEGATIVE); OPIATE SCREEN URINE POSITIVE (NEGATIVE); OXYCODONE STAT NEGATIVE (NEGATIVE); PROPOXYPHENE STAT NEGATIVE (NEGATIVE); TRICYCLIC ANTIDEPRESSANTS SCRE NEGATIVE (NEGATIVE)
[2018-04-15 12:18] LABS: BACTERIA,URINE NEGATIVE /HPF; WBC,URINE 0-2 /HPF
== END ==
LOC: HH 04-14 08:00
PROVIDERS: ATTEND Family Medicine
DX: Z51.81 Encounter for therapeutic drug level monitoring (principal); Z79.891 Long term (current) use of opiate analgesic
CPT/HCPCS: 80306; 81000

== ENCOUNTER → 2019-10-11 | Outpatient (CLI) | payer MEDICARE, OTHER ==
[~2019-10-11] MED LIST changes: -ACET-77 PO; +ACET-78 PO; +ACHD5005 PO; -HYDR-3812 PO; -HYDR-3820 PO; +LOSA50TA63 PO; -LOSA50TA7 PO; -METO-370 PO; -METO-387 PO; +METO50TA7 PO; +MTP25TSR PO; -POLY17PO23 PO; +POLY17PO31 PO; +POTA8CAP20 PO; -POTA8CAP9 PO; -TRAM50TA2 PO; +TRM50T PO
--- NOTE | 2019-10-11 16:41 | Diagnostic Imaging Report ---
INDICATION: Right leg pain. Right leg venous Doppler study was performed in the routine fashion with color flow Doppler and waveform analysis. FINDINGS: The right common femoral vein, superficial femoral vein, popliteal vein and visualized portion of the tibial veins show normal compressibility and venous flow patterns. There is normal augmentation. No sonographic abnormality is visualized in the area of pain in the right groin. IMPRESSION: No evidence of deep vein thrombosis of the major veins of the right leg. Dictated by: Dictated on workstation # [id number]
== END ==
LOC: RAD 15:19
PROVIDERS: ATTEND Nurse Practitioner Family
DX: M79.604 Pain in right leg (principal); R10.31 Right lower quadrant pain

== ENCOUNTER 2020-02-07 13:16 | Outpatient (RCR) | payer MEDICARE, OTHER ==
[~2020-02-07 13:16] MED LIST changes: +ASPI-1238 PO; -ASPI-983 PO; -OXYC-465 PO; +OXYC-556 PO; -PANT40TA3 PO; +PANT40TA52 PO
[2020-02-07 14:01] LABS: BASOPHILS # (AUTO) 0.1 10^3/uL (0.0-0.1); BASOPHILS % (AUTO) 1 % (0-10); EOSINOPHILS # (AUTO) 2.1 10^3/uL (0.0-0.3); EOSINOPHILS % (AUTO) 20 % (0-10); HEMATOCRIT 53 % (40-54); HEMOGLOBIN 17.8 G/DL (13.3-17.7); LYMPHOCYTES % (AUTO) 28 % (12-44); MEAN CORPUSCULAR HEMOGLOBIN 31 PG (25-34); MEAN CORPUSCULAR HGB CONC 34 G/DL (32-36); MEAN CORPUSCULAR VOLUME 92 FL (80-99); MEAN PLATELET VOLUME 10.5 FL (7.4-10.4); MONOCYTES # (AUTO) 0.8 X 10^3 (0.0-1.0); MONOCYTES % (AUTO) 8 % (0-12); NEUTROPHILS # (AUTO) 4.7 X 10^3 (1.8-7.8); NEUTROPHILS % (AUTO) 44 % (42-75); PLATELET COUNT 234 10^3/uL (130-400); WHITE BLOOD COUNT 10.6 10^3/uL (4.3-11.0)
[2020-02-07 14:29] LABS: ALBUMIN 3.9 GM/DL (3.2-4.5); BILIRUBIN,TOTAL 0.4 MG/DL (0.1-1.0); CALCIUM 9.2 MG/DL (8.5-10.1); CREATININE SERUM 1.4 MG/DL (0.60-1.30); POTASSIUM 4.6 MMOL/L (3.6-5.0)
== END 2020-05-07 | disposition home or self-care (01) ==
LOC: ONC 13:16
PROVIDERS: ATTEND Internal Medicine Hematology & Oncology
DX: D58.2 Other hemoglobinopathies (principal); R55 Syncope and collapse; I10 Essential (primary) hypertension; E11.9 Type 2 diabetes mellitus without complications; E78.5 Hyperlipidemia, unspecified; F17.210 Nicotine dependence, cigarettes, uncomplicated
CPT/HCPCS: 80053; 83540; 83550; 84402; 84403; 85025; G0463; 99214

== ENCOUNTER → 2020-07-09 | Outpatient (CLI) | payer MEDICARE, OTHER ==
[2020-07-09 14:09] LABS: BASOPHILS # (AUTO) 0.1 10^3/uL (0.0-0.1); BASOPHILS % (AUTO) 1 % (0-10); EOSINOPHILS # (AUTO) 1.7 10^3/uL (0.0-0.3); EOSINOPHILS % (AUTO) 17 % (0-10); HEMATOCRIT 55 % (40-54); HEMOGLOBIN 18.2 g/dL (13.3-17.7); LYMPHOCYTES # (AUTO) 2.9 10^3/uL (1.0-4.0); LYMPHOCYTES % (AUTO) 29 % (12-44); MEAN CORPUSCULAR HEMOGLOBIN 31 pg (25-34); MEAN CORPUSCULAR HGB CONC 33 g/dL (32-36); MEAN CORPUSCULAR VOLUME 93 fL (80-99); MEAN PLATELET VOLUME 10.1 fL (9.0-12.2); MONOCYTES # (AUTO) 0.7 10^3/uL (0.0-1.0); MONOCYTES % (AUTO) 7 % (0-12); NEUTROPHILS # (AUTO) 4.5 10^3/uL (1.8-7.8); NEUTROPHILS % (AUTO) 46 % (42-75); PLATELET COUNT 229 10^3/uL (130-400); WHITE BLOOD COUNT 9.8 10^3/uL (4.3-11.0)
[2020-07-09 14:27] LABS: EOSINOPHILS % (MANUAL) 20 %; LYMPHOCYTES % (MANUAL) 28 %; MONOCYTES % (MANUAL) 8 %; NEUTROPHILS % (MANUAL) 44 %; RBC MORPH NORMAL
[2020-07-09 14:30] LABS: BILIRUBIN,TOTAL 0.7 MG/DL (0.1-1.0); CALCIUM 9.3 MG/DL (8.5-10.1); CREATININE SERUM 1.26 MG/DL (0.60-1.30); POTASSIUM 4.3 MMOL/L (3.6-5.0); TOTAL PROTEIN 7.4 GM/DL (6.4-8.2)
[2020-07-09 15:01] LABS: FREE T4 (FREE THYROXINE) 0.96 NG/DL (0.70-1.48)
--- NOTE | 2020-07-09 17:03 | Diagnostic Imaging Report ---
EXAMINATION: Chest 2 view HISTORY: COPD. COMPARISON: 08/17/2017. FINDINGS: There are patchy bibasilar airspace opacities. No pleural effusion or pneumothorax. Heart size is normal. IMPRESSION: 1. Patchy bibasilar airspace opacities suggestive of pneumonia. Dictated by: Dictated on workstation # [id number]
== END ==
LOC: RAD 13:40
PROVIDERS: ATTEND Family Medicine
DX: J44.9 Chronic obstructive pulmonary disease, unspecified (principal); D75.1 Secondary polycythemia; R91.8 Other nonspecific abnormal finding of lung field; R10.13 Epigastric pain
CPT/HCPCS: 36415; 71046; 80053; 82150; 82728; 83540; 83690; 84439; 84443; 85007; 85027

== ENCOUNTER → 2020-07-15 | Outpatient (CLI) | payer MEDICARE, OTHER ==
--- NOTE | 2020-07-15 15:06 | Diagnostic Imaging Report ---
PROCEDURE: CT chest without contrast. TECHNIQUE: Multiple contiguous axial images were obtained through the chest without the use of intravenous contrast. Auto Exposure Controls were utilized during the CT exam to meet ALARA standards for radiation dose reduction. INDICATION: Bilateral pulmonary opacities. Cough. History of tobacco use. CORRELATION STUDY: Chest radiograph 07/09/2020 FINDINGS: Heart size is borderline enlarged. There is rather extensive, dense areas of coronary artery calcification. Thoracic aorta is slightly prominent at the ascending aorta measuring 4.3 cm. There are prominent but non-pathologically enlarged appearing mediastinal and subcarinal lymph nodes. The visualized portion of the thyroid gland appearing unremarkable. Gastroesophageal junction generally unremarkable. Calcified left hilar granulomas are present. Lung bell demonstrate rather coarse prominent interstitial markings to be present diffusely. There are scattered areas of likely fibrosis and some early subpleural honeycombing. This appears more pronounced in the mid and lower lung distribution. More focal pulmonary opacities noted about the bilateral lower lobes and, to a lesser degree, the right middle lobe and lingula left upper lobe. May reflect superimposed infiltrate versus edema. Visualized portion of the upper abdomen demonstrates multiple hepatic cysts to be present. Stomach is distended with retained gastric contents. There is rather pronounced thoracic spondylosis present. Various degrees of disc space narrowing and endplate osteophyte formation noted. IMPRESSION: 1. Findings do suggest likely rather severe interstitial lung disease. Likely superimposed areas of infiltrate and/or edema noted about both lower lung distributions. 2. Cardiac enlargement with rather marked severity coronary artery calcification. Dictated by: Dictated on workstation # [id number]
== END ==
LOC: RAD 13:15
PROVIDERS: ATTEND Family Medicine
DX: J98.4 Other disorders of lung (principal); I51.7 Cardiomegaly
CPT/HCPCS: 71250

== ENCOUNTER → 2021-03-03 | Outpatient (CLI) | payer MEDICARE, OTHER ==
[~2021-03-03] MED LIST changes: -POLY17PO31 PO; +POLY17PO54 PO
--- NOTE | 2021-03-03 17:01 | Diagnostic Imaging Report ---
INDICATION: Left lower leg swelling. TECHNIQUE: Multiple real-time grayscale images were obtained over the left lower extremity in various projections, bilaterally. Additional duplex Doppler and color Doppler images were also obtained. CORRELATION STUDY: None FINDINGS: Color and grayscale sonographic images demonstrate no intraluminal defect within the visualized portion of the common femoral, superficial femoral and/or popliteal veins to suggest thrombus formation. These vessels demonstrate normal response to compression and augmentation. No soft tissue fluid collection. IMPRESSION: 1. Negative for deep venous thrombosis of the left leg. Dictated by: Dictated on workstation # [id number]
== END ==
LOC: RAD 15:30
PROVIDERS: ATTEND Family Medicine
DX: M79.89 Other specified soft tissue disorders (principal)